=== PATIENT | male | born 1945 | race Caucasian/White ===

== ENCOUNTER 2017-01-07 00:53 | Emergency (ER) | payer MEDICARE ==
[~2017-01-07] VITALS: Ht 180.3 cm; Wt 97.5 kg
[~2017-01-07 00:53] MED LIST: ASPI325T PO; ATOR20TA15 PO; CARV3.12 PO; CYCL1TAB29 PO; GABA400C5 PO; ISOS30TA3 PO; MULTTAB67 PO; NEXI20CA PO; TAMS0.4C4 PO; TRAM50TA PO; VITA2000 PO; [UNRECOGNIZED DRUG - SUPPLY] SQ
[2017-01-07 00:55] VITALS: BP 182/78; PULSE 77; RESP 16; TEMP 98.5; O2SAT 97
[2017-01-07] MEDS ORDERED: ASPI81CH CHEW (01:54)
[2017-01-07] MEDS ORDERED: GABA600T PO (01:54)
[2017-01-07] MEDS ORDERED: PLAV75TA29 PO (02:09)
[2017-01-07] MEDS ORDERED: CEPH500C PO (02:10)
[2017-01-07] MEDS ORDERED: ROBA500T PO (02:10)
[2017-01-07] MEDS ORDERED: HYDR-3533 PO (02:10)
[2017-01-07] MEDS ORDERED: METHOCARBAMOL 500 MG TAB PO ONE (02:15)
[2017-01-07] MEDS ORDERED: CEPHALEXIN MONOHYDRATE 500 MG CAP PO ONE (02:15)
[2017-01-07] MEDS ORDERED: ACETAMINOPHEN/HYDROcodone 325 MG/5 MG TAB PO ONE (02:15)
--- NOTE | 2017-01-07 02:20 | PD ---
HPI Chief Complaint: Back/ Neck Pain or Injury Time Seen by Provider: 02:15 Travel History International Travel<30 days: No Contact w/Intl Traveler<30days: No Traveled to known affect area: No History of Present Illness HPI 71-year-old white male presents to emergency department with complaints of neck pain for the last several days. He states that he has gotten a new mattress and it is very firm. He states that he has had neck pain in the past and has taken a muscle relaxer. He denies any direct trauma. He does note that he is had some redness, burning and irritation on the tip of his penis. He states that he gets this periodically after being on a new experimental drug for his diabetes. It causes him to urinate frequently. He states that he feels that this is similar to a urinary tract infection. He states that she typically gets antibiotics. He does have an antifungal at home which she has been using. He denies any fever or chills. No nausea vomiting. He states that his sugars have been under control. He does have neuropathy in his feet. PFSH Past Medical History Hx Anticoagulant Therapy: Yes Arthritis: Yes (KNEE) Asthma: No Autoimmune Disease: No Blood Disorders: Yes Anxiety: No Depression: Yes Heart Rhythm Problems: No Cancer: Yes (SKIN) Cardiac Catheterization: Yes Cardiovascular Problems: Yes (9 stents, 5 vessel bypass) High Cholesterol: No Chemotherapy: No Chest Pain: Yes Congestive Heart Failure: No COPD: No Cerebrovascular Accident: No Coronary Artery Disease: Yes Diabetes: Yes Patient Takes Glucophage: No Diminished Hearing: No Endocrine: Yes Gastrointestinal Disorders: Yes (GERD) GERD: Yes Glaucoma: No Genitourinary: No Headaches: No Hepatitis: No Hiatal Hernia: Yes Hypertension: Yes Immune Disorder: No Implanted Vascular Access Dvce: Yes (insulin pump) Kidney Stones: No Musculoskeletal: No Neurologic: Yes (PERIPHERAL NEUROPATHY RLE) Psychiatric: No Reproductive: No Respiratory: Yes (sleep apnea) Migraines: No Myocardial Infarction: No Radiation Therapy: No Renal Failure: No Seizures: No Sickle Cell Disease: No Sleep Apnea: Yes (C-PAP) Thyroid Disease: No Ulcer: No Tetanus Vaccination: < 5 Years Influenza Vaccination: Yes PNEUMOCCOCAL Vaccine (Year): 1 Past Surgical History Abdominal Surgery: Yes (RIGHT INGUINAL HERNIA REPAIR) AICD: No Appendectomy: No Arteriovenous Shunt: No Body Medical Devices: cardiac stents, PINS LEFT HIP Cardiac Surgery: Yes (HEART CATH 7 STENTS; CABG) Cholecystectomy: No Coronary Artery Bypass Graft: Yes (X 5 VESSELS) Coronary Stent: Yes (9 STENTS) Ear Surgery: Yes (HUMBERTO. CATARACT EXTRACT.) Endocrine Surgery: No Eye Surgery: Yes (HUMBERTO. CATARACT) Genitourinary Surgery: No Gynecologic Surgery: No Insulin Pump: No Joint Replacement: No Neurologic Surgery: No Oral Surgery: No Pacemaker: No Thoracic Surgery: No Other Surgery: Yes (NASAL SURGERY) Family History Family Myocardial Infarction: Yes Social History Alcohol Use: No Tobacco Use: No Substance Use: No Allergies-Medications (Allergen,Severity, Reaction): Coded Allergies: Sulfamethoxazole (Verified Allergy, Severe, Rash, 01/07/17) Reported Meds & Prescriptions Reported Meds & Active Scripts Active Lortab (Hydrocodone-Acetaminophen) 5-325 Mg Tab 1 Tab PO Q6H PRN Robaxin (Methocarbamol) 500 Mg Tab 500 Mg PO QID Cephalexin 500 Mg Cap 500 Mg PO Q6H Reported Plavix (Clopidogrel Bisulfate) 75 Mg Tab 75 Mg PO DAILY Aspirin 81 Mg Chew 81 Mg CHEW DAILY Gabapentin 600 Mg Tab 600 Mg PO TID Multiple Vitamin 1 Tab 1 Tab PO DAILY Vitamin D3 (Cholecalciferol) 2,000 Unit Cap 1 Cap PO DAILY Nexium (Esomeprazole DR) 20 Mg Capdr 1 Cap PO DAILY [medtronic pump] SQ PUMPS HUMALOG Atorvastatin (Atorvastatin Calcium) 20 Mg Tab 1 Tab PO DAILY Tamsulosin (Tamsulosin HCl) 0.4 Mg Cap 1 Cap PO DAILY Isosorbide Mononitrate ER (Isosorbide Mononitrate) 30 Mg Shaye 1 Tab PO DAILY Carvedilol 3.125 Mg Tab 1 Tab PO DAILY Tramadol (Tramadol HCl) 50 Mg Tab 1 Tab PO BID-TID PRN Review of Systems Except as stated in HPI: all other systems reviewed are Neg Physical Exam Narrative GENERAL: Well-developed, well-nourished in no apparent distress. Nontoxic appearing. HEAD: Normocephalic, atraumatic. EYES: Pupils equal round and reactive. Extraocular motions intact. No scleral icterus. No injection or drainage. ENT: Nose clear. Throat without erythema, tonsillar hypertrophy or exudate. Uvula midline. Airway patent. NECK: Trachea midline. Patient has tenderness to the right and left mastoid insertion is down into the paracervical muscles and trapezius. There is mild-to -moderate spasm. Patient has significant decreased range of motion due to pain. No central bony tenderness or spasm. CARDIOVASCULAR: Regular rate and rhythm without murmurs, gallops, or rubs. RESPIRATORY: Clear to auscultation. Breath sounds equal bilaterally. No wheezes , rales, or rhonchi. GASTROINTESTINAL: Abdomen soft, non-tender, nondistended. No hepato-splenomegaly , or palpable masses. No guarding. EXTREMITIES: No clubbing, cyanosis, or edema. No joint tenderness. BACK: Nontender without deformity. No flank tenderness. NEUROLOGICAL: Awake, alert and oriented x 3 .Cranial nerves grossly intact. Motor and sensory grossly within normal limits. Normal speech. GENITOURINARY: Circumcised. Testes descended bilaterally without evidence of rotation. Patient has erythema and irritation to the tip of the glans on the volar surface.. No urethral discharge. Data Data Last Documented VS Vital Signs Date Time Temp Pulse Resp B/P Pulse Ox O2 Delivery O2 Flow Rate FiO2 01/07/17 00:55 98.5 77 16 182/78 97 Room Air Orders Cephalexin (Keflex) (01/07/17 02:15) Acetamin-Hydrocod 325-5 Mg ([place] 5-325 (01/07/17 02:15) Methocarbamol (Robaxin) (01/07/17 02:15) MDM Medical Decision Making Medical Screen Exam Complete: Yes Emergency Medical Condition: Yes Medical Record Reviewed: Yes Differential Diagnosis Differential diagnoses: Fracture, sprain, strain, spasm, UTI, urethritis, tinea Narrative Course Patient's given Lortab 5 a grams by mouth, Norflex 500 mg by mouth, as well as Keflex 500 mg by mouth. Patient's encouraged to continue to use his nystatin cream 4 times daily. This is neck spasm, neck pain, urethritis, tinea Diagnosis Primary Impression: neck spasm Additional Impressions: Neck pain urethritis tinea Patient Instructions: Narcotic given in the ED, General Instructions Additional Instructions: Rest. Ice for the next 3 days followed by heat . Robaxin, Lortab, Keflex. Continue local wound care with soap and water and apply her nystatin cream 4 times daily.. Follow-up with a primary care doctor in 3-5 days. Return to the ER for emergencies. Med/Other Pt SpecificInfo: Prescription(s) given, Wound Care Scripts Hydrocodone-Acetaminophen (Lortab)5-325 Mg Tab1 Tab PO Q6H PRN (PAIN) #20 TAB Prov:Dann Gan MD 01/07/17 Methocarbamol (Robaxin)500 Mg [id number] Mg PO QID #40 TAB Prov:Dann Gan MD 01/07/17 Cephalexin 500 Mg [id number] Mg PO Q6H #40 CAP Prov:Dann Gan MD 01/07/17 Disposition: 01 DISCHARGE HOME Condition: Stable Varun Mae Jan 07, 2017 02:20
== END 2017-01-07 02:30 | disposition home or self-care (01) ==
LOC: NEPD 00:53
DX: M62.838 Other muscle spasm (principal); N34.2 Other urethritis; B35.9 Dermatophytosis, unspecified; E11.40 Type 2 diabetes mellitus with diabetic neuropathy, unspecified; I10 Essential (primary) hypertension; K21.9 Gastro-esophageal reflux disease without esophagitis; I25.10 Atherosclerotic heart disease of native coronary artery without angina pectoris; M13.869 Other specified arthritis, unspecified knee; F32.9 Major depressive disorder, single episode, unspecified
CPT/HCPCS: 99284

== ENCOUNTER 2018-05-08 00:24 | Inpatient (IN) ==
[2018-05-08] MEDS ORDERED: Vancomycin Inj 1,000 MG in Sodium Chlor 0.9% Inj 250 ML IV.SIG ONE (00:42)
[2018-05-08] MEDS ORDERED: Midazolam Inj 5 MG/ML 1 ML Vial ONE (00:42)
[2018-05-08] MEDS ORDERED: Piperacil/Tazo 4.5 GM Premix 4.5 GM/100 ML BAG IV.SIG ONE (00:42)
[2018-05-08] MEDS ORDERED: Propofol 1000 mg/100 ml Inj 1,000 MG/100 ML BOTTLE ONE (00:54)
[2018-05-08] MEDS ORDERED: Lidocaine 2% 100 MG/5 ML Syringe IV.PUSH ONE ×2 (01:04→19:19)
[2018-05-08] MEDS ORDERED: Succinylcholine Inj 200 MG/10 ML Vial IV.PUSH ONE (01:04)
[2018-05-08] MEDS ORDERED: Amiodarone Inj 150 MG in Dextrose 5% in Water Inj 97 ML IV.SIG ONE ×2 (01:04)
[2018-05-08] MEDS ORDERED: Etomidate Inj 20 MG/10 ML Ampul IV.PUSH ONE (01:04)
[2018-05-08 01:24] LABS: Baso # (Auto) 0.1 th/mm3 (0.0-0.2); Baso % (Auto) 0.9 % (0.0-2.0); Eos # (Auto) 0.1 th/mm3 (0.0-0.4); Eos % (Auto) 1.1 % (0.0-4.0); Hematocrit 41.9 % (39.0-51.0); Lymph # (Auto) 2.4 th/mm3 (1.0-4.8); Mean Corpuscular HGB Conc 33.5 % (32.0-36.0); Mean Corpuscular Hemoglobin 31.7 pg (27.0-34.0); Mean Corpuscular Volume 94.4 fL (80.0-100.0); Mean Platelet Volume 9.4 fL (7.0-11.0); Mono # (Auto) 0.4 th/mm3 (0.0-0.9); Mono % (Auto) 4.8 % (0.0-8.0); Neut # (Auto) 5.2 th/mm3 (1.8-7.7); Neut % (Auto) 64.2 % (16.0-70.0); Platelet Count 202 th/mm3 (150-450); Red Blood Count 4.43 mil/mm3 (4.50-5.90); Red Cell Distribution Width 14.6 % (11.6-17.2); White Blood Count 8.1 th/mm3 (4.0-11.0)
--- NOTE | 2018-05-08 01:33 | XR ---
EXAM DATE: 05/08/2018 1:16 AM EST AGE/SEX: 72 years / Male INDICATIONS: E-T tube, right subclavian central line, and orogastric tube placements. CLINICAL DATA: This is the patient's initial encounter. Patient reports that signs and symptoms have been present for 1 day and indicates a pain score of Nonresponsive. MEDICAL/SURGICAL HISTORY: Non-responsive. CABG. COMPARISON: POI, XR RIBS W/ PA CHEST, RIGHT, 04/25/2018. . FINDINGS: A single AP view of the chest demonstrates interval intubation. The tip of the endotracheal tube is 2 cm proximal to the teresa. Right subclavian central line with the tip within the right atrium withou t pneumothorax. Orogastric tube tip courses off the inferior margin of the film. Patchy parenchymal c onsolidations involving both lungs but most pronounced within the right upper lobe. No effusions. Hea rt is normal in size. Median sternotomy wires. CONCLUSION: Lines and tubes as detailed above. Bibasilar parenchymal consolidations. Electronically signed by: Darrel Garcia MD 05/08/2018 1:32 AM EST
--- NOTE | 2018-05-08 01:39 | ED ---
HPI General Chief Complaint: Arrhythmia / Palpitations Stated Complaint: Medical Time Seen by Provider: 05/08/18 00:36 Source: EMS Mode of arrival: EMS Limitations: altered mental status History of Present Illness HPI narrative: 72-year-old male was brought to the emergency room by EMS emergently for altered mental status/unresponsiveness and wide-complex tachycardia on the monitor. They identified the rhythm as V. tach. Patient had pulse. They administered 150 mg of amiodarone on route. Patient arrived with a GCS of 8 and involuntary movements. As per the paramedics the called 911. The had informed them that he is a diabetic on an insulin pump and was recently diagnosed with UTI. He is on antibiotic. He had got up to go to the bathroom and she heard noises that made her believe that he had fallen. She found him unresponsive prior to calling them. His blood sugar was approximately 450 by EMS. Patient arrived with a pulse of 145, wide-complex tachycardia. Blood pressure was relatively stable. He was in no condition to give any meaningful history. He was getting oxygen via nonrebreather. Related Data Allergies Allergy/AdvReac Type Severity Reaction Status Date / Time sulfamethoxazole Allergy Severe Rash Verified 07/06/17 09:08 Review of Systems ROS Unobtainable ROS Unobtainable: unobtainable due to mental status ROS: all other systems reviewed are negative [facility] Medical History Medical History Medical history unknown (Acute) Surgical history unknown (Acute) Social History Social History Substance History: No History of Abuse Second Hand Smoke Exposure: No Smoking Status: Never smoker How Often Do You Have a Drink Containing Alcohol: Never Hx Recent Travel: No Recent Travel in [facility] within the Last 8 Weeks: No Recent Out of Country Travel within the Last 8 Weeks: No Immunization History Tetanus Immunization: >5 Years Exam Narrative Exam Narrative: GENERAL: Unresponsive, shaking movements, in extremis SKIN: Focused skin assessment warm/dry. Mottled and cyanotic HEAD: Atraumatic. Normocephalic. Bilateral knee abrasions with no active bleeding EYES: Pupils equal and round. No scleral icterus. No injection or drainage. ENT: No nasal bleeding or discharge. Mucous membranes pink and moist. NECK: Trachea midline. No JVD. CARDIOVASCULAR: Regular rate and rhythm. Tachycardia. No murmur appreciated. RESPIRATORY: Tachypnic, air hunger. GASTROINTESTINAL: Abdomen soft, non-tender, nondistended. Hepatic and splenic margins not palpable. MUSCULOSKELETAL: No obvious deformities. No clubbing. No cyanosis. No edema. NEUROLOGICAL: GCS of 8 PSYCHIATRIC: Unable to determine Procedures Cardoveresion 3: Time out performed cardioversion: Yes Consent: Emergent Description: Patient was intubated and sedated Joules: 200 (1.) Outcome: No Change Complications: none Central Line Placement Right SC: Time Out Performed: Yes Patient Placed on Monitor/Pulse Ox: Yes MD Prep: mask, gown and gloves Central Line Prep: Chlorhexidine scrub Local anesthesia used: lidocaine 1% Amount of anesthesia used (mL): 5 Ultrasound Used for Placement: No Central Line Lumen Inserted: triple Post Procedure: good blood return, all ports aspirated, flushed, capped and sterile dressing applied Post Procedure X-Ray: tip of catheter in good position Patient Tolerated Procedure: well Complications: none Intubation Time Out Performed: Yes Sedative: etomidate Mg Given: 20 Paralytic: succinylcholine Mg Given: 100 Laryngoscope: Yessica (4) ET Tube Size: 7.5 ET Tube Uncuffed: No Tube Secured Depth (cm): 24 Tube Secured Location: lips Tube Placement Confirmation: visualized tube passing through cords and equal breath sounds bilaterally Patient Tolerated Procedure: well Intubation Complications: none Course Initial Documented Vital Signs Temperature 104.3 F H 05/08/18 00:31 Pulse Rate 150 H 05/08/18 00:31 Respiratory Rate 25 H 05/08/18 00:31 Blood Pressure 126/72 18 00:31 Pulse Oximetry 91 L 05/08/18 00:31 Last Documented Vital Signs Temperature 100.7 F H 05/11/18 20:00 Pulse Rate 80 05/11/18 21:00 Respiratory Rate 16 05/11/18 21:00 Blood Pressure 116/58 L 05/11/18 21:00 Pulse Oximetry 92 L 05/11/18 21:00 Critical Care Time Critical Care Time: Yes Total Critical Care Time: 75 Attestation: Aggregate critical care time was 75 minutes. Time to perform other separately billable procedures was not included in the critical care time. My time did not include minutes spent treating any other patients simultaneously or on activities that did not directly contribute to the patient's treatment. The services I provided to this patient were to treat and/or prevent clinically significant deterioration that could result in: Recalcitrant V. tach, respiratory failure, V. tach management I provided critical care services requiring my management, as noted below: Chart data review, documentation time, medication orders and management, vital sign assessments/reviewing monitor data, ordering and reviewing lab tests, ordering and interpreting/reviewing x-rays and diagnostic studies, care of the patient and discussion of the patient with the admitting physicians. Medical Decision Making MDM Narrative Medical decision making narrative: 1:38 AM after patient was emergently intubated soon after the arrival based on the rhythm on the monitor V. tach was identified. He was given 150 mg of amiodarone a second bolus followed by a drip. He was also given IV calcium 2 g, IV magnesium 2 g, IV lidocaine bolus, IV bicarb 2 A. Subsequently he was also try to be synchronized cardioversion with increments of energy starting at 150 J followed by 200 J and then [address] Blackwood was emergently contacted on the phone. He approved of all the treatments given so far and recommended lidocaine drip in addition. OG and Beauchamp was put in. At this point rectal temperature was found out to be 104.5. Cold IV saline was ordered and IV acetaminophen. Bait Man Dr. Lott was contacted who came down and saw the patient and spoke with the family as well. Antibiotic as per sepsis protocol was ordered. Chest x-ray confirmed the ET tube, central line and OG tube position. At this point patient had converted to a narrower complex tachycardia. Patient has been admitted to the mopper. Family is by the bedside. Medical Screen Exam Complete: Yes Emergency Medical Condition: Yes Lab Data Result diagrams: 05/11/18 05:55 05/11/18 05:55 Lab Results 05/08/18 05/08/18 05/08/18 Range/Units 00:43 01:00 01:00 WBC 8.1 (4.0-11.0) th/mm3 RBC 4.43 L (4.50-5.90) mil/mm3 Hgb 14.0 (13.0-17.0) gm/dL Hct 41.9 (39.0-51.0) % MCV 94.4 (80.0-100.0) fL MCH 31.7 (27.0-34.0) pg MCHC 33.5 (32.0-36.0) % RDW 14.6 (11.6-17.2) % Plt Count 202 (150-450) th/mm3 MPV 9.4 (7.0-11.0) fL Prelim Diff (Auto) Neut % (Auto) 64.2 (16.0-70.0) % Lymph % (Auto) 29.0 (9.0-44.0) % [place] % (Auto) 4.8 (0.0-8.0) % Eos % (Auto) 1.1 (0.0-4.0) % Baso % (Auto) 0.9 (0.0-2.0) % Neut # (Auto) 5.2 (1.8-7.7) th/mm3 Lymph # (Auto) 2.4 (1.0-4.8) th/mm3 [place] # (Auto) 0.4 (0.0-0.9) th/mm3 Eos # (Auto) 0.1 (0.0-0.4) th/mm3 Baso # (Auto) 0.1 (0.0-0.2) th/mm3 WBC Differential . Diff Scan Differential Comment Auto diff final Platelet Estimate (Normal) Platelet Morphology (Normal) PT (9.8-11.6) sec INR Ratio Puncture Site Patient Temperature O2 Saturation (90-100) % ABG pH (7.380-7.420) ABG pCO2 (38-42) mmHg ABG pO2 (61-120) mmHg ABG HCO3 (22-26) mmol/L ABG O2 Content (12.0-20.0) Vol % ABG Base Excess (-2-2) mmol/L ABG Methemoglobin (0-2) % Raul Test Hemoglobin (12.0-16.0) G/DL Carboxyhemoglobin (0-4) % O2 Delivery Device Vent Setting Inspired O2 % Critical Value Sodium 143 (136-145) meq/L Potassium 3.8 (3.5-5.1) meq/L Chloride 105 (98-107) meq/L Carbon Dioxide 23.8 (21.0-32.0) meq/L Anion Gap 14 (5-15) meq/L BUN 12 (7-18) mg/dL Creatinine 1.56 H (0.60-1.30) mg/dL Estimated GFR 44 L (>89) mL/min POC Glucose 416 H (68-110) mg/dl Random Glucose 401 H (74-106) mg/dL Lactic Acid (0.4-2.0) mmol/L Calcium 9.9 (8.5-10.1) mg/dL Prot Corrected Calcium (8.5-10.1) mg/dL Phosphorus (2.5-4.9) mg/dL Magnesium 2.7 H (1.5-2.5) mg/dL Total Bilirubin 0.5 (0.2-1.0) mg/dL AST 26 (15-37) U/L ALT 28 (12-78) U/L Alkaline Phosphatase 116 (45-117) U/L Troponin I 1.51 H* (0.02-0.05) ng/mL Total Protein 5.5 L (6.4-8.2) g/dL Albumin 2.5 L (3.4-5.0) g/dL TSH (0.358-3.740) uIU/mL Urine Color (Yellw/Straw) Urine Clarity (Clear) Urine pH (5.0-8.5) Ur Specific [place] (1.002-1.035) Urine Protein (Neg-Trace) mg/dL Urine Glucose (UA) (Negative) mg/dL Urine Ketones (Negative) mg/dL Urine Occult Blood (Negative) Urine Nitrate (Negative) Urine Bilirubin (Negative) Urine Urobilinogen (Less than 2) mg/dL Ur Leukocyte Esterase (Negative) Urine RBC (0-3) /hpf Urine WBC (0-5) /hpf Ur Squamous Epith Cells (0-5) /hpf Urine Bacteria (None) /hpf Urine Mucus (Occasional) /lpf Micro UA Comment Ur Microscopic Review Urine Culture Comments Nasal Screen MRSA (PCR) (Negative) Urine Opiates Screen (Neg) Ur Barbiturates Screen (Neg) Ur Amphetamines Screen (Neg) U Benzodiazepines Scrn (Neg) Urine Cocaine Screen (Neg) U Cannabinoids Screen (Neg) Serum Alcohol Less than 3 (0-5) mg/dL Hepatitis A IgM Ab (Nonreactive) Hep Bs Antigen (Nonreactive) Hep B Core IgM Ab (Nonreactive) Hep C IgG Ab (Nonreactive) 05/08/18 05/08/18 05/08/18 Range/Units 01:00 01:00 01:30 WBC (4.0-11.0) th/mm3 RBC (4.50-5.90) mil/mm3 Hgb (13.0-17.0) gm/dL Hct (39.0-51.0) % MCV (80.0-100.0) fL MCH (27.0-34.0) pg MCHC (32.0-36.0) % RDW (11.6-17.2) % Plt Count (150-450) th/mm3 MPV (7.0-11.0) fL Prelim Diff (Auto) Neut % (Auto) (16.0-70.0) % Lymph % (Auto) (9.0-44.0) % [place] % (Auto) (0.0-8.0) % Eos % (Auto) (0.0-4.0) % Baso % (Auto) (0.0-2.0) % Neut # (Auto) (1.8-7.7) th/mm3 Lymph # (Auto) (1.0-4.8) th/mm3 [place] # (Auto) (0.0-0.9) th/mm3 Eos # (Auto) (0.0-0.4) th/mm3 Baso # (Auto) (0.0-0.2) th/mm3 WBC Differential Diff Scan Differential Comment Platelet Estimate (Normal) Platelet Morphology (Normal) PT 10.7 (9.8-11.6) sec INR 1.1 Ratio Puncture Site Right radial Patient Temperature 98.6 O2 Saturation 97 (90-100) % ABG pH 7.35 L (7.380-7.420) ABG pCO2 42 (38-42) mmHg ABG pO2 146 H (61-120) mmHg ABG HCO3 23 (22-26) mmol/L ABG O2 Content 19.7 (12.0-20.0) Vol % ABG Base Excess -2.0 (-2-2) mmol/L ABG Methemoglobin 0.9 (0-2) % Raul Test Present Hemoglobin 14.3 (12.0-16.0) G/DL Carboxyhemoglobin 0.7 (0-4) % O2 Delivery Device Ventilator Vent Setting Inspired O2 100 % Critical Value No Sodium (136-145) meq/L Potassium (3.5-5.1) meq/L Chloride (98-107) meq/L Carbon Dioxide (21.0-32.0) meq/L Anion Gap (5-15) meq/L BUN (7-18) mg/dL Creatinine (0.60-1.30) mg/dL Estimated GFR (>89) mL/min POC Glucose (68-110) mg/dl Random Glucose (74-106) mg/dL Lactic Acid (0.4-2.0) mmol/L Calcium (8.5-10.1) mg/dL Prot Corrected Calcium (8.5-10.1) mg/dL Phosphorus (2.5-4.9) mg/dL Magnesium (1.5-2.5) mg/dL Total Bilirubin (0.2-1.0) mg/dL AST (15-37) U/L ALT (12-78) U/L Alkaline Phosphatase (45-117) U/L Troponin I (0.02-0.05) ng/mL Total Protein (6.4-8.2) g/dL Albumin (3.4-5.0) g/dL TSH 5.370 H (0.358-3.740) uIU/mL Urine Color (Yellw/Straw) Urine Clarity (Clear) Urine pH (5.0-8.5) Ur Specific [place] (1.002-1.035) Urine Protein (Neg-Trace) mg/dL Urine Glucose (UA) (Negative) mg/dL Urine Ketones (Negative) mg/dL Urine Occult Blood (Negative) Urine Nitrate (Negative) Urine Bilirubin (Negative) Urine Urobilinogen (Less than 2) mg/dL Ur Leukocyte Esterase (Negative) Urine RBC (0-3) /hpf Urine WBC (0-5) /hpf Ur Squamous Epith Cells (0-5) /hpf Urine Bacteria (None) /hpf Urine Mucus (Occasional) /lpf Micro UA Comment Ur Microscopic Review Urine Culture Comments Nasal Screen MRSA (PCR) (Negative) Urine Opiates Screen (Neg) Ur Barbiturates Screen (Neg) Ur Amphetamines Screen (Neg) U Benzodiazepines Scrn (Neg) Urine Cocaine Screen (Neg) U Cannabinoids Screen (Neg) Serum Alcohol (0-5) mg/dL Hepatitis A IgM Ab (Nonreactive) Hep Bs Antigen (Nonreactive) Hep B Core IgM Ab (Nonreactive) Hep C IgG Ab (Nonreactive) 05/08/18 05/08/18 05/08/18 Range/Units 03:30 03:40 05:00 WBC (4.0-11.0) th/mm3 RBC (4.50-5.90) mil/mm3 Hgb (13.0-17.0) gm/dL Hct (39.0-51.0) % MCV (80.0-100.0) fL MCH (27.0-34.0) pg MCHC (32.0-36.0) % RDW (11.6-17.2) % Plt Count (150-450) th/mm3 MPV (7.0-11.0) fL Prelim Diff (Auto) Neut % (Auto) (16.0-70.0) % Lymph % (Auto) (9.0-44.0) % [place] % (Auto) (0.0-8.0) % Eos % (Auto) (0.0-4.0) % Baso % (Auto) (0.0-2.0) % Neut # (Auto) (1.8-7.7) th/mm3 Lymph # (Auto) (1.0-4.8) th/mm3 [place] # (Auto) (0.0-0.9) th/mm3 Eos # (Auto) (0.0-0.4) th/mm3 Baso # (Auto) (0.0-0.2) th/mm3 WBC Differential Diff Scan Differential Comment Platelet Estimate (Normal) Platelet Morphology (Normal) PT (9.8-11.6) sec INR Ratio Puncture Site Patient Temperature O2 Saturation (90-100) % ABG pH (7.380-7.420) ABG pCO2 (38-42) mmHg ABG pO2 (61-120) mmHg ABG HCO3 (22-26) mmol/L ABG O2 Content (12.0-20.0) Vol % ABG Base Excess (-2-2) mmol/L ABG Methemoglobin (0-2) % Raul Test Hemoglobin (12.0-16.0) G/DL Carboxyhemoglobin (0-4) % O2 Delivery Device Vent Setting Inspired O2 % Critical Value Sodium (136-145) meq/L Potassium (3.5-5.1) meq/L Chloride (98-107) meq/L Carbon Dioxide (21.0-32.0) meq/L Anion Gap (5-15) meq/L BUN (7-18) mg/dL Creatinine (0.60-1.30) mg/dL Estimated GFR (>89) mL/min POC Glucose (68-110) mg/dl Random Glucose (74-106) mg/dL Lactic Acid 4.0 H (0.4-2.0) mmol/L Calcium (8.5-10.1) mg/dL Prot Corrected Calcium (8.5-10.1) mg/dL Phosphorus (2.5-4.9) mg/dL Magnesium (1.5-2.5) mg/dL Total Bilirubin (0.2-1.0) mg/dL AST (15-37) U/L ALT (12-78) U/L Alkaline Phosphatase (45-117) U/L Troponin I (0.02-0.05) ng/mL Total Protein (6.4-8.2) g/dL Albumin (3.4-5.0) g/dL TSH (0.358-3.740) uIU/mL Urine Color (Yellw/Straw) Urine Clarity (Clear) Urine pH (5.0-8.5) Ur Specific [place] (1.002-1.035) Urine Protein (Neg-Trace) mg/dL Urine Glucose (UA) (Negative) mg/dL Urine Ketones (Negative) mg/dL Urine Occult Blood (Negative) Urine Nitrate (Negative) Urine Bilirubin (Negative) Urine Urobilinogen (Less than 2) mg/dL Ur Leukocyte Esterase (Negative) Urine RBC (0-3) /hpf Urine WBC (0-5) /hpf Ur Squamous Epith Cells (0-5) /hpf Urine Bacteria (None) /hpf Urine Mucus (Occasional) /lpf Micro UA Comment Ur Microscopic Review Urine Culture Comments Nasal Screen MRSA (PCR) Not detected (Negative) Urine Opiates Screen Neg (Neg) Ur Barbiturates Screen Neg (Neg) Ur Amphetamines Screen Neg (Neg) U Benzodiazepines Scrn Pos H (Neg) Urine Cocaine Screen Neg (Neg) U Cannabinoids Screen Neg (Neg) Serum Alcohol (0-5) mg/dL Hepatitis A IgM Ab (Nonreactive) Hep Bs Antigen (Nonreactive) Hep B Core IgM Ab (Nonreactive) Hep C IgG Ab (Nonreactive) 05/08/18 05/08/18 05/08/18 Range/Units 05:00 06:21 10:00 WBC (4.0-11.0) th/mm3 RBC (4.50-5.90) mil/mm3 Hgb (13.0-17.0) gm/dL Hct (39.0-51.0) % MCV (80.0-100.0) fL MCH (27.0-34.0) pg MCHC (32.0-36.0) % RDW (11.6-17.2) % Plt Count (150-450) th/mm3 MPV (7.0-11.0) fL Prelim Diff (Auto) Neut % (Auto) (16.0-70.0) % Lymph % (Auto) (9.0-44.0) % [place] % (Auto) (0.0-8.0) % Eos % (Auto) (0.0-4.0) % Baso % (Auto) (0.0-2.0) % Neut # (Auto) (1.8-7.7) th/mm3 Lymph # (Auto) (1.0-4.8) th/mm3 [place] # (Auto) (0.0-0.9) th/mm3 Eos # (Auto) (0.0-0.4) th/mm3 Baso # (Auto) (0.0-0.2) th/mm3 WBC Differential Diff Scan Differential Comment Platelet Estimate (Normal) Platelet Morphology (Normal) PT (9.8-11.6) sec INR Ratio Puncture Site Patient Temperature O2 Saturation (90-100) % ABG pH (7.380-7.420) ABG pCO2 (38-42) mmHg ABG pO2 (61-120) mmHg ABG HCO3 (22-26) mmol/L ABG O2 Content (12.0-20.0) Vol % ABG Base Excess (-2-2) mmol/L ABG Methemoglobin (0-2) % Raul Test Hemoglobin (12.0-16.0) G/DL Carboxyhemoglobin (0-4) % O2 Delivery Device Vent Setting Inspired O2 % Critical Value Sodium 141 (136-145) meq/L Potassium 4.6 D (3.5-5.1) meq/L Chloride 107 (98-107) meq/L Carbon Dioxide 25.0 (21.0-32.0) meq/L Anion Gap 9 (5-15) meq/L BUN 15 (7-18) mg/dL Creatinine 1.80 H (0.60-1.30) mg/dL Estimated GFR 37 L (>89) mL/min POC Glucose 219 H (68-110) mg/dl Random Glucose 285 H D (74-106) mg/dL Lactic Acid (0.4-2.0) mmol/L Calcium 8.8 D (8.5-10.1) mg/dL Prot Corrected Calcium (8.5-10.1) mg/dL Phosphorus (2.5-4.9) mg/dL Magnesium (1.5-2.5) mg/dL Total Bilirubin 2.6 H (0.2-1.0) mg/dL AST 399 H (15-37) U/L ALT 187 H (12-78) U/L Alkaline Phosphatase 132 H (45-117) U/L Troponin I Greater than 40.00 H* (0.02-0.05) ng/mL Total Protein 5.4 L (6.4-8.2) g/dL Albumin 2.6 L (3.4-5.0) g/dL TSH (0.358-3.740) uIU/mL Urine Color [place] (Yellw/Straw) Urine Clarity Hazy H (Clear) Urine pH 5.0 (5.0-8.5) Ur Specific [place] 1.039 H (1.002-1.035) Urine Protein 100 H (Neg-Trace) mg/dL Urine Glucose (UA) 50 (Negative) mg/dL Urine Ketones Negative (Negative) mg/dL Urine Occult Blood Large H (Negative) Urine Nitrate Negative (Negative) Urine Bilirubin Negative (Negative) Urine Urobilinogen 2.0 H (Less than 2) mg/dL Ur Leukocyte Esterase Negative (Negative) Urine RBC (0-3) /hpf Urine WBC 5 (0-5) /hpf Ur Squamous Epith Cells <1 (0-5) /hpf Urine Bacteria Few H (None) /hpf Urine Mucus Few H (Occasional) /lpf Micro UA Comment Cath-culture ind Ur Microscopic Review Not Reportable Urine Culture Comments Cath-cult indicated Nasal Screen MRSA (PCR) (Negative) Urine Opiates Screen (Neg) Ur Barbiturates Screen (Neg) Ur Amphetamines Screen (Neg) U Benzodiazepines Scrn (Neg) Urine Cocaine Screen (Neg) U Cannabinoids Screen (Neg) Serum Alcohol (0-5) mg/dL Hepatitis A IgM Ab (Nonreactive) Hep Bs Antigen (Nonreactive) Hep B Core IgM Ab (Nonreactive) Hep C IgG Ab (Nonreactive) 05/08/18 05/08/18 05/08/18 Range/Units 14:14 17:57 21:30 WBC (4.0-11.0) th/mm3 RBC (4.50-5.90) mil/mm3 Hgb (13.0-17.0) gm/dL Hct (39.0-51.0) % MCV (80.0-100.0) fL MCH (27.0-34.0) pg MCHC (32.0-36.0) % RDW (11.6-17.2) % Plt Count (150-450) th/mm3 MPV (7.0-11.0) fL Prelim Diff (Auto) Neut % (Auto) (16.0-70.0) % Lymph % (Auto) (9.0-44.0) % [place] % (Auto) (0.0-8.0) % Eos % (Auto) (0.0-4.0) % Baso % (Auto) (0.0-2.0) % Neut # (Auto) (1.8-7.7) th/mm3 Lymph # (Auto) (1.0-4.8) th/mm3 [place] # (Auto) (0.0-0.9) th/mm3 Eos # (Auto) (0.0-0.4) th/mm3 Baso # (Auto) (0.0-0.2) th/mm3 WBC Differential Diff Scan Differential Comment Platelet Estimate (Normal) Platelet Morphology (Normal) PT (9.8-11.6) sec INR Ratio Puncture Site Patient Temperature O2 Saturation (90-100) % ABG pH (7.380-7.420) ABG pCO2 (38-42) mmHg ABG pO2 (61-120) mmHg ABG HCO3 (22-26) mmol/L ABG O2 Content (12.0-20.0) Vol % ABG Base Excess (-2-2) mmol/L ABG Methemoglobin (0-2) % Raul Test Hemoglobin (12.0-16.0) G/DL Carboxyhemoglobin (0-4) % O2 Delivery Device Vent Setting Inspired O2 % Critical Value Sodium (136-145) meq/L Potassium (3.5-5.1) meq/L Chloride (98-107) meq/L Carbon Dioxide (21.0-32.0) meq/L Anion Gap (5-15) meq/L BUN (7-18) mg/dL Creatinine (0.60-1.30) mg/dL Estimated GFR (>89) mL/min POC Glucose 303 H (68-110) mg/dl Random Glucose (74-106) mg/dL Lactic Acid 2.2 H (0.4-2.0) mmol/L Calcium (8.5-10.1) mg/dL Prot Corrected Calcium (8.5-10.1) mg/dL Phosphorus (2.5-4.9) mg/dL Magnesium (1.5-2.5) mg/dL Total Bilirubin (0.2-1.0) mg/dL AST (15-37) U/L ALT (12-78) U/L Alkaline Phosphatase (45-117) U/L Troponin I Greater than 40.00 H* (0.02-0.05) ng/mL Total Protein (6.4-8.2) g/dL Albumin (3.4-5.0) g/dL TSH (0.358-3.740) uIU/mL Urine Color (Yellw/Straw) Urine Clarity (Clear) Urine pH (5.0-8.5) Ur Specific [place] (1.002-1.035) Urine Protein (Neg-Trace) mg/dL Urine Glucose (UA) (Negative) mg/dL Urine Ketones (Negative) mg/dL Urine Occult Blood (Negative) Urine Nitrate (Negative) Urine Bilirubin (Negative) Urine Urobilinogen (Less than 2) mg/dL Ur Leukocyte Esterase (Negative) Urine RBC (0-3) /hpf Urine WBC (0-5) /hpf Ur Squamous Epith Cells (0-5) /hpf Urine Bacteria (None) /hpf Urine Mucus (Occasional) /lpf Micro UA Comment Ur Microscopic Review Urine Culture Comments Nasal Screen MRSA (PCR) (Negative) Urine Opiates Screen (Neg) Ur Barbiturates Screen (Neg) Ur Amphetamines Screen (Neg) U Benzodiazepines Scrn (Neg) Urine Cocaine Screen (Neg) U Cannabinoids Screen (Neg) Serum Alcohol (0-5) mg/dL Hepatitis A IgM Ab (Nonreactive) Hep Bs Antigen (Nonreactive) Hep B Core IgM Ab (Nonreactive) Hep C IgG Ab (Nonreactive) 05/08/18 05/09/18 05/09/18 Range/Units 23:44 02:20 02:20 WBC (4.0-11.0) th/mm3 RBC (4.50-5.90) mil/mm3 Hgb (13.0-17.0) gm/dL Hct (39.0-51.0) % MCV (80.0-100.0) fL MCH (27.0-34.0) pg MCHC (32.0-36.0) % RDW (11.6-17.2) % Plt Count (150-450) th/mm3 MPV (7.0-11.0) fL Prelim Diff (Auto) Neut % (Auto) (16.0-70.0) % Lymph % (Auto) (9.0-44.0) % [place] % (Auto) (0.0-8.0) % Eos % (Auto) (0.0-4.0) % Baso % (Auto) (0.0-2.0) % Neut # (Auto) (1.8-7.7) th/mm3 Lymph # (Auto) (1.0-4.8) th/mm3 [place] # (Auto) (0.0-0.9) th/mm3 Eos # (Auto) (0.0-0.4) th/mm3 Baso # (Auto) (0.0-0.2) th/mm3 WBC Differential Diff Scan Differential Comment Platelet Estimate (Normal) Platelet Morphology (Normal) PT (9.8-11.6) sec INR Ratio Puncture Site Patient Temperature O2 Saturation (90-100) % ABG pH (7.380-7.420) ABG pCO2 (38-42) mmHg ABG pO2 (61-120) mmHg ABG HCO3 (22-26) mmol/L ABG O2 Content (12.0-20.0) Vol % ABG Base Excess (-2-2) mmol/L ABG Methemoglobin (0-2) % Raul Test Hemoglobin (12.0-16.0) G/DL Carboxyhemoglobin (0-4) % O2 Delivery Device Vent Setting Inspired O2 % Critical Value Sodium 140 (136-145) meq/L Potassium 4.4 (3.5-5.1) meq/L Chloride 108 H (98-107) meq/L Carbon Dioxide 22.8 (21.0-32.0) meq/L Anion Gap 9 (5-15) meq/L BUN 17 (7-18) mg/dL Creatinine 1.67 H (0.60-1.30) mg/dL Estimated GFR 40 L (>89) mL/min POC Glucose 267 H (68-110) mg/dl Random Glucose 296 H (74-106) mg/dL Lactic Acid 2.0 (0.4-2.0) mmol/L Calcium 8.1 L (8.5-10.1) mg/dL Prot Corrected Calcium (8.5-10.1) mg/dL Phosphorus 2.8 (2.5-4.9) mg/dL Magnesium 2.2 (1.5-2.5) mg/dL Total Bilirubin 1.5 H (0.2-1.0) mg/dL AST 1287 H (15-37) U/L ALT 1015 H (12-78) U/L Alkaline Phosphatase 127 H (45-117) U/L Troponin I Greater than 40.00 H* (0.02-0.05) ng/mL Total Protein 5.3 L (6.4-8.2) g/dL Albumin 2.2 L (3.4-5.0) g/dL TSH (0.358-3.740) uIU/mL Urine Color (Yellw/Straw) Urine Clarity (Clear) Urine pH (5.0-8.5) Ur Specific [place] (1.002-1.035) Urine Protein (Neg-Trace) mg/dL Urine Glucose (UA) (Negative) mg/dL Urine Ketones (Negative) mg/dL Urine Occult Blood (Negative) Urine Nitrate (Negative) Urine Bilirubin (Negative) Urine Urobilinogen (Less than 2) mg/dL Ur Leukocyte Esterase (Negative) Urine RBC (0-3) /hpf Urine WBC (0-5) /hpf Ur Squamous Epith Cells (0-5) /hpf Urine Bacteria (None) /hpf Urine Mucus (Occasional) /lpf Micro UA Comment Ur Microscopic Review Urine Culture Comments Nasal Screen MRSA (PCR) (Negative) Urine Opiates Screen (Neg) Ur Barbiturates Screen (Neg) Ur Amphetamines Screen (Neg) U Benzodiazepines Scrn (Neg) Urine Cocaine Screen (Neg) U Cannabinoids Screen (Neg) Serum Alcohol (0-5) mg/dL Hepatitis A IgM Ab (Nonreactive) Hep Bs Antigen (Nonreactive) Hep B Core IgM Ab (Nonreactive) Hep C IgG Ab (Nonreactive) 05/09/18 05/09/18 05/09/18 Range/Units 02:20 05:39 12:58 WBC 10.0 (4.0-11.0) th/mm3 RBC 4.25 L (4.50-5.90) mil/mm3 Hgb 13.6 (13.0-17.0) gm/dL Hct 39.6 (39.0-51.0) % MCV 93.3 (80.0-100.0) fL MCH 32.0 (27.0-34.0) pg MCHC 34.3 (32.0-36.0) % RDW 15.2 (11.6-17.2) % Plt Count 133 L D (150-450) th/mm3 MPV 9.5 (7.0-11.0) fL Prelim Diff (Auto) Neut % (Auto) 81.3 H (16.0-70.0) % Lymph % (Auto) 12.7 (9.0-44.0) % [place] % (Auto) 5.2 (0.0-8.0) % Eos % (Auto) 0.1 (0.0-4.0) % Baso % (Auto) 0.7 (0.0-2.0) % Neut # (Auto) 8.2 H (1.8-7.7) th/mm3 Lymph # (Auto) 1.3 (1.0-4.8) th/mm3 [place] # (Auto) 0.5 (0.0-0.9) th/mm3 Eos # (Auto) 0.0 (0.0-0.4) th/mm3 Baso # (Auto) 0.1 (0.0-0.2) th/mm3 WBC Differential . Diff Scan Differential Comment Auto diff final Platelet Estimate (Normal) Platelet Morphology (Normal) PT (9.8-11.6) sec INR Ratio Puncture Site Patient Temperature O2 Saturation (90-100) % ABG pH (7.380-7.420) ABG pCO2 (38-42) mmHg ABG pO2 (61-120) mmHg ABG HCO3 (22-26) mmol/L ABG O2 Content (12.0-20.0) Vol % ABG Base Excess (-2-2) mmol/L ABG Methemoglobin (0-2) % Raul Test Hemoglobin (12.0-16.0) G/DL Carboxyhemoglobin (0-4) % O2 Delivery Device Vent Setting Inspired O2 % Critical Value Sodium (136-145) meq/L Potassium (3.5-5.1) meq/L Chloride (98-107) meq/L Carbon Dioxide (21.0-32.0) meq/L Anion Gap (5-15) meq/L BUN (7-18) mg/dL Creatinine (0.60-1.30) mg/dL Estimated GFR (>89) mL/min POC Glucose 259 H (68-110) mg/dl Random Glucose (74-106) mg/dL Lactic Acid 1.8 (0.4-2.0) mmol/L Calcium (8.5-10.1) mg/dL Prot Corrected Calcium (8.5-10.1) mg/dL Phosphorus (2.5-4.9) mg/dL Magnesium (1.5-2.5) mg/dL Total Bilirubin (0.2-1.0) mg/dL AST (15-37) U/L ALT (12-78) U/L Alkaline Phosphatase (45-117) U/L Troponin I (0.02-0.05) ng/mL Total Protein (6.4-8.2) g/dL Albumin (3.4-5.0) g/dL TSH (0.358-3.740) uIU/mL Urine Color (Yellw/Straw) Urine Clarity (Clear) Urine pH (5.0-8.5) Ur Specific [place] (1.002-1.035) Urine Protein (Neg-Trace) mg/dL Urine Glucose (UA) (Negative) mg/dL Urine Ketones (Negative) mg/dL Urine Occult Blood (Negative) Urine Nitrate (Negative) Urine Bilirubin (Negative) Urine Urobilinogen (Less than 2) mg/dL Ur Leukocyte Esterase (Negative) Urine RBC (0-3) /hpf Urine WBC (0-5) /hpf Ur Squamous Epith Cells (0-5) /hpf Urine Bacteria (None) /hpf Urine Mucus (Occasional) /lpf Micro UA Comment Ur Microscopic Review Urine Culture Comments Nasal Screen MRSA (PCR) (Negative) Urine Opiates Screen (Neg) Ur Barbiturates Screen (Neg) Ur Amphetamines Screen (Neg) U Benzodiazepines Scrn (Neg) Urine Cocaine Screen (Neg) U Cannabinoids Screen (Neg) Serum Alcohol (0-5) mg/dL Hepatitis A IgM Ab (Nonreactive) Hep Bs Antigen (Nonreactive) Hep B Core IgM Ab (Nonreactive) Hep C IgG Ab (Nonreactive) 05/09/18 05/09/18 05/09/18 Range/Units 12:58 13:27 18:41 WBC (4.0-11.0) th/mm3 RBC (4.50-5.90) mil/mm3 Hgb (13.0-17.0) gm/dL Hct (39.0-51.0) % MCV (80.0-100.0) fL MCH (27.0-34.0) pg MCHC (32.0-36.0) % RDW (11.6-17.2) % Plt Count (150-450) th/mm3 MPV (7.0-11.0) fL Prelim Diff (Auto) Neut % (Auto) (16.0-70.0) % Lymph % (Auto) (9.0-44.0) % [place] % (Auto) (0.0-8.0) % Eos % (Auto) (0.0-4.0) % Baso % (Auto) (0.0-2.0) % Neut # (Auto) (1.8-7.7) th/mm3 Lymph # (Auto) (1.0-4.8) th/mm3 [place] # (Auto) (0.0-0.9) th/mm3 Eos # (Auto) (0.0-0.4) th/mm3 Baso # (Auto) (0.0-0.2) th/mm3 WBC Differential Diff Scan Differential Comment Platelet Estimate (Normal) Platelet Morphology (Normal) PT (9.8-11.6) sec INR Ratio Puncture Site Patient Temperature O2 Saturation (90-100) % ABG pH (7.380-7.420) ABG pCO2 (38-42) mmHg ABG pO2 (61-120) mmHg ABG HCO3 (22-26) mmol/L ABG O2 Content (12.0-20.0) Vol % ABG Base Excess (-2-2) mmol/L ABG Methemoglobin (0-2) % Raul Test Hemoglobin (12.0-16.0) G/DL Carboxyhemoglobin (0-4) % O2 Delivery Device Vent Setting Inspired O2 % Critical Value Sodium (136-145) meq/L Potassium (3.5-5.1) meq/L Chloride (98-107) meq/L Carbon Dioxide (21.0-32.0) meq/L Anion Gap (5-15) meq/L BUN (7-18) mg/dL Creatinine (0.60-1.30) mg/dL Estimated GFR (>89) mL/min POC Glucose 249 H 286 H (68-110) mg/dl Random Glucose (74-106) mg/dL Lactic Acid (0.4-2.0) mmol/L Calcium (8.5-10.1) mg/dL Prot Corrected Calcium (8.5-10.1) mg/dL Phosphorus (2.5-4.9) mg/dL Magnesium (1.5-2.5) mg/dL Total Bilirubin (0.2-1.0) mg/dL AST (15-37) U/L ALT (12-78) U/L Alkaline Phosphatase (45-117) U/L Troponin I (0.02-0.05) ng/mL Total Protein (6.4-8.2) g/dL Albumin (3.4-5.0) g/dL TSH (0.358-3.740) uIU/mL Urine Color (Yellw/Straw) Urine Clarity (Clear) Urine pH (5.0-8.5) Ur Specific [place] (1.002-1.035) Urine Protein (Neg-Trace) mg/dL Urine Glucose (UA) (Negative) mg/dL Urine Ketones (Negative) mg/dL Urine Occult Blood (Negative) Urine Nitrate (Negative) Urine Bilirubin (Negative) Urine Urobilinogen (Less than 2) mg/dL Ur Leukocyte Esterase (Negative) Urine RBC (0-3) /hpf Urine WBC (0-5) /hpf Ur Squamous Epith Cells (0-5) /hpf Urine Bacteria (None) /hpf Urine Mucus (Occasional) /lpf Micro UA Comment Ur Microscopic Review Urine Culture Comments Nasal Screen MRSA (PCR) (Negative) Urine Opiates Screen (Neg) Ur Barbiturates Screen (Neg) Ur Amphetamines Screen (Neg) U Benzodiazepines Scrn (Neg) Urine Cocaine Screen (Neg) U Cannabinoids Screen (Neg) Serum Alcohol (0-5) mg/dL Hepatitis A IgM Ab Nonreactive (Nonreactive) Hep Bs Antigen Nonreactive (Nonreactive) Hep B Core IgM Ab Nonreactive (Nonreactive) Hep C IgG Ab Nonreactive (Nonreactive) 05/10/18 05/10/18 05/10/18 Range/Units 00:03 04:00 04:00 WBC 7.5 (4.0-11.0) th/mm3 RBC 3.88 L (4.50-5.90) mil/mm3 Hgb 12.4 L (13.0-17.0) gm/dL Hct 35.8 L (39.0-51.0) % MCV 92.4 (80.0-100.0) fL MCH 32.1 (27.0-34.0) pg MCHC 34.7 (32.0-36.0) % RDW 14.7 (11.6-17.2) % Plt Count 101 L (150-450) th/mm3 MPV 9.7 (7.0-11.0) fL Prelim Diff (Auto) Neut % (Auto) 80.3 H (16.0-70.0) % Lymph % (Auto) 13.8 (9.0-44.0) % [place] % (Auto) 3.8 (0.0-8.0) % Eos % (Auto) 1.0 (0.0-4.0) % Baso % (Auto) 1.1 (0.0-2.0) % Neut # (Auto) 6.0 (1.8-7.7) th/mm3 Lymph # (Auto) 1.0 (1.0-4.8) th/mm3 [place] # (Auto) 0.3 (0.0-0.9) th/mm3 Eos # (Auto) 0.1 (0.0-0.4) th/mm3 Baso # (Auto) 0.1 (0.0-0.2) th/mm3 WBC Differential . Diff Scan Differential Comment Auto diff final Platelet Estimate (Normal) Platelet Morphology (Normal) PT (9.8-11.6) sec INR Ratio Puncture Site Patient Temperature O2 Saturation (90-100) % ABG pH (7.380-7.420) ABG pCO2 (38-42) mmHg ABG pO2 (61-120) mmHg ABG HCO3 (22-26) mmol/L ABG O2 Content (12.0-20.0) Vol % ABG Base Excess (-2-2) mmol/L ABG Methemoglobin (0-2) % Raul Test Hemoglobin (12.0-16.0) G/DL Carboxyhemoglobin (0-4) % O2 Delivery Device Vent Setting Inspired O2 % Critical Value Sodium 141 (136-145) meq/L Potassium 3.6 D (3.5-5.1) meq/L Chloride 107 (98-107) meq/L Carbon Dioxide 26.0 (21.0-32.0) meq/L Anion Gap 8 (5-15) meq/L BUN 20 H (7-18) mg/dL Creatinine 1.47 H (0.60-1.30) mg/dL Estimated GFR 47 L (>89) mL/min POC Glucose 284 H (68-110) mg/dl Random Glucose 276 H (74-106) mg/dL Lactic Acid (0.4-2.0) mmol/L Calcium 7.4 L* (8.5-10.1) mg/dL Prot Corrected Calcium 8.8 (8.5-10.1) mg/dL Phosphorus 1.6 L D (2.5-4.9) mg/dL Magnesium 1.9 (1.5-2.5) mg/dL Total Bilirubin 1.1 H (0.2-1.0) mg/dL AST 542 H (15-37) U/L ALT 888 H (12-78) U/L Alkaline Phosphatase 104 (45-117) U/L Troponin I (0.02-0.05) ng/mL Total Protein 4.6 L D (6.4-8.2) g/dL Albumin 2.0 L (3.4-5.0) g/dL TSH (0.358-3.740) uIU/mL Urine Color (Yellw/Straw) Urine Clarity (Clear) Urine pH (5.0-8.5) Ur Specific [place] (1.002-1.035) Urine Protein (Neg-Trace) mg/dL Urine Glucose (UA) (Negative) mg/dL Urine Ketones (Negative) mg/dL Urine Occult Blood (Negative) Urine Nitrate (Negative) Urine Bilirubin (Negative) Urine Urobilinogen (Less than 2) mg/dL Ur Leukocyte Esterase (Negative) Urine RBC (0-3) /hpf Urine WBC (0-5) /hpf Ur Squamous Epith Cells (0-5) /hpf Urine Bacteria (None) /hpf Urine Mucus (Occasional) /lpf Micro UA Comment Ur Microscopic Review Urine Culture Comments Nasal Screen MRSA (PCR) (Negative) Urine Opiates Screen (Neg) Ur Barbiturates Screen (Neg) Ur Amphetamines Screen (Neg) U Benzodiazepines Scrn (Neg) Urine Cocaine Screen (Neg) U Cannabinoids Screen (Neg) Serum Alcohol (0-5) mg/dL Hepatitis A IgM Ab (Nonreactive) Hep Bs Antigen (Nonreactive) Hep B Core IgM Ab (Nonreactive) Hep C IgG Ab (Nonreactive) 05/10/18 05/10/18 05/11/18 Range/Units 11:54 17:26 00:42 WBC (4.0-11.0) th/mm3 RBC (4.50-5.90) mil/mm3 Hgb (13.0-17.0) gm/dL Hct (39.0-51.0) % MCV (80.0-100.0) fL MCH (27.0-34.0) pg MCHC (32.0-36.0) % RDW (11.6-17.2) % Plt Count (150-450) th/mm3 MPV (7.0-11.0) fL Prelim Diff (Auto) Neut % (Auto) (16.0-70.0) % Lymph % (Auto) (9.0-44.0) % [place] % (Auto) (0.0-8.0) % Eos % (Auto) (0.0-4.0) % Baso % (Auto) (0.0-2.0) % Neut # (Auto) (1.8-7.7) th/mm3 Lymph # (Auto) (1.0-4.8) th/mm3 [place] # (Auto) (0.0-0.9) th/mm3 Eos # (Auto) (0.0-0.4) th/mm3 Baso # (Auto) (0.0-0.2) th/mm3 WBC Differential Diff Scan Differential Comment Platelet Estimate (Normal) Platelet Morphology (Normal) PT (9.8-11.6) sec INR Ratio Puncture Site Patient Temperature O2 Saturation (90-100) % ABG pH (7.380-7.420) ABG pCO2 (38-42) mmHg ABG pO2 (61-120) mmHg ABG HCO3 (22-26) mmol/L ABG O2 Content (12.0-20.0) Vol % ABG Base Excess (-2-2) mmol/L ABG Methemoglobin (0-2) % Raul Test Hemoglobin (12.0-16.0) G/DL Carboxyhemoglobin (0-4) % O2 Delivery Device Vent Setting Inspired O2 % Critical Value Sodium (136-145) meq/L Potassium (3.5-5.1) meq/L Chloride (98-107) meq/L Carbon Dioxide (21.0-32.0) meq/L Anion Gap (5-15) meq/L BUN (7-18) mg/dL Creatinine (0.60-1.30) mg/dL Estimated GFR (>89) mL/min POC Glucose 284 H 249 H 329 H (68-110) mg/dl Random Glucose (74-106) mg/dL Lactic Acid (0.4-2.0) mmol/L Calcium (8.5-10.1) mg/dL Prot Corrected Calcium (8.5-10.1) mg/dL Phosphorus (2.5-4.9) mg/dL Magnesium (1.5-2.5) mg/dL Total Bilirubin (0.2-1.0) mg/dL AST (15-37) U/L ALT (12-78) U/L Alkaline Phosphatase (45-117) U/L Troponin I (0.02-0.05) ng/mL Total Protein (6.4-8.2) g/dL Albumin (3.4-5.0) g/dL TSH (0.358-3.740) uIU/mL Urine Color (Yellw/Straw) Urine Clarity (Clear) Urine pH (5.0-8.5) Ur Specific [place] (1.002-1.035) Urine Protein (Neg-Trace) mg/dL Urine Glucose (UA) (Negative) mg/dL Urine Ketones (Negative) mg/dL Urine Occult Blood (Negative) Urine Nitrate (Negative) Urine Bilirubin (Negative) Urine Urobilinogen (Less than 2) mg/dL Ur Leukocyte Esterase (Negative) Urine RBC (0-3) /hpf Urine WBC (0-5) /hpf Ur Squamous Epith Cells (0-5) /hpf Urine Bacteria (None) /hpf Urine Mucus (Occasional) /lpf Micro UA Comment Ur Microscopic Review Urine Culture Comments Nasal Screen MRSA (PCR) (Negative) Urine Opiates Screen (Neg) Ur Barbiturates Screen (Neg) Ur Amphetamines Screen (Neg) U Benzodiazepines Scrn (Neg) Urine Cocaine Screen (Neg) U Cannabinoids Screen (Neg) Serum Alcohol (0-5) mg/dL Hepatitis A IgM Ab (Nonreactive) Hep Bs Antigen (Nonreactive) Hep B Core IgM Ab (Nonreactive) Hep C IgG Ab (Nonreactive) 05/11/18 05/11/18 05/11/18 Range/Units 05:55 05:55 11:07 WBC 7.4 (4.0-11.0) th/mm3 RBC 4.14 L (4.50-5.90) mil/mm3 Hgb 13.2 (13.0-17.0) gm/dL Hct 39.3 (39.0-51.0) % MCV 95.1 (80.0-100.0) fL MCH 32.0 (27.0-34.0) pg MCHC 33.7 (32.0-36.0) % RDW 15.0 (11.6-17.2) % Plt Count 88 L (150-450) th/mm3 MPV 9.9 (7.0-11.0) fL Prelim Diff (Auto) Slide review pending Neut % (Auto) 81.7 H (16.0-70.0) % Lymph % (Auto) 11.8 (9.0-44.0) % [place] % (Auto) 5.4 (0.0-8.0) % Eos % (Auto) 0.8 (0.0-4.0) % Baso % (Auto) 0.3 (0.0-2.0) % Neut # (Auto) 6.1 (1.8-7.7) th/mm3 Lymph # (Auto) 0.9 L (1.0-4.8) th/mm3 [place] # (Auto) 0.4 (0.0-0.9) th/mm3 Eos # (Auto) 0.1 (0.0-0.4) th/mm3 Baso # (Auto) 0.0 (0.0-0.2) th/mm3 WBC Differential . Diff Scan Auto diff confirmed Differential Comment . Platelet Estimate Low L (Normal) Platelet Morphology Normal (Normal) PT (9.8-11.6) sec INR Ratio Puncture Site Patient Temperature O2 Saturation (90-100) % ABG pH (7.380-7.420) ABG pCO2 (38-42) mmHg ABG pO2 (61-120) mmHg ABG HCO3 (22-26) mmol/L ABG O2 Content (12.0-20.0) Vol % ABG Base Excess (-2-2) mmol/L ABG Methemoglobin (0-2) % Raul Test Hemoglobin (12.0-16.0) G/DL Carboxyhemoglobin (0-4) % O2 Delivery Device Vent Setting Inspired O2 % Critical Value Sodium 142 (136-145) meq/L Potassium 3.9 (3.5-5.1) meq/L Chloride 105 (98-107) meq/L Carbon Dioxide 28.2 (21.0-32.0) meq/L Anion Gap 9 (5-15) meq/L BUN 23 H (7-18) mg/dL Creatinine 1.21 (0.60-1.30) mg/dL Estimated GFR 59 L (>89) mL/min POC Glucose 230 H (68-110) mg/dl Random Glucose 306 H (74-106) mg/dL Lactic Acid (0.4-2.0) mmol/L Calcium 7.9 L (8.5-10.1) mg/dL Prot Corrected Calcium (8.5-10.1) mg/dL Phosphorus 2.7 D (2.5-4.9) mg/dL Magnesium 1.9 (1.5-2.5) mg/dL Total Bilirubin 0.9 (0.2-1.0) mg/dL AST 344 H (15-37) U/L ALT 863 H (12-78) U/L Alkaline Phosphatase 116 (45-117) U/L Troponin I (0.02-0.05) ng/mL Total Protein 5.2 L D (6.4-8.2) g/dL Albumin 2.1 L (3.4-5.0) g/dL TSH (0.358-3.740) uIU/mL Urine Color (Yellw/Straw) Urine Clarity (Clear) Urine pH (5.0-8.5) Ur Specific [place] (1.002-1.035) Urine Protein (Neg-Trace) mg/dL Urine Glucose (UA) (Negative) mg/dL Urine Ketones (Negative) mg/dL Urine Occult Blood (Negative) Urine Nitrate (Negative) Urine Bilirubin (Negative) Urine Urobilinogen (Less than 2) mg/dL Ur Leukocyte Esterase (Negative) Urine RBC (0-3) /hpf Urine WBC (0-5) /hpf Ur Squamous Epith Cells (0-5) /hpf Urine Bacteria (None) /hpf Urine Mucus (Occasional) /lpf Micro UA Comment Ur Microscopic Review Urine Culture Comments Nasal Screen MRSA (PCR) (Negative) Urine Opiates Screen (Neg) Ur Barbiturates Screen (Neg) Ur Amphetamines Screen (Neg) U Benzodiazepines Scrn (Neg) Urine Cocaine Screen (Neg) U Cannabinoids Screen (Neg) Serum Alcohol (0-5) mg/dL Hepatitis A IgM Ab (Nonreactive) Hep Bs Antigen (Nonreactive) Hep B Core IgM Ab (Nonreactive) Hep C IgG Ab (Nonreactive) 05/11/18 Range/Units 17:25 WBC (4.0-11.0) th/mm3 RBC (4.50-5.90) mil/mm3 Hgb (13.0-17.0) gm/dL Hct (39.0-51.0) % MCV (80.0-100.0) fL MCH (27.0-34.0) pg MCHC (32.0-36.0) % RDW (11.6-17.2) % Plt Count (150-450) th/mm3 MPV (7.0-11.0) fL Prelim Diff (Auto) Neut % (Auto) (16.0-70.0) % Lymph % (Auto) (9.0-44.0) % [place] % (Auto) (0.0-8.0) % Eos % (Auto) (0.0-4.0) % Baso % (Auto) (0.0-2.0) % Neut # (Auto) (1.8-7.7) th/mm3 Lymph # (Auto) (1.0-4.8) th/mm3 [place] # (Auto) (0.0-0.9) th/mm3 Eos # (Auto) (0.0-0.4) th/mm3 Baso # (Auto) (0.0-0.2) th/mm3 WBC Differential Diff Scan Differential Comment Platelet Estimate (Normal) Platelet Morphology (Normal) PT (9.8-11.6) sec INR Ratio Puncture Site Patient Temperature O2 Saturation (90-100) % ABG pH (7.380-7.420) ABG pCO2 (38-42) mmHg ABG pO2 (61-120) mmHg ABG HCO3 (22-26) mmol/L ABG O2 Content (12.0-20.0) Vol % ABG Base Excess (-2-2) mmol/L ABG Methemoglobin (0-2) % Raul Test Hemoglobin (12.0-16.0) G/DL Carboxyhemoglobin (0-4) % O2 Delivery Device Vent Setting Inspired O2 % Critical Value Sodium (136-145) meq/L Potassium (3.5-5.1) meq/L Chloride (98-107) meq/L Carbon Dioxide (21.0-32.0) meq/L Anion Gap (5-15) meq/L BUN (7-18) mg/dL Creatinine (0.60-1.30) mg/dL Estimated GFR (>89) mL/min POC Glucose 317 H (68-110) mg/dl Random Glucose (74-106) mg/dL Lactic Acid (0.4-2.0) mmol/L Calcium (8.5-10.1) mg/dL Prot Corrected Calcium (8.5-10.1) mg/dL Phosphorus (2.5-4.9) mg/dL Magnesium (1.5-2.5) mg/dL Total Bilirubin (0.2-1.0) mg/dL AST (15-37) U/L ALT (12-78) U/L Alkaline Phosphatase (45-117) U/L Troponin I (0.02-0.05) ng/mL Total Protein (6.4-8.2) g/dL Albumin (3.4-5.0) g/dL TSH (0.358-3.740) uIU/mL Urine Color (Yellw/Straw) Urine Clarity (Clear) Urine pH (5.0-8.5) Ur Specific [place] (1.002-1.035) Urine Protein (Neg-Trace) mg/dL Urine Glucose (UA) (Negative) mg/dL Urine Ketones (Negative) mg/dL Urine Occult Blood (Negative) Urine Nitrate (Negative) Urine Bilirubin (Negative) Urine Urobilinogen (Less than 2) mg/dL Ur Leukocyte Esterase (Negative) Urine RBC (0-3) /hpf Urine WBC (0-5) /hpf Ur Squamous Epith Cells (0-5) /hpf Urine Bacteria (None) /hpf Urine Mucus (Occasional) /lpf Micro UA Comment Ur Microscopic Review Urine Culture Comments Nasal Screen MRSA (PCR) (Negative) Urine Opiates Screen (Neg) Ur Barbiturates Screen (Neg) Ur Amphetamines Screen (Neg) U Benzodiazepines Scrn (Neg) Urine Cocaine Screen (Neg) U Cannabinoids Screen (Neg) Serum Alcohol (0-5) mg/dL Hepatitis A IgM Ab (Nonreactive) Hep Bs Antigen (Nonreactive) Hep B Core IgM Ab (Nonreactive) Hep C IgG Ab (Nonreactive) Imaging Data Radiologist's impression: Abdomen/Pelvis CT 05/08/18 00:00 CONCLUSION: 1. Bibasilar pulmonary infiltrates with small pleural effusions. 2. Significant coronary artery atherosclerotic calcifications. 3. Cholelithiasis. No CT evidence to suggest acute cholecystitis. Chest X-Ray 05/08/18 00:00 CONCLUSION: Lines and tubes as detailed above. Bibasilar parenchymal consolidations. Head CT 05/08/18 01:22 CONCLUSION: 1. 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 This measures 18 mm in maximum thickness. 4 mm of [id number] midline shift. . Head CT 05/08/18 19:23 CONCLUSION: 1. 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 No new hemorrhage. . Abdomen Ultrasound 05/09/18 00:00 CONCLUSION: 1. Probable fatty infiltration of the liver. 2. Mobile gallstones within the gallbladder. No significant pericholecystic fluid identified. No significant gallbladder wall thickening. 3. Increased echogenicity of the renal cortex suggesting underlying medical renal disease. 4. 2.5 cm renal cyst on the left. 5. Trace amount of ascites adjacent to the liver. 6. Minimal right basilar effusion. Chest X-Ray 05/09/18 06:00 CONCLUSION: 1. New left lower lung zone atelectasis versus consolidation and small left pleural effusion. 2. Clearing of bilateral upper lung zone opacity. ECG Data Attestation: I personally reviewed and interpreted this ECG as follows: Prior ECG tracings: available for review Interpretation: Twelve-lead EKG was reviewed by me. Wide-complex tachycardia. Heart rate of 142 bpm Discharge Plan Discharge Disposition Patient Disposition: 30 Still Patient Physicians Team ED Provider: Gabriel Ruvalcaba Primary Care Provider: UNKNOWN, Attending Provider: Jose Lott Other Providers: Víctor Franklin ; Shawn Stevens ; Óscar Benavides Status ED Status: Left Department Discharge Information Discharge Date/Time: 05/08/18 03:48
[2018-05-08] MEDS ORDERED: fentaNYL Citrate Inj 100 MCG/2 ML Ampul IV.PUSH PRN (01:48)
[2018-05-08] MEDS ORDERED: Acetaminophen 325 MG Tablet PO PRN (01:48)
[2018-05-08 01:49] LABS: ABG PCO2 42 mmHg (38-42); ABG PO2 146 mmHg (61-120)
[2018-05-08 01:49] LABS: Alanine Aminotransferase 28 U/L (12-78); Albumin 2.5 g/dL (3.4-5.0); Alkaline Phosphatase 116 U/L (45-117); Anion Gap 14 meq/L (5-15); Aspartate Aminotransferase 26 U/L (15-37); Blood Urea Nitrogen 12 mg/dL (7-18); Calcium 9.9 mg/dL (8.5-10.1); Carbon Dioxide 23.8 meq/L (21.0-32.0); Chloride 105 meq/L (98-107); Glomerular Filtration Rate 44 mL/min (>89); Glucose,Random 401 mg/dL (74-106); Magnesium 2.7 mg/dL (1.5-2.5); Potassium 3.8 meq/L (3.5-5.1); Sodium 143 meq/L (136-145); Total Protein 5.5 g/dL (6.4-8.2)
[2018-05-08 01:52] LABS: Troponin I 1.51 ng/mL (0.02-0.05)
[2018-05-08] MEDS ORDERED: Heparin - SQ 10,000 UNITS/ML Vial SQ SCH (02:00)
[2018-05-08] MEDS ORDERED: Lidocaine/D5W 2000 mg/500 mL 2,000 MG/500 ML BAG IV.CONT SCH (02:00)
[2018-05-08] MEDS ORDERED: Dextrose 50% in Water 50 ML Vial IV.PUSH PRN (02:04)
--- NOTE | 2018-05-08 02:16 | P.HPCC ---
History of Present Illness Service: Critical care medicine Primary Care Physician: UNKNOWN Chief Complaint: Fall, altered mental status History of Present Illness: 72-year-old male with a medical history significant for coronary artery disease status post previous CABG with subsequent cardiac catheterization requiring RCA stenting in 2010 who reportedly has been confused for about 1 week with fluctuating mental status along with low back pain. Today while was sleeping she heard a thud and patient had dropped to his knees and fallen on the bed. He was also noted to be shaking vigorously at the time however was able to talk during what appeared to be Reiger's. EMS was called. Patient was hypoxic on arrival with sats in the 60s. He was also tachycardic with heart rate in the 140s-150s with right bundle branch block. Since he had wide complexes there was concern for V. tach however he never lost his pulse. On arrival in the ER who he was intubated and placed on mechanical ventilation. He was loaded with IV amiodarone and lidocaine subsequently after failed attempted defibrillation/cardioversion x2. Patient does have a medical history significant for coronary artery disease status post previous CABG followed by RCA stenting in 2010, diabetes mellitus for which he uses an insulin pump, hypertension. Inpatient Certification: I certify that the inpatient services were ordered in accordance with Medicare regulations governing the order. This includes certification that hospital inpatient services are reasonable and necessary and in the case of services not specified as inpatient-only under 42 CFR 419.22(n), that they are appropriately provided as inpatient services in accordance to with the 2-midnight benchmark under 43 CFR 412.3(e) Estimated Total Length of Stay (Days): 7 Plans for Post Hospital Care: Not yet determined Review of Systems unobtainable due to endotracheal tube PMFSH - History History Provided By: [employer] / EMT - Medical History Medical History: Medical History (Last Reviewed 05/08/18 @ 01:33 by Gabriel Ruvalcaba MD) Medical history unknown Surgical history unknown - Tobacco History Smoking Status: Unknown if ever smoked - Alcohol History How Often Do You Have a Drink Containing Alcohol: Unable to Obtain - Substance Use History Substance History: Unable to Obtain - Travel History Recent Travel in the [place] Within the Last 8 Weeks: No Recent Travel Out of the Country Within the Last 8 Weeks: No - Immunization History Tetanus Immunization: >5 Years Medications and Allergies Active Medications: Active Medications Acetaminophen (Tylenol) 650 mg PO Q6H PRN PRN Reason: PAIN 1-10 AND/OR FEVER >101F Albuterol (Duoneb Neb (Prn)) 1 ampul NEB Q4HR NEB PRN PRN Reason: SHORTNESS OF BREATH Chlorhexidine Gluconate (Chlorhexidine 2% Cloth) 3 pack TOPICAL DAILY@0400 RAÚL Stop: 05/13/18 03:59 Chlorhexidine Gluconate (Chlorhexidine 2% Cloth) 3 pack TOPICAL DAILY@0400 PRN PRN Reason: Extra cloth needed Stop: 05/13/18 03:59 Dextrose (D50w Vial) 50 ml IV.PUSH UNSCH PRN PRN Reason: PER HYPOGLYCEMIA PROTOCOL Famotidine (Pepcid Pf Inj) 20 mg IV.PUSH Q12HR RAÚL Fentanyl Citrate (Fentanyl Inj) 50 mcg IV.PUSH Q1H PRN PRN Reason: SEE LABEL COMMENTS Glucagon (Glucagon Inj) 1 mg OTHER PRN PRN PRN Reason: for Hypoglycemia Protocol Heparin Sodium (Porcine) (Heparin Inj) 5,000 units SQ Q8H RAÚL Amiodarone HCl 450 mg/ (Dextrose) 250 mls @ 33.33 mls/hr IV.CONT TITRATE PRN; Protocol PRN Reason: Per Protocol Last Admin: 05/08/18 01:26 Dose: 1 mg/min, 33.33 mls/hr Lidocaine HCl/Dextrose (Lidocaine/D5w 2000 Mg/500 Ml Premix Inj) 2,000 mg in 500 mls @ 15 mls/hr IV.CONT .Q24H RAÚL Last Admin: 05/08/18 01:22 Dose: 1 mg/min, 15 mls/hr Sodium Chloride (Ns Inj) 1,000 mls @ 100 mls/hr IV.CONT .Q10H RAÚL Piperacillin/Tazobactam/Dextrose (Zosyn 3.375 Gm Premix) 50 mls @ 100 mls/hr IV.SIG Q6H RAÚL Insulin Human Regular (Novolin R Correctional Sugar Inj) 0 units SQ Q6HR RAÚL; Protocol Sodium Chloride (Ns Flush) 2 ml IV.FLUSH PRN PRN PRN Reason: FLUSH AFTER USING IV ACCESS Allergies Allergy/AdvReac Type Severity Reaction Status Date / Time sulfamethoxazole Allergy Severe Rash Verified 07/06/17 09:08 Results - Labs CBC & Chem 7: 05/08/18 01:00 05/08/18 01:00 Labs: Short CBC 05/08/18 Range/Units 01:00 WBC 8.1 (4.0-11.0) th/mm3 Hgb 14.0 (13.0-17.0) gm/dL Hct 41.9 (39.0-51.0) % Plt Count 202 (150-450) th/mm3 BMP 05/08/18 01:00 Sodium 143 Potassium 3.8 Chloride 105 Carbon Dioxide 23.8 BUN 12 Creatinine 1.56 H Calcium 9.9 Cardiac Enzymes 05/08/18 Range/Units 01:00 Troponin I 1.51 H* (0.02-0.05) ng/mL Liver Function 05/08/18 Range/Units 01:00 Total Bilirubin 0.5 (0.2-1.0) mg/dL AST 26 (15-37) U/L ALT 28 (12-78) U/L Alkaline Phosphatase 116 (45-117) U/L Albumin 2.5 L (3.4-5.0) g/dL Laboratory Results - last 24 hr 05/08/18 05/08/18 05/08/18 00:43 01:00 01:00 WBC 8.1 RBC 4.43 L Hgb 14.0 Hct 41.9 MCV 94.4 MCH 31.7 MCHC 33.5 RDW 14.6 Plt Count 202 MPV 9.4 Neut % (Auto) 64.2 Lymph % (Auto) 29.0 [place] % (Auto) 4.8 Eos % (Auto) 1.1 Baso % (Auto) 0.9 Neut # (Auto) 5.2 Lymph # (Auto) 2.4 [place] # (Auto) 0.4 Eos # (Auto) 0.1 Baso # (Auto) 0.1 WBC Differential . Differential Comment Auto diff final Puncture Site Patient Temperature O2 Saturation ABG pH ABG pCO2 ABG pO2 ABG HCO3 ABG O2 Content ABG Base Excess ABG Methemoglobin Raul Test Hemoglobin Carboxyhemoglobin O2 Delivery Device Vent Setting Inspired O2 Critical Value Sodium 143 Potassium 3.8 Chloride 105 Carbon Dioxide 23.8 Anion Gap 14 BUN 12 Creatinine 1.56 H Estimated GFR 44 L POC Glucose 416 H Random Glucose 401 H Calcium 9.9 Magnesium 2.7 H Total Bilirubin 0.5 AST 26 ALT 28 Alkaline Phosphatase 116 Troponin I 1.51 H* Total Protein 5.5 L Albumin 2.5 L Serum Alcohol Less than 3 05/08/18 01:30 WBC RBC Hgb Hct MCV MCH MCHC RDW Plt Count MPV Neut % (Auto) Lymph % (Auto) [place] % (Auto) Eos % (Auto) Baso % (Auto) Neut # (Auto) Lymph # (Auto) [place] # (Auto) Eos # (Auto) Baso # (Auto) WBC Differential Differential Comment Puncture Site Right radial Patient Temperature 98.6 O2 Saturation 97 ABG pH 7.35 L ABG pCO2 42 ABG pO2 146 H ABG HCO3 23 ABG O2 Content 19.7 ABG Base Excess -2.0 ABG Methemoglobin 0.9 Raul Test Present Hemoglobin 14.3 Carboxyhemoglobin 0.7 O2 Delivery Device Ventilator Vent Setting Inspired O2 100 Critical Value No Sodium Potassium Chloride Carbon Dioxide Anion Gap BUN Creatinine Estimated GFR POC Glucose Random Glucose Calcium Magnesium Total Bilirubin AST ALT Alkaline Phosphatase Troponin I Total Protein Albumin Serum Alcohol - Imaging Impressions Chest X-Ray 05/08/18 00:00 CONCLUSION: Lines and tubes as detailed above. Bibasilar parenchymal consolidations. Exam Vital signs: Vital Signs 05/08/18 00:31 05/08/18 00:45 05/08/18 00:46 Temperature 104.3 F H Pulse Rate 150 H 106 H 150 H Respiratory Rate 25 H 16 Blood Pressure 126/72 156/82 H Pulse Oximetry 91 L 05/08/18 00:59 05/08/18 01:04 Temperature Pulse Rate 106 H 100 H Respiratory Rate 16 16 Blood Pressure 141/68 H 144/71 H Pulse Oximetry 94 L 94 L Intake & Output 05/07/18 05/07/18 05/08/18 06:59 18:59 06:59 Weight 83.915 kg Narrative: HEENT/ Neuro: Sedated, orally intubated, Pallor present, pupils 3 mm bilaterally reacting actively to light. No icterus, tongue/ mucosa moist Neck: No JVD Chest/Pulm: on mech vent, good air entry bilaterally, no wheezing or crackles CVS: S1-S2 regular, no murmur GI/abdomen: soft, nontender, bowel sounds sluggish Extremities: warm bilaterally, no edema Caprini VTE Risk Assessment Caprini VTE Risk Assessment: Moderate/High Risk (score >= 2) Caprini Risk Assessment Model: Point Value = 1 Point Value = 2 Point Value = 3 Point Value = 5 Age 41-60 Minor surgery BMI > 25 kg/m2 Swollen legs Varicose veins or History of unexplained or recurrent spontaneous Oral contraceptives or hormone replacement Sepsis (< 1 month) Serious lung disease, including pneumonia (< 1 month) Abnormal pulmonary function Acute myocardial infarction Congestive heart failure (< 1 month) History of inflammatory bowel disease Medical patient at bed rest Age 61-74 Arthroscopic surgery Major open surgery (> 45 min) Laparoscopic surgery (> 45 min) Malignancy Confined to bed (> 72 hours) Immobilizing plaster cast Central venous access Age >= 75 History of VTE Family history of VTE Factor V Leiden Prothrombin [id number] Lupus anticoagulant Anticardiolipin antibodies Elevated serum homocysteine Heparin-induced thrombocytopenia Other congenital or acquired thrombophilia Stroke (< 1 month) Elective arthroplasty Hip, pelvis, or leg fracture Acute spinal cord injury (< 1 month) Prophylaxis Regimen: Total Risk Factor Score Risk Level Prophylaxis Regimen 0-1 Low Early ambulation 2 Moderate Order ONE of the following: *Sequential Compression Device (SCD) *Heparin 5000 units SQ BID 3-4 Higher Order ONE of the following medications: *Heparin 5000 units SQ TID *Enoxaparin/Lovenox 40 mg SQ daily (WT < 150 kg, CrCl > 30 mL/min) *Enoxaparin/Lovenox 30 mg SQ daily (WT < 150 kg, CrCl > 10-29 mL/min) *Enoxaparin/Lovenox 30 mg SQ BID (WT < 150 kg, CrCl > 30 mL/min) AND/OR *Sequential Compression Device (SCD) 5 or more Highest Order ONE of the following medications: *Heparin 5000 units SQ TID (Preferred with Epidurals) *Enoxaparin/Lovenox 40 mg SQ daily (WT < 150 kg, CrCl > 30 mL/min) *Enoxaparin/Lovenox 30 mg SQ daily (WT < 150 kg, CrCl > 10-29 mL/min) *Enoxaparin/Lovenox 30 mg SQ BID (WT < 150 kg, CrCl > 30 mL/min) AND *Sequential Compression Device (SCD) Assessment and Plan - Assessment and Plan Plan: 72-year-old male with: Syncope Encephalopathy Wide-complex tachycardia with pulse: Suspect A flutter with aberrant conduction versus sinus tach with aberrant conduction Suspected sepsis low back pain CAD status post previous CABG Uncontrolled diabetes mellitus Hypertension Plan: Neuro: Follow neuro checks. Awaiting head CT without contrast. Daily sedation medication. Propofol for sedation while intubated. Cardiovascular: Wide-complex tachycardia with pulse on arrival. Unclear if this was slow V. tach versus a flutter/sinus tach with aberrant conduction. On amiodarone and lidocaine drips per discussion with cardiology by ER physician. Serial cardiac enzymes. If head CT negative for bleed, will initiate aspirin and Plavix. Pulmonary: Continue mechanical ventilation, vent bundle, bronchodilators as needed. GI/liver: N.p.o. for now Renal/: IV hydration, strict intake output, monitor and replete electrolytes, follow BUN/creatinine. ID: Follow-up cultures. Empiric antibiotic coverage with IV Zosyn. Will obtain CT abdomen pelvis for further evaluation of sepsis Heme: Follow CBC Endocrine: watch for hypoglycemia, SSI for glycemic control. Keep off insulin pump currently. Prophylaxis: Pepcid/SCDs. Subcu heparin if head CT negative for bleed. Discussed with patient's and son at bedside who provided history and explain current clinical status and plan of care and they voiced understanding and were agreeable. Condition critical Time spent on critical care excluding procedures 60 minutes
[2018-05-08] MEDS: Sod Chloride 0.9% Inj 1,000 ML IV.SIG SCH (02:37)
[2018-05-08 02:47] LABS: INR 1.1 Ratio; Prothrombin Time 10.7 sec (9.8-11.6)
--- NOTE | 2018-05-08 03:11 | CT ---
EXAM DATE: 05/08/2018 2:57 AM EST AGE/SEX: 72 years / Male INDICATIONS: Altered mental status; post episode of v-tach. CLINICAL DATA: This is the patient's initial encounter. Patient reports that signs and symptoms have been present for 1 day and indicates a pain score of Nonresponsive. MEDICAL/SURGICAL HISTORY: None. None. RADIATION DOSE: 37.81 CTDI (mGy) COMPARISON: No prior exams available for comparison. TECHNIQUE: CT of the head without contrast. Using automated exposure control and adjustment of the mA and/or kV according to patient size, radiation dose was kept as low as reasonably achievable to ob tain optimal diagnostic quality images. DICOM format image data is available electronically for revi ew and comparison. FINDINGS: Cerebrum: The ventricles are normal for age. No evidence of midline shift, mass lesion, hemorrhage or acute infarction. There is a predominately chronic cystic hygroma overlying the right cerebral hem isphere most pronounced near the vertex. It is predominantly CSF density. There are tiny foci of inte rmixed high signal abnormality suggesting acute hemorrhage into this. Maximum thickness is 18 mm. Thi s generates some mass effect with 4 mm of [id number]-[id number] midline shift.. Posterior Fossa: The cerebellum and brainstem are intact. The 4th ventricle is midline. The cerebe llopontine angle is unremarkable. Extracranial: The visualized portion of the orbits is intact. Skull: The calvaria is intact. No evidence of skull fracture. CONCLUSION: 1. 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 This measures 18 mm in maximum thick ness. 4 mm of [id number] midline shift. . Electronically signed by: Darrel Garcia MD 05/08/2018 3:10 AM EST
--- NOTE | 2018-05-08 03:22 | CT ---
EXAM DATE: 05/08/2018 3:09 AM EST AGE/SEX: 72 years / Male INDICATIONS: Sepsis. CLINICAL DATA: This is the patient's initial encounter. Patient reports that signs and symptoms have been present for 1 day and indicates a pain score of Nonresponsive. MEDICAL/SURGICAL HISTORY: None. None. RADIATION DOSE: 17.05 CTDI (mGy) COMPARISON: [facility] [place]EL[place] W [place]AST, 02/15/2015. . TECHNIQUE: Multiple contiguous axial images were obtained through the abdomen. Images were obtained using multiple row detector helical technique. Using automated exposure control and adjustment of the mA and/or kV according to patient size, radiation dose was kept as low as reasonably achievable to o btain optimal diagnostic quality images. DICOM format image data is available electronically for rev iew and comparison. FINDINGS: Lower Lungs: Bibasilar consolidation without air bronchogram formation. Small bilateral pleural effus ions. Significant coronary artery atherosclerotic calcifications.. Liver: The liver has a homogeneous density without space-occupying lesion. There is no dilation of th e biliary tree. A small layering calcified gallstone within an otherwise normal-appearing gallbladder . Spleen: Homogeneous density without enlargement. Pancreas: Unremarkable without mass or calcification. Kidneys: Normal in size and shape. No evidence of mass or hydronephrosis. Adrenal Glands: Unremarkable. Aorta: The aorta and proximal iliac vessels are grossly unremarkable without aneurysmal dilation. Bowel/Mesentery: Nasogastric tube with the tip in the body of the stomach. The bowel loops are gross ly unremarkable. The cecum and sigmoid colon have a normal configuration. Appendix is normal by CT cr iteria. Abdominal Wall: Intact. Retroperitoneum: No evidence of adenopathy in the retrocrural, para-aortic, or deep pelvic regions. Bladder: Contours are smooth. Reproductive Organs: No abnormal masses or calcifications seen. Inguinal: The inguinal region is unremarkable without evidence of adenopathy. Bony Structures: Median sternotomy wires. A degenerative lumbar spine. Left hip prosthesis.. CONCLUSION: 1. Bibasilar pulmonary infiltrates with small pleural effusions. 2. Significant coronary artery atherosclerotic calcifications. 3. Cholelithiasis. No CT evidence to suggest acute cholecystitis. Electronically signed by: Darrel Garcia MD 05/08/2018 3:21 AM EST
[2018-05-08] MEDS ORDERED: Chlorhexidine Gluconate 2% 1 Pack (2 Cloths) TOPICAL PRN (04:00)
[2018-05-08] MEDS: Chlorhexidine Gluconate 2% 1 Pack (2 Cloths) TOPICAL SCH (04:08)
[2018-05-08] MEDS: Sod Chloride 0.9% Inj 1,000 ML IV.CONT SCH ×3 (04:08→22:35)
--- NOTE | 2018-05-08 04:28 | P.PNADD ---
Addendum to Inpatient Note Reason for Addendum: Additional Documentation Additional information: Consulted neurosurgery for CT Head with right subdural hyfroma with 4mm midline shift and small area of hyperdensity in hygroma suspicious for hemorrhage. Will not order antiplatelet agents or heparin for DVT prophylaxis due to above findings. CT Abd/ pelvis findings noted. Updated regarding above imaging studies and she voiced understanding. Impressions Abdomen/Pelvis CT 05/08/18 00:00 CONCLUSION: 1. Bibasilar pulmonary infiltrates with small pleural effusions. 2. Significant coronary artery atherosclerotic calcifications. 3. Cholelithiasis. No CT evidence to suggest acute cholecystitis. Chest X-Ray 05/08/18 00:00 CONCLUSION: Lines and tubes as detailed above. Bibasilar parenchymal consolidations. Head CT 05/08/18 01:22 CONCLUSION: 1. 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 This measures 18 mm in maximum thickness. 4 mm of qbthc-[id number]-bugy midline shift. .
[2018-05-08] MEDS: Phenylephrine Inj 40 MG in Sodium Chlor 0.9% Inj 496 ML IV.CONT PRN ×3 (04:46→13:00)
[2018-05-08] MEDS: Insulin NovoLIN Regular Correctional Sugar Inj SQ SCH ×3 (06:29→18:41)
[2018-05-08] MEDS: Piperacil/Tazo 3.375 GM Premix 50 ML IV.SIG SCH ×3 (06:30→18:00)
[2018-05-08 07:57] LABS: Bacteria,Urine Few /hpf; Bilirubin,Urine Negative (Negative); Color,Urine Amber (Yellw/Straw); Glucose,Urine (UA) 50 mg/dL (Negative); Leukocyte Esterase,Urine Negative (Negative); Mucus,Urine Few /lpf (Occasional); Nitrite,Urine Negative (Negative); Specific Gravity,Urine 1.039 (1.002-1.035); Squamous Epithelial Cell,Urine <1 /hpf (0-5)
[2018-05-08 08:01] LABS: Clarity,Urine Hazy (Clear)
--- NOTE | 2018-05-08 09:18 | P.PNCA ---
Subjective Interval history: DOCUMENTED in ERRORsee consult note 72-year-old female patient of Dr. Franklin'chandu, currently intubated and sedated. History obtained from . She reports patient has a history of DM, CABG x5 , and approx 11 stents placed in the past, was on plavix prior to admission. has noticed over the past week patient has been more confused, she reports she has an insulin pump that he has managed on his own for years, and over the past couple of days he did not remember how to adjust his pump. reports on Wednesday he went out to dinner and patient appeared in his usual state of health. Wednesday was a little less active than normal, was having a lot of lower back pain and difficulty getting comfortable. reports she heard a lot of noise patient collapsed, she called 911. On arrival to the ER patient's heart rate was 140s-150s, right bundle branch block, ER documentation reports wide complex concerns for V. tach. He was loaded with IV amiodarone and lidocaine subsequently after failed attempted defibrillation/cardioversion x2. He was intubated and sedated. 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 This measures 18 mm in maximum thickness. 4 mm of jkqsq-gx-ptde midline shift. Medications and Allergies Active Medications: Active Medications Acetaminophen (Tylenol) 650 mg PO Q6H PRN PRN Reason: PAIN 1-10 AND/OR FEVER >101F Albuterol (Duoneb Neb (Prn)) 1 ampul NEB Q4HR NEB PRN PRN Reason: SHORTNESS OF BREATH Chlorhexidine Gluconate (Chlorhexidine 2% Cloth) 3 pack TOPICAL DAILY@0400 RAÚL Stop: 05/13/18 03:59 Last Admin: 05/08/18 04:08 Dose: 3 pack Chlorhexidine Gluconate (Chlorhexidine 2% Cloth) 3 pack TOPICAL DAILY@0400 PRN PRN Reason: Extra cloth needed Stop: 05/13/18 03:59 Dextrose (D50w Vial) 50 ml IV.PUSH UNSCH PRN PRN Reason: PER HYPOGLYCEMIA PROTOCOL Famotidine (Pepcid Pf Inj) 20 mg IV.PUSH Q12HR RAÚL Fentanyl Citrate (Fentanyl Inj) 50 mcg IV.PUSH Q1H PRN PRN Reason: SEE LABEL COMMENTS Glucagon (Glucagon Inj) 1 mg OTHER PRN PRN PRN Reason: for Hypoglycemia Protocol Amiodarone HCl 450 mg/ (Dextrose) 250 mls @ 33.33 mls/hr IV.CONT TITRATE PRN; Protocol PRN Reason: Per Protocol Last Admin: 05/08/18 01:26 Dose: 1 mg/min, 33.33 mls/hr Sodium Chloride (Ns Inj) 1,000 mls @ 100 mls/hr IV.CONT .Q10H RAÚL Last Admin: 05/08/18 04:08 Dose: 100 mls/hr Piperacillin/Tazobactam/Dextrose (Zosyn 3.375 Gm Premix) 50 mls @ 100 mls/hr IV.SIG Q6H RAÚL Last Admin: 05/08/18 06:30 Dose: 100 mls/hr Phenylephrine HCl 40 mg/ (Sodium Chloride) 500 mls @ 30 mls/hr IV.CONT TITRATE PRN; Protocol PRN Reason: See Protocol Last Titration: 05/08/18 06:42 Dose: 120 mcg/min, 90 mls/hr Insulin Human Regular (Novolin R Correctional Sugar Inj) 0 units SQ Q6HR RAÚL; Protocol Last Admin: 05/08/18 06:29 Dose: 3 units Sodium Chloride (Ns Flush) 2 ml IV.FLUSH PRN PRN PRN Reason: FLUSH AFTER USING IV ACCESS Terbutaline Sulfate (Brethine Inj) 1 mg SQ UNSCH PRN PRN Reason: For Extravasation Allergies Allergy/AdvReac Type Severity Reaction Status Date / Time sulfamethoxazole Allergy Severe Rash Verified 07/06/17 09:08 Physical Exam Vital signs: Vital Signs 05/08/18 00:31 05/08/18 00:45 05/08/18 00:46 Temperature 104.3 F H Pulse Rate 150 H 106 H 150 H Respiratory Rate 25 H 16 Blood Pressure 126/72 156/82 H Pulse Oximetry 91 L 05/08/18 00:59 05/08/18 01:04 05/08/18 02:18 Temperature Pulse Rate 106 H 100 H Respiratory Rate 16 16 30 H Blood Pressure 141/68 H 144/71 H Pulse Oximetry 94 L 94 L 95 05/08/18 02:36 05/08/18 03:30 05/08/18 03:46 Temperature Pulse Rate 95 H Respiratory Rate 16 16 16 Blood Pressure 126/67 Pulse Oximetry 96 98 05/08/18 04:00 05/08/18 04:30 05/08/18 05:00 Temperature 97.9 F Pulse Rate 80 69 Respiratory Rate 16 16 Blood Pressure 80/53 L 74/52 L Pulse Oximetry 99 99 99 05/08/18 06:00 05/08/18 08:00 Temperature Pulse Rate 70 Respiratory Rate 20 17 Blood Pressure 124/72 Pulse Oximetry 96 96 Intake & Output 05/07/18 05/08/18 05/08/18 18:59 06:59 18:59 Intake Total 2550 / 2550 Output Total 550 / 550 Balance 1999 Weight 99.5 kg Intake: IV 2550 / 2550 Ofirmev Inj 1,000 mg In 100 ml 100 / 100 @ 400 mls/hr IV.SIG ONCE ONE Rx #:[id number] Cordarone Inj 150 MG In D5W Inj 100 / 100 97 ML @ 600 mls/hr IV.SIG ONCE ONE Rx#:[id number] Zosyn 4.5 GM Premix 4.5 gm In 100 / 100 100 ml @ 200 mls/hr IV.SIG ONCE ONE Rx#:[id number] NS Inj 1,000 ML @ 2000 mls/hr 1999 IV.SIG Q30M RAÚL Rx#:[id number] Vancomycin Inj 1,000 MG In NS 250 / 250 Inj 250 ML @ 250 mls/hr IV.SIG ONCE ONE Rx#:[id number] Oral 0 / 0 Output: Urine Amount (Catheter) 550 / 550 Indwelling Urethral Catheter 550 / 550 Other: # Incontinent Bowel Movements 0 Weight On Admission 99.5 kg - Constitutional obese Comments: intubated, sedated - Routine HEENT Exam Head: Present: normocephalic, atraumatic - Routine Respiratory Exam Present: patient mechanically ventilated - Routine Cardiovascular Exam Present: RRR - Routine Abdominal Exam Present: distended - Routine Skin Exam Present: intact - Urinary Catheter Management Indwelling Urethral Catheter Cath placed during this visit: yes Reason for continuing: Terminally ill/Comfort care Insertion date: 05/08/18 Insertion time: 00:55 Results 05/09/18 02:20 05/09/18 02:20 Cardiac Enzymes 05/08/18 Range/Units 01:00 AST 26 (15-37) U/L Troponin I 1.51 H* (0.02-0.05) ng/mL Coagulation 05/08/18 Range/Units 01:00 PT 10.7 (9.8-11.6) sec CBC 05/08/18 Range/Units 01:00 WBC 8.1 (4.0-11.0) th/mm3 RBC 4.43 L (4.50-5.90) mil/mm3 Hgb 14.0 (13.0-17.0) gm/dL Hct 41.9 (39.0-51.0) % Plt Count 202 (150-450) th/mm3 Neut # (Auto) 5.2 (1.8-7.7) th/mm3 Lymph # (Auto) 2.4 (1.0-4.8) th/mm3 [place] # (Auto) 0.4 (0.0-0.9) th/mm3 Eos # (Auto) 0.1 (0.0-0.4) th/mm3 Baso # (Auto) 0.1 (0.0-0.2) th/mm3 Comprehensive Metabolic Panel 05/08/18 Range/Units 01:00 Sodium 143 (136-145) meq/L Potassium 3.8 (3.5-5.1) meq/L Chloride 105 (98-107) meq/L Carbon Dioxide 23.8 (21.0-32.0) meq/L BUN 12 (7-18) mg/dL Creatinine 1.56 H (0.60-1.30) mg/dL Calcium 9.9 (8.5-10.1) mg/dL AST 26 (15-37) U/L ALT 28 (12-78) U/L Alkaline Phosphatase 116 (45-117) U/L Total Protein 5.5 L (6.4-8.2) g/dL Albumin 2.5 L (3.4-5.0) g/dL Intake and Output 05/07/18 05/08/18 05/08/18 22:59 06:59 14:59 Intake Total 2550 / 2550 Output Total 550 / 550 Balance 1999 Intake: IV 2550 / 2550 Ofirmev Inj 1,000 mg In 100 ml 100 / 100 @ 400 mls/hr IV.SIG ONCE ONE Rx #:[id number] Cordarone Inj 150 MG In D5W Inj 100 / 100 97 ML @ 600 mls/hr IV.SIG ONCE ONE Rx#:[id number] Zosyn 4.5 GM Premix 4.5 gm In 100 / 100 100 ml @ 200 mls/hr IV.SIG ONCE ONE Rx#:[id number] NS Inj 1,000 ML @ 2000 mls/hr 2000 / 1999 IV.SIG Q30M RAÚL Rx#:[id number] Vancomycin Inj 1,000 MG In NS 250 / 250 Inj 250 ML @ 250 mls/hr IV.SIG ONCE ONE Rx#:[id number] Oral 0 / 0 Output: Urine Amount (Catheter) 550 / 550 Indwelling Urethral Catheter 550 / 550 Other: # Incontinent Bowel Movements 0 Weight 99.5 kg Weight On Admission 99.5 kg - Imaging and Cardiology Imaging: Impressions Abdomen/Pelvis CT 05/08/18 00:00 CONCLUSION: 1. Bibasilar pulmonary infiltrates with small pleural effusions. 2. Significant coronary artery atherosclerotic calcifications. 3. Cholelithiasis. No CT evidence to suggest acute cholecystitis. Chest X-Ray 05/08/18 00:00 CONCLUSION: Lines and tubes as detailed above. Bibasilar parenchymal consolidations. Head CT 05/08/18 01:22 CONCLUSION: 1. 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 This measures 18 mm in maximum thickness. 4 mm of pyuck-mu-nnkl midline shift. .
--- NOTE | 2018-05-08 09:53 | P.CONCA ---
History of Present Illness Service: Cardiology Requesting Physician: Jose Lott Reason for Consult: Tachyarrhythmia Primary Care Provider: UNKNOWN Chief Complaint: Fall, altered mental status History of Present Illness: 72-year-old female patient of Dr. Newman, currently intubated and sedated. History obtained from . She reports patient has a history of DM, CABG x5 , and approx 11 stents placed in the past, was on plavix prior to admission. has noticed over the past week patient has been more confused, she reports she has an insulin pump that he has managed on his own for years, and over the past couple of days he did not remember how to adjust his pump. reports on Wednesday he went out to dinner and patient appeared in his usual state of health. Wednesday was a little less active than normal, was having a lot of lower back pain and difficulty getting comfortable. reports she heard a lot of noise patient collapsed, she called 911. On arrival to the ER patient's heart rate was 140s-150s, right bundle branch block, ER documentation reports wide complex concerns for V. tach. He was loaded with IV amiodarone and lidocaine subsequently after failed attempted defibrillation/cardioversion x2. He was intubated and sedated. 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 This measures 18 mm in maximum thickness. 4 mm of [id number] midline shift. Fever was 104.3 upon arrival. Review of Systems unobtainable due to mental status, other Constitutional: Reports lack of energy Comments: lower back pain Neurologic: Reports confusion Comments: progressing confusion over the past couple of days PMFSH - History History Provided By: Family Member - Medical History Medical History: Medical History (Last Reviewed 05/09/18 @ 10:45 by JORGE Barrera) Cardiomyopathy Cataract Coronary artery disease Diabetes GERD (gastroesophageal reflux disease) Hiatal hernia Hypertension Medical history unknown Neuropathy Sleep apnea with use of continuous positive airway pressure (CPAP) Surgical history unknown - Surgical History Surgical History: Surgical History (Last Reviewed 05/10/18 @ 08:05 by Wayne Huber) History of cardiac cath History of hernia repair Hx of CABG Stented coronary artery - Family History Family History: Family History (Last Reviewed 05/09/18 @ 12:19 by JORGE Barrera) Father Family history of acute myocardial infarction Brother Family history of acute myocardial infarction Sister Family history of acute myocardial infarction Other Myocardial infarct - Tobacco History Second Hand Smoke Exposure: No Smoking Status: Never smoker - Alcohol History How Often Do You Have a Drink Containing Alcohol: Never - Substance Use History Substance History: No History of Abuse - Travel History Recent Travel in the [place] Within the Last 8 Weeks: No Recent Travel Out of the Country Within the Last 8 Weeks: No - Immunization History Tetanus Immunization: >5 Years Medications and Allergies Allergies Allergy/AdvReac Type Severity Reaction Status Date / Time sulfamethoxazole Allergy Severe Rash Verified 07/06/17 09:08 Active Medications: Active Medications Acetaminophen (Tylenol) 650 mg PO Q6H PRN PRN Reason: PAIN 1-10 AND/OR FEVER >101F Albuterol (Duoneb Neb (Prn)) 1 ampul NEB Q4HR NEB PRN PRN Reason: SHORTNESS OF BREATH Chlorhexidine Gluconate (Chlorhexidine 2% Cloth) 3 pack TOPICAL DAILY@0400 RAÚL Stop: 05/13/18 03:59 Last Admin: 05/08/18 04:08 Dose: 3 pack Chlorhexidine Gluconate (Chlorhexidine 2% Cloth) 3 pack TOPICAL DAILY@0400 PRN PRN Reason: Extra cloth needed Stop: 05/13/18 03:59 Dextrose (D50w Vial) 50 ml IV.PUSH UNSCH PRN PRN Reason: PER HYPOGLYCEMIA PROTOCOL Famotidine (Pepcid Pf Inj) 20 mg IV.PUSH Q12HR RAÚL Fentanyl Citrate (Fentanyl Inj) 50 mcg IV.PUSH Q1H PRN PRN Reason: SEE LABEL COMMENTS Glucagon (Glucagon Inj) 1 mg OTHER PRN PRN PRN Reason: for Hypoglycemia Protocol Amiodarone HCl 450 mg/ (Dextrose) 250 mls @ 33.33 mls/hr IV.CONT TITRATE PRN; Protocol PRN Reason: Per Protocol Last Admin: 05/08/18 01:26 Dose: 1 mg/min, 33.33 mls/hr Sodium Chloride (Ns Inj) 1,000 mls @ 100 mls/hr IV.CONT .Q10H RAÚL Last Admin: 05/08/18 04:08 Dose: 100 mls/hr Piperacillin/Tazobactam/Dextrose (Zosyn 3.375 Gm Premix) 50 mls @ 100 mls/hr IV.SIG Q6H RAÚL Last Admin: 05/08/18 06:30 Dose: 100 mls/hr Phenylephrine HCl 40 mg/ (Sodium Chloride) 500 mls @ 30 mls/hr IV.CONT TITRATE PRN; Protocol PRN Reason: See Protocol Last Titration: 05/08/18 06:42 Dose: 120 mcg/min, 90 mls/hr Insulin Human Regular (Novolin R Correctional Sugar Inj) 0 units SQ Q6HR [facility]; Protocol Last Admin: 05/08/18 06:29 Dose: 3 units Sodium Chloride (Ns Flush) 2 ml IV.FLUSH PRN PRN PRN Reason: FLUSH AFTER USING IV ACCESS Terbutaline Sulfate (Brethine Inj) 1 mg SQ UNSCH PRN PRN Reason: For Extravasation Exam Vital signs: Vital Signs 05/08/18 00:31 05/08/18 00:45 05/08/18 00:46 Temperature 104.3 F H Pulse Rate 150 H 106 H 150 H Respiratory Rate 25 H 16 Blood Pressure 126/72 156/82 H Pulse Oximetry 91 L 05/08/18 00:59 05/08/18 01:04 05/08/18 02:18 Temperature Pulse Rate 106 H 100 H Respiratory Rate 16 16 30 H Blood Pressure 141/68 H 144/71 H Pulse Oximetry 94 L 94 L 95 05/08/18 02:36 05/08/18 03:30 05/08/18 03:46 Temperature Pulse Rate 95 H Respiratory Rate 16 16 16 Blood Pressure 126/67 Pulse Oximetry 96 98 05/08/18 04:00 05/08/18 04:30 05/08/18 05:00 Temperature 97.9 F Pulse Rate 80 69 Respiratory Rate 16 16 Blood Pressure 80/53 L 74/52 L Pulse Oximetry 99 99 99 05/08/18 06:00 05/08/18 08:00 Temperature Pulse Rate 70 Respiratory Rate 20 17 Blood Pressure 124/72 Pulse Oximetry 96 96 Intake & Output 05/07/18 05/08/18 05/08/18 18:59 06:59 18:59 Intake Total 2550 / 2550 Output Total 550 / 550 Balance 1999 Weight 99.5 kg Intake: IV 2550 / 2550 Ofirmev Inj 1,000 mg In 100 ml 100 / 100 @ 400 mls/hr IV.SIG ONCE ONE Rx #:[id number] Cordarone Inj 150 MG In D5W Inj 100 / 100 97 ML @ 600 mls/hr IV.SIG ONCE ONE Rx#:[id number] Zosyn 4.5 GM Premix 4.5 gm In 100 / 100 100 ml @ 200 mls/hr IV.SIG ONCE ONE Rx#:[id number] NS Inj 1,000 ML @ 2000 mls/hr 1999 / 2000 IV.SIG Q30M RAÚL Rx#:[id number] Vancomycin Inj 1,000 MG In NS 250 / 250 Inj 250 ML @ 250 mls/hr IV.SIG ONCE ONE Rx#:[id number] Oral 0 / 0 Output: Urine Amount (Catheter) 550 / 550 Indwelling Urethral Catheter 550 / 550 Other: # Incontinent Bowel Movements 0 Weight On Admission 99.5 kg - Constitutional mild distress, moderate distress, obese, chronically ill appearing Comments: sedated and intubated - Routine HEENT Exam Head: Present: normocephalic, atraumatic - Routine Respiratory Exam Present: patient mechanically ventilated - Routine Cardiovascular Exam Present: RRR - Routine Skin Exam Present: intact - Routine Neurological Exam sedated Results 05/10/18 04:00 05/10/18 04:00 Cardiac Enzymes 05/08/18 Range/Units 01:00 AST 26 (15-37) U/L Troponin I 1.51 H* (0.02-0.05) ng/mL Coagulation 05/08/18 Range/Units 01:00 PT 10.7 (9.8-11.6) sec CBC 05/08/18 Range/Units 01:00 WBC 8.1 (4.0-11.0) th/mm3 RBC 4.43 L (4.50-5.90) mil/mm3 Hgb 14.0 (13.0-17.0) gm/dL Hct 41.9 (39.0-51.0) % Plt Count 202 (150-450) th/mm3 Neut # (Auto) 5.2 (1.8-7.7) th/mm3 Lymph # (Auto) 2.4 (1.0-4.8) th/mm3 Becker # (Auto) 0.4 (0.0-0.9) th/mm3 Eos # (Auto) 0.1 (0.0-0.4) th/mm3 Baso # (Auto) 0.1 (0.0-0.2) th/mm3 Comprehensive Metabolic Panel 05/08/18 Range/Units 01:00 Sodium 143 (136-145) meq/L Potassium 3.8 (3.5-5.1) meq/L Chloride 105 (98-107) meq/L Carbon Dioxide 23.8 (21.0-32.0) meq/L BUN 12 (7-18) mg/dL Creatinine 1.56 H (0.60-1.30) mg/dL Calcium 9.9 (8.5-10.1) mg/dL AST 26 (15-37) U/L ALT 28 (12-78) U/L Alkaline Phosphatase 116 (45-117) U/L Total Protein 5.5 L (6.4-8.2) g/dL Albumin 2.5 L (3.4-5.0) g/dL Intake and Output 05/07/18 05/08/18 05/08/18 22:59 06:59 14:59 Intake Total 2550 / 2550 Output Total 550 / 550 Balance 1999 Intake: IV 2550 / 2550 Ofirmev Inj 1,000 mg In 100 ml 100 / 100 @ 400 mls/hr IV.SIG ONCE ONE Rx #:[id number] Cordarone Inj 150 MG In D5W Inj 100 / 100 97 ML @ 600 mls/hr IV.SIG ONCE ONE Rx#:[id number] Zosyn 4.5 GM Premix 4.5 gm In 100 / 100 100 ml @ 200 mls/hr IV.SIG ONCE ONE Rx#:[id number] NS Inj 1,000 ML @ 2000 mls/hr 1999 IV.SIG Q30M [facility] Rx#:[id number] Vancomycin Inj 1,000 MG In NS 250 / 250 Inj 250 ML @ 250 mls/hr IV.SIG ONCE ONE Rx#:[id number] Oral 0 / 0 Output: Urine Amount (Catheter) 550 / 550 Indwelling Urethral Catheter 550 / 550 Other: # Incontinent Bowel Movements 0 Weight 99.5 kg Weight On Admission 99.5 kg - Imaging and Cardiology Imaging: Impressions Abdomen/Pelvis CT 05/08/18 00:00 CONCLUSION: 1. Bibasilar pulmonary infiltrates with small pleural effusions. 2. Significant coronary artery atherosclerotic calcifications. 3. Cholelithiasis. No CT evidence to suggest acute cholecystitis. Chest X-Ray 05/08/18 00:00 CONCLUSION: Lines and tubes as detailed above. Bibasilar parenchymal consolidations. Head CT 05/08/18 01:22 CONCLUSION: 1. 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 This measures 18 mm in maximum thickness. 4 mm of [id number] midline shift. . Assessment and Plan - Plan Assessment Hemorrhagic stroke Arrhythmia ASHD, status post CABG x 5 and multiple stents placed in the past. DM Sepsis? Plan Patient is critically ill, status post 4mm right to left midline shift. SQ heparin DC'd. Lidocaine discontinued. Continues on Amio and Phenylepenephrine. Troponin elevated. Repeat EKG ordered. Medical Leader following, neurosurgery has been consulted. On antibiotics. Patient is critically ill. Dr. Franklin or one of his partners will continue to follow patient. The patient was seen and evaluated by Dr. Wilson who participated in care management and decision making. The exam, history, and the medical decision-making described in the above note were completed with the assistance of the mid-level provider. I reviewed and agree with the findings presented. I attest that I had a [id number] encounter with the patient on the same day, and personally performed and documented my assessment and findings in the medical record. very ill pt poor prognosis Dr Franklin et al will see in am Code Status: Full Code Discussed Condition With: Dr. Wilson, RN,
--- NOTE | 2018-05-08 10:18 | ECG ---
Date Performed: 05/08/2018 Time Performed: 01:12:46 PTAGE: 72 years EKG: SINUS TACHYCARDIA WITH FIRST DEGREE AV BLOCK PATTERN CONSISTENT WITH PULMONARY DISEASE Po ssible acute OR-inferior Compared to prior electrocardiogram, rate has slowed, QRS has narrowed some and ST T-wave changes are less marked. PREVIOUS TRACING : 03/15/2014 07.02 DOCTOR: Dickson Izquierdo Interpretating Date/Time 05/08/2018 10:17:53
--- NOTE | 2018-05-08 10:20 | ECG ---
Date Performed: 05/08/2018 Time Performed: 00:30:45 PTAGE: 72 years EKG: Unclear wide complex tachycardia LEFT VENTRICULAR HYPERTROPHY AND ST-T CHANGE POSSIBLE AN TERIOR MYOCARDIAL INFARCTION INFERIOR MYOCARDIAL INFARCTION POSSIBLE ACUTE [place] Compared to prior electrocardiogram, unclear wide complex tachycardia and ST T wave changes are present. Clinical co rrelation suggested. DOCTOR: Dickson Izquierdo Interpretating Date/Time 05/08/2018 10:19:24
[2018-05-08] MEDS ORDERED: Norepinephrine Inj 16 MG in Sodium Chlor 0.9% Inj 234 ML IV.CONT PRN (10:32)
[2018-05-08 10:53] LABS: Alanine Aminotransferase 187 U/L (12-78); Albumin 2.6 g/dL (3.4-5.0); Alkaline Phosphatase 132 U/L (45-117); Anion Gap 9 meq/L (5-15); Aspartate Aminotransferase 399 U/L (15-37); Blood Urea Nitrogen 15 mg/dL (7-18); Calcium 8.8 mg/dL (8.5-10.1); Chloride 107 meq/L (98-107); Glomerular Filtration Rate 37 mL/min (>89); Glucose,Random 285 mg/dL (74-106); Potassium 4.6 meq/L (3.5-5.1); Sodium 141 meq/L (136-145); Total Protein 5.4 g/dL (6.4-8.2)
[2018-05-08] MEDS: Famotidine PF Inj 20 MG/2 ML Vial IV.PUSH SCH ×2 (11:15→21:17)
--- NOTE | 2018-05-08 12:16 | ECG ---
Date Performed: 05/08/2018 Time Performed: 09:41:46 PTAGE: 72 years EKG: Sinus rhythm . Left axis deviation Inferior infarct - age undetermined Possible septal infarct - age undetermined Abnormal ECG Compared to prior electrocardiogram, QRS has narrowed, voltage has decreased, possible s eptal PA is present and T-wave changes are more prominent. PREVIOUS TRACING : 05/08/2018 01.12 DOCTOR: Dickson Izquierdo Interpretating Date/Time 05/08/2018 12:16:04
[2018-05-08] MEDS: Artificial Tears Opth Drops 15 ML Bottle EACH EYE SCH ×2 (13:20→21:18)
[2018-05-08] MEDS: fentaNYL 10 mcg/mL Premix Drip 2,500 MCG/250 ML BAG IV.SIG PRN (13:21)
[2018-05-08] MEDS: Midazolam 50 MG/50 ML Inj 50 MG/50 ML BAG IV.CONT PRN (13:21)
--- NOTE | 2018-05-08 13:31 | P.CONNS ---
History of Present Illness Primary Care Provider: UNKNOWN Chief Complaint: Fall, altered mental status History of Present Illness: 72yoM presented with cardiac event this morning, confused x 2 weeks, found to have right subdural hygroma with 4mm shift and possible acute bleeding into the hygroma (small if present). and son do report history of head trauma x ~2 months ago when he fell outside. Intubated now on pressors, has moved all 4 extremities. [facility] - History History Provided By: Family Member - Medical History Medical History: Medical History (Last Reviewed 05/08/18 @ 01:33 by Gabriel Ruvalcaba MD) Medical history unknown Surgical history unknown - Tobacco History Second Hand Smoke Exposure: No Smoking Status: Never smoker - Alcohol History How Often Do You Have a Drink Containing Alcohol: Never - Substance Use History Substance History: No History of Abuse - Travel History Recent Travel in the [facility] Within the Last 8 Weeks: No Recent Travel Out of the Country Within the Last 8 Weeks: No - Immunization History Tetanus Immunization: >5 Years Medications and Allergies Active Medications: Active Medications Acetaminophen (Tylenol) 650 mg PO Q6H PRN PRN Reason: PAIN 1-10 AND/OR FEVER >101F Albuterol (Duoneb Neb (Prn)) 1 ampul NEB Q4HR NEB PRN PRN Reason: SHORTNESS OF BREATH Albuterol (Albuterol Neb (Prn)) 2.5 mg NEB Q2HR NEB PRN PRN Reason: DYSPNEA Artificial Tears (Tears Naturale Opth Drops) 1 drop EACH EYE Q8H [facility] Last Admin: 05/08/18 13:20 Dose: 1 drop Chlorhexidine Gluconate (Chlorhexidine 2% Cloth) 3 pack TOPICAL DAILY@0400 [facility] Stop: 05/13/18 03:59 Last Admin: 05/08/18 04:08 Dose: 3 pack Chlorhexidine Gluconate (Chlorhexidine 2% Cloth) 3 pack TOPICAL DAILY@0400 PRN PRN Reason: Extra cloth needed Stop: 05/13/18 03:59 Dextrose (D50w Vial) 50 ml IV.PUSH UNSCH PRN PRN Reason: PER HYPOGLYCEMIA PROTOCOL Famotidine (Pepcid Pf Inj) 20 mg IV.PUSH Q12HR [facility] Last Admin: 05/08/18 11:15 Dose: 20 mg Fentanyl Citrate (Fentanyl Inj) 50 mcg IV.PUSH Q1H PRN PRN Reason: SEE LABEL COMMENTS Glucagon (Glucagon Inj) 1 mg OTHER PRN PRN PRN Reason: for Hypoglycemia Protocol Amiodarone HCl 450 mg/ (Dextrose) 250 mls @ 33.33 mls/hr IV.CONT TITRATE PRN; Protocol PRN Reason: Per Protocol Last Admin: 05/08/18 09:00 Dose: 1 mg/min, 33.33 mls/hr Sodium Chloride (Ns Inj) 1,000 mls @ 100 mls/hr IV.CONT .Q10H [facility] Last Admin: 05/08/18 13:20 Dose: 100 mls/hr Piperacillin/Tazobactam/Dextrose (Zosyn 3.375 Gm Premix) 50 mls @ 100 mls/hr IV.SIG Q6H [facility] Last Admin: 05/08/18 06:30 Dose: 100 mls/hr Phenylephrine HCl 40 mg/ (Sodium Chloride) 500 mls @ 30 mls/hr IV.CONT TITRATE PRN; Protocol PRN Reason: See Protocol Last Admin: 05/08/18 09:41 Dose: 210 mcg/min, 157.5 mls/hr Norepinephrine Bitartrate 16 (mg/ Sodium Chloride) 250 mls @ 1.87 mls/hr IV.CONT TITRATE PRN; Protocol PRN Reason: See Protocol Last Admin: 05/08/18 11:14 Dose: 2 mcg/min, 1.87 mls/hr Fentanyl (Fentanyl 10 Mcg/Ml Premix Drip) 2,500 mcg in 250 mls @ 5 mls/hr IV.SIG TITRATE PRN; Protocol PRN Reason: Per Protocol Last Admin: 05/08/18 13:21 Dose: 50 mcg/hr, 5 mls/hr Midazolam HCl (Versed Inj) 50 mg in 50 mls @ 2 mls/hr IV.CONT TITRATE PRN; Protocol PRN Reason: Per Protocol Last Admin: 05/08/18 13:21 Dose: 2 mg/hr, 2 mls/hr Insulin Human Regular (Novolin R Correctional Sugar Inj) 0 units SQ Q6HR [facility]; Protocol Last Admin: 05/08/18 06:29 Dose: 3 units Sodium Chloride (Ns Flush) 2 ml IV.FLUSH PRN PRN PRN Reason: FLUSH AFTER USING IV ACCESS Terbutaline Sulfate (Brethine Inj) 1 mg SQ UNSCH PRN PRN Reason: For Extravasation Allergies Allergy/AdvReac Type Severity Reaction Status Date / Time sulfamethoxazole Allergy Severe Rash Verified 07/06/17 09:08 Exam Vital signs: Vital Signs 05/08/18 00:31 05/08/18 00:45 05/08/18 00:46 Temperature 104.3 F H Pulse Rate 150 H 106 H 150 H Respiratory Rate 25 H 16 Blood Pressure 126/72 156/82 H Pulse Oximetry 91 L 05/08/18 00:59 05/08/18 01:04 05/08/18 02:18 Temperature Pulse Rate 106 H 100 H Respiratory Rate 16 16 30 H Blood Pressure 141/68 H 144/71 H Pulse Oximetry 94 L 94 L 95 05/08/18 02:36 05/08/18 03:30 05/08/18 03:46 Temperature Pulse Rate 95 H Respiratory Rate 16 16 16 Blood Pressure 126/67 Pulse Oximetry 96 98 05/08/18 04:00 05/08/18 04:30 05/08/18 05:00 Temperature 97.9 F Pulse Rate 80 69 Respiratory Rate 16 16 Blood Pressure 80/53 L 74/52 L Pulse Oximetry 99 99 99 05/08/18 06:00 05/08/18 08:00 Temperature Pulse Rate 70 Respiratory Rate 20 17 Blood Pressure 124/72 Pulse Oximetry 96 96 Intake & Output 05/07/18 05/08/18 05/08/18 18:59 06:59 18:59 Intake Total 2550 / 2550 1750 / 1750 Output Total 550 / 550 Balance 1999 / 1999 1750 / 1750 Weight 99.5 kg Intake: IV 2550 / 2550 1750 / 1750 Cordarone Inj 450 MG In D5W Inj 250 / 250 241 ML @ 1 MG/MIN 33.33 mls/hr IV.CONT TITRATE PRN Rx#: [id number] Neosynephrine Inj 40 MG In NS 500 / 500 Inj 496 ML @ 40 MCG/MIN 30 mls/ hr IV.CONT TITRATE PRN Rx#: [id number] NS Inj 1,000 ML @ 100 mls/hr IV 1000 / 1000 .CONT .Q10H [facility] Rx#:[id number] Ofirmev Inj 1,000 mg In 100 ml 100 / 100 @ 400 mls/hr IV.SIG ONCE ONE Rx #:[id number] Cordarone Inj 150 MG In D5W Inj 100 / 100 97 ML @ 600 mls/hr IV.SIG ONCE ONE Rx#:[id number] Zosyn 4.5 GM Premix 4.5 gm In 100 / 100 100 ml @ 200 mls/hr IV.SIG ONCE ONE Rx#:[id number] NS Inj 1,000 ML @ 2000 mls/hr 1999 / 1999 IV.SIG Q30M [facility] Rx#:[id number] Vancomycin Inj 1,000 MG In NS 250 / 250 Inj 250 ML @ 250 mls/hr IV.SIG ONCE ONE Rx#:[id number] Oral 0 / 0 Output: Urine Amount (Catheter) 550 / 550 Indwelling Urethral Catheter 550 / 550 Other: # Incontinent Bowel Movements 0 Weight On Admission 99.5 kg Narrative: intubated, sedated perrl moves all extremities x 4 Results - Laboratory Findings CBC and BMP: 05/08/18 01:00 05/08/18 10:00 Abnormal lab findings: Abnormal Labs 05/08/18 05/08/18 05/08/18 00:43 01:00 01:00 RBC 4.43 L ABG pH ABG pO2 Creatinine 1.56 H Estimated GFR 44 L POC Glucose 416 H Random Glucose 401 H Lactic Acid Magnesium 2.7 H Total Bilirubin AST ALT Alkaline Phosphatase Troponin I 1.51 H* Total Protein 5.5 L Albumin 2.5 L TSH Urine Clarity Ur Specific [place] Urine Protein Urine Occult Blood Urine Urobilinogen Urine Bacteria Urine Mucus 05/08/18 05/08/18 05/08/18 01:00 01:30 03:40 RBC ABG pH 7.35 L ABG pO2 146 H Creatinine Estimated GFR POC Glucose Random Glucose Lactic Acid 4.0 H Magnesium Total Bilirubin AST ALT Alkaline Phosphatase Troponin I Total Protein Albumin TSH 5.370 H Urine Clarity Ur Specific [place] Urine Protein Urine Occult Blood Urine Urobilinogen Urine Bacteria Urine Mucus 05/08/18 05/08/18 05/08/18 05:00 06:21 10:00 RBC ABG pH ABG pO2 Creatinine 1.80 H Estimated GFR 37 L POC Glucose 219 H Random Glucose 285 H D Lactic Acid Magnesium Total Bilirubin 2.6 H AST 399 H ALT 187 H Alkaline Phosphatase 132 H Troponin I Greater than 40.00 H* Total Protein 5.4 L Albumin 2.6 L TSH Urine Clarity Hazy H Ur Specific [place] 1.039 H Urine Protein 100 H Urine Occult Blood Large H Urine Urobilinogen 2.0 H Urine Bacteria Few H Urine Mucus Few H Assessment and Plan - Plan head CT with right parietal subdural hygroma with 4mm shift 72yoM with recent cardiac event and extensive cardiac history admitted this morning with simultaneously discovered right parietal hygroma with 4mm of shift. plan: discussed with Dr. Lynn and . the subdural could be drained with burrholes, but would require off anticoagulation postop. low dose anticoagulation could be started (heparin, no bolus) and repeat CT scan obtained in AM. this will require coordination between services. would wait for his cardiac status to improve at this point and follow. Dr. Hernandez will take over this patient in the morning for the week.
[2018-05-08 14:16] LABS: Amphetamine Screen,Urine Neg (Neg); Barbiturate Screen,Urine Neg (Neg); Cannabinoid Screen,Urine Neg (Neg); Cocaine Screen,Urine Neg (Neg)
[2018-05-08 14:22] LABS: Opiate Screen,Urine Neg (Neg)
--- NOTE | 2018-05-08 14:56 | P.PN ---
Subjective Interval history: 72-year-old male with a medical history significant for coronary artery disease status post previous CABG with subsequent cardiac catheterization requiring RCA stenting in 2010 who reportedly has been confused for about 1 week with fluctuating mental status along with low back pain. Today while was sleeping she heard a thud and patient had dropped to his knees and fallen on the bed. He was also noted to be shaking vigorously at the time however was able to talk during what appeared to be Reiger's. EMS was called. Patient was hypoxic on arrival with sats in the 60s. He was also tachycardic with heart rate in the 140s-150s with right bundle branch block. Since he had wide complexes there was concern for V. tach however he never lost his pulse. On arrival in the ER who he was intubated and placed on mechanical ventilation. He was loaded with IV amiodarone and lidocaine subsequently after failed attempted defibrillation/cardioversion x2. Patient does have a medical history significant for coronary artery disease status post previous CABG followed by RCA stenting in 2010, diabetes mellitus for which he uses an insulin pump, hypertension. Subjective 05/08: Follow-up. Discussed with Rufina maria at [phone]. Discussion regarding my discussion with neurosurgery Dr. Stevens regarding brain hygroma/ hemorrhage. Options include a empirically starting the patient on heparin drip with frequent neuro checks. Repeat head CT and a.m. Patient has significant risk of bleeding with this however. Possibility of not starting anticoagulation with possibility of worsening cardiac outcome. At the present time, patient wishes to discuss with her regular parts back counter man Dr. Franklin need for anticoagulation at this time. She will discuss with him tomorrow. She is aware of risk of possible cardiac decline as a result of this but wishes to discuss with her regular parts back counter man tomorrow. Physical Exam Vital signs: Vital Signs 05/08/18 00:31 05/08/18 00:45 05/08/18 00:46 Temperature 104.3 F H Pulse Rate 150 H 106 H 150 H Respiratory Rate 25 H 16 Blood Pressure 126/72 156/82 H Pulse Oximetry 91 L 05/08/18 00:59 05/08/18 01:04 05/08/18 02:18 Temperature Pulse Rate 106 H 100 H Respiratory Rate 16 16 30 H Blood Pressure 141/68 H 144/71 H Pulse Oximetry 94 L 94 L 95 05/08/18 02:36 05/08/18 03:30 05/08/18 03:46 Temperature Pulse Rate 95 H Respiratory Rate 16 16 16 Blood Pressure 126/67 Pulse Oximetry 96 98 05/08/18 04:00 05/08/18 04:30 05/08/18 05:00 Temperature 97.9 F Pulse Rate 80 69 Respiratory Rate 16 16 Blood Pressure 80/53 L 74/52 L Pulse Oximetry 99 99 99 05/08/18 06:00 05/08/18 07:00 05/08/18 08:00 Temperature 98.8 F Pulse Rate 70 64 73 Respiratory Rate 20 12 12 Blood Pressure 124/72 81/53 L 97/62 L Pulse Oximetry 96 97 98 05/08/18 09:00 05/08/18 10:00 05/08/18 11:00 Temperature Pulse Rate 69 65 58 L Respiratory Rate 12 12 12 Blood Pressure 92/57 L 89/52 L 94/50 L Pulse Oximetry 96 96 99 05/08/18 12:00 05/08/18 13:00 05/08/18 14:39 Temperature Pulse Rate 59 L 62 Respiratory Rate 12 12 15 Blood Pressure 108/57 L 92/54 L Pulse Oximetry 96 94 L 94 L Intake & Output 05/07/18 05/08/18 05/08/18 18:59 06:59 18:59 Intake Total 2550 / 2550 1750 / 1750 Output Total 550 / 550 Balance 1999 / 1999 1750 / 1750 Weight 99.5 kg Intake: IV 2550 / 2550 1750 / 1750 Cordarone Inj 450 MG In D5W Inj 250 / 250 241 ML @ 1 MG/MIN 33.33 mls/hr IV.CONT TITRATE PRN Rx#: [id number] Neosynephrine Inj 40 MG In NS 500 / 500 Inj 496 ML @ 40 MCG/MIN 30 mls/ hr IV.CONT TITRATE PRN Rx#: [id number] NS Inj 1,000 ML @ 100 mls/hr IV 1000 / 1000 .CONT .Q10H RAÚL Rx#:[id number] Ofirmev Inj 1,000 mg In 100 ml 100 / 100 @ 400 mls/hr IV.SIG ONCE ONE Rx #:[id number] Cordarone Inj 150 MG In D5W Inj 100 / 100 97 ML @ 600 mls/hr IV.SIG ONCE ONE Rx#:[id number] Zosyn 4.5 GM Premix 4.5 gm In 100 / 100 100 ml @ 200 mls/hr IV.SIG ONCE ONE Rx#:[id number] NS Inj 1,000 ML @ 2000 mls/hr 1999 / 1999 IV.SIG Q30M [facility] Rx#:[id number] Vancomycin Inj 1,000 MG In NS 250 / 250 Inj 250 ML @ 250 mls/hr IV.SIG ONCE ONE Rx#:[id number] Oral 0 / 0 Output: Urine Amount (Catheter) 550 / 550 Indwelling Urethral Catheter 550 / 550 Other: # Incontinent Bowel Movements 0 Weight On Admission 99.5 kg - Constitutional no acute distress - Routine HEENT Exam Head: Present: normocephalic, atraumatic Eye: Present: EOMI, PERRL - Routine Neck Exam Present: supple - Routine Respiratory Exam Present: CTA bilaterally. Absent: accessory muscle use - Routine Cardiovascular Exam Present: RRR, S1, S2 - Routine Abdominal Exam Present: soft, normoactive bowel sounds - Routine Exam Patient deferred: penile exam, testicular exam, scrotal exam, groin exam, perineal exam - Routine Extremities Exam Absent: cyanosis, clubbing, edema - Routine Skin Exam Present: intact - Routine Neurological Exam Present: alert, CN II-XII intact - Detailed Neurological Exam: Coma Scale Eye Opening: Spontaneous Verbal Response: None Motor Response: Obey commands Oralia Coma Scale Total: 11 - Routine Psychiatric Exam Present: unable to assess - Urinary Catheter Management Indwelling Urethral Catheter Cath placed during this visit: yes Urethral indwelling: Yes Reason for continuing: Terminally ill/Comfort care Insertion date: 05/08/18 Insertion time: 00:55 Results - Labs CBC & Chem 7: 05/08/18 01:00 05/08/18 10:00 Laboratory Results - last 24 hr 05/08/18 05/08/18 05/08/18 00:43 01:00 01:00 WBC 8.1 RBC 4.43 L Hgb 14.0 Hct 41.9 MCV 94.4 MCH 31.7 MCHC 33.5 RDW 14.6 Plt Count 202 MPV 9.4 Neut % (Auto) 64.2 Lymph % (Auto) 29.0 [place] % (Auto) 4.8 Eos % (Auto) 1.1 Baso % (Auto) 0.9 Neut # (Auto) 5.2 Lymph # (Auto) 2.4 [place] # (Auto) 0.4 Eos # (Auto) 0.1 Baso # (Auto) 0.1 WBC Differential . Differential Comment Auto diff final PT INR Puncture Site Patient Temperature O2 Saturation ABG pH ABG pCO2 ABG pO2 ABG HCO3 ABG O2 Content ABG Base Excess ABG Methemoglobin Raul Test Hemoglobin Carboxyhemoglobin O2 Delivery Device Vent Setting Inspired O2 Critical Value Sodium 143 Potassium 3.8 Chloride 105 Carbon Dioxide 23.8 Anion Gap 14 BUN 12 Creatinine 1.56 H Estimated GFR 44 L POC Glucose 416 H Random Glucose 401 H Lactic Acid Calcium 9.9 Magnesium 2.7 H Total Bilirubin 0.5 AST 26 ALT 28 Alkaline Phosphatase 116 Troponin I 1.51 H* Total Protein 5.5 L Albumin 2.5 L TSH Urine Color Urine Clarity Urine pH Ur Specific [place] Urine Protein Urine Glucose (UA) Urine Ketones Urine Occult Blood Urine Nitrate Urine Bilirubin Urine Urobilinogen Ur Leukocyte Esterase Urine RBC Urine WBC Ur Squamous Epith Cells Urine Bacteria Urine Mucus Micro UA Comment Ur Microscopic Review Urine Culture Comments Nasal Screen MRSA (PCR) Urine Opiates Screen Ur Barbiturates Screen Ur Amphetamines Screen U Benzodiazepines Scrn Urine Cocaine Screen U Cannabinoids Screen Serum Alcohol Less than 3 05/08/18 05/08/18 05/08/18 01:00 01:00 01:30 WBC RBC Hgb Hct MCV MCH MCHC RDW Plt Count MPV Neut % (Auto) Lymph % (Auto) [place] % (Auto) Eos % (Auto) Baso % (Auto) Neut # (Auto) Lymph # (Auto) [place] # (Auto) Eos # (Auto) Baso # (Auto) WBC Differential Differential Comment PT 10.7 INR 1.1 Puncture Site Right radial Patient Temperature 98.6 O2 Saturation 97 ABG pH 7.35 L ABG pCO2 42 ABG pO2 146 H ABG HCO3 23 ABG O2 Content 19.7 ABG Base Excess -2.0 ABG Methemoglobin 0.9 Raul Test Present Hemoglobin 14.3 Carboxyhemoglobin 0.7 O2 Delivery Device Ventilator Vent Setting Inspired O2 100 Critical Value No Sodium Potassium Chloride Carbon Dioxide Anion Gap BUN Creatinine Estimated GFR POC Glucose Random Glucose Lactic Acid Calcium Magnesium Total Bilirubin AST ALT Alkaline Phosphatase Troponin I Total Protein Albumin TSH 5.370 H Urine Color Urine Clarity Urine pH Ur Specific [place] Urine Protein Urine Glucose (UA) Urine Ketones Urine Occult Blood Urine Nitrate Urine Bilirubin Urine Urobilinogen Ur Leukocyte Esterase Urine RBC Urine WBC Ur Squamous Epith Cells Urine Bacteria Urine Mucus Micro UA Comment Ur Microscopic Review Urine Culture Comments Nasal Screen MRSA (PCR) Urine Opiates Screen Ur Barbiturates Screen Ur Amphetamines Screen U Benzodiazepines Scrn Urine Cocaine Screen U Cannabinoids Screen Serum Alcohol 05/08/18 05/08/18 05/08/18 03:30 03:40 05:00 WBC RBC Hgb Hct MCV MCH MCHC RDW Plt Count MPV Neut % (Auto) Lymph % (Auto) [place] % (Auto) Eos % (Auto) Baso % (Auto) Neut # (Auto) Lymph # (Auto) [place] # (Auto) Eos # (Auto) Baso # (Auto) WBC Differential Differential Comment PT INR Puncture Site Patient Temperature O2 Saturation ABG pH ABG pCO2 ABG pO2 ABG HCO3 ABG O2 Content ABG Base Excess ABG Methemoglobin Raul Test Hemoglobin Carboxyhemoglobin O2 Delivery Device Vent Setting Inspired O2 Critical Value Sodium Potassium Chloride Carbon Dioxide Anion Gap BUN Creatinine Estimated GFR POC Glucose Random Glucose Lactic Acid 4.0 H Calcium Magnesium Total Bilirubin AST ALT Alkaline Phosphatase Troponin I Total Protein Albumin TSH Urine Color Urine Clarity Urine pH Ur Specific [place] Urine Protein Urine Glucose (UA) Urine Ketones Urine Occult Blood Urine Nitrate Urine Bilirubin Urine Urobilinogen Ur Leukocyte Esterase Urine RBC Urine WBC Ur Squamous Epith Cells Urine Bacteria Urine Mucus Micro UA Comment Ur Microscopic Review Urine Culture Comments Nasal Screen MRSA (PCR) Not detected Urine Opiates Screen Neg Ur Barbiturates Screen Neg Ur Amphetamines Screen Neg U Benzodiazepines Scrn Pos H Urine Cocaine Screen Neg U Cannabinoids Screen Neg Serum Alcohol 05/08/18 05/08/18 05/08/18 05:00 06:21 10:00 WBC RBC Hgb Hct MCV MCH MCHC RDW Plt Count MPV Neut % (Auto) Lymph % (Auto) [place] % (Auto) Eos % (Auto) Baso % (Auto) Neut # (Auto) Lymph # (Auto) [place] # (Auto) Eos # (Auto) Baso # (Auto) WBC Differential Differential Comment PT INR Puncture Site Patient Temperature O2 Saturation ABG pH ABG pCO2 ABG pO2 ABG HCO3 ABG O2 Content ABG Base Excess ABG Methemoglobin Raul Test Hemoglobin Carboxyhemoglobin O2 Delivery Device Vent Setting Inspired O2 Critical Value Sodium 141 Potassium 4.6 D Chloride 107 Carbon Dioxide 25.0 Anion Gap 9 BUN 15 Creatinine 1.80 H Estimated GFR 37 L POC Glucose 219 H Random Glucose 285 H D Lactic Acid Calcium 8.8 D Magnesium Total Bilirubin 2.6 H AST 399 H ALT 187 H Alkaline Phosphatase 132 H Troponin I Greater than 40.00 H* Total Protein 5.4 L Albumin 2.6 L TSH Urine Color Sonia Urine Clarity Hazy H Urine pH 5.0 Ur Specific [place] 1.039 H Urine Protein 100 H Urine Glucose (UA) 50 Urine Ketones Negative Urine Occult Blood Large H Urine Nitrate Negative Urine Bilirubin Negative Urine Urobilinogen 2.0 H Ur Leukocyte Esterase Negative Urine RBC Urine WBC 5 Ur Squamous Epith Cells <1 Urine Bacteria Few H Urine Mucus Few H Micro UA Comment Cath-culture ind Ur Microscopic Review Not Reportable Urine Culture Comments Cath-cult indicated Nasal Screen MRSA (PCR) Urine Opiates Screen Ur Barbiturates Screen Ur Amphetamines Screen U Benzodiazepines Scrn Urine Cocaine Screen U Cannabinoids Screen Serum Alcohol - Imaging Impressions Abdomen/Pelvis CT 05/08/18 00:00 CONCLUSION: 1. Bibasilar pulmonary infiltrates with small pleural effusions. 2. Significant coronary artery atherosclerotic calcifications. 3. Cholelithiasis. No CT evidence to suggest acute cholecystitis. Chest X-Ray 05/08/18 00:00 CONCLUSION: Lines and tubes as detailed above. Bibasilar parenchymal consolidations. Head CT 05/08/18 01:22 CONCLUSION: 1. 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 This measures 18 mm in maximum thickness. 4 mm of [id number] midline shift. . Assessment and Plan - Plan Please see active progress note.
--- NOTE | 2018-05-08 17:43 | ECHRPT ---
Indication: syncope CONCLUSIONS Normal left ventricular size. Mild concentric left ventricular hypertrophy. The left ventricular systolic function is severely reduced with an estimated ejection fraction in th e range of 20-25%. [id number] mitral valve regurgitation. Mild thickening of the aortic valve leaflets. The estimated pulmonary arterial pressure is 27 mmHg. Anterior, anterolateral, anteroseptal, apical, and inferoapical hypokinesis. BP: / HR: Rhythm: MEASUREMENTS (Male / Female) Normal Values Technical Quality: 2D ECHO LV Diastolic Diameter PLAX 4.6 cm 4.2 - 5.9 / 3.9 - 5.3 cm LV Systolic Diameter PLAX 4.2 cm IVS Diastolic Thickness 1.4 cm 0.6 - 1.0 / 0.6 - 0.9 cm LVPW Diastolic Thickness 1.2 cm 0.6 - 1.0 / 0.6 - 0.9 cm LV Relative Wall Thickness 0.6 RV Internal Dim ED PLAX 3.2 cm LVOT Diameter 2.1 cm Aortic Root Diameter 3.0 cm LA Systolic Diameter LX 3.6 cm 3.0 - 4.0 / 2.7 - 3.8 cm LV Ejection Fraction MOD BP 25.8 % >= 55 % LV Ejection Fraction MOD 4C 26.9 % LV Ejection Fraction 4C AL 24.5 % LV Ejection Fraction MOD 2C 18.5 % LV Ejection Fraction 2C AL 16.1 % M-MODE Aortic Root Diameter MM 4.0 cm LA Systolic Diameter MM 1.0 cm LA Ao Ratio MM 0.3 AV Cusp Separation MM 1.4 cm DOPPLER AV Peak Velocity 192.0 cm/s AV Peak Gradient 14.7 mmHg LVOT Peak Velocity 62.2 cm/s LVOT Peak Gradient 1.5 mmHg AV Area Cont Eq pk 1.1 cm Mitral E Point Velocity 79.5 cm/s Mitral A Point Velocity 60.7 cm/s Mitral E to A Ratio 1.3 LV E' Lateral Velocity 6.0 cm/s Mitral E to LV E' Lateral Ratio 13.2 LV E' Septal Velocity 4.3 cm/s Mitral E to LV E' Septal Ratio 18.5 TR Peak Velocity 206.0 cm/s TR Peak Gradient 17.0 mmHg Right Atrial Pressure 10.0 mmHg Pulmonary Artery Systolic Pressu 27.0 mmHg Right Ventricular Systolic Press 27.0 mmHg PV Peak Velocity 59.7 cm/s PV Peak Gradient 1.4 mmHg FINDINGS LEFT VENTRICLE Normal left ventricular size. Mild concentric left ventricular hypertrophy. The left ventricular systolic function is severely reduced with an estimated ejection fraction in th e range of 20-25%. RIGHT VENTRICLE Normal right ventricular size and systolic function. LEFT ATRIUM The left atrial size is normal. RIGHT ATRIUM The right atrial size is normal. ATRIAL SEPTUM Normal atrial septal thickness without atrial level shunting by limited color doppler interrogation. AORTA The aortic root and proximal ascending aorta are normal in size on limited imaging. MITRAL VALVE Litrh-di-upse mitral valve regurgitation. AORTIC VALVE Mild thickening of the aortic valve leaflets. TRICUSPID VALVE The estimated pulmonary arterial pressure is 27 mmHg. PULMONARY VALVE No pulmonary valve regurgitation or stenosis. VESSELS The inferior vena cava is normal in size. PERICARDIUM No pericardial effusion. Dann Peralta MD, FACC (Electronically Signed) Final Date:08 May 2018 17:41
[2018-05-08] MEDS: Oral Hygiene Kit OROPHARYNG SCH (18:43)
[2018-05-08] MEDS ORDERED: Calcium Chloride Inj 1 GM/10 ML Syringe IV.PUSH ONE (19:19)
[2018-05-08] MEDS ORDERED: Sodium Bicarbonate 8.4% Inj 50 MEQ/50 ML Syringe IV.PUSH ONE (19:19)
[2018-05-08] MEDS ORDERED: Magnesium Sulfate Inj 40 MEQ/10 ML Vial IV.SIG ONE (19:19)
[2018-05-08] MEDS ORDERED: Lidocaine/D5W 2000 mg/500 mL 2,000 MG/500 ML BAG IV.SIG ONE (19:19)
--- NOTE | 2018-05-08 20:45 | CT ---
EXAM DATE: 05/08/2018 8:27 PM EST AGE/SEX: 72 years / Male INDICATIONS: Trauma, head injury. CLINICAL DATA: This is the patient's initial encounter. Patient reports that signs and symptoms have been present for 1 day and indicates a pain score of Nonresponsive. MEDICAL/SURGICAL HISTORY: Non-responsive. Non-responsive. RADIATION DOSE: 56.35 CTDI (mGy) [place] [facility] [place]. . TECHNIQUE: CT of the head without contrast. Using automated exposure control and adjustment of the mA and/or kV according to patient size, radiation dose was kept as low as reasonably achievable to ob tain optimal diagnostic quality images. DICOM format image data is available electronically for revi ew and comparison. FINDINGS: There is a mixed acute and chronic right-sided subdural hematoma which is similar in appearance to ex am from earlier today. Approximately 4 mm of [id number] midline shift is able. No new hemorrhage. No hydrocephalus. No acute bony abnormality. CONCLUSION: 1. 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 No new hemorrhage. . Electronically signed by: Varun Doshi MD 05/08/2018 8:43 PM EST
[2018-05-08] MEDS: Chlorhexidine 0.12% Oral Kit 15 ML UDC OROPHARYNG SCH (21:17)
[2018-05-09] MEDS: Insulin NovoLIN Regular Correctional Sugar Inj SQ SCH ×4 (00:02→19:32)
[2018-05-09] MEDS: Piperacil/Tazo 3.375 GM Premix 50 ML IV.SIG SCH ×4 (00:03→18:28)
[2018-05-09] MEDS: Oral Hygiene Kit OROPHARYNG SCH ×3 (00:03→17:15)
[2018-05-09] MEDS: Midazolam 50 MG/50 ML Inj 50 MG/50 ML BAG IV.CONT PRN ×2 (02:38→19:49)
[2018-05-09 02:43] LABS: Baso # (Auto) 0.1 th/mm3 (0.0-0.2); Baso % (Auto) 0.7 % (0.0-2.0); Eos % (Auto) 0.1 % (0.0-4.0); Hematocrit 39.6 % (39.0-51.0); Hemoglobin 13.6 gm/dL (13.0-17.0); Lymph # (Auto) 1.3 th/mm3 (1.0-4.8); Lymph % (Auto) 12.7 % (9.0-44.0); Mean Corpuscular HGB Conc 34.3 % (32.0-36.0); Mean Corpuscular Volume 93.3 fL (80.0-100.0); Mean Platelet Volume 9.5 fL (7.0-11.0); Mono # (Auto) 0.5 th/mm3 (0.0-0.9); Mono % (Auto) 5.2 % (0.0-8.0); Neut # (Auto) 8.2 th/mm3 (1.8-7.7); Neut % (Auto) 81.3 % (16.0-70.0); Platelet Count 133 th/mm3 (150-450); Red Blood Count 4.25 mil/mm3 (4.50-5.90); Red Cell Distribution Width 15.2 % (11.6-17.2)
[2018-05-09 03:06] LABS: Albumin 2.2 g/dL (3.4-5.0); Anion Gap 9 meq/L (5-15); Blood Urea Nitrogen 17 mg/dL (7-18); Calcium 8.1 mg/dL (8.5-10.1); Carbon Dioxide 22.8 meq/L (21.0-32.0); Chloride 108 meq/L (98-107); Glomerular Filtration Rate 40 mL/min (>89); Glucose,Random 296 mg/dL (74-106); Magnesium 2.2 mg/dL (1.5-2.5); Phosphorus 2.8 mg/dL (2.5-4.9); Potassium 4.4 meq/L (3.5-5.1); Sodium 140 meq/L (136-145)
[2018-05-09 03:12] LABS: Alanine Aminotransferase 1015 U/L (12-78); Alkaline Phosphatase 127 U/L (45-117); Aspartate Aminotransferase 1287 U/L (15-37); Total Protein 5.3 g/dL (6.4-8.2)
[2018-05-09] MEDS: Artificial Tears Opth Drops 15 ML Bottle EACH EYE SCH ×3 (04:01→20:00)
[2018-05-09] MEDS: fentaNYL 10 mcg/mL Premix Drip 2,500 MCG/250 ML BAG IV.SIG PRN ×2 (04:01→19:50)
[2018-05-09] MEDS: Chlorhexidine Gluconate 2% 1 Pack (2 Cloths) TOPICAL SCH (04:01)
--- NOTE | 2018-05-09 05:48 | XR ---
EXAM DATE: 05/09/2018 5:23 AM EST AGE/SEX: 72 years / Male INDICATIONS: Shortness of breath, possible pulmonary disease. CLINICAL DATA: This is the patient's subsequent encounter. Patient reports that signs and symptoms h ave been present for 2 days and indicates a pain score of Nonresponsive. MEDICAL/SURGICAL HISTORY: Non-responsive. CABG. COMPARISON: [facility], CHEST 1V SINGLE AP, 05/08/2018. . FINDINGS: Single AP view of the chest. Endotracheal tube, nasogastric tube, right subclavian central venous cat heter remain in place. Mild patchy left lung base opacity. Interval clearing of upper lung zone opaci ty bilaterally. Cardiomediastinal silhouette unchanged. Small left pleural effusion. No evidence of p neumothorax. CONCLUSION: 1. New left lower lung zone atelectasis versus consolidation and small left pleural effusion. 2. Clearing of bilateral upper lung zone opacity. Electronically signed by: Justin Pappas MD 05/09/2018 5:46 AM EST
--- NOTE | 2018-05-09 08:14 | P.PNCC ---
Subjective Subjective Remarks/Hospital Course: 72-year-old male with a medical history significant for coronary artery disease status post previous CABG with subsequent cardiac catheterization requiring RCA stenting in 2010 who reportedly has been confused for about 1 week with fluctuating mental status along with low back pain. Today while was sleeping she heard a thud and patient had dropped to his knees and fallen on the bed. He was also noted to be shaking vigorously at the time however was able to talk during what appeared to be Reiger's. EMS was called. Patient was hypoxic on arrival with sats in the 60s. He was also tachycardic with heart rate in the 140s-150s with right bundle branch block. Since he had wide complexes there was concern for V. tach however he never lost his pulse. On arrival in the ER who he was intubated and placed on mechanical ventilation. He was loaded with IV amiodarone and lidocaine subsequently after failed attempted defibrillation/cardioversion x2. Patient does have a medical history significant for coronary artery disease status post previous CABG followed by RCA stenting in 2010, diabetes mellitus for which he uses an insulin pump, hypertension. Subjective 05/08: Follow-up. Discussed with Rufina maria at [id number]. Discussion regarding my discussion with neurosurgery Dr. Stevens regarding brain hygroma/ hemorrhage. Options include a empirically starting the patient on heparin drip with frequent neuro checks. Repeat head CT and a.m. Patient has significant risk of bleeding with this however. Possibility of not starting anticoagulation with possibility of worsening cardiac outcome. At the present time, patient wishes to discuss with her regular immigration inspector Dr. Franklin need for anticoagulation at this time. She will discuss with him tomorrow. She is aware of risk of possible cardiac decline as a result of this but wishes to discuss with her regular immigration inspector tomorrow. 05/09 Patient is intubated and sedated with Versed and Fentanyl infusion. On Levophed 2 mics. Afebrile. Objective Vital Signs / I&O: Vital Signs 05/08/18 09:00 05/08/18 10:00 05/08/18 11:00 Temperature Pulse Rate 69 65 58 L Respiratory Rate 12 12 12 Blood Pressure 92/57 L 89/52 L 94/50 L Pulse Oximetry 96 96 99 05/08/18 12:00 05/08/18 13:00 05/08/18 13:30 Temperature Pulse Rate 59 L 62 68 Respiratory Rate 12 12 5 L Blood Pressure 108/57 L 92/54 L 144/67 H Pulse Oximetry 96 94 L 97 05/08/18 13:45 05/08/18 14:00 05/08/18 14:15 Temperature Pulse Rate 78 79 78 Respiratory Rate 8 L 7 L 17 Blood Pressure 147/68 H 147/68 H 143/66 H Pulse Oximetry 96 96 94 L 05/08/18 14:30 05/08/18 14:39 05/08/18 14:45 Temperature Pulse Rate 76 74 Respiratory Rate 0 L 15 0 L Blood Pressure 133/63 126/58 L Pulse Oximetry 94 L 94 L 95 05/08/18 15:00 05/08/18 15:15 05/08/18 15:30 Temperature Pulse Rate 71 69 68 Respiratory Rate 8 L 7 L 6 L Blood Pressure 122/56 L 114/55 L 114/56 L Pulse Oximetry 95 95 95 05/08/18 15:45 05/08/18 16:00 05/08/18 16:15 Temperature Pulse Rate 67 66 66 Respiratory Rate 8 L 14 11 L Blood Pressure 103/54 L 100/54 L 114/64 Pulse Oximetry 96 96 96 05/08/18 16:30 05/08/18 16:45 05/08/18 17:00 Temperature Pulse Rate 66 66 66 Respiratory Rate 15 16 16 Blood Pressure 114/65 117/66 116/64 Pulse Oximetry 97 97 97 05/08/18 17:15 05/08/18 17:30 05/08/18 17:45 Temperature Pulse Rate 65 66 66 Respiratory Rate 16 16 16 Blood Pressure 116/65 113/63 108/60 Pulse Oximetry 97 98 98 05/08/18 18:00 05/08/18 18:15 05/08/18 18:30 Temperature Pulse Rate 67 67 66 Respiratory Rate 16 16 16 Blood Pressure 113/64 99/54 L 101/56 L Pulse Oximetry 98 98 99 05/08/18 18:45 05/08/18 19:00 05/08/18 19:15 Temperature Pulse Rate 65 65 64 Respiratory Rate 16 16 16 Blood Pressure 100/54 L 101/56 L 101/57 L Pulse Oximetry 99 99 97 05/08/18 19:30 05/08/18 19:45 05/08/18 20:00 Temperature 100.7 F H Pulse Rate 62 62 62 Respiratory Rate 16 16 22 Blood Pressure 102/52 L 103/57 L 108/58 L Pulse Oximetry 98 98 98 05/08/18 20:15 05/08/18 20:39 05/08/18 20:40 Temperature Pulse Rate 78 Respiratory Rate 14 17 Blood Pressure 125/64 Pulse Oximetry 100 94 L 95 05/08/18 20:45 05/08/18 21:00 05/08/18 21:15 Temperature Pulse Rate 71 69 66 Respiratory Rate 17 24 17 Blood Pressure 120/60 112/59 L 104/57 L Pulse Oximetry 94 L 95 95 05/08/18 21:30 05/08/18 21:45 05/08/18 22:00 Temperature Pulse Rate 64 78 80 Respiratory Rate 16 17 17 Blood Pressure 106/59 L 114/58 L 116/61 Pulse Oximetry 96 96 96 05/08/18 22:15 05/08/18 22:30 05/08/18 22:45 Temperature Pulse Rate 80 80 81 Respiratory Rate 16 16 16 Blood Pressure 117/61 115/57 L 111/55 L Pulse Oximetry 97 97 98 05/08/18 23:00 05/08/18 23:15 05/08/18 23:30 Temperature Pulse Rate 80 61 62 Respiratory Rate 16 17 19 Blood Pressure 111/55 L 96/54 L 97/52 L Pulse Oximetry 98 98 98 05/08/18 23:36 05/08/18 23:45 05/09/18 00:00 Temperature 97.6 F Pulse Rate 61 61 Respiratory Rate 16 16 16 Blood Pressure 102/56 L 106/59 L Pulse Oximetry 96 95 96 05/09/18 00:15 05/09/18 00:30 05/09/18 00:45 Temperature Pulse Rate 61 61 61 Respiratory Rate 16 16 16 Blood Pressure 110/58 L 110/57 L 104/54 L Pulse Oximetry 96 97 97 05/09/18 01:00 05/09/18 01:15 05/09/18 01:30 Temperature Pulse Rate 61 61 60 Respiratory Rate 16 17 16 Blood Pressure 105/53 L 106/53 L 111/56 L Pulse Oximetry 97 97 98 05/09/18 01:45 05/09/18 02:00 05/09/18 02:15 Temperature Pulse Rate 60 87 84 Respiratory Rate 17 18 17 Blood Pressure 112/56 L 116/65 120/65 Pulse Oximetry 98 97 97 05/09/18 02:30 05/09/18 02:45 05/09/18 03:00 Temperature Pulse Rate 60 60 60 Respiratory Rate 17 18 19 Blood Pressure 103/58 L 106/59 L 108/55 L Pulse Oximetry 97 97 97 05/09/18 03:15 05/09/18 03:30 05/09/18 03:45 Temperature Pulse Rate 60 60 60 Respiratory Rate 18 19 18 Blood Pressure 107/55 L 109/57 L 110/57 L Pulse Oximetry 97 97 98 05/09/18 04:00 05/09/18 04:15 05/09/18 04:28 Temperature 98.6 F Pulse Rate 61 59 L Respiratory Rate 16 16 16 Blood Pressure 99/54 L 99/54 L Pulse Oximetry 97 97 97 05/09/18 04:30 05/09/18 04:45 05/09/18 05:00 Temperature Pulse Rate 61 59 L 59 L Respiratory Rate 16 16 16 Blood Pressure 106/57 L 105/57 L 105/57 L Pulse Oximetry 99 97 97 05/09/18 05:15 05/09/18 05:30 05/09/18 05:45 Temperature Pulse Rate 59 L 59 L 59 L Respiratory Rate 16 16 16 Blood Pressure 93/55 L 96/54 L 97/54 L Pulse Oximetry 97 97 97 05/09/18 06:00 05/09/18 06:15 Temperature Pulse Rate 59 L 58 L Respiratory Rate 16 16 Blood Pressure 88/51 L 93/54 L Pulse Oximetry 97 97 Intake & Output 05/08/18 05/09/18 05/09/18 18:59 06:59 18:59 Intake Total 2850 / 2850 1850 / 1850 Output Total 175 / 175 400 / 400 Balance 2675 / 2675 1450 / 1450 Weight 108.5 kg Intake: IV 2850 / 2850 1850 / 1850 Cordarone Inj 450 MG In D5W Inj 500 / 500 250 / 250 241 ML @ 1 MG/MIN 33.33 mls/hr IV.CONT TITRATE PRN Rx#: [id number] Lidocaine/D5W 2000 mg/500 mL 100 / 100 Premix Inj 2,000 mg In 500 ml @ 1 MG/MIN 15 mls/hr IV.CONT . Q24H RAÚL Rx#:[id number] Versed Inj 50 mg In 50 ml @ 2 50 / 50 MG/HR 2 mls/hr IV.CONT TITRATE PRN Rx#:[id number] Neosynephrine Inj 40 MG In NS 1000 / 1000 200 / 200 Inj 496 ML @ 40 MCG/MIN 30 mls/ hr IV.CONT TITRATE PRN Rx#: [id number] NS Inj 1,000 ML @ 100 mls/hr IV 1000 / 1000 1000 / 1000 .CONT .Q10H RAÚL Rx#:[id number] Zosyn 3.375 GM Premix 50 ML @ 150 / 150 100 / 100 100 mls/hr IV.SIG Q6H RAÚL Rx#: [id number] fentaNYL 10 mcg/mL Premix Drip 250 / 250 2,500 mcg In 250 ml @ 50 MCG/HR 5 mls/hr IV.SIG TITRATE PRN Rx #:[id number] Output: Urine Amount (Catheter) 175 / 175 400 / 400 Indwelling Urethral Catheter 175 / 175 400 / 400 Result Diagrams: 05/09/18 02:20 05/09/18 02:20 Other Results: Laboratory Results - last 12 hr 05/08/18 05/08/18 05/09/18 21:30 23:44 02:20 WBC RBC Hgb Hct MCV MCH MCHC RDW Plt Count MPV Neut % (Auto) Lymph % (Auto) [place] % (Auto) Eos % (Auto) Baso % (Auto) Neut # (Auto) Lymph # (Auto) [place] # (Auto) Eos # (Auto) Baso # (Auto) WBC Differential Differential Comment Sodium 140 Potassium 4.4 Chloride 108 H Carbon Dioxide 22.8 Anion Gap 9 BUN 17 Creatinine 1.67 H Estimated GFR 40 L POC Glucose 267 H Random Glucose 296 H Lactic Acid 2.2 H Calcium 8.1 L Phosphorus 2.8 Magnesium 2.2 Total Bilirubin 1.5 H AST 1287 H ALT 1015 H Alkaline Phosphatase 127 H Troponin I Greater than 40.00 H* Total Protein 5.3 L Albumin 2.2 L 05/09/18 05/09/18 05/09/18 02:20 02:20 05:39 WBC 10.0 RBC 4.25 L Hgb 13.6 Hct 39.6 MCV 93.3 MCH 32.0 MCHC 34.3 RDW 15.2 Plt Count 133 L D MPV 9.5 Neut % (Auto) 81.3 H Lymph % (Auto) 12.7 [place] % (Auto) 5.2 Eos % (Auto) 0.1 Baso % (Auto) 0.7 Neut # (Auto) 8.2 H Lymph # (Auto) 1.3 [place] # (Auto) 0.5 Eos # (Auto) 0.0 Baso # (Auto) 0.1 WBC Differential . Differential Comment Auto diff final Sodium Potassium Chloride Carbon Dioxide Anion Gap BUN Creatinine Estimated GFR POC Glucose 259 H Random Glucose Lactic Acid 2.0 Calcium Phosphorus Magnesium Total Bilirubin AST ALT Alkaline Phosphatase Troponin I Total Protein Albumin Imaging: Abdomen/Pelvis CT 05/08/18 00:00 CONCLUSION: 1. Bibasilar pulmonary infiltrates with small pleural effusions. 2. Significant coronary artery atherosclerotic calcifications. 3. Cholelithiasis. No CT evidence to suggest acute cholecystitis. Head CT 05/08/18 19:23 CONCLUSION: 1. 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 No new hemorrhage. . Chest X-Ray 05/09/18 06:00 CONCLUSION: 1. New left lower lung zone atelectasis versus consolidation and small left pleural effusion. 2. Clearing of bilateral upper lung zone opacity. Objective Remarks: GENERAL: Patient is 72 yo intubated and sedated SKIN: Warm and dry. HEAD: Normocephalic. EYES: No scleral icterus. No injection or drainage. NECK: Supple, trachea midline. No JVD or lymphadenopathy. CARDIOVASCULAR: Regular rate and rhythm without murmurs, gallops, or rubs. RESPIRATORY: Breath sounds equal bilaterally. No accessory muscle use. GASTROINTESTINAL: Abdomen soft, non-tender, nondistended. MUSCULOSKELETAL: No cyanosis, or edema. Neuro: Sedated Assessment and Plan - Assessment and Plan Plan: 72-year-old male with: Syncope Encephalopathy Wide-complex tachycardia with pulse: Suspect A flutter with aberrant conduction versus sinus tach with aberrant conduction Elevated trop/NSTEMI Suspected sepsis low back pain CAD status post previous CABG Uncontrolled diabetes mellitus Hypertension Plan: Neuro: On Fentanyl and versed infusion for sedation. Daily sedation vacation. 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 No new hemorrhage. BSG is following- Dr. Stevens CV: Wide-complex tachycardia with pulse on arrival. on Levophed Monitor HR and BP keep MAP>65mmHg Echo showed EF 20-25%, Anterior, anterolateral, anteroseptal, apical, and inferoapical hypokinesis. Cards is following. Will defer anticoagulation to Cards/NSG Trop persistently > 40. Anticoagulation likely contraindicated in setting of right subdural hematoma on CT brain. D/C Amio drip given elevated LFT's/ischemic hepatitis. Pulm: Continue vent support keep sats >92% Bronchodilators, ICU vent bundle. CXR today New left lower lung zone atelectasis versus consolidation and small left pleural effusion. Clearing of bilateral upper lung zone opacity GI/liver: Monitor LFT's( Elevated LFT;s likely [address]nd ischemic hepatitis. CT hailey/pelvis: There is no dilation of the biliary tree. A small layering calcified gallstone within an otherwise normal-appearing gallbladder Check US abdomen, Hepatits profile. On Pepcid 20mg IV Q12 for GI prophylaxis Start tube feeds- Glucerna 1.5 with goal rate 50ml/hr Renal/: Monitor renal function, I/O's, electrolytes replacement per protocol. Diurese with Lasix 40mg x1, decrease IVF NS@50ml/hr ID: Continue IV Zosyn. Monitor for signs of infections ( fever, WBC) Pancultured ( Blood, sputum, urine) Heme: Follow CBC Endocrine: Increase SSI medium scale for glycemic control Prophylaxis: Pepcid/SCDs. Palliative care eval to asses with goals of care Prognosis guarded given multiorgan injury ( Resp failure, LALITO, ischemic hepatitis, Acute TN and brain bleed) Condition critical CCT 35 mins
[2018-05-09] MEDS: Senna/Docusate Sodium 8.6/50 MG Tablet PO SCH ×2 (08:33→20:00)
[2018-05-09] MEDS: Famotidine PF Inj 20 MG/2 ML Vial IV.PUSH SCH ×2 (08:33→20:01)
[2018-05-09] MEDS: Chlorhexidine 0.12% Oral Kit 15 ML UDC OROPHARYNG SCH ×2 (08:34→19:48)
[2018-05-09] MEDS ORDERED: Dextrose 50% in Water 50 ML Vial IV.PUSH PRN (08:35)
[2018-05-09] MEDS: Sod Chloride 0.9% Inj 1,000 ML IV.CONT SCH ×2 (08:43→19:33)
--- NOTE | 2018-05-09 10:29 | US ---
EXAM DATE: 05/09/2018 10:22 AM EST AGE/SEX: 72 years / Male INDICATIONS: Elevated LFT and LALITO. CLINICAL DATA: This is the patient's initial encounter. Patient reports that signs and symptoms have been present for 2 days and indicates a pain score of Nonresponsive. MEDICAL/SURGICAL HISTORY: Diabetes. Cardiovascular disease. Hypertension. Right subdural hem atoma. CABG. Coronary artery stent. COMPARISON: [facility] – [place] ABDOMEN & PELVIS W/O CONTRAST, 05/08/2018. . MEASUREMENTS: Liver:__ 13.9 cm. Common Bile Duct:___ 7mm. Right Kidney:___10.2 x 5.0 x 5.5 cm. Left Kidney:___10.2 x 6.1 x 6.2 cm. Spleen:___13.0 cm. FINDINGS: Liver: There is heterogeneous echotexture of the liver. The echotexture appears mildly increased sug gesting fatty infiltration. No mass is seen. Portal Vein: Hepatopedal flow seen in portal vein. Common Duct: No intraluminal mass or stone visualized. Gallbladder: There are mobile gallstones within the gallbladder. In addition, there is a small chol esterol polyp which is adherent to the gallbladder wall. No significant gallbladder wall thickening o r pericholecystic fluid is identified. Pancreas: Not well visualized. Right Kidney: Increased echotexture. No mass or hydronephrosis. Left Kidney: There is no hydronephrosis. The echogenicity of the renal cortex appears increased sugg esting underlying medical renal disease. Note is made of a 2.3 x 2.5 cm simple cyst. Ascites: There is a trace amount of ascites adjacent to the liver. Pleural Effusion: Right Spleen: No focal lesion. Aorta: Non aneurysmal. IVC: Within normal limits Other: None. CONCLUSION: 1. Probable fatty infiltration of the liver. 2. Mobile gallstones within the gallbladder. No significant pericholecystic fluid identified. No sig nificant gallbladder wall thickening. 3. Increased echogenicity of the renal cortex suggesting underlying medical renal disease. 4. 2.5 cm renal cyst on the left. 5. Trace amount of ascites adjacent to the liver. 6. Minimal right basilar effusion. Electronically signed by: Andrea Bolden MD 05/09/2018 10:28 AM EST
--- NOTE | 2018-05-09 10:34 | P.CONPAL ---
Consult Service: Palliative Care Requesting Physician: Marco Nieves Reason for Consult: a. To assist with evaluation and management of symptoms including: Pain, dyspnea b. To assist medical decision maker(s) with: better understanding of current medical conditions; weighing benefits/burdens of medical treatment options; making medical treatment decisions. Primary Care Provider: Dr. Shannon History of Present Illness History of Present Illness: This is a 72-year-old male who was brought to [place] emergency department via [facility] after the patient fell at home, he was found by his on his knees over the bed. He was also noted to be shaking vigorously but was able to talk. Upon arrival of [facility], he was found hypoxic with oxygen saturations in the 60s. He was tachycardic with heart rate in the 140s-150s with a right bundle branch block noted and wide complexes. indicated he had had about a week long period of confusion and fluctuating mental status along with low back pain. Upon arrival to the ED was intubated placed on mechanical ventilation, was started on IV amiodarone, with a loading dose, and lidocaine. Apparently there was a failed attempt at defibrillation/cardioversion x2. Per acute care physician, Dr. Jacome's note, discussion took place between neurosurgeon and , given patient's high risk for brain bleed, anticoagulation is contraindicated, however given his cardiac status, he is at risk for worsening cardiac outcome. Patient's deferred further intervention pending discussion with patient's stemming machine operator Dr. Franklin. Brain CT:. 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 This measures 18 mm in maximum thickness. 4 mm of [id number] midline shift. 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 Echocardiogram: Estimated ejection fraction 20-25%, trace to mild mitral valve regurg, mild thickening of the aortic valve leaflet Recent Labs: Labs: WBC 10, hemoglobin 13.6, hematocrit 39.6, platelets 133, PT/INR 10.7/1.1, sodium 140, potassium 4.4, chloride 108, carbon dioxide 22.8, BUN 17, creatinine 1.67, GFR 40, glucose 259, lactic acid 2, total bilirubin 1.1, AST/ ALT 1287/1015, protein 5.3, albumin 2.2, alkaline phosphatase 127. CXR: New left lower lung zone atelectasis versus consolidation and small left pleural effusion Palliative care was consulted for goals of medical treatment and support. patient Seen and examined in his room, he is orally intubated and sedated. He remains on sedation and pressor support. Discussed with BS RN, family spoke Dr. Franklin who confirmed he did not feel anticoagulation was appropriate at this time. Spoke with Dr. Nieves. Function/Cognitive Trajectory: Prior to this hospitalization, patient lived at home with his . He was independent but had been becoming increasingly fatigued over the past few months. He was requiring breaks to recover. He had some worsening confusion over approximately two week time. . Review of Systems Constitutional: Reports lack of energy Eyes: Denies change in vision Ears, Nose, Mouth, and Throat: Denies abnormal hearing, Denies change in voice, Denies sore throat Cardiovascular: Reports rapid, pounding, or irregular heartbeat, Reports shortness of breath with activity Respiratory: Denies cough, Denies wheezing Gastrointestinal: Denies abdominal pain, Denies constipation, Denies nausea, Denies vomiting Genitourinary: Denies difficulty urinating, Denies urinary frequency, Denies urinary hesitancy Musculoskeletal: Reports back pain Skin/Breast: Denies change in skin color Neurologic: Reports confusion (worsening over a two week period), Reports dizziness, Reports other (hx of peripheral neuropathy) Psychiatric: Reports confusion Endocrine: Denies cold intolerance, Denies heat intolerance Hematologic/Lymphatic: Reports easy bleeding, Reports easy bruising PMFSH - History History Provided By: Family Member ( and daughter), Medical Record - Medical History Medical History: Medical History (Last Reviewed 05/09/18 @ 10:45 by JORGE Barrera) Cardiomyopathy Cataract Coronary artery disease Diabetes GERD (gastroesophageal reflux disease) Hiatal hernia Hypertension Medical history unknown Neuropathy Sleep apnea with use of continuous positive airway pressure (CPAP) Surgical history unknown - Surgical History Surgical History: Surgical History (Last Reviewed 05/09/18 @ 10:45 by JORGE Barrera) History of cardiac cath History of hernia repair Hx of CABG Stented coronary artery - Family History Family History: Family History (Last Reviewed 05/09/18 @ 12:19 by JORGE Barrera) Father Family history of acute myocardial infarction Brother Family history of acute myocardial infarction Sister Family history of acute myocardial infarction Other Myocardial infarct - Social History I have reviewed the patient's Social History: Yes - Tobacco History Second Hand Smoke Exposure: No Smoking Status: Never smoker - Alcohol History How Often Do You Have a Drink Containing Alcohol: Never - Substance Use History Substance History: No History of Abuse - Travel History History of Recent Travel: No Recent Travel in the [place] Within the Last 8 Weeks: No Recent Travel Out of the Country Within the Last 8 Weeks: No - Immunization History Tetanus Immunization: >5 Years Medications and Allergies Active Medications: Active Medications Acetaminophen (Tylenol) 650 mg PO Q6H PRN PRN Reason: PAIN 1-10 AND/OR FEVER >101F Last Admin: 05/08/18 21:19 Dose: 650 mg Albuterol (Duoneb Neb (Prn)) 1 ampul NEB Q4HR NEB PRN PRN Reason: SHORTNESS OF BREATH Albuterol (Albuterol Neb (Prn)) 2.5 mg NEB Q2HR NEB PRN PRN Reason: DYSPNEA Artificial Tears (Tears Naturale Opth Drops) 1 drop EACH EYE Q8H [facility] Last Admin: 05/09/18 04:01 Dose: 1 drop Chlorhexidine Gluconate (Chlorhexidine 2% Cloth) 3 pack TOPICAL DAILY@0400 RAÚL Stop: 05/13/18 03:59 Last Admin: 05/09/18 04:01 Dose: 3 pack Chlorhexidine Gluconate (Chlorhexidine 2% Cloth) 3 pack TOPICAL DAILY@0400 PRN PRN Reason: Extra cloth needed Stop: 05/13/18 03:59 Chlorhexidine Gluconate (Peridex 0.12% Oral Kit) 15 ml OROPHARYNG BID@0800, 2000 [facility] Last Admin: 05/09/18 08:34 Dose: 15 ml Dextrose (D50w Vial) 50 ml IV.PUSH UNSCH PRN PRN Reason: PER HYPOGLYCEMIA PROTOCOL Famotidine (Pepcid Pf Inj) 20 mg IV.PUSH Q12HR [facility] Last Admin: 05/09/18 08:33 Dose: 20 mg Fentanyl Citrate (Fentanyl Inj) 50 mcg IV.PUSH Q1H PRN PRN Reason: SEE LABEL COMMENTS Glucagon (Glucagon Inj) 1 mg OTHER PRN PRN PRN Reason: for Hypoglycemia Protocol Sodium Chloride (Ns Inj) 1,000 mls @ 50 mls/hr IV.CONT .Q20H [facility] Last Admin: 05/09/18 08:43 Dose: 100 mls/hr Piperacillin/Tazobactam/Dextrose (Zosyn 3.375 Gm Premix) 50 mls @ 100 mls/hr IV.SIG Q6H [facility] Last Infusion: 05/09/18 06:42 Dose: Infused Phenylephrine HCl 40 mg/ (Sodium Chloride) 500 mls @ 30 mls/hr IV.CONT TITRATE PRN; Protocol PRN Reason: See Protocol Last Titration: 05/09/18 06:13 Dose: Infused Norepinephrine Bitartrate 16 (mg/ Sodium Chloride) 250 mls @ 1.87 mls/hr IV.CONT TITRATE PRN; Protocol PRN Reason: See Protocol Last Titration: 05/09/18 05:30 Dose: 2 mcg/min, 1.87 mls/hr Fentanyl (Fentanyl 10 Mcg/Ml Premix Drip) 2,500 mcg in 250 mls @ 5 mls/hr IV.SIG TITRATE PRN; Protocol PRN Reason: Per Protocol Last Titration: 05/09/18 06:16 Dose: 100 mcg/hr, 10 mls/hr Midazolam HCl (Versed Inj) 50 mg in 50 mls @ 2 mls/hr IV.CONT TITRATE PRN; Protocol PRN Reason: Per Protocol Last Admin: 05/09/18 02:38 Dose: 2 mg/hr, 2 mls/hr Insulin Human Regular (Novolin R Correctional Sugar Inj) 0 units SQ Q6HR [facility]; Protocol Miscellaneous Medication () 1 each OROPHARYNG 0000,0400,1200,1600 [facility] Last Admin: 05/09/18 04:01 Dose: 1 each Senna/Docusate Sodium (Palak-Colace) 2 tab PO BID [facility] Last Admin: 05/09/18 08:33 Dose: 2 tab Sodium Chloride (Ns Flush) 2 ml IV.FLUSH PRN PRN PRN Reason: FLUSH AFTER USING IV ACCESS Terbutaline Sulfate (Brethine Inj) 1 mg SQ UNSCH PRN PRN Reason: For Extravasation Allergies Allergy/AdvReac Type Severity Reaction Status Date / Time sulfamethoxazole Allergy Severe Rash Verified 07/06/17 09:08 Physical Exam Vital Signs: Vital Signs - 24 hr 05/08/18 11:00 05/08/18 12:00 05/08/18 13:00 Temperature Pulse Rate 58 L 59 L 62 Respiratory Rate 12 12 12 Blood Pressure 94/50 L 108/57 L 92/54 L Pulse Oximetry 99 96 94 L 05/08/18 13:30 05/08/18 13:45 05/08/18 14:00 Temperature Pulse Rate 68 78 79 Respiratory Rate 5 L 8 L 7 L Blood Pressure 144/67 H 147/68 H 147/68 H Pulse Oximetry 97 96 96 05/08/18 14:15 05/08/18 14:30 05/08/18 14:39 Temperature Pulse Rate 78 76 Respiratory Rate 17 0 L 15 Blood Pressure 143/66 H 133/63 Pulse Oximetry 94 L 94 L 94 L 05/08/18 14:45 05/08/18 15:00 05/08/18 15:15 Temperature Pulse Rate 74 71 69 Respiratory Rate 0 L 8 L 7 L Blood Pressure 126/58 L 122/56 L 114/55 L Pulse Oximetry 95 95 95 05/08/18 15:30 05/08/18 15:45 05/08/18 16:00 Temperature Pulse Rate 68 67 66 Respiratory Rate 6 L 8 L 14 Blood Pressure 114/56 L 103/54 L 100/54 L Pulse Oximetry 95 96 96 05/08/18 16:15 05/08/18 16:30 05/08/18 16:45 Temperature Pulse Rate 66 66 66 Respiratory Rate 11 L 15 16 Blood Pressure 114/64 114/65 117/66 Pulse Oximetry 96 97 97 05/08/18 17:00 05/08/18 17:15 05/08/18 17:30 Temperature Pulse Rate 66 65 66 Respiratory Rate 16 16 16 Blood Pressure 116/64 116/65 113/63 Pulse Oximetry 97 97 98 05/08/18 17:45 05/08/18 18:00 05/08/18 18:15 Temperature Pulse Rate 66 67 67 Respiratory Rate 16 16 16 Blood Pressure 108/60 113/64 99/54 L Pulse Oximetry 98 98 98 05/08/18 18:30 05/08/18 18:45 05/08/18 19:00 Temperature Pulse Rate 66 65 65 Respiratory Rate 16 16 16 Blood Pressure 101/56 L 100/54 L 101/56 L Pulse Oximetry 99 99 99 05/08/18 19:15 05/08/18 19:30 05/08/18 19:45 Temperature Pulse Rate 64 62 62 Respiratory Rate 16 16 16 Blood Pressure 101/57 L 102/52 L 103/57 L Pulse Oximetry 97 98 98 05/08/18 20:00 05/08/18 20:15 05/08/18 20:39 Temperature 100.7 F H Pulse Rate 62 78 Respiratory Rate 22 14 Blood Pressure 108/58 L 125/64 Pulse Oximetry 98 100 94 L 05/08/18 20:40 05/08/18 20:45 05/08/18 21:00 Temperature Pulse Rate 71 69 Respiratory Rate 17 17 24 Blood Pressure 120/60 112/59 L Pulse Oximetry 95 94 L 95 05/08/18 21:15 05/08/18 21:30 05/08/18 21:45 Temperature Pulse Rate 66 64 78 Respiratory Rate 17 16 17 Blood Pressure 104/57 L 106/59 L 114/58 L Pulse Oximetry 95 96 96 05/08/18 22:00 05/08/18 22:15 05/08/18 22:30 Temperature Pulse Rate 80 80 80 Respiratory Rate 17 16 16 Blood Pressure 116/61 117/61 115/57 L Pulse Oximetry 96 97 97 05/08/18 22:45 05/08/18 23:00 05/08/18 23:15 Temperature Pulse Rate 81 80 61 Respiratory Rate 16 16 17 Blood Pressure 111/55 L 111/55 L 96/54 L Pulse Oximetry 98 98 98 05/08/18 23:30 05/08/18 23:36 05/08/18 23:45 Temperature Pulse Rate 62 61 Respiratory Rate 19 16 16 Blood Pressure 97/52 L 102/56 L Pulse Oximetry 98 96 95 05/09/18 00:00 05/09/18 00:15 05/09/18 00:30 Temperature 97.6 F Pulse Rate 61 61 61 Respiratory Rate 16 16 16 Blood Pressure 106/59 L 110/58 L 110/57 L Pulse Oximetry 96 96 97 05/09/18 00:45 05/09/18 01:00 05/09/18 01:15 Temperature Pulse Rate 61 61 61 Respiratory Rate 16 16 17 Blood Pressure 104/54 L 105/53 L 106/53 L Pulse Oximetry 97 97 97 05/09/18 01:30 05/09/18 01:45 05/09/18 02:00 Temperature Pulse Rate 60 60 87 Respiratory Rate 16 17 18 Blood Pressure 111/56 L 112/56 L 116/65 Pulse Oximetry 98 98 97 05/09/18 02:15 05/09/18 02:30 05/09/18 02:45 Temperature Pulse Rate 84 60 60 Respiratory Rate 17 17 18 Blood Pressure 120/65 103/58 L 106/59 L Pulse Oximetry 97 97 97 05/09/18 03:00 05/09/18 03:15 05/09/18 03:30 Temperature Pulse Rate 60 60 60 Respiratory Rate 19 18 19 Blood Pressure 108/55 L 107/55 L 109/57 L Pulse Oximetry 97 97 97 05/09/18 03:45 05/09/18 04:00 05/09/18 04:15 Temperature 98.6 F Pulse Rate 60 61 59 L Respiratory Rate 18 16 16 Blood Pressure 110/57 L 99/54 L 99/54 L Pulse Oximetry 98 97 97 05/09/18 04:28 05/09/18 04:30 05/09/18 04:45 Temperature Pulse Rate 61 59 L Respiratory Rate 16 16 16 Blood Pressure 106/57 L 105/57 L Pulse Oximetry 97 99 97 05/09/18 05:00 05/09/18 05:15 05/09/18 05:30 Temperature Pulse Rate 59 L 59 L 59 L Respiratory Rate 16 16 16 Blood Pressure 105/57 L 93/55 L 96/54 L Pulse Oximetry 97 97 97 05/09/18 05:45 05/09/18 06:00 05/09/18 06:15 Temperature Pulse Rate 59 L 59 L 58 L Respiratory Rate 16 16 16 Blood Pressure 97/54 L 88/51 L 93/54 L Pulse Oximetry 97 97 97 05/09/18 08:54 Temperature Pulse Rate Respiratory Rate 17 Blood Pressure Pulse Oximetry 98 I&O: Intake & Output 05/07/18 05/08/18 05/09/18 05/10/18 06:59 06:59 06:59 06:59 Intake Total 2550 / 2550 4700 / 4700 1000 / 1000 Output Total 550 / 550 575 / 575 Balance 1999 4125 / 4125 1000 / 1000 Weight 99.5 kg 108.5 kg Physical Exam: CONSTITUTIONAL/GENERAL: This is an adequately nourished patient, sedated and mechancally ventilated. TUBES/LINES/DRAINS:ETT, OGT, giang, right SC TLC, PIV SKIN: No jaundice, rashes, or lesions. Ecchymoses/hematoma on upper extremities bilaterally. Skin temperature appropriate. Not diaphoretic. HEAD: Atraumatic. Normocephalic. EYES: Pupils unequal, right 3mm, left pinpoint. sluggish reaction with sedation in place. ENT: Orally intubated, exam limited secondary to tubes NECK: Trachea midline. Supple, nontender. No palpable thyroid enlargement or nodularity. CARDIOVASCULAR: Regular rate and rhythm, bradycardic, peripheral pulses palpable. RESPIRATORY/CHEST: Symmetric, unlabored respirations. Clear to auscultation. Breath sounds equal bilaterally. No wheezes, rales, or rhonchi. GASTROINTESTINAL: Abdomen obese, soft, non-tender, nondistended. No hepato- splenomegaly, or palpable masses. No guarding. Bowel sounds present. GENITOURINARY: Without palpable bladder distension. Giang catheter in place draining small amount of yellow urine. MUSCULOSKELETAL: Extremities without clubbing, cyanosis, or edema. No joint tenderness or effusion noted. No calf tenderness. No mottling or clubbing. LYMPHATICS: No palpable cervical or supraclavicular adenopathy. NEUROLOGICAL: Sedated and mechanically ventilated. Does not rouse, follow, or withdrawl. BS nurse reports follows commands when off sedation. Pupils unequal, 3 3mm, left pinpoint. PSYCHIATRIC: No obvious anxiety/depression. no apparent hallucinations or other psychotic thought process. Diagnostic Tests Laboratory: Laboratory Results - last 72 hr 05/08/18 05/08/18 05/08/18 00:43 01:00 01:00 WBC 8.1 RBC 4.43 L Hgb 14.0 Hct 41.9 MCV 94.4 MCH 31.7 MCHC 33.5 RDW 14.6 Plt Count 202 MPV 9.4 Neut % (Auto) 64.2 Lymph % (Auto) 29.0 Cecil % (Auto) 4.8 Eos % (Auto) 1.1 Baso % (Auto) 0.9 Neut # (Auto) 5.2 Lymph # (Auto) 2.4 Cecil # (Auto) 0.4 Eos # (Auto) 0.1 Baso # (Auto) 0.1 WBC Differential . Differential Comment Auto diff final PT INR Puncture Site Patient Temperature O2 Saturation ABG pH ABG pCO2 ABG pO2 ABG HCO3 ABG O2 Content ABG Base Excess ABG Methemoglobin Raul Test Hemoglobin Carboxyhemoglobin O2 Delivery Device Vent Setting Inspired O2 Critical Value Sodium 143 Potassium 3.8 Chloride 105 Carbon Dioxide 23.8 Anion Gap 14 BUN 12 Creatinine 1.56 H Estimated GFR 44 L POC Glucose 416 H Random Glucose 401 H Lactic Acid Calcium 9.9 Phosphorus Magnesium 2.7 H Total Bilirubin 0.5 AST 26 ALT 28 Alkaline Phosphatase 116 Troponin I 1.51 H* Total Protein 5.5 L Albumin 2.5 L TSH Urine Color Urine Clarity Urine pH Ur Specific [place] Urine Protein Urine Glucose (UA) Urine Ketones Urine Occult Blood Urine Nitrate Urine Bilirubin Urine Urobilinogen Ur Leukocyte Esterase Urine RBC Urine WBC Ur Squamous Epith Cells Urine Bacteria Urine Mucus Micro UA Comment Ur Microscopic Review Urine Culture Comments Nasal Screen MRSA (PCR) Urine Opiates Screen Ur Barbiturates Screen Ur Amphetamines Screen U Benzodiazepines Scrn Urine Cocaine Screen U Cannabinoids Screen Serum Alcohol Less than 3 05/08/18 05/08/18 05/08/18 01:00 01:00 01:30 WBC RBC Hgb Hct MCV MCH MCHC RDW Plt Count MPV Neut % (Auto) Lymph % (Auto) Cecil % (Auto) Eos % (Auto) Baso % (Auto) Neut # (Auto) Lymph # (Auto) Cecil # (Auto) Eos # (Auto) Baso # (Auto) WBC Differential Differential Comment PT 10.7 INR 1.1 Puncture Site Right radial Patient Temperature 98.6 O2 Saturation 97 ABG pH 7.35 L ABG pCO2 42 ABG pO2 146 H ABG HCO3 23 ABG O2 Content 19.7 ABG Base Excess -2.0 ABG Methemoglobin 0.9 Raul Test Present Hemoglobin 14.3 Carboxyhemoglobin 0.7 O2 Delivery Device Ventilator Vent Setting Inspired O2 100 Critical Value No Sodium Potassium Chloride Carbon Dioxide Anion Gap BUN Creatinine Estimated GFR POC Glucose Random Glucose Lactic Acid Calcium Phosphorus Magnesium Total Bilirubin AST ALT Alkaline Phosphatase Troponin I Total Protein Albumin TSH 5.370 H Urine Color Urine Clarity Urine pH Ur Specific [place] Urine Protein Urine Glucose (UA) Urine Ketones Urine Occult Blood Urine Nitrate Urine Bilirubin Urine Urobilinogen Ur Leukocyte Esterase Urine RBC Urine WBC Ur Squamous Epith Cells Urine Bacteria Urine Mucus Micro UA Comment Ur Microscopic Review Urine Culture Comments Nasal Screen MRSA (PCR) Urine Opiates Screen Ur Barbiturates Screen Ur Amphetamines Screen U Benzodiazepines Scrn Urine Cocaine Screen U Cannabinoids Screen Serum Alcohol 05/08/18 05/08/18 05/08/18 03:30 03:40 05:00 WBC RBC Hgb Hct MCV MCH MCHC RDW Plt Count MPV Neut % (Auto) Lymph % (Auto) Cecil % (Auto) Eos % (Auto) Baso % (Auto) Neut # (Auto) Lymph # (Auto) Cecil # (Auto) Eos # (Auto) Baso # (Auto) WBC Differential Differential Comment PT INR Puncture Site Patient Temperature O2 Saturation ABG pH ABG pCO2 ABG pO2 ABG HCO3 ABG O2 Content ABG Base Excess ABG Methemoglobin Raul Test Hemoglobin Carboxyhemoglobin O2 Delivery Device Vent Setting Inspired O2 Critical Value Sodium Potassium Chloride Carbon Dioxide Anion Gap BUN Creatinine Estimated GFR POC Glucose Random Glucose Lactic Acid 4.0 H Calcium Phosphorus Magnesium Total Bilirubin AST ALT Alkaline Phosphatase Troponin I Total Protein Albumin TSH Urine Color Urine Clarity Urine pH Ur Specific [place] Urine Protein Urine Glucose (UA) Urine Ketones Urine Occult Blood Urine Nitrate Urine Bilirubin Urine Urobilinogen Ur Leukocyte Esterase Urine RBC Urine WBC Ur Squamous Epith Cells Urine Bacteria Urine Mucus Micro UA Comment Ur Microscopic Review Urine Culture Comments Nasal Screen MRSA (PCR) Not detected Urine Opiates Screen Neg Ur Barbiturates Screen Neg Ur Amphetamines Screen Neg U Benzodiazepines Scrn Pos H Urine Cocaine Screen Neg U Cannabinoids Screen Neg Serum Alcohol 05/08/18 05/08/18 05/08/18 05:00 06:21 10:00 WBC RBC Hgb Hct MCV MCH MCHC RDW Plt Count MPV Neut % (Auto) Lymph % (Auto) Cecil % (Auto) Eos % (Auto) Baso % (Auto) Neut # (Auto) Lymph # (Auto) Cecil # (Auto) Eos # (Auto) Baso # (Auto) WBC Differential Differential Comment PT INR Puncture Site Patient Temperature O2 Saturation ABG pH ABG pCO2 ABG pO2 ABG HCO3 ABG O2 Content ABG Base Excess ABG Methemoglobin Raul Test Hemoglobin Carboxyhemoglobin O2 Delivery Device Vent Setting Inspired O2 Critical Value Sodium 141 Potassium 4.6 D Chloride 107 Carbon Dioxide 25.0 Anion Gap 9 BUN 15 Creatinine 1.80 H Estimated GFR 37 L POC Glucose 219 H Random Glucose 285 H D Lactic Acid Calcium 8.8 D Phosphorus Magnesium Total Bilirubin 2.6 H AST 399 H ALT 187 H Alkaline Phosphatase 132 H Troponin I Greater than 40.00 H* Total Protein 5.4 L Albumin 2.6 L TSH Urine Color Sonia Urine Clarity Hazy H Urine pH 5.0 Ur Specific [place] 1.039 H Urine Protein 100 H Urine Glucose (UA) 50 Urine Ketones Negative Urine Occult Blood Large H Urine Nitrate Negative Urine Bilirubin Negative Urine Urobilinogen 2.0 H Ur Leukocyte Esterase Negative Urine RBC Urine WBC 5 Ur Squamous Epith Cells <1 Urine Bacteria Few H Urine Mucus Few H Micro UA Comment Cath-culture ind Ur Microscopic Review Not Reportable Urine Culture Comments Cath-cult indicated Nasal Screen MRSA (PCR) Urine Opiates Screen Ur Barbiturates Screen Ur Amphetamines Screen U Benzodiazepines Scrn Urine Cocaine Screen U Cannabinoids Screen Serum Alcohol 05/08/18 05/08/18 05/08/18 14:14 17:57 21:30 WBC RBC Hgb Hct MCV MCH MCHC RDW Plt Count MPV Neut % (Auto) Lymph % (Auto) Cecil % (Auto) Eos % (Auto) Baso % (Auto) Neut # (Auto) Lymph # (Auto) Cecil # (Auto) Eos # (Auto) Baso # (Auto) WBC Differential Differential Comment PT INR Puncture Site Patient Temperature O2 Saturation ABG pH ABG pCO2 ABG pO2 ABG HCO3 ABG O2 Content ABG Base Excess ABG Methemoglobin Raul Test Hemoglobin Carboxyhemoglobin O2 Delivery Device Vent Setting Inspired O2 Critical Value Sodium Potassium Chloride Carbon Dioxide Anion Gap BUN Creatinine Estimated GFR POC Glucose 303 H Random Glucose Lactic Acid 2.2 H Calcium Phosphorus Magnesium Total Bilirubin AST ALT Alkaline Phosphatase Troponin I Greater than 40.00 H* Total Protein Albumin TSH Urine Color Urine Clarity Urine pH Ur Specific [place] Urine Protein Urine Glucose (UA) Urine Ketones Urine Occult Blood Urine Nitrate Urine Bilirubin Urine Urobilinogen Ur Leukocyte Esterase Urine RBC Urine WBC Ur Squamous Epith Cells Urine Bacteria Urine Mucus Micro UA Comment Ur Microscopic Review Urine Culture Comments Nasal Screen MRSA (PCR) Urine Opiates Screen Ur Barbiturates Screen Ur Amphetamines Screen U Benzodiazepines Scrn Urine Cocaine Screen U Cannabinoids Screen Serum Alcohol 05/08/18 05/09/18 05/09/18 23:44 02:20 02:20 WBC RBC Hgb Hct MCV MCH MCHC RDW Plt Count MPV Neut % (Auto) Lymph % (Auto) Cecil % (Auto) Eos % (Auto) Baso % (Auto) Neut # (Auto) Lymph # (Auto) Cecil # (Auto) Eos # (Auto) Baso # (Auto) WBC Differential Differential Comment PT INR Puncture Site Patient Temperature O2 Saturation ABG pH ABG pCO2 ABG pO2 ABG HCO3 ABG O2 Content ABG Base Excess ABG Methemoglobin Raul Test Hemoglobin Carboxyhemoglobin O2 Delivery Device Vent Setting Inspired O2 Critical Value Sodium 140 Potassium 4.4 Chloride 108 H Carbon Dioxide 22.8 Anion Gap 9 BUN 17 Creatinine 1.67 H Estimated GFR 40 L POC Glucose 267 H Random Glucose 296 H Lactic Acid 2.0 Calcium 8.1 L Phosphorus 2.8 Magnesium 2.2 Total Bilirubin 1.5 H AST 1287 H ALT 1015 H Alkaline Phosphatase 127 H Troponin I Greater than 40.00 H* Total Protein 5.3 L Albumin 2.2 L TSH Urine Color Urine Clarity Urine pH Ur Specific [place] Urine Protein Urine Glucose (UA) Urine Ketones Urine Occult Blood Urine Nitrate Urine Bilirubin Urine Urobilinogen Ur Leukocyte Esterase Urine RBC Urine WBC Ur Squamous Epith Cells Urine Bacteria Urine Mucus Micro UA Comment Ur Microscopic Review Urine Culture Comments Nasal Screen MRSA (PCR) Urine Opiates Screen Ur Barbiturates Screen Ur Amphetamines Screen U Benzodiazepines Scrn Urine Cocaine Screen U Cannabinoids Screen Serum Alcohol 05/09/18 05/09/18 02:20 05:39 WBC 10.0 RBC 4.25 L Hgb 13.6 Hct 39.6 MCV 93.3 MCH 32.0 MCHC 34.3 RDW 15.2 Plt Count 133 L D MPV 9.5 Neut % (Auto) 81.3 H Lymph % (Auto) 12.7 Cecil % (Auto) 5.2 Eos % (Auto) 0.1 Baso % (Auto) 0.7 Neut # (Auto) 8.2 H Lymph # (Auto) 1.3 Cecil # (Auto) 0.5 Eos # (Auto) 0.0 Baso # (Auto) 0.1 WBC Differential . Differential Comment Auto diff final PT INR Puncture Site Patient Temperature O2 Saturation ABG pH ABG pCO2 ABG pO2 ABG HCO3 ABG O2 Content ABG Base Excess ABG Methemoglobin Raul Test Hemoglobin Carboxyhemoglobin O2 Delivery Device Vent Setting Inspired O2 Critical Value Sodium Potassium Chloride Carbon Dioxide Anion Gap BUN Creatinine Estimated GFR POC Glucose 259 H Random Glucose Lactic Acid Calcium Phosphorus Magnesium Total Bilirubin AST ALT Alkaline Phosphatase Troponin I Total Protein Albumin TSH Urine Color Urine Clarity Urine pH Ur Specific [place] Urine Protein Urine Glucose (UA) Urine Ketones Urine Occult Blood Urine Nitrate Urine Bilirubin Urine Urobilinogen Ur Leukocyte Esterase Urine RBC Urine WBC Ur Squamous Epith Cells Urine Bacteria Urine Mucus Micro UA Comment Ur Microscopic Review Urine Culture Comments Nasal Screen MRSA (PCR) Urine Opiates Screen Ur Barbiturates Screen Ur Amphetamines Screen U Benzodiazepines Scrn Urine Cocaine Screen U Cannabinoids Screen Serum Alcohol Result Diagrams: 05/09/18 02:20 05/09/18 02:20 Imaging: Impressions Head CT 05/08/18 19:23 CONCLUSION: 1. 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 No new hemorrhage. . Abdomen Ultrasound 05/09/18 00:00 CONCLUSION: 1. Probable fatty infiltration of the liver. 2. Mobile gallstones within the gallbladder. No significant pericholecystic fluid identified. No significant gallbladder wall thickening. 3. Increased echogenicity of the renal cortex suggesting underlying medical renal disease. 4. 2.5 cm renal cyst on the left. 5. Trace amount of ascites adjacent to the liver. 6. Minimal right basilar effusion. Chest X-Ray 05/09/18 06:00 CONCLUSION: 1. New left lower lung zone atelectasis versus consolidation and small left pleural effusion. 2. Clearing of bilateral upper lung zone opacity. Procedures: 05/08/18: Intubation, cardioversion Patient/Family Conference Present at Family Conference: Rufina and daughter who just arrived from out of town. Family Conference Location: Bedside, Consult Room Issues Discussed: * Palliative care role, purpose, approach * Additional medical, psychosocial, and spiritual history * Patients general health, functional status, and cognitive changes in the months leading up to the current hospitalization * Patient/family understanding of the current medical problems * Patient/family understanding of prognosis * Patients goals of care as best understood from advance directives and/or conversations and/or values * Current medical treatment options and benefits/burdens of those options * DNR discussed, patient had DNR prior to coming to the hospital, they request alternative code, intubation only. * Questions answered to the best of my ability * Palliative care contact information provided Patient's family report patient had elected DNR prior to coming to the hospital and he would not want compressions or shock. . Assessment and Plan - Disease Oriented Problem List (1) ICH (intracerebral hemorrhage) (2) Cardiomyopathy (3) Hygroma, cystic (4) Cataracts, bilateral (5) CAD (coronary artery disease) (6) Hypertension (7) Neuropathy (8) Sleep apnea with use of continuous positive airway pressure (CPAP) (9) GERD (gastroesophageal reflux disease) (10) Hiatal hernia - Symptom Scale (1) Pain 0-10 Scale: Unable to quantify (2) Dyspnea 0-10 Scale: Unable to quantify Pertinent Non-Medical Issues: Psychosocial: Has been to his Rufina for 54 years. They have 3 children, only 2 are living. Patient was living independently with his at home prior to this hospitalization Spiritual: Vidhi plays an important role in the patient and his 's life, they have with her local lecturer of portuguese and deacons I have been visiting here in the hospital. Declined hospital chief operator reformer at this time, will let us know if they need them in the future Legal: Currently patient is incapacitated and unable to make his own decisions, it is unclear if he will ever regain capacity. Per [place] statutes Rufina would be the appropriate legal proxy. Ethical issues impacting care: none Important Contacts: Rufina Means: [phone] (home) [phone] (CELL) Prognosis: Per conversation with and daughter, patient has had some gradual decline functionally over the past few months. and daughter report patient had been pretty active prior to hospitalization though he had been requiring more frequent periods of rest. Given patient's recent decline and poor health status , he will likely be at risk for future setbacks. Patient has a long history of cardiac issues, recent echo reveals ejection fraction 20-25%, in addition to an acute on chronic intracranial hemorrhage. Given the inability to treat cardiac issues with anticoagulation, further increases risks. If anticoagulation is restarted in the near future, patient is high risk for worsening and/or new intracranial hemorrhages. Code Status: Alternative Code (Intubation only) Plan: Legal decision maker: At this time patient's would be the appropriate decision maker given patient is currently incapacitated secondary to being sedated and mechanically ventilated. Goals: Remain aggressive at this time, however family have stated they will likely transition to comfort measures if there is no hope for meaningful recovery. They appear to have a good understanding of his overall decline in health status. CODE STATUS: Discussed CODE STATUS with and daughter, at this time patient is intubated and mechanically ventilated but they would like to transition him to alternative code: DNR with intubation only SYMPTOMS: --Dyspnea: Patient remains mechanically ventilated sedated. Will need to evaluate over the next few days for the possibility of extubation. Appears comfortable on the vent. --Pain: Patient had a history of back pain prior to hospitalization, given bedbound status now in ICU with worsening edema, will likely continue to have worsening pain/weakness. Currently on a fentanyl drip and appears comfortable, will continue to monitor Palliative care will continue to follow during hospital course as condition evolves, to assist patient/decision-maker with understanding of medical conditions, weighing benefits/burdens of treatment options, for clarification of goals of treatment. Additionally will assist with any symptoms of palliative concern Appreciation Thank you for the opportunity to participate in the care of Harmeet Hoang.
--- NOTE | 2018-05-09 10:44 | P.PNNS ---
Subjective Interval history: Pt sedated on Versed and Fentanyl drips. When decreased by RN he states he moves all 4 extremities although left side less than right. Pt had pupil changes last night and his follow up CT head for today was moved to last night. <Robbie Hernandez - Last Filed: 05/09/18 10:31> Physical Exam Vital signs: Vital Signs 05/08/18 11:00 05/08/18 12:00 05/08/18 13:00 Temperature Pulse Rate 58 L 59 L 62 Respiratory Rate 12 12 12 Blood Pressure 94/50 L 108/57 L 92/54 L Pulse Oximetry 99 96 94 L 05/08/18 13:30 05/08/18 13:45 05/08/18 14:00 Temperature Pulse Rate 68 78 79 Respiratory Rate 5 L 8 L 7 L Blood Pressure 144/67 H 147/68 H 147/68 H Pulse Oximetry 97 96 96 05/08/18 14:15 05/08/18 14:30 05/08/18 14:39 Temperature Pulse Rate 78 76 Respiratory Rate 17 0 L 15 Blood Pressure 143/66 H 133/63 Pulse Oximetry 94 L 94 L 94 L 05/08/18 14:45 05/08/18 15:00 05/08/18 15:15 Temperature Pulse Rate 74 71 69 Respiratory Rate 0 L 8 L 7 L Blood Pressure 126/58 L 122/56 L 114/55 L Pulse Oximetry 95 95 95 05/08/18 15:30 05/08/18 15:45 05/08/18 16:00 Temperature Pulse Rate 68 67 66 Respiratory Rate 6 L 8 L 14 Blood Pressure 114/56 L 103/54 L 100/54 L Pulse Oximetry 95 96 96 05/08/18 16:15 05/08/18 16:30 05/08/18 16:45 Temperature Pulse Rate 66 66 66 Respiratory Rate 11 L 15 16 Blood Pressure 114/64 114/65 117/66 Pulse Oximetry 96 97 97 05/08/18 17:00 05/08/18 17:15 05/08/18 17:30 Temperature Pulse Rate 66 65 66 Respiratory Rate 16 16 16 Blood Pressure 116/64 116/65 113/63 Pulse Oximetry 97 97 98 05/08/18 17:45 05/08/18 18:00 05/08/18 18:15 Temperature Pulse Rate 66 67 67 Respiratory Rate 16 16 16 Blood Pressure 108/60 113/64 99/54 L Pulse Oximetry 98 98 98 05/08/18 18:30 05/08/18 18:45 05/08/18 19:00 Temperature Pulse Rate 66 65 65 Respiratory Rate 16 16 16 Blood Pressure 101/56 L 100/54 L 101/56 L Pulse Oximetry 99 99 99 05/08/18 19:15 05/08/18 19:30 05/08/18 19:45 Temperature Pulse Rate 64 62 62 Respiratory Rate 16 16 16 Blood Pressure 101/57 L 102/52 L 103/57 L Pulse Oximetry 97 98 98 05/08/18 20:00 05/08/18 20:15 05/08/18 20:39 Temperature 100.7 F H Pulse Rate 62 78 Respiratory Rate 22 14 Blood Pressure 108/58 L 125/64 Pulse Oximetry 98 100 94 L 05/08/18 20:40 05/08/18 20:45 05/08/18 21:00 Temperature Pulse Rate 71 69 Respiratory Rate 17 17 24 Blood Pressure 120/60 112/59 L Pulse Oximetry 95 94 L 95 05/08/18 21:15 05/08/18 21:30 05/08/18 21:45 Temperature Pulse Rate 66 64 78 Respiratory Rate 17 16 17 Blood Pressure 104/57 L 106/59 L 114/58 L Pulse Oximetry 95 96 96 05/08/18 22:00 05/08/18 22:15 05/08/18 22:30 Temperature Pulse Rate 80 80 80 Respiratory Rate 17 16 16 Blood Pressure 116/61 117/61 115/57 L Pulse Oximetry 96 97 97 05/08/18 22:45 05/08/18 23:00 05/08/18 23:15 Temperature Pulse Rate 81 80 61 Respiratory Rate 16 16 17 Blood Pressure 111/55 L 111/55 L 96/54 L Pulse Oximetry 98 98 98 05/08/18 23:30 05/08/18 23:36 05/08/18 23:45 Temperature Pulse Rate 62 61 Respiratory Rate 19 16 16 Blood Pressure 97/52 L 102/56 L Pulse Oximetry 98 96 95 05/09/18 00:00 05/09/18 00:15 05/09/18 00:30 Temperature 97.6 F Pulse Rate 61 61 61 Respiratory Rate 16 16 16 Blood Pressure 106/59 L 110/58 L 110/57 L Pulse Oximetry 96 96 97 05/09/18 00:45 05/09/18 01:00 05/09/18 01:15 Temperature Pulse Rate 61 61 61 Respiratory Rate 16 16 17 Blood Pressure 104/54 L 105/53 L 106/53 L Pulse Oximetry 97 97 97 05/09/18 01:30 05/09/18 01:45 05/09/18 02:00 Temperature Pulse Rate 60 60 87 Respiratory Rate 16 17 18 Blood Pressure 111/56 L 112/56 L 116/65 Pulse Oximetry 98 98 97 05/09/18 02:15 05/09/18 02:30 05/09/18 02:45 Temperature Pulse Rate 84 60 60 Respiratory Rate 17 17 18 Blood Pressure 120/65 103/58 L 106/59 L Pulse Oximetry 97 97 97 05/09/18 03:00 05/09/18 03:15 05/09/18 03:30 Temperature Pulse Rate 60 60 60 Respiratory Rate 19 18 19 Blood Pressure 108/55 L 107/55 L 109/57 L Pulse Oximetry 97 97 97 05/09/18 03:45 05/09/18 04:00 05/09/18 04:15 Temperature 98.6 F Pulse Rate 60 61 59 L Respiratory Rate 18 16 16 Blood Pressure 110/57 L 99/54 L 99/54 L Pulse Oximetry 98 97 97 05/09/18 04:28 05/09/18 04:30 05/09/18 04:45 Temperature Pulse Rate 61 59 L Respiratory Rate 16 16 16 Blood Pressure 106/57 L 105/57 L Pulse Oximetry 97 99 97 05/09/18 05:00 05/09/18 05:15 05/09/18 05:30 Temperature Pulse Rate 59 L 59 L 59 L Respiratory Rate 16 16 16 Blood Pressure 105/57 L 93/55 L 96/54 L Pulse Oximetry 97 97 97 05/09/18 05:45 05/09/18 06:00 05/09/18 06:15 Temperature Pulse Rate 59 L 59 L 58 L Respiratory Rate 16 16 16 Blood Pressure 97/54 L 88/51 L 93/54 L Pulse Oximetry 97 97 97 05/09/18 08:54 Temperature Pulse Rate Respiratory Rate 17 Blood Pressure Pulse Oximetry 98 Intake & Output 05/08/18 05/09/18 05/09/18 18:59 06:59 18:59 Intake Total 2850 / 2850 1850 / 1850 1000 / 1000 Output Total 175 / 175 400 / 400 Balance 2675 / 2675 1450 / 1450 1000 / 1000 Weight 108.5 kg Intake: IV 2850 / 2850 1850 / 1850 1000 / 1000 Cordarone Inj 450 MG In D5W Inj 500 / 500 250 / 250 241 ML @ 1 MG/MIN 33.33 mls/hr IV.CONT TITRATE PRN Rx#: [id number] Lidocaine/D5W 2000 mg/500 mL 100 / 100 Premix Inj 2,000 mg In 500 ml @ 1 MG/MIN 15 mls/hr IV.CONT . Q24H RAÚL Rx#:[id number] Versed Inj 50 mg In 50 ml @ 2 50 / 50 MG/HR 2 mls/hr IV.CONT TITRATE PRN Rx#:[id number] Neosynephrine Inj 40 MG In NS 1000 / 1000 200 / 200 Inj 496 ML @ 40 MCG/MIN 30 mls/ hr IV.CONT TITRATE PRN Rx#: [id number] NS Inj 1,000 ML @ 50 mls/hr IV. 1000 / 1000 1000 / 1000 1000 / 1000 CONT .Q20H RAÚL Rx#:[id number] Zosyn 3.375 GM Premix 50 ML @ 150 / 150 100 / 100 100 mls/hr IV.SIG Q6H [facility] Rx#: [id number] fentaNYL 10 mcg/mL Premix Drip 250 / 250 2,500 mcg In 250 ml @ 50 MCG/HR 5 mls/hr IV.SIG TITRATE PRN Rx #:[id number] Output: Urine Amount (Catheter) 175 / 175 400 / 400 Indwelling Urethral Catheter 175 / 175 400 / 400 - Constitutional obese Comments: Sedated on Fentanyl and Versed drips and intubated. - Routine HEENT Exam Head: Present: normocephalic Eye: Absent: PERRL (Left pupil pinpoint right pupil 3mm NR.), conjunctival icterus ENT: Absent: oropharynx clear (Intubated.) - Routine Respiratory Exam Present: patient mechanically ventilated (PRVC A/C rate 16. Peep 8. FiO2 35%) , CTA bilaterally. Absent: respiratory distress, rhonchi, wheezes - Routine Cardiovascular Exam Present: RRR, S1, S2. Absent: murmur - Routine Abdominal Exam Present: soft, normoactive bowel sounds. Absent: distended, firm - Routine Skin Exam Absent: cyanosis, erythema - Routine Neurological Exam Present: moving all extremities (Left sided weakness when sedation decreased by RN.). Absent: alert, normal speech (Intubated and sedated.) - Routine Psychiatric Exam Present: unable to assess (Pt sedated.) - Urinary Catheter Management Indwelling Urethral Catheter Cath placed during this visit: yes Urethral indwelling: Yes Reason for continuing: Terminally ill/Comfort care Insertion date: 05/08/18 Insertion time: 00:55 <Robbie Hernandez - Last Filed: 05/09/18 10:31> Vital signs: Vital Signs 05/08/18 13:00 05/08/18 13:30 05/08/18 13:45 Temperature Pulse Rate 62 68 78 Respiratory Rate 12 5 L 8 L Blood Pressure 92/54 L 144/67 H 147/68 H Pulse Oximetry 94 L 97 96 05/08/18 14:00 05/08/18 14:15 05/08/18 14:30 Temperature Pulse Rate 79 78 76 Respiratory Rate 7 L 17 0 L Blood Pressure 147/68 H 143/66 H 133/63 Pulse Oximetry 96 94 L 94 L 05/08/18 14:39 05/08/18 14:45 05/08/18 15:00 Temperature Pulse Rate 74 71 Respiratory Rate 15 0 L 8 L Blood Pressure 126/58 L 122/56 L Pulse Oximetry 94 L 95 95 05/08/18 15:15 05/08/18 15:30 05/08/18 15:45 Temperature Pulse Rate 69 68 67 Respiratory Rate 7 L 6 L 8 L Blood Pressure 114/55 L 114/56 L 103/54 L Pulse Oximetry 95 95 96 05/08/18 16:00 05/08/18 16:15 05/08/18 16:30 Temperature Pulse Rate 66 66 66 Respiratory Rate 14 11 L 15 Blood Pressure 100/54 L 114/64 114/65 Pulse Oximetry 96 96 97 05/08/18 16:45 05/08/18 17:00 05/08/18 17:15 Temperature Pulse Rate 66 66 65 Respiratory Rate 16 16 16 Blood Pressure 117/66 116/64 116/65 Pulse Oximetry 97 97 97 05/08/18 17:30 05/08/18 17:45 05/08/18 18:00 Temperature Pulse Rate 66 66 67 Respiratory Rate 16 16 16 Blood Pressure 113/63 108/60 113/64 Pulse Oximetry 98 98 98 05/08/18 18:15 05/08/18 18:30 05/08/18 18:45 Temperature Pulse Rate 67 66 65 Respiratory Rate 16 16 16 Blood Pressure 99/54 L 101/56 L 100/54 L Pulse Oximetry 98 99 99 05/08/18 19:00 05/08/18 19:15 05/08/18 19:30 Temperature Pulse Rate 65 64 62 Respiratory Rate 16 16 16 Blood Pressure 101/56 L 101/57 L 102/52 L Pulse Oximetry 99 97 98 05/08/18 19:45 05/08/18 20:00 05/08/18 20:15 Temperature 100.7 F H Pulse Rate 62 62 Respiratory Rate 16 22 Blood Pressure 103/57 L 108/58 L Pulse Oximetry 98 98 100 05/08/18 20:39 05/08/18 20:40 05/08/18 20:45 Temperature Pulse Rate 78 71 Respiratory Rate 14 17 17 Blood Pressure 125/64 120/60 Pulse Oximetry 94 L 95 94 L 05/08/18 21:00 05/08/18 21:15 05/08/18 21:30 Temperature Pulse Rate 69 66 64 Respiratory Rate 24 17 16 Blood Pressure 112/59 L 104/57 L 106/59 L Pulse Oximetry 95 95 96 05/08/18 21:45 05/08/18 22:00 05/08/18 22:15 Temperature Pulse Rate 78 80 80 Respiratory Rate 17 17 16 Blood Pressure 114/58 L 116/61 117/61 Pulse Oximetry 96 96 97 05/08/18 22:30 05/08/18 22:45 05/08/18 23:00 Temperature Pulse Rate 80 81 80 Respiratory Rate 16 16 16 Blood Pressure 115/57 L 111/55 L 111/55 L Pulse Oximetry 97 98 98 05/08/18 23:15 05/08/18 23:30 05/08/18 23:36 Temperature Pulse Rate 61 62 Respiratory Rate 17 19 16 Blood Pressure 96/54 L 97/52 L Pulse Oximetry 98 98 96 05/08/18 23:45 05/09/18 00:00 05/09/18 00:15 Temperature 97.6 F Pulse Rate 61 61 61 Respiratory Rate 16 16 16 Blood Pressure 102/56 L 106/59 L 110/58 L Pulse Oximetry 95 96 96 05/09/18 00:30 05/09/18 00:45 05/09/18 01:00 Temperature Pulse Rate 61 61 61 Respiratory Rate 16 16 16 Blood Pressure 110/57 L 104/54 L 105/53 L Pulse Oximetry 97 97 97 05/09/18 01:15 05/09/18 01:30 05/09/18 01:45 Temperature Pulse Rate 61 60 60 Respiratory Rate 17 16 17 Blood Pressure 106/53 L 111/56 L 112/56 L Pulse Oximetry 97 98 98 05/09/18 02:00 05/09/18 02:15 05/09/18 02:30 Temperature Pulse Rate 87 84 60 Respiratory Rate 18 17 17 Blood Pressure 116/65 120/65 103/58 L Pulse Oximetry 97 97 97 05/09/18 02:45 05/09/18 03:00 05/09/18 03:15 Temperature Pulse Rate 60 60 60 Respiratory Rate 18 19 18 Blood Pressure 106/59 L 108/55 L 107/55 L Pulse Oximetry 97 97 97 05/09/18 03:30 05/09/18 03:45 05/09/18 04:00 Temperature 98.6 F Pulse Rate 60 60 61 Respiratory Rate 19 18 16 Blood Pressure 109/57 L 110/57 L 99/54 L Pulse Oximetry 97 98 97 05/09/18 04:15 05/09/18 04:28 05/09/18 04:30 Temperature Pulse Rate 59 L 61 Respiratory Rate 16 16 16 Blood Pressure 99/54 L 106/57 L Pulse Oximetry 97 97 99 05/09/18 04:45 05/09/18 05:00 05/09/18 05:15 Temperature Pulse Rate 59 L 59 L 59 L Respiratory Rate 16 16 16 Blood Pressure 105/57 L 105/57 L 93/55 L Pulse Oximetry 97 97 97 05/09/18 05:30 05/09/18 05:45 05/09/18 06:00 Temperature Pulse Rate 59 L 59 L 59 L Respiratory Rate 16 16 16 Blood Pressure 96/54 L 97/54 L 88/51 L Pulse Oximetry 97 97 97 05/09/18 06:15 05/09/18 06:30 05/09/18 06:45 Temperature Pulse Rate 58 L 58 L 59 L Respiratory Rate 16 16 16 Blood Pressure 93/54 L 92/53 L 88/50 L Pulse Oximetry 97 97 96 05/09/18 07:00 05/09/18 07:15 05/09/18 07:30 Temperature Pulse Rate 58 L 57 L 58 L Respiratory Rate 16 16 16 Blood Pressure 98/55 L 96/52 L 86/51 L Pulse Oximetry 97 97 96 05/09/18 07:45 05/09/18 08:00 05/09/18 08:15 Temperature Pulse Rate 57 L 58 L 56 L Respiratory Rate 16 16 16 Blood Pressure 96/53 L 101/57 L 98/55 L Pulse Oximetry 97 97 97 05/09/18 08:30 05/09/18 08:45 05/09/18 08:54 Temperature Pulse Rate 59 L 58 L Respiratory Rate 17 17 17 Blood Pressure 92/53 L 98/56 L Pulse Oximetry 98 98 98 05/09/18 09:00 05/09/18 09:15 05/09/18 09:30 Temperature Pulse Rate 63 60 59 L Respiratory Rate 16 16 21 Blood Pressure 116/56 L 100/55 L 105/55 L Pulse Oximetry 96 95 96 05/09/18 09:45 05/09/18 10:00 05/09/18 10:15 Temperature Pulse Rate 60 59 L 59 L Respiratory Rate 16 16 16 Blood Pressure 104/59 L 98/57 L 107/59 L Pulse Oximetry 97 96 96 05/09/18 10:30 05/09/18 10:46 05/09/18 11:00 Temperature Pulse Rate 58 L 60 57 L Respiratory Rate 16 38 H 14 Blood Pressure 92/54 L 108/53 L 107/53 L Pulse Oximetry 96 93 L 95 05/09/18 11:15 Temperature Pulse Rate 57 L Respiratory Rate 17 Blood Pressure 107/54 L Pulse Oximetry 96 Intake & Output 05/08/18 05/09/18 05/09/18 18:59 06:59 18:59 Intake Total 2850 / 2850 1850 / 1850 1000 / 1000 Output Total 175 / 175 400 / 400 Balance 2675 / 2675 1450 / 1450 1000 / 1000 Weight 108.5 kg Intake: IV 2850 / 2850 1850 / 1850 1000 / 1000 Cordarone Inj 450 MG In D5W Inj 500 / 500 250 / 250 241 ML @ 1 MG/MIN 33.33 mls/hr IV.CONT TITRATE PRN Rx#: [id number] Lidocaine/D5W 2000 mg/500 mL 100 / 100 Premix Inj 2,000 mg In 500 ml @ 1 MG/MIN 15 mls/hr IV.CONT . Q24H [facility] Rx#:[id number] Versed Inj 50 mg In 50 ml @ 2 50 / 50 MG/HR 2 mls/hr IV.CONT TITRATE PRN Rx#:[id number] Neosynephrine Inj 40 MG In NS 1000 / 1000 200 / 200 Inj 496 ML @ 40 MCG/MIN 30 mls/ hr IV.CONT TITRATE PRN Rx#: [id number] NS Inj 1,000 ML @ 50 mls/hr IV. 1000 / 1000 1000 / 1000 1000 / 1000 CONT .Q20H [facility] Rx#:[id number] Zosyn 3.375 GM Premix 50 ML @ 150 / 150 100 / 100 100 mls/hr IV.SIG Q6H [facility] Rx#: [id number] fentaNYL 10 mcg/mL Premix Drip 250 / 250 2,500 mcg In 250 ml @ 50 MCG/HR 5 mls/hr IV.SIG TITRATE PRN Rx #:[id number] Output: Urine Amount (Catheter) 175 / 175 400 / 400 Indwelling Urethral Catheter 175 / 175 400 / 400 - Urinary Catheter Management Indwelling Urethral Catheter Cath placed during this visit: no <Adam Hernandez - Last Filed: 05/09/18 12:10> Assessment and Plan - Plan 72yoM with recent cardiac event and extensive cardiac history admitted this morning with simultaneously discovered right parietal hygroma with 4mm of shift. plan: Continue to monitor Neuro exam Continue with critical care Discussed situation with pts at bedside Dr. Stevens has evaluated pt initially and would wait for his cardiac status to improve at this point and follow. <Robbie Hernandez - Last Filed: 05/09/18 10:31> - Attending Attestation The exam, history, and the medical decision-making described in the above note were completed with the assistance of the mid-level provider. I reviewed and agree with the findings presented. I attest that I had a [id number] encounter with the patient on the same day, and personally performed and documented my assessment and findings in the medical record. He has a large right subdural hemorrhage although not worse on follow-up CT scan imaging. He will benefit from bur hole drainage of the subdural hemorrhage if cleared by cardiology at some point in the future. <Adam Hernandez - Last Filed: 05/09/18 12:10>
--- NOTE | 2018-05-09 12:35 | P.DIET ---
Nutritional Evaluation Type of nutrition evaluation: initial Nutrition consult regarding: Tube Feeding Screening comments: TF review Objective - Diagnosis sepsis v.tach, respiratory failure - Objective Body Mass Index: 32.4 % IBW: 134 (IBW = 178lb) Body Weight Used for Calculations: IBW Energy Needs - Lower Range (kCal/kg): 22 Energy Needs - Upper Range (kCal/kg): 25 Lower Limit kCal/kg (kCals): 1,780 Upper Limit kCal/kg (kCals): 2,023 Lower Limit Protein Factor (Grams per Kg): 1.2 Upper Limit Protein Factor (Grams per Kg): 1.5 Lower Protein Needs (Protein): 97 Upper Protein Needs (Protein): 121 Dietitian Reviewed in Medical Record: Current diet, Curent medications, Intake & Output, Labs, Medical history Diet Order: NPO, TF Objective Comments: PMH: cardiomyopathy, CAD, DM, GERD, hiatal hernia, HTN, neuropathy, hx of CABG Labs: Cr 1.67, GFR 40, POC glucose 259 Assessment Assessment: Pt is intubated and sedated w/ fentanyl, versed. Pt receiving Glucerna 1.5 @ 55mL/hr. RD agree w/ TF Glucerna 1.5 @55mL/hr to provide 1980 kcal, 109g of protein, and 1002 mL of free water to meet pts assessed nutritional needs. Monitor TF tolerance, glucose labs. Labs reviewed, dietitian following. Recommendations: 1. RD agree w/ TF Glucerna 1.5 @55mL/hr to meet pts assessed nutritional needs 2. Monitor TF tolerance, glucose labs 3. Dietitian following Dietitian to Monitor: Lab values, Glucose level, Intake & Output, Tube feeding tolerance, Medical course
[2018-05-09 14:28] LABS: Hepatitits B Surface Antigen Nonreactive (Nonreactive)
[2018-05-09 14:52] LABS: Hepatitis A IgM Antibody Nonreactive (Nonreactive)
[2018-05-09] MEDS ORDERED: Sodium Chloride 0.9% 2 ML Flush PRN IV.FLUSH (14:58)
--- NOTE | 2018-05-09 17:33 | P.PNCA ---
Subjective Interval history: Patient is currently intubated and sedated and does not appear to be in any distress. Medications and Allergies Allergies Allergy/AdvReac Type Severity Reaction Status Date / Time sulfamethoxazole Allergy Severe Rash Verified 07/06/17 09:08 Active Medications: Active Medications Acetaminophen (Tylenol) 650 mg PO Q6H PRN PRN Reason: PAIN 1-10 AND/OR FEVER >101F Last Admin: 05/08/18 21:19 Dose: 650 mg Albuterol (Duoneb Neb (Prn)) 1 ampul NEB Q4HR NEB PRN PRN Reason: SHORTNESS OF BREATH Albuterol (Albuterol Neb (Prn)) 2.5 mg NEB Q2HR NEB PRN PRN Reason: DYSPNEA Artificial Tears (Tears Naturale Opth Drops) 1 drop EACH EYE Q8H [facility] Last Admin: 05/09/18 17:16 Dose: 1 drop Chlorhexidine Gluconate (Chlorhexidine 2% Cloth) 3 pack TOPICAL DAILY@0400 [facility]ÚL Stop: 05/13/18 03:59 Last Admin: 05/09/18 04:01 Dose: 3 pack Chlorhexidine Gluconate (Chlorhexidine 2% Cloth) 3 pack TOPICAL DAILY@0400 PRN PRN Reason: Extra cloth needed Stop: 05/13/18 03:59 Chlorhexidine Gluconate (Peridex 0.12% Oral Kit) 15 ml OROPHARYNG BID@0800, 2000 [facility] Last Admin: 05/09/18 08:34 Dose: 15 ml Dextrose (D50w Vial) 50 ml IV.PUSH UNSCH PRN PRN Reason: PER HYPOGLYCEMIA PROTOCOL Famotidine (Pepcid Pf Inj) 20 mg IV.PUSH Q12HR [facility] Last Admin: 05/09/18 08:33 Dose: 20 mg Fentanyl Citrate (Fentanyl Inj) 50 mcg IV.PUSH Q1H PRN PRN Reason: SEE LABEL COMMENTS Glucagon (Glucagon Inj) 1 mg OTHER PRN PRN PRN Reason: for Hypoglycemia Protocol Sodium Chloride (Ns Inj) 1,000 mls @ 50 mls/hr IV.CONT .Q20H [facility] Last Admin: 05/09/18 08:43 Dose: 100 mls/hr Piperacillin/Tazobactam/Dextrose (Zosyn 3.375 Gm Premix) 50 mls @ 100 mls/hr IV.SIG Q6H [facility] Last Admin: 05/09/18 13:00 Dose: 100 mls/hr Phenylephrine HCl 40 mg/ (Sodium Chloride) 500 mls @ 30 mls/hr IV.CONT TITRATE PRN; Protocol PRN Reason: See Protocol Last Titration: 05/09/18 06:13 Dose: Infused Norepinephrine Bitartrate 16 (mg/ Sodium Chloride) 250 mls @ 1.87 mls/hr IV.CONT TITRATE PRN; Protocol PRN Reason: See Protocol Last Titration: 05/09/18 05:30 Dose: 2 mcg/min, 1.87 mls/hr Fentanyl (Fentanyl 10 Mcg/Ml Premix Drip) 2,500 mcg in 250 mls @ 5 mls/hr IV.SIG TITRATE PRN; Protocol PRN Reason: Per Protocol Last Titration: 05/09/18 06:16 Dose: 100 mcg/hr, 10 mls/hr Midazolam HCl (Versed Inj) 50 mg in 50 mls @ 2 mls/hr IV.CONT TITRATE PRN; Protocol PRN Reason: Per Protocol Last Admin: 05/09/18 02:38 Dose: 2 mg/hr, 2 mls/hr Insulin Human Regular (Novolin R Correctional Sugar Inj) 0 units SQ Q6HR [facility]; Protocol Last Admin: 05/09/18 17:15 Dose: 4 units Miscellaneous Medication () 1 each OROPHARYNG 0000,0400,1200,1600 [facility] Last Admin: 05/09/18 17:15 Dose: 1 each Senna/Docusate Sodium (Palak-Colace) 2 tab PO BID [facility] Last Admin: 05/09/18 08:33 Dose: 2 tab Sodium Chloride (Ns Flush) 2 ml IV.FLUSH BID [facility] Sodium Chloride (Ns Flush) 2 ml IV.FLUSH PRN PRN PRN Reason: FLUSH AFTER USING IV ACCESS Terbutaline Sulfate (Brethine Inj) 1 mg SQ UNSCH PRN PRN Reason: For Extravasation Physical Exam Vital signs: Vital Signs 05/08/18 17:30 05/08/18 17:45 05/08/18 18:00 Temperature Pulse Rate 66 66 67 Respiratory Rate 16 16 16 Blood Pressure 113/63 108/60 113/64 Pulse Oximetry 98 98 98 05/08/18 18:15 05/08/18 18:30 05/08/18 18:45 Temperature Pulse Rate 67 66 65 Respiratory Rate 16 16 16 Blood Pressure 99/54 L 101/56 L 100/54 L Pulse Oximetry 98 99 99 05/08/18 19:00 05/08/18 19:15 05/08/18 19:30 Temperature Pulse Rate 65 64 62 Respiratory Rate 16 16 16 Blood Pressure 101/56 L 101/57 L 102/52 L Pulse Oximetry 99 97 98 05/08/18 19:45 05/08/18 20:00 05/08/18 20:15 Temperature 100.7 F H Pulse Rate 62 62 Respiratory Rate 16 22 Blood Pressure 103/57 L 108/58 L Pulse Oximetry 98 98 100 05/08/18 20:39 05/08/18 20:40 05/08/18 20:45 Temperature Pulse Rate 78 71 Respiratory Rate 14 17 17 Blood Pressure 125/64 120/60 Pulse Oximetry 94 L 95 94 L 05/08/18 21:00 05/08/18 21:15 05/08/18 21:30 Temperature Pulse Rate 69 66 64 Respiratory Rate 24 17 16 Blood Pressure 112/59 L 104/57 L 106/59 L Pulse Oximetry 95 95 96 05/08/18 21:45 05/08/18 22:00 05/08/18 22:15 Temperature Pulse Rate 78 80 80 Respiratory Rate 17 17 16 Blood Pressure 114/58 L 116/61 117/61 Pulse Oximetry 96 96 97 05/08/18 22:30 05/08/18 22:45 05/08/18 23:00 Temperature Pulse Rate 80 81 80 Respiratory Rate 16 16 16 Blood Pressure 115/57 L 111/55 L 111/55 L Pulse Oximetry 97 98 98 05/08/18 23:15 05/08/18 23:30 05/08/18 23:36 Temperature Pulse Rate 61 62 Respiratory Rate 17 19 16 Blood Pressure 96/54 L 97/52 L Pulse Oximetry 98 98 96 05/08/18 23:45 05/09/18 00:00 05/09/18 00:15 Temperature 97.6 F Pulse Rate 61 61 61 Respiratory Rate 16 16 16 Blood Pressure 102/56 L 106/59 L 110/58 L Pulse Oximetry 95 96 96 05/09/18 00:30 05/09/18 00:45 05/09/18 01:00 Temperature Pulse Rate 61 61 61 Respiratory Rate 16 16 16 Blood Pressure 110/57 L 104/54 L 105/53 L Pulse Oximetry 97 97 97 05/09/18 01:15 05/09/18 01:30 05/09/18 01:45 Temperature Pulse Rate 61 60 60 Respiratory Rate 17 16 17 Blood Pressure 106/53 L 111/56 L 112/56 L Pulse Oximetry 97 98 98 05/09/18 02:00 05/09/18 02:15 05/09/18 02:30 Temperature Pulse Rate 87 84 60 Respiratory Rate 18 17 17 Blood Pressure 116/65 120/65 103/58 L Pulse Oximetry 97 97 97 05/09/18 02:45 05/09/18 03:00 05/09/18 03:15 Temperature Pulse Rate 60 60 60 Respiratory Rate 18 19 18 Blood Pressure 106/59 L 108/55 L 107/55 L Pulse Oximetry 97 97 97 05/09/18 03:30 05/09/18 03:45 05/09/18 04:00 Temperature 98.6 F Pulse Rate 60 60 61 Respiratory Rate 19 18 16 Blood Pressure 109/57 L 110/57 L 99/54 L Pulse Oximetry 97 98 97 05/09/18 04:15 05/09/18 04:28 05/09/18 04:30 Temperature Pulse Rate 59 L 61 Respiratory Rate 16 16 16 Blood Pressure 99/54 L 106/57 L Pulse Oximetry 97 97 99 05/09/18 04:45 05/09/18 05:00 05/09/18 05:15 Temperature Pulse Rate 59 L 59 L 59 L Respiratory Rate 16 16 16 Blood Pressure 105/57 L 105/57 L 93/55 L Pulse Oximetry 97 97 97 05/09/18 05:30 05/09/18 05:45 05/09/18 06:00 Temperature Pulse Rate 59 L 59 L 59 L Respiratory Rate 16 16 16 Blood Pressure 96/54 L 97/54 L 88/51 L Pulse Oximetry 97 97 97 05/09/18 06:15 05/09/18 06:30 05/09/18 06:45 Temperature Pulse Rate 58 L 58 L 59 L Respiratory Rate 16 16 16 Blood Pressure 93/54 L 92/53 L 88/50 L Pulse Oximetry 97 97 96 05/09/18 07:00 05/09/18 07:15 05/09/18 07:30 Temperature Pulse Rate 58 L 57 L 58 L Respiratory Rate 16 16 16 Blood Pressure 98/55 L 96/52 L 86/51 L Pulse Oximetry 97 97 96 05/09/18 07:45 05/09/18 08:00 05/09/18 08:15 Temperature Pulse Rate 57 L 58 L 56 L Respiratory Rate 16 16 16 Blood Pressure 96/53 L 101/57 L 98/55 L Pulse Oximetry 97 97 97 05/09/18 08:30 05/09/18 08:45 05/09/18 08:54 Temperature Pulse Rate 59 L 58 L Respiratory Rate 17 17 17 Blood Pressure 92/53 L 98/56 L Pulse Oximetry 98 98 98 05/09/18 09:00 05/09/18 09:15 05/09/18 09:30 Temperature Pulse Rate 63 60 59 L Respiratory Rate 16 16 21 Blood Pressure 116/56 L 100/55 L 105/55 L Pulse Oximetry 96 95 96 05/09/18 09:45 05/09/18 10:00 05/09/18 10:15 Temperature Pulse Rate 60 59 L 59 L Respiratory Rate 16 16 16 Blood Pressure 104/59 L 98/57 L 107/59 L Pulse Oximetry 97 96 96 05/09/18 10:30 05/09/18 10:46 05/09/18 11:00 Temperature Pulse Rate 58 L 60 57 L Respiratory Rate 16 38 H 14 Blood Pressure 92/54 L 108/53 L 107/53 L Pulse Oximetry 96 93 L 95 05/09/18 11:15 05/09/18 11:30 05/09/18 11:45 Temperature Pulse Rate 57 L 57 L 57 L Respiratory Rate 17 16 16 Blood Pressure 107/54 L 108/55 L 112/55 L Pulse Oximetry 96 96 96 05/09/18 12:00 05/09/18 12:15 05/09/18 12:30 Temperature Pulse Rate 56 L 56 L 56 L Respiratory Rate 16 16 16 Blood Pressure 108/56 L 110/56 L 110/56 L Pulse Oximetry 96 96 97 05/09/18 12:45 05/09/18 13:00 05/09/18 13:15 Temperature Pulse Rate 56 L 55 L 57 L Respiratory Rate 17 17 16 Blood Pressure 111/56 L 116/58 L 115/57 L Pulse Oximetry 97 97 97 05/09/18 13:23 05/09/18 13:30 05/09/18 13:45 Temperature Pulse Rate 56 L 56 L Respiratory Rate 16 16 16 Blood Pressure 113/56 L 114/59 L Pulse Oximetry 98 97 98 05/09/18 14:00 05/09/18 14:15 05/09/18 14:30 Temperature Pulse Rate 56 L 57 L 56 L Respiratory Rate 16 16 16 Blood Pressure 113/56 L 114/57 L 115/58 L Pulse Oximetry 97 97 98 05/09/18 14:45 05/09/18 15:00 05/09/18 15:15 Temperature Pulse Rate 56 L 56 L 56 L Respiratory Rate 16 16 16 Blood Pressure 113/56 L 116/58 L 115/57 L Pulse Oximetry 98 97 97 05/09/18 15:30 05/09/18 15:45 05/09/18 16:00 Temperature Pulse Rate 58 L 56 L 58 L Respiratory Rate 19 16 24 Blood Pressure 125/56 L 119/59 L 107/56 L Pulse Oximetry 98 98 96 Intake & Output 05/08/18 05/09/18 05/09/18 18:59 06:59 18:59 Intake Total 2850 / 2850 1850 / 1850 1000 / 1000 Output Total 175 / 175 400 / 400 Balance 2675 / 2675 1450 / 1450 1000 / 1000 Weight 108.5 kg Intake: IV 2850 / 2850 1850 / 1850 1000 / 1000 Cordarone Inj 450 MG In D5W Inj 500 / 500 250 / 250 241 ML @ 1 MG/MIN 33.33 mls/hr IV.CONT TITRATE PRN Rx#: [id number] Lidocaine/D5W 2000 mg/500 mL 100 / 100 Premix Inj 2,000 mg In 500 ml @ 1 MG/MIN 15 mls/hr IV.CONT . Q24H [facility] Rx#:[id number] Versed Inj 50 mg In 50 ml @ 2 50 / 50 MG/HR 2 mls/hr IV.CONT TITRATE PRN Rx#:[id number] Neosynephrine Inj 40 MG In NS 1000 / 1000 200 / 200 Inj 496 ML @ 40 MCG/MIN 30 mls/ hr IV.CONT TITRATE PRN Rx#: [id number] NS Inj 1,000 ML @ 50 mls/hr IV. 1000 / 1000 1000 / 1000 1000 / 1000 CONT .Q20H [facility] Rx#:[id number] Zosyn 3.375 GM Premix 50 ML @ 150 / 150 100 / 100 100 mls/hr IV.SIG Q6H [facility] Rx#: [id number] fentaNYL 10 mcg/mL Premix Drip 250 / 250 2,500 mcg In 250 ml @ 50 MCG/HR 5 mls/hr IV.SIG TITRATE PRN Rx #:[id number] Output: Urine Amount (Catheter) 175 / 175 400 / 400 Indwelling Urethral Catheter 175 / 175 400 / 400 - Constitutional no acute distress - Routine HEENT Exam Head: Present: normocephalic Eye: Present: PERRL ENT: Present: mucous membranes moist - Routine Respiratory Exam Present: patient mechanically ventilated - Routine Cardiovascular Exam Present: S1, S2, bradycardia. Absent: murmur, gallop, rubs - Routine Abdominal Exam Present: normoactive bowel sounds - Routine Extremities Exam Present: pulses intact, normal capillary refill. Absent: cyanosis, clubbing, edema - Routine Skin Exam Present: erythema, wounds, ecchymosis Comments: Multiple skin tears to both arms. Dressings are in place. - Routine Neurological Exam Patient is sedated. - Detailed Neurological Exam: Coma Scale Eye Opening: None Verbal Response: None Motor Response: None [place] Coma Scale Total: 3 - Routine Psychiatric Exam Present: unable to assess - Urinary Catheter Management Indwelling Urethral Catheter Cath placed during this visit: yes, but has since been removed by the nurse Urethral indwelling: Yes Reason for continuing: Terminally ill/Comfort care Insertion date: 05/08/18 Insertion time: 00:55 Removal date: 05/09/18 Removal time: 11:23 Results 05/09/18 02:20 05/09/18 02:20 Cardiac Enzymes 05/08/18 05/08/18 05/08/18 Range/Units 01:00 10:00 14:14 AST 26 399 H (15-37) U/L Troponin I 1.51 H* Greater than 40.00 H* Greater than 40.00 H* (0.02-0.05) ng/mL 05/09/18 Range/Units 02:20 AST 1287 H (15-37) U/L Troponin I Greater than 40.00 H* (0.02-0.05) ng/mL Coagulation 05/08/18 Range/Units 01:00 PT 10.7 (9.8-11.6) sec CBC 05/08/18 05/09/18 Range/Units 01:00 02:20 WBC 8.1 10.0 (4.0-11.0) th/mm3 RBC 4.43 L 4.25 L (4.50-5.90) mil/mm3 Hgb 14.0 13.6 (13.0-17.0) gm/dL Hct 41.9 39.6 (39.0-51.0) % Plt Count 202 133 L D (150-450) th/mm3 Neut # (Auto) 5.2 8.2 H (1.8-7.7) th/mm3 Lymph # (Auto) 2.4 1.3 (1.0-4.8) th/mm3 [place] # (Auto) 0.4 0.5 (0.0-0.9) th/mm3 Eos # (Auto) 0.1 0.0 (0.0-0.4) th/mm3 Baso # (Auto) 0.1 0.1 (0.0-0.2) th/mm3 Comprehensive Metabolic Panel 05/08/18 05/08/18 05/09/18 Range/Units 01:00 10:00 02:20 Sodium 143 141 140 (136-145) meq/L Potassium 3.8 4.6 D 4.4 (3.5-5.1) meq/L Chloride 105 107 108 H (98-107) meq/L Carbon Dioxide 23.8 25.0 22.8 (21.0-32.0) meq/L BUN 12 15 17 (7-18) mg/dL Creatinine 1.56 H 1.80 H 1.67 H (0.60-1.30) mg/dL Calcium 9.9 8.8 D 8.1 L (8.5-10.1) mg/dL AST 26 399 H 1287 H (15-37) U/L ALT 28 187 H 1015 H (12-78) U/L Alkaline Phosphatase 116 132 H 127 H (45-117) U/L Total Protein 5.5 L 5.4 L 5.3 L (6.4-8.2) g/dL Albumin 2.5 L 2.6 L 2.2 L (3.4-5.0) g/dL Intake and Output 05/09/18 05/09/18 05/09/18 06:59 14:59 22:59 Intake Total 850 / 850 1000 / 1000 Output Total 400 / 400 Balance 450 / 450 1000 / 1000 Intake: IV 850 / 850 1000 / 1000 Cordarone Inj 450 MG In D5W Inj 250 / 250 241 ML @ 1 MG/MIN 33.33 mls/hr IV.CONT TITRATE PRN Rx#: [id number] Versed Inj 50 mg In 50 ml @ 2 50 / 50 MG/HR 2 mls/hr IV.CONT TITRATE PRN Rx#:[id number] Neosynephrine Inj 40 MG In NS 200 / 200 Inj 496 ML @ 40 MCG/MIN 30 mls/ hr IV.CONT TITRATE PRN Rx#: [id number] NS Inj 1,000 ML @ 50 mls/hr IV. 1000 / 1000 CONT .Q20H [facility] Rx#:[id number] Zosyn 3.375 GM Premix 50 ML @ 100 / 100 100 mls/hr IV.SIG Q6H [facility] Rx#: [id number] fentaNYL 10 mcg/mL Premix Drip 250 / 250 2,500 mcg In 250 ml @ 50 MCG/HR 5 mls/hr IV.SIG TITRATE PRN Rx #:[id number] Output: Urine Amount (Catheter) 400 / 400 Indwelling Urethral Catheter 400 / 400 Other: Weight 108.5 kg - Imaging and Cardiology Imaging: Impressions Abdomen/Pelvis CT 05/08/18 00:00 CONCLUSION: 1. Bibasilar pulmonary infiltrates with small pleural effusions. 2. Significant coronary artery atherosclerotic calcifications. 3. Cholelithiasis. No CT evidence to suggest acute cholecystitis. Chest X-Ray 05/08/18 00:00 CONCLUSION: Lines and tubes as detailed above. Bibasilar parenchymal consolidations. Head CT 05/08/18 01:22 CONCLUSION: 1. 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 This measures 18 mm in maximum thickness. 4 mm of [id number] midline shift. . Head CT 05/08/18 19:23 CONCLUSION: 1. 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 No new hemorrhage. . Abdomen Ultrasound 05/09/18 00:00 CONCLUSION: 1. Probable fatty infiltration of the liver. 2. Mobile gallstones within the gallbladder. No significant pericholecystic fluid identified. No significant gallbladder wall thickening. 3. Increased echogenicity of the renal cortex suggesting underlying medical renal disease. 4. 2.5 cm renal cyst on the left. 5. Trace amount of ascites adjacent to the liver. 6. Minimal right basilar effusion. Chest X-Ray 05/09/18 06:00 CONCLUSION: 1. New left lower lung zone atelectasis versus consolidation and small left pleural effusion. 2. Clearing of bilateral upper lung zone opacity. Assessment and Plan - Assessment (1) ICH (intracerebral hemorrhage) Code(s): I61.9 - Nontraumatic intracerebral hemorrhage, unspecified Status: Acute (2) CAD (coronary artery disease) Code(s): I25.10 - Atherosclerotic heart disease of [place] coronary artery without angina pectoris Status: Acute (3) Cardiomyopathy Code(s): I42.9 - Cardiomyopathy, unspecified Status: Acute (4) Dyspnea Code(s): R06.00 - Dyspnea, unspecified Status: Acute (5) Hypertension Code(s): I10 - Essential (primary) hypertension Status: Acute - Plan Patient has an intracranial bleed with a 4mm right to left midline shift. All anticoagulants have been DC'd. We will continue ICU care. Rhythm now stable. We will continue Amiodarone and Levophed at this time. Patient is critically ill; his prognosis remains guarded. We will continue to monitor the patient during his hospitalization. The patient was seen and evaluated by Dr. Frye who participated in care, management and decision making. - Attending Attestation Patient seen and examined. I reviewed and agree with the evaluation and plan as presented. Continue ICU care. Prognosis remains guarded. Neurology and neurosurgery evaluation in progress. D/w pt's daughter.
[2018-05-09] MEDS: Sodium Chloride 0.9% 2 ML Flush BID IV.FLUSH SCH (20:01)
[2018-05-10] MEDS: Insulin NovoLIN Regular Correctional Sugar Inj SQ SCH ×3 (00:06→12:09)
[2018-05-10] MEDS: Oral Hygiene Kit OROPHARYNG SCH ×3 (00:07→11:48)
[2018-05-10] MEDS: Piperacil/Tazo 3.375 GM Premix 50 ML IV.SIG SCH ×3 (00:07→12:10)
[2018-05-10] MEDS: Chlorhexidine Gluconate 2% 1 Pack (2 Cloths) TOPICAL SCH (04:21)
[2018-05-10 04:36] LABS: Baso # (Auto) 0.1 th/mm3 (0.0-0.2); Baso % (Auto) 1.1 % (0.0-2.0); Eos # (Auto) 0.1 th/mm3 (0.0-0.4); Hematocrit 35.8 % (39.0-51.0); Hemoglobin 12.4 gm/dL (13.0-17.0); Lymph % (Auto) 13.8 % (9.0-44.0); Mean Corpuscular HGB Conc 34.7 % (32.0-36.0); Mean Corpuscular Hemoglobin 32.1 pg (27.0-34.0); Mean Corpuscular Volume 92.4 fL (80.0-100.0); Mean Platelet Volume 9.7 fL (7.0-11.0); Mono # (Auto) 0.3 th/mm3 (0.0-0.9); Mono % (Auto) 3.8 % (0.0-8.0); Neut % (Auto) 80.3 % (16.0-70.0); Platelet Count 101 th/mm3 (150-450); Red Blood Count 3.88 mil/mm3 (4.50-5.90); Red Cell Distribution Width 14.7 % (11.6-17.2); White Blood Count 7.5 th/mm3 (4.0-11.0)
[2018-05-10 05:18] LABS: Calcium 7.4 mg/dL (8.5-10.1); Magnesium 1.9 mg/dL (1.5-2.5); Phosphorus 1.6 mg/dL (2.5-4.9); Potassium 3.6 meq/L (3.5-5.1); Total Protein 4.6 g/dL (6.4-8.2)
[2018-05-10] MEDS: Artificial Tears Opth Drops 15 ML Bottle EACH EYE SCH ×3 (05:58→21:55)
[2018-05-10] MEDS ORDERED: Potassium Phosphate 500 MG Soluble Tablet PO PRN ×2 (07:16)
[2018-05-10] MEDS ORDERED: Potassium Chloride 25 MEQ Effervescent Tablet PO PRN (07:16)
[2018-05-10] MEDS ORDERED: Magnesium Oxide 400 MG Tablet PO PRN (07:16)
[2018-05-10] MEDS ORDERED: Potassium Chlor 20 mEq Premix 20 MEQ/100 ML PIGGYBACK IV.SIG PRN ×2 (07:16)
[2018-05-10] MEDS ORDERED: Potassium Phosphate Inj 30 MMOL in Sodium Chlor 0.9% Inj 250 ML IV.SIG PRN (07:16)
[2018-05-10] MEDS ORDERED: Magnesium Sulfate Inj 2 GM in Sodium Chlor 0.9% Inj 96 ML IV.SIG PRN (07:16)
[2018-05-10] MEDS ORDERED: Magnesium Sulfate Inj 4 GM in Sodium Chlor 0.9% Inj 92 ML IV.SIG PRN (07:16)
[2018-05-10] MEDS ORDERED: Sodium Phosphate Inj 30 MMOL in Sodium Chlor 0.9% Inj 250 ML IV.SIG PRN (07:16)
[2018-05-10] MEDS ORDERED: Potassium Chlor 40 mEq Premix 40 MEQ/100 ML PIGGYBACK IV.SIG PRN ×2 (07:16)
[2018-05-10] MEDS: Famotidine PF Inj 20 MG/2 ML Vial IV.PUSH SCH ×2 (08:29→21:53)
[2018-05-10] MEDS: Chlorhexidine 0.12% Oral Kit 15 ML UDC OROPHARYNG SCH ×2 (08:31→21:51)
[2018-05-10] MEDS: Sodium Chloride 0.9% 2 ML Flush BID IV.FLUSH SCH ×2 (08:31→21:52)
[2018-05-10] MEDS: Senna/Docusate Sodium 8.6/50 MG Tablet PO SCH ×2 (08:32→21:54)
--- NOTE | 2018-05-10 10:15 | P.PNCC ---
Subjective Subjective Remarks/Hospital Course: 72-year-old male with a medical history significant for coronary artery disease status post previous CABG with subsequent cardiac catheterization requiring RCA stenting in 2010 who reportedly has been confused for about 1 week with fluctuating mental status along with low back pain. Today while was sleeping she heard a thud and patient had dropped to his knees and fallen on the bed. He was also noted to be shaking vigorously at the time however was able to talk during what appeared to be Reiger's. EMS was called. Patient was hypoxic on arrival with sats in the 60s. He was also tachycardic with heart rate in the 140s-150s with right bundle branch block. Since he had wide complexes there was concern for V. tach however he never lost his pulse. On arrival in the ER who he was intubated and placed on mechanical ventilation. He was loaded with IV amiodarone and lidocaine subsequently after failed attempted defibrillation/cardioversion x2. Patient does have a medical history significant for coronary artery disease status post previous CABG followed by RCA stenting in 2010, diabetes mellitus for which he uses an insulin pump, hypertension. Subjective 05/08: Follow-up. Discussed with Rufina maria at [id number]. Discussion regarding my discussion with neurosurgery Dr. Stevens regarding brain hygroma/ hemorrhage. Options include a empirically starting the patient on heparin drip with frequent neuro checks. Repeat head CT and a.m. Patient has significant risk of bleeding with this however. Possibility of not starting anticoagulation with possibility of worsening cardiac outcome. At the present time, patient wishes to discuss with her regular rivet tester Dr. Franklin need for anticoagulation at this time. She will discuss with him tomorrow. She is aware of risk of possible cardiac decline as a result of this but wishes to discuss with her regular rivet tester tomorrow. 05/09 Patient is intubated and sedated with Versed and Fentanyl infusion. On Levophed 2 mics. Afebrile. 05/10 Patient remains intubated and sedated. Off Levophed. Afebrile. Objective Vital Signs / I&O: Vital Signs 05/09/18 10:15 05/09/18 10:30 05/09/18 10:46 Temperature Pulse Rate 59 L 58 L 60 Respiratory Rate 16 16 38 H Blood Pressure 107/59 L 92/54 L 108/53 L Pulse Oximetry 96 96 93 L 05/09/18 11:00 05/09/18 11:15 05/09/18 11:30 Temperature Pulse Rate 57 L 57 L 57 L Respiratory Rate 14 17 16 Blood Pressure 107/53 L 107/54 L 108/55 L Pulse Oximetry 95 96 96 05/09/18 11:45 05/09/18 12:00 05/09/18 12:15 Temperature Pulse Rate 57 L 56 L 56 L Respiratory Rate 16 16 16 Blood Pressure 112/55 L 108/56 L 110/56 L Pulse Oximetry 96 96 96 05/09/18 12:30 05/09/18 12:45 05/09/18 13:00 Temperature Pulse Rate 56 L 56 L 55 L Respiratory Rate 16 17 17 Blood Pressure 110/56 L 111/56 L 116/58 L Pulse Oximetry 97 97 97 05/09/18 13:15 05/09/18 13:23 05/09/18 13:30 Temperature Pulse Rate 57 L 56 L Respiratory Rate 16 16 16 Blood Pressure 115/57 L 113/56 L Pulse Oximetry 97 98 97 05/09/18 13:45 05/09/18 14:00 05/09/18 14:15 Temperature Pulse Rate 56 L 56 L 57 L Respiratory Rate 16 16 16 Blood Pressure 114/59 L 113/56 L 114/57 L Pulse Oximetry 98 97 97 05/09/18 14:30 05/09/18 14:45 05/09/18 15:00 Temperature Pulse Rate 56 L 56 L 56 L Respiratory Rate 16 16 16 Blood Pressure 115/58 L 113/56 L 116/58 L Pulse Oximetry 98 98 97 05/09/18 15:15 05/09/18 15:30 05/09/18 15:45 Temperature Pulse Rate 56 L 58 L 56 L Respiratory Rate 16 19 16 Blood Pressure 115/57 L 125/56 L 119/59 L Pulse Oximetry 97 98 98 05/09/18 16:00 05/09/18 16:15 05/09/18 16:30 Temperature Pulse Rate 58 L 57 L 57 L Respiratory Rate 24 16 16 Blood Pressure 107/56 L 111/56 L 112/57 L Pulse Oximetry 96 97 97 05/09/18 16:45 05/09/18 17:00 05/09/18 17:15 Temperature Pulse Rate 56 L 56 L 56 L Respiratory Rate 16 16 16 Blood Pressure 111/59 L 117/58 L 116/57 L Pulse Oximetry 98 98 98 05/09/18 17:30 05/09/18 17:45 05/09/18 18:00 Temperature Pulse Rate 56 L 56 L 56 L Respiratory Rate 16 16 16 Blood Pressure 115/56 L 121/60 119/58 L Pulse Oximetry 98 98 98 05/09/18 18:15 05/09/18 18:30 05/09/18 18:45 Temperature Pulse Rate 56 L 57 L 56 L Respiratory Rate 16 16 16 Blood Pressure 118/56 L 121/59 L 117/55 L Pulse Oximetry 98 98 98 05/09/18 19:00 05/09/18 19:16 05/09/18 19:30 Temperature Pulse Rate 57 L 62 57 L Respiratory Rate 16 21 16 Blood Pressure 115/56 L 137/62 119/59 L Pulse Oximetry 98 100 98 05/09/18 19:45 05/09/18 20:00 05/09/18 20:11 Temperature 99.0 F Pulse Rate 57 L 56 L Respiratory Rate 16 16 16 Blood Pressure 121/58 L 122/58 L Pulse Oximetry 98 98 98 05/09/18 20:15 05/09/18 20:30 05/09/18 20:45 Temperature Pulse Rate 58 L 56 L 56 L Respiratory Rate 16 16 16 Blood Pressure 122/60 119/56 L 123/58 L Pulse Oximetry 98 98 98 05/09/18 21:00 05/09/18 21:15 05/09/18 21:30 Temperature Pulse Rate 55 L 56 L 59 L Respiratory Rate 16 16 18 Blood Pressure 121/55 L 121/58 L 108/56 L Pulse Oximetry 98 98 98 05/09/18 21:45 05/09/18 22:00 05/09/18 22:15 Temperature Pulse Rate 57 L 57 L 58 L Respiratory Rate 16 16 16 Blood Pressure 135/63 114/55 L 112/58 L Pulse Oximetry 97 97 97 05/09/18 22:30 05/09/18 22:45 05/09/18 23:00 Temperature Pulse Rate 57 L 58 L 57 L Respiratory Rate 16 16 16 Blood Pressure 109/55 L 115/56 L 115/59 L Pulse Oximetry 97 97 97 05/09/18 23:15 05/09/18 23:30 05/09/18 23:45 Temperature Pulse Rate 58 L 60 57 L Respiratory Rate 16 17 16 Blood Pressure 122/59 L 111/55 L 114/58 L Pulse Oximetry 97 97 97 05/10/18 00:00 05/10/18 00:06 05/10/18 00:15 Temperature 98.3 F Pulse Rate 56 L 56 L Respiratory Rate 16 16 16 Blood Pressure 114/58 L 116/56 L Pulse Oximetry 98 98 98 05/10/18 00:30 05/10/18 00:45 05/10/18 01:00 Temperature Pulse Rate 57 L 57 L 55 L Respiratory Rate 16 16 16 Blood Pressure 97/52 L 98/51 L 95/50 L Pulse Oximetry 95 96 95 05/10/18 01:15 05/10/18 01:30 05/10/18 01:45 Temperature Pulse Rate 56 L 55 L 54 L Respiratory Rate 16 16 16 Blood Pressure 94/50 L 95/51 L 97/54 L Pulse Oximetry 96 96 97 05/10/18 02:00 05/10/18 02:15 05/10/18 02:30 Temperature Pulse Rate 54 L 54 L 57 L Respiratory Rate 16 16 17 Blood Pressure 97/51 L 97/52 L 101/52 L Pulse Oximetry 97 97 100 05/10/18 02:45 05/10/18 03:00 05/10/18 03:15 Temperature Pulse Rate 55 L 54 L 54 L Respiratory Rate 16 16 16 Blood Pressure 94/54 L 98/51 L 99/53 L Pulse Oximetry 97 97 98 05/10/18 03:30 05/10/18 03:45 05/10/18 03:56 Temperature Pulse Rate 54 L 54 L Respiratory Rate 16 16 16 Blood Pressure 99/54 L 99/51 L Pulse Oximetry 98 98 98 05/10/18 04:00 05/10/18 04:15 05/10/18 04:30 Temperature 99 F Pulse Rate 57 L 56 L 55 L Respiratory Rate 16 16 16 Blood Pressure 110/58 L 104/53 L 104/54 L Pulse Oximetry 100 99 99 05/10/18 04:45 05/10/18 05:00 05/10/18 05:15 Temperature Pulse Rate 54 L 54 L 54 L Respiratory Rate 16 16 16 Blood Pressure 105/54 L 105/55 L 104/53 L Pulse Oximetry 99 99 99 05/10/18 05:30 05/10/18 05:45 05/10/18 06:00 Temperature Pulse Rate 56 L 55 L 58 L Respiratory Rate 17 16 27 H Blood Pressure 109/59 L 114/55 L Pulse Oximetry 99 100 98 05/10/18 06:01 05/10/18 06:15 05/10/18 06:30 Temperature Pulse Rate 64 59 L 57 L Respiratory Rate 20 16 16 Blood Pressure 124/58 L 108/53 L 106/53 L Pulse Oximetry 87 L 97 98 05/10/18 06:45 05/10/18 07:00 05/10/18 08:00 Temperature 98.5 F Pulse Rate 56 L 55 L 54 L Respiratory Rate 16 16 18 Blood Pressure 104/52 L 105/54 L 107/57 L Pulse Oximetry 98 98 98 05/10/18 08:11 05/10/18 09:00 Temperature Pulse Rate 54 L Respiratory Rate 17 16 Blood Pressure 108/58 L Pulse Oximetry 98 99 Intake & Output 05/09/18 05/10/18 05/10/18 18:59 06:59 18:59 Intake Total 2049 1078 / 1078 50 / 50 Output Total 1650 / 1650 400 / 400 Balance 400 / 400 678 / 678 50 / 50 Weight 107 kg Intake: IV 2049 740 / 740 50 / 50 Cordarone Inj 450 MG In D5W Inj 250 / 250 241 ML @ 1 MG/MIN 33.33 mls/hr IV.CONT TITRATE PRN Rx#: [id number] Versed Inj 50 mg In 50 ml @ 2 50 / 50 MG/HR 2 mls/hr IV.CONT TITRATE PRN Rx#:[id number] Levophed Inj 16 MG In NS Inj 90 / 90 234 ML @ 2 MCG/MIN 1.87 mls/hr IV.CONT TITRATE PRN Rx#: [id number] NS Inj 1,000 ML @ 50 mls/hr IV. 1999 CONT .Q20H [facility] Rx#:[id number] Zosyn 3.375 GM Premix 50 ML @ 50 / 50 100 / 100 50 / 50 100 mls/hr IV.SIG Q6H [facility] Rx#: [id number] fentaNYL 10 mcg/mL Premix Drip 250 / 250 2,500 mcg In 250 ml @ 50 MCG/HR 5 mls/hr IV.SIG TITRATE PRN Rx #:[id number] Tube Feeding 278 / 278 Water Bolus Amount 60 / 60 Output: Urine 550 / 550 400 / 400 Urine Amount (Catheter) 1100 / 1100 Indwelling Urethral Catheter 400 / 400 Straight 700 / 700 Other: # Bowel Movements 0 Result Diagrams: 05/10/18 04:00 05/10/18 04:00 Other Results: Laboratory Results - last 12 hr 05/10/18 05/10/18 05/10/18 00:03 04:00 04:00 WBC 7.5 RBC 3.88 L Hgb 12.4 L Hct 35.8 L MCV 92.4 MCH 32.1 MCHC 34.7 RDW 14.7 Plt Count 101 L MPV 9.7 Neut % (Auto) 80.3 H Lymph % (Auto) 13.8 [place] % (Auto) 3.8 Eos % (Auto) 1.0 Baso % (Auto) 1.1 Neut # (Auto) 6.0 Lymph # (Auto) 1.0 [place] # (Auto) 0.3 Eos # (Auto) 0.1 Baso # (Auto) 0.1 WBC Differential . Differential Comment Auto diff final Sodium 141 Potassium 3.6 D Chloride 107 Carbon Dioxide 26.0 Anion Gap 8 BUN 20 H Creatinine 1.47 H Estimated GFR 47 L POC Glucose 284 H Random Glucose 276 H Calcium 7.4 L* Prot Corrected Calcium 8.8 Phosphorus 1.6 L D Magnesium 1.9 Total Bilirubin 1.1 H AST 542 H ALT 888 H Alkaline Phosphatase 104 Total Protein 4.6 L D Albumin 2.0 L Imaging: Abdomen/Pelvis CT 05/08/18 00:00 CONCLUSION: 1. Bibasilar pulmonary infiltrates with small pleural effusions. 2. Significant coronary artery atherosclerotic calcifications. 3. Cholelithiasis. No CT evidence to suggest acute cholecystitis. Head CT 05/08/18 19:23 CONCLUSION: 1. 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 No new hemorrhage. . Abdomen Ultrasound 05/09/18 00:00 CONCLUSION: 1. Probable fatty infiltration of the liver. 2. Mobile gallstones within the gallbladder. No significant pericholecystic fluid identified. No significant gallbladder wall thickening. 3. Increased echogenicity of the renal cortex suggesting underlying medical renal disease. 4. 2.5 cm renal cyst on the left. 5. Trace amount of ascites adjacent to the liver. 6. Minimal right basilar effusion. Chest X-Ray 05/09/18 06:00 CONCLUSION: 1. New left lower lung zone atelectasis versus consolidation and small left pleural effusion. 2. Clearing of bilateral upper lung zone opacity. Objective Remarks: GENERAL: Patient is 72 yo intubated and sedated SKIN: Warm and dry. HEAD: Normocephalic. EYES: No scleral icterus. No injection or drainage. NECK: Supple, trachea midline. No JVD or lymphadenopathy. CARDIOVASCULAR: Regular rate and rhythm without murmurs, gallops, or rubs. RESPIRATORY: Breath sounds equal bilaterally. No accessory muscle use. GASTROINTESTINAL: Abdomen soft, non-tender, nondistended. MUSCULOSKELETAL: No cyanosis, or edema. Neuro: Sedated Assessment and Plan - Assessment and Plan Plan: 72-year-old male with: Syncope Encephalopathy Wide-complex tachycardia with pulse: Suspect A flutter with aberrant conduction versus sinus tach with aberrant conduction Elevated trop/NSTEMI Suspected sepsis low back pain CAD status post previous CABG Uncontrolled diabetes mellitus Hypertension Plan: Neuro: On Fentanyl and versed infusion for sedation. Daily sedation vacation. 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 No new hemorrhage. NSG is following- Dr. Stevens CV: Wide-complex tachycardia with pulse on arrival. Off Levophed Monitor HR and BP keep MAP>65mmHg Echo showed EF 20-25%, Anterior, anterolateral, anteroseptal, apical, and inferoapical hypokinesis. Cards is following. Trop persistently > 40. Anticoagulation contraindicated in setting of right subdural hematoma on CT brain. D/C Amio drip given elevated LFT's/ischemic hepatitis. Pulm: Continue vent support keep sats >92% Bronchodilators, ICU vent bundle. CXR 05/09: left lower lung zone atelectasis versus consolidation and small left pleural effusion. Clearing of bilateral upper lung zone opacity SBT daily as evelin GI/liver: Monitor LFT's( Elevated LFT;s likely 2nd ischemic hepatitis. CT hailey/pelvis: There is no dilation of the biliary tree. A small layering calcified gallstone within an otherwise normal-appearing gallbladder US abdomen: Probable fatty infiltration of the liver. Mobile gallstones within the gallbladder. No significant pericholecystic fluid identified. No significant gallbladder wall thickening. Increased echogenicity of the renal cortex suggesting underlying medical renal disease. 2.5 cm renal cyst on the left. Trace amount of ascites adjacent to the liver. On Pepcid 20mg IV Q12 for GI prophylaxis tube feeds- Glucerna 1.5 with goal rate 50ml/hr Renal/: Monitor renal function, I/O's, electrolytes replacement per protocol. Diurese with Lasix 40mg x1, ID: Continue IV Zosyn. Monitor for signs of infections (fever, WBC) Follow up on cultures( blood, sputum ,UA) NGTD Heme: Follow CBC Endocrine: SSI medium scale for glycemic control Prophylaxis: Pepcid/SCDs. Palliative care is following Code status: Alternative code Prognosis guarded given multiorgan injury ( Resp failure, LALITO, ischemic hepatitis, Acute AK and brain bleed) Condition critical CCT 35 mins
--- NOTE | 2018-05-10 11:40 | P.PNPAL ---
Reason for Visit Reason for visit: a. To assist with evaluation and management of symptoms including: Pain, dyspnea b. To assist medical decision maker(s) with: better understanding of current medical conditions; weighing benefits/burdens of medical treatment options; making medical treatment decisions. Subjective Subjective/Interval History: This is a 72-year-old male who was brought to [facility] emergency department via [facility] after the patient fell at home, he was found by his on his knees over the bed. He was also noted to be shaking vigorously but was able to talk. Upon arrival of [facility], he was found hypoxic with oxygen saturations in the 60s. He was tachycardic with heart rate in the 140s-150s with a right bundle branch block noted and wide complexes. indicated he had had about a week long period of confusion and fluctuating mental status along with low back pain. Upon arrival to the ED was intubated placed on mechanical ventilation, was started on IV amiodarone, with a loading dose, and lidocaine. Apparently there was a failed attempt at defibrillation/cardioversion x2. Patient has remained somewhat stable overnight, no longer requiring Levophed for pressure support. Neuro status is essentially unchanged. Pupils are unequal left pinpoint right 3 mm with sluggish to questionable reaction. Does not rouse for exam, is on low-dose Versed and fentanyl for sedation. and daughter have remained at bedside. Family/Friend Interactions: Spoke with and daughter at bedside. Discussed patient status, no longer requiring pressor support, no changes in neuro status. Goals remain semi- aggressive at this time. Objective Vital Signs: Vital Signs 05/09/18 11:30 05/09/18 11:45 05/09/18 12:00 Temperature Pulse Rate 57 L 57 L 56 L Respiratory Rate 16 16 16 Blood Pressure 108/55 L 112/55 L 108/56 L Pulse Oximetry 96 96 96 05/09/18 12:15 05/09/18 12:30 05/09/18 12:45 Temperature Pulse Rate 56 L 56 L 56 L Respiratory Rate 16 16 17 Blood Pressure 110/56 L 110/56 L 111/56 L Pulse Oximetry 96 97 97 05/09/18 13:00 05/09/18 13:15 05/09/18 13:23 Temperature Pulse Rate 55 L 57 L Respiratory Rate 17 16 16 Blood Pressure 116/58 L 115/57 L Pulse Oximetry 97 97 98 11/12/18 13:30 05/09/18 13:45 05/09/18 14:00 Temperature Pulse Rate 56 L 56 L 56 L Respiratory Rate 16 16 16 Blood Pressure 113/56 L 114/59 L 113/56 L Pulse Oximetry 97 98 97 05/09/18 14:15 05/09/18 14:30 05/09/18 14:45 Temperature Pulse Rate 57 L 56 L 56 L Respiratory Rate 16 16 16 Blood Pressure 114/57 L 115/58 L 113/56 L Pulse Oximetry 97 98 98 05/09/18 15:00 05/09/18 15:15 05/09/18 15:30 Temperature Pulse Rate 56 L 56 L 58 L Respiratory Rate 16 16 19 Blood Pressure 116/58 L 115/57 L 125/56 L Pulse Oximetry 97 97 98 05/09/18 15:45 05/09/18 16:00 05/09/18 16:15 Temperature Pulse Rate 56 L 58 L 57 L Respiratory Rate 16 24 16 Blood Pressure 119/59 L 107/56 L 111/56 L Pulse Oximetry 98 96 97 05/09/18 16:30 05/09/18 16:45 05/09/18 17:00 Temperature Pulse Rate 57 L 56 L 56 L Respiratory Rate 16 16 16 Blood Pressure 112/57 L 111/59 L 117/58 L Pulse Oximetry 97 98 98 05/09/18 17:15 05/09/18 17:30 05/09/18 17:45 Temperature Pulse Rate 56 L 56 L 56 L Respiratory Rate 16 16 16 Blood Pressure 116/57 L 115/56 L 121/60 Pulse Oximetry 98 98 98 05/09/18 18:00 05/09/18 18:15 05/09/18 18:30 Temperature Pulse Rate 56 L 56 L 57 L Respiratory Rate 16 16 16 Blood Pressure 119/58 L 118/56 L 121/59 L Pulse Oximetry 98 98 98 05/09/18 18:45 05/09/18 19:00 05/09/18 19:16 Temperature Pulse Rate 56 L 57 L 62 Respiratory Rate 16 16 21 Blood Pressure 117/55 L 115/56 L 137/62 Pulse Oximetry 98 98 100 05/09/18 19:30 05/09/18 19:45 05/09/18 20:00 Temperature 99.0 F Pulse Rate 57 L 57 L 56 L Respiratory Rate 16 16 16 Blood Pressure 119/59 L 121/58 L 122/58 L Pulse Oximetry 98 98 98 05/09/18 20:11 05/09/18 20:15 05/09/18 20:30 Temperature Pulse Rate 58 L 56 L Respiratory Rate 16 16 16 Blood Pressure 122/60 119/56 L Pulse Oximetry 98 98 98 05/09/18 20:45 05/09/18 21:00 05/09/18 21:15 Temperature Pulse Rate 56 L 55 L 56 L Respiratory Rate 16 16 16 Blood Pressure 123/58 L 121/55 L 121/58 L Pulse Oximetry 98 98 98 05/09/18 21:30 05/09/18 21:45 05/09/18 22:00 Temperature Pulse Rate 59 L 57 L 57 L Respiratory Rate 18 16 16 Blood Pressure 108/56 L 135/63 114/55 L Pulse Oximetry 98 97 97 05/09/18 22:15 05/09/18 22:30 05/09/18 22:45 Temperature Pulse Rate 58 L 57 L 58 L Respiratory Rate 16 16 16 Blood Pressure 112/58 L 109/55 L 115/56 L Pulse Oximetry 97 97 97 05/09/18 23:00 05/09/18 23:15 05/09/18 23:30 Temperature Pulse Rate 57 L 58 L 60 Respiratory Rate 16 16 17 Blood Pressure 115/59 L 122/59 L 111/55 L Pulse Oximetry 97 97 97 05/09/18 23:45 05/10/18 00:00 05/10/18 00:06 Temperature 98.3 F Pulse Rate 57 L 56 L Respiratory Rate 16 16 16 Blood Pressure 114/58 L 114/58 L Pulse Oximetry 97 98 98 05/10/18 00:15 05/10/18 00:30 05/10/18 00:45 Temperature Pulse Rate 56 L 57 L 57 L Respiratory Rate 16 16 16 Blood Pressure 116/56 L 97/52 L 98/51 L Pulse Oximetry 98 95 96 05/10/18 01:00 05/10/18 01:15 05/10/18 01:30 Temperature Pulse Rate 55 L 56 L 55 L Respiratory Rate 16 16 16 Blood Pressure 95/50 L 94/50 L 95/51 L Pulse Oximetry 95 96 96 05/10/18 01:45 05/10/18 02:00 05/10/18 02:15 Temperature Pulse Rate 54 L 54 L 54 L Respiratory Rate 16 16 16 Blood Pressure 97/54 L 97/51 L 97/52 L Pulse Oximetry 97 97 97 05/10/18 02:30 05/10/18 02:45 05/10/18 03:00 Temperature Pulse Rate 57 L 55 L 54 L Respiratory Rate 17 16 16 Blood Pressure 101/52 L 94/54 L 98/51 L Pulse Oximetry 100 97 97 05/10/18 03:15 05/10/18 03:30 05/10/18 03:45 Temperature Pulse Rate 54 L 54 L 54 L Respiratory Rate 16 16 16 Blood Pressure 99/53 L 99/54 L 99/51 L Pulse Oximetry 98 98 98 05/10/18 03:56 05/10/18 04:00 05/10/18 04:15 Temperature 99 F Pulse Rate 57 L 56 L Respiratory Rate 16 16 16 Blood Pressure 110/58 L 104/53 L Pulse Oximetry 98 100 99 05/10/18 04:30 05/10/18 04:45 05/10/18 05:00 Temperature Pulse Rate 55 L 54 L 54 L Respiratory Rate 16 16 16 Blood Pressure 104/54 L 105/54 L 105/55 L Pulse Oximetry 99 99 99 05/10/18 05:15 05/10/18 05:30 05/10/18 05:45 Temperature Pulse Rate 54 L 56 L 55 L Respiratory Rate 16 17 16 Blood Pressure 104/53 L 109/59 L 114/55 L Pulse Oximetry 99 99 100 05/10/18 06:00 05/10/18 06:01 05/10/18 06:15 Temperature Pulse Rate 58 L 64 59 L Respiratory Rate 27 H 20 16 Blood Pressure 124/58 L 108/53 L Pulse Oximetry 98 87 L 97 05/10/18 06:30 05/10/18 06:45 05/10/18 07:00 Temperature Pulse Rate 57 L 56 L 55 L Respiratory Rate 16 16 16 Blood Pressure 106/53 L 104/52 L 105/54 L Pulse Oximetry 98 98 98 05/10/18 08:00 05/10/18 08:11 05/10/18 09:00 Temperature 98.5 F Pulse Rate 54 L 54 L Respiratory Rate 18 17 16 Blood Pressure 107/57 L 108/58 L Pulse Oximetry 98 98 99 Intake & Output 05/09/18 05/10/18 05/10/18 18:59 06:59 18:59 Intake Total 2049 1078 / 1078 50 / 50 Output Total 165 / 1650 400 / 400 Balance 400 / 400 678 / 678 50 / 50 Weight 107 kg Intake: IV 2049 740 / 740 50 / 50 Cordarone Inj 450 MG In D5W Inj 250 / 250 241 ML @ 1 MG/MIN 33.33 mls/hr IV.CONT TITRATE PRN Rx#: [id number] Versed Inj 50 mg In 50 ml @ 2 50 / 50 MG/HR 2 mls/hr IV.CONT TITRATE PRN Rx#:[id number] Levophed Inj 16 MG In NS Inj 90 / 90 234 ML @ 2 MCG/MIN 1.87 mls/hr IV.CONT TITRATE PRN Rx#: [id number] NS Inj 1,000 ML @ 50 mls/hr IV. 1999 CONT .Q20H RAÚL Rx#:[id number] Zosyn 3.375 GM Premix 50 ML @ 50 / 50 100 / 100 50 / 50 100 mls/hr IV.SIG Q6H [facility] Rx#: [id number] fentaNYL 10 mcg/mL Premix Drip 250 / 250 2,500 mcg In 250 ml @ 50 MCG/HR 5 mls/hr IV.SIG TITRATE PRN Rx #:[id number] Tube Feeding 278 / 278 Water Bolus Amount 60 / 60 Output: Urine 550 / 550 400 / 400 Urine Amount (Catheter) 1100 / 1100 Indwelling Urethral Catheter 400 / 400 Straight 700 / 700 Other: # Bowel Movements 0 Physical Exam: CONSTITUTIONAL/GENERAL: This is an adequately nourished patient, sedated and mechancally ventilated. TUBES/LINES/DRAINS:ETT, OGT, giang, right SC TLC, PIV SKIN: No jaundice, rashes, or lesions. Ecchymoses/hematoma on upper extremities bilaterally. Skin temperature appropriate. Not diaphoretic. HEAD: Atraumatic. Normocephalic. EYES: Pupils unequal, right 3mm, left pinpoint. sluggish reaction with sedation in place. ENT: Orally intubated, exam limited secondary to tubes NECK: Trachea midline. Supple, nontender. No palpable thyroid enlargement or nodularity. CARDIOVASCULAR: Regular rate and rhythm, bradycardic, peripheral pulses palpable. RESPIRATORY/CHEST: Symmetric, unlabored respirations. Clear to auscultation. Breath sounds equal bilaterally. No wheezes, rales, or rhonchi. GASTROINTESTINAL: Abdomen obese, soft, non-tender, nondistended. No hepato- splenomegaly, or palpable masses. No guarding. Bowel sounds present. Now has TF infusing. GENITOURINARY: Without palpable bladder distension. Giang catheter in place draining small amount of yellow urine. MUSCULOSKELETAL: Extremities without clubbing, cyanosis, or edema. No joint tenderness or effusion noted. No calf tenderness. No mottling or clubbing. NEUROLOGICAL: Sedated and mechanically ventilated. Does not rouse, follow, or withdrawl. BS nurse reports follows commands when off sedation. Pupils unequal, 3 3mm, left pinpoint. PSYCHIATRIC: No obvious anxiety/depression. no apparent hallucinations or other psychotic thought process. Diagnostic Tests Laboratory: Laboratory Results - last 72 hr 05/08/18 05/08/18 05/08/18 00:43 01:00 01:00 WBC 8.1 RBC 4.43 L Hgb 14.0 Hct 41.9 MCV 94.4 MCH 31.7 MCHC 33.5 RDW 14.6 Plt Count 202 MPV 9.4 Neut % (Auto) 64.2 Lymph % (Auto) 29.0 [place] % (Auto) 4.8 Eos % (Auto) 1.1 Baso % (Auto) 0.9 Neut # (Auto) 5.2 Lymph # (Auto) 2.4 [place] # (Auto) 0.4 Eos # (Auto) 0.1 Baso # (Auto) 0.1 WBC Differential . Differential Comment Auto diff final PT INR Puncture Site Patient Temperature O2 Saturation ABG pH ABG pCO2 ABG pO2 ABG HCO3 ABG O2 Content ABG Base Excess ABG Methemoglobin Raul Test Hemoglobin Carboxyhemoglobin O2 Delivery Device Vent Setting Inspired O2 Critical Value Sodium 143 Potassium 3.8 Chloride 105 Carbon Dioxide 23.8 Anion Gap 14 BUN 12 Creatinine 1.56 H Estimated GFR 44 L POC Glucose 416 H Random Glucose 401 H Lactic Acid Calcium 9.9 Prot Corrected Calcium Phosphorus Magnesium 2.7 H Total Bilirubin 0.5 AST 26 ALT 28 Alkaline Phosphatase 116 Troponin I 1.51 H* Total Protein 5.5 L Albumin 2.5 L TSH Urine Color Urine Clarity Urine pH Ur Specific [place] Urine Protein Urine Glucose (UA) Urine Ketones Urine Occult Blood Urine Nitrate Urine Bilirubin Urine Urobilinogen Ur Leukocyte Esterase Urine RBC Urine WBC Ur Squamous Epith Cells Urine Bacteria Urine Mucus Micro UA Comment Ur Microscopic Review Urine Culture Comments Nasal Screen MRSA (PCR) Urine Opiates Screen Ur Barbiturates Screen Ur Amphetamines Screen U Benzodiazepines Scrn Urine Cocaine Screen U Cannabinoids Screen Serum Alcohol Less than 3 Hepatitis A IgM Ab Hep Bs Antigen Hep B Core IgM Ab Hep C IgG Ab 05/08/18 05/08/18 05/08/18 01:00 01:00 01:30 WBC RBC Hgb Hct MCV MCH MCHC RDW Plt Count MPV Neut % (Auto) Lymph % (Auto) [place] % (Auto) Eos % (Auto) Baso % (Auto) Neut # (Auto) Lymph # (Auto) [place] # (Auto) Eos # (Auto) Baso # (Auto) WBC Differential Differential Comment PT 10.7 INR 1.1 Puncture Site Right radial Patient Temperature 98.6 O2 Saturation 97 ABG pH 7.35 L ABG pCO2 42 ABG pO2 146 H ABG HCO3 23 ABG O2 Content 19.7 ABG Base Excess -2.0 ABG Methemoglobin 0.9 Raul Test Present Hemoglobin 14.3 Carboxyhemoglobin 0.7 O2 Delivery Device Ventilator Vent Setting Inspired O2 100 Critical Value No Sodium Potassium Chloride Carbon Dioxide Anion Gap BUN Creatinine Estimated GFR POC Glucose Random Glucose Lactic Acid Calcium Prot Corrected Calcium Phosphorus Magnesium Total Bilirubin AST ALT Alkaline Phosphatase Troponin I Total Protein Albumin TSH 5.370 H Urine Color Urine Clarity Urine pH Ur Specific [place] Urine Protein Urine Glucose (UA) Urine Ketones Urine Occult Blood Urine Nitrate Urine Bilirubin Urine Urobilinogen Ur Leukocyte Esterase Urine RBC Urine WBC Ur Squamous Epith Cells Urine Bacteria Urine Mucus Micro UA Comment Ur Microscopic Review Urine Culture Comments Nasal Screen MRSA (PCR) Urine Opiates Screen Ur Barbiturates Screen Ur Amphetamines Screen U Benzodiazepines Scrn Urine Cocaine Screen U Cannabinoids Screen Serum Alcohol Hepatitis A IgM Ab Hep Bs Antigen Hep B Core IgM Ab Hep C IgG Ab 05/08/18 05/08/18 05/08/18 03:30 03:40 05:00 WBC RBC Hgb Hct MCV MCH MCHC RDW Plt Count MPV Neut % (Auto) Lymph % (Auto) [place] % (Auto) Eos % (Auto) Baso % (Auto) Neut # (Auto) Lymph # (Auto) [place] # (Auto) Eos # (Auto) Baso # (Auto) WBC Differential Differential Comment PT INR Puncture Site Patient Temperature O2 Saturation ABG pH ABG pCO2 ABG pO2 ABG HCO3 ABG O2 Content ABG Base Excess ABG Methemoglobin Raul Test Hemoglobin Carboxyhemoglobin O2 Delivery Device Vent Setting Inspired O2 Critical Value Sodium Potassium Chloride Carbon Dioxide Anion Gap BUN Creatinine Estimated GFR POC Glucose Random Glucose Lactic Acid 4.0 H Calcium Prot Corrected Calcium Phosphorus Magnesium Total Bilirubin AST ALT Alkaline Phosphatase Troponin I Total Protein Albumin TSH Urine Color Urine Clarity Urine pH Ur Specific [place] Urine Protein Urine Glucose (UA) Urine Ketones Urine Occult Blood Urine Nitrate Urine Bilirubin Urine Urobilinogen Ur Leukocyte Esterase Urine RBC Urine WBC Ur Squamous Epith Cells Urine Bacteria Urine Mucus Micro UA Comment Ur Microscopic Review Urine Culture Comments Nasal Screen MRSA (PCR) Not detected Urine Opiates Screen Neg Ur Barbiturates Screen Neg Ur Amphetamines Screen Neg U Benzodiazepines Scrn Pos H Urine Cocaine Screen Neg U Cannabinoids Screen Neg Serum Alcohol Hepatitis A IgM Ab Hep Bs Antigen Hep B Core IgM Ab Hep C IgG Ab 05/08/18 05/08/18 05/08/18 05:00 06:21 10:00 WBC RBC Hgb Hct MCV MCH MCHC RDW Plt Count MPV Neut % (Auto) Lymph % (Auto) [place] % (Auto) Eos % (Auto) Baso % (Auto) Neut # (Auto) Lymph # (Auto) [place] # (Auto) Eos # (Auto) Baso # (Auto) WBC Differential Differential Comment PT INR Puncture Site Patient Temperature O2 Saturation ABG pH ABG pCO2 ABG pO2 ABG HCO3 ABG O2 Content ABG Base Excess ABG Methemoglobin Raul Test Hemoglobin Carboxyhemoglobin O2 Delivery Device Vent Setting Inspired O2 Critical Value Sodium 141 Potassium 4.6 D Chloride 107 Carbon Dioxide 25.0 Anion Gap 9 BUN 15 Creatinine 1.80 H Estimated GFR 37 L POC Glucose 219 H Random Glucose 285 H D Lactic Acid Calcium 8.8 D Prot Corrected Calcium Phosphorus Magnesium Total Bilirubin 2.6 H AST 399 H ALT 187 H Alkaline Phosphatase 132 H Troponin I Greater than 40.00 H* Total Protein 5.4 L Albumin 2.6 L TSH Urine Color [place] Urine Clarity Hazy H Urine pH 5.0 Ur Specific [place] 1.039 H Urine Protein 100 H Urine Glucose (UA) 50 Urine Ketones Negative Urine Occult Blood Large H Urine Nitrate Negative Urine Bilirubin Negative Urine Urobilinogen 2.0 H Ur Leukocyte Esterase Negative Urine RBC Urine WBC 5 Ur Squamous Epith Cells <1 Urine Bacteria Few H Urine Mucus Few H Micro UA Comment Cath-culture ind Ur Microscopic Review Not Reportable Urine Culture Comments Cath-cult indicated Nasal Screen MRSA (PCR) Urine Opiates Screen Ur Barbiturates Screen Ur Amphetamines Screen U Benzodiazepines Scrn Urine Cocaine Screen U Cannabinoids Screen Serum Alcohol Hepatitis A IgM Ab Hep Bs Antigen Hep B Core IgM Ab Hep C IgG Ab 05/08/18 05/08/18 05/08/18 14:14 17:57 21:30 WBC RBC Hgb Hct MCV MCH MCHC RDW Plt Count MPV Neut % (Auto) Lymph % (Auto) [place] % (Auto) Eos % (Auto) Baso % (Auto) Neut # (Auto) Lymph # (Auto) [place] # (Auto) Eos # (Auto) Baso # (Auto) WBC Differential Differential Comment PT INR Puncture Site Patient Temperature O2 Saturation ABG pH ABG pCO2 ABG pO2 ABG HCO3 ABG O2 Content ABG Base Excess ABG Methemoglobin Raul Test Hemoglobin Carboxyhemoglobin O2 Delivery Device Vent Setting Inspired O2 Critical Value Sodium Potassium Chloride Carbon Dioxide Anion Gap BUN Creatinine Estimated GFR POC Glucose 303 H Random Glucose Lactic Acid 2.2 H Calcium Prot Corrected Calcium Phosphorus Magnesium Total Bilirubin AST ALT Alkaline Phosphatase Troponin I Greater than 40.00 H* Total Protein Albumin TSH Urine Color Urine Clarity Urine pH Ur Specific [place] Urine Protein Urine Glucose (UA) Urine Ketones Urine Occult Blood Urine Nitrate Urine Bilirubin Urine Urobilinogen Ur Leukocyte Esterase Urine RBC Urine WBC Ur Squamous Epith Cells Urine Bacteria Urine Mucus Micro UA Comment Ur Microscopic Review Urine Culture Comments Nasal Screen MRSA (PCR) Urine Opiates Screen Ur Barbiturates Screen Ur Amphetamines Screen U Benzodiazepines Scrn Urine Cocaine Screen U Cannabinoids Screen Serum Alcohol Hepatitis A IgM Ab Hep Bs Antigen Hep B Core IgM Ab Hep C IgG Ab 05/08/18 05/09/18 05/09/18 23:44 02:20 02:20 WBC RBC Hgb Hct MCV MCH MCHC RDW Plt Count MPV Neut % (Auto) Lymph % (Auto) [place] % (Auto) Eos % (Auto) Baso % (Auto) Neut # (Auto) Lymph # (Auto) [place] # (Auto) Eos # (Auto) Baso # (Auto) WBC Differential Differential Comment PT INR Puncture Site Patient Temperature O2 Saturation ABG pH ABG pCO2 ABG pO2 ABG HCO3 ABG O2 Content ABG Base Excess ABG Methemoglobin Raul Test Hemoglobin Carboxyhemoglobin O2 Delivery Device Vent Setting Inspired O2 Critical Value Sodium 140 Potassium 4.4 Chloride 108 H Carbon Dioxide 22.8 Anion Gap 9 BUN 17 Creatinine 1.67 H Estimated GFR 40 L POC Glucose 267 H Random Glucose 296 H Lactic Acid 2.0 Calcium 8.1 L Prot Corrected Calcium Phosphorus 2.8 Magnesium 2.2 Total Bilirubin 1.5 H AST 1287 H ALT 1015 H Alkaline Phosphatase 127 H Troponin I Greater than 40.00 H* Total Protein 5.3 L Albumin 2.2 L TSH Urine Color Urine Clarity Urine pH Ur Specific [place] Urine Protein Urine Glucose (UA) Urine Ketones Urine Occult Blood Urine Nitrate Urine Bilirubin Urine Urobilinogen Ur Leukocyte Esterase Urine RBC Urine WBC Ur Squamous Epith Cells Urine Bacteria Urine Mucus Micro UA Comment Ur Microscopic Review Urine Culture Comments Nasal Screen MRSA (PCR) Urine Opiates Screen Ur Barbiturates Screen Ur Amphetamines Screen U Benzodiazepines Scrn Urine Cocaine Screen U Cannabinoids Screen Serum Alcohol Hepatitis A IgM Ab Hep Bs Antigen Hep B Core IgM Ab Hep C IgG Ab 05/09/18 05/09/18 05/09/18 02:20 05:39 12:58 WBC 10.0 RBC 4.25 L Hgb 13.6 Hct 39.6 MCV 93.3 MCH 32.0 MCHC 34.3 RDW 15.2 Plt Count 133 L D MPV 9.5 Neut % (Auto) 81.3 H Lymph % (Auto) 12.7 [place] % (Auto) 5.2 Eos % (Auto) 0.1 Baso % (Auto) 0.7 Neut # (Auto) 8.2 H Lymph # (Auto) 1.3 [place] # (Auto) 0.5 Eos # (Auto) 0.0 Baso # (Auto) 0.1 WBC Differential . Differential Comment Auto diff final PT INR Puncture Site Patient Temperature O2 Saturation ABG pH ABG pCO2 ABG pO2 ABG HCO3 ABG O2 Content ABG Base Excess ABG Methemoglobin Raul Test Hemoglobin Carboxyhemoglobin O2 Delivery Device Vent Setting Inspired O2 Critical Value Sodium Potassium Chloride Carbon Dioxide Anion Gap BUN Creatinine Estimated GFR POC Glucose 259 H Random Glucose Lactic Acid 1.8 Calcium Prot Corrected Calcium Phosphorus Magnesium Total Bilirubin AST ALT Alkaline Phosphatase Troponin I Total Protein Albumin TSH Urine Color Urine Clarity Urine pH Ur Specific [place] Urine Protein Urine Glucose (UA) Urine Ketones Urine Occult Blood Urine Nitrate Urine Bilirubin Urine Urobilinogen Ur Leukocyte Esterase Urine RBC Urine WBC Ur Squamous Epith Cells Urine Bacteria Urine Mucus Micro UA Comment Ur Microscopic Review Urine Culture Comments Nasal Screen MRSA (PCR) Urine Opiates Screen Ur Barbiturates Screen Ur Amphetamines Screen U Benzodiazepines Scrn Urine Cocaine Screen U Cannabinoids Screen Serum Alcohol Hepatitis A IgM Ab Hep Bs Antigen Hep B Core IgM Ab Hep C IgG Ab 05/09/18 05/09/18 05/09/18 12:58 13:27 18:41 WBC RBC Hgb Hct MCV MCH MCHC RDW Plt Count MPV Neut % (Auto) Lymph % (Auto) [place] % (Auto) Eos % (Auto) Baso % (Auto) Neut # (Auto) Lymph # (Auto) [place] # (Auto) Eos # (Auto) Baso # (Auto) WBC Differential Differential Comment PT INR Puncture Site Patient Temperature O2 Saturation ABG pH ABG pCO2 ABG pO2 ABG HCO3 ABG O2 Content ABG Base Excess ABG Methemoglobin Raul Test Hemoglobin Carboxyhemoglobin O2 Delivery Device Vent Setting Inspired O2 Critical Value Sodium Potassium Chloride Carbon Dioxide Anion Gap BUN Creatinine Estimated GFR POC Glucose 249 H 286 H Random Glucose Lactic Acid Calcium Prot Corrected Calcium Phosphorus Magnesium Total Bilirubin AST ALT Alkaline Phosphatase Troponin I Total Protein Albumin TSH Urine Color Urine Clarity Urine pH Ur Specific [place] Urine Protein Urine Glucose (UA) Urine Ketones Urine Occult Blood Urine Nitrate Urine Bilirubin Urine Urobilinogen Ur Leukocyte Esterase Urine RBC Urine WBC Ur Squamous Epith Cells Urine Bacteria Urine Mucus Micro UA Comment Ur Microscopic Review Urine Culture Comments Nasal Screen MRSA (PCR) Urine Opiates Screen Ur Barbiturates Screen Ur Amphetamines Screen U Benzodiazepines Scrn Urine Cocaine Screen U Cannabinoids Screen Serum Alcohol Hepatitis A IgM Ab Nonreactive Hep Bs Antigen Nonreactive Hep B Core IgM Ab Nonreactive Hep C IgG Ab Nonreactive 05/10/18 05/10/18 05/10/18 00:03 04:00 04:00 WBC 7.5 RBC 3.88 L Hgb 12.4 L Hct 35.8 L MCV 92.4 MCH 32.1 MCHC 34.7 RDW 14.7 Plt Count 101 L MPV 9.7 Neut % (Auto) 80.3 H Lymph % (Auto) 13.8 [place] % (Auto) 3.8 Eos % (Auto) 1.0 Baso % (Auto) 1.1 Neut # (Auto) 6.0 Lymph # (Auto) 1.0 [place] # (Auto) 0.3 Eos # (Auto) 0.1 Baso # (Auto) 0.1 WBC Differential . Differential Comment Auto diff final PT INR Puncture Site Patient Temperature O2 Saturation ABG pH ABG pCO2 ABG pO2 ABG HCO3 ABG O2 Content ABG Base Excess ABG Methemoglobin Raul Test Hemoglobin Carboxyhemoglobin O2 Delivery Device Vent Setting Inspired O2 Critical Value Sodium 141 Potassium 3.6 D Chloride 107 Carbon Dioxide 26.0 Anion Gap 8 BUN 20 H Creatinine 1.47 H Estimated GFR 47 L POC Glucose 284 H Random Glucose 276 H Lactic Acid Calcium 7.4 L* Prot Corrected Calcium 8.8 Phosphorus 1.6 L D Magnesium 1.9 Total Bilirubin 1.1 H AST 542 H ALT 888 H Alkaline Phosphatase 104 Troponin I Total Protein 4.6 L D Albumin 2.0 L TSH Urine Color Urine Clarity Urine pH Ur Specific [place] Urine Protein Urine Glucose (UA) Urine Ketones Urine Occult Blood Urine Nitrate Urine Bilirubin Urine Urobilinogen Ur Leukocyte Esterase Urine RBC Urine WBC Ur Squamous Epith Cells Urine Bacteria Urine Mucus Micro UA Comment Ur Microscopic Review Urine Culture Comments Nasal Screen MRSA (PCR) Urine Opiates Screen Ur Barbiturates Screen Ur Amphetamines Screen U Benzodiazepines Scrn Urine Cocaine Screen U Cannabinoids Screen Serum Alcohol Hepatitis A IgM Ab Hep Bs Antigen Hep B Core IgM Ab Hep C IgG Ab Result Diagrams: 05/10/18 04:00 05/10/18 04:00 Microbiology: Microbiology 05/08/18 09:55 Aerobic Blood Culture - Preliminary Blood - Peripheral No growth in 2 days Anaerobic Blood Culture - Preliminary No growth in 2 days 05/08/18 09:45 Aerobic Blood Culture - Preliminary Blood - Peripheral No growth in 2 days Anaerobic Blood Culture - Preliminary No growth in 2 days 05/08/18 05:00 Urine Culture - Final Clean Catch Urine No growth in 48 hours 05/08/18 05:40 Gram Stain - Final Sputum - Endotracheal Sputum Culture - Final No growth in 48 hours Procedures: 05/08/18: Intubation, cardioversion Assessment and Plan - Disease Oriented Problem List (1) ICH (intracerebral hemorrhage) (2) Cardiomyopathy (3) Hygroma, cystic (4) Cataracts, bilateral (5) CAD (coronary artery disease) (6) Hypertension (7) Neuropathy (8) Sleep apnea with use of continuous positive airway pressure (CPAP) (9) GERD (gastroesophageal reflux disease) (10) Hiatal hernia - Symptom Scale (1) Pain 0-10 Scale: Unable to quantify (2) Dyspnea 0-10 Scale: Unable to quantify Pertinent Non-Medical Issues: Psychosocial: Has been to his Rufina for 54 years. They have 3 children, only 2 are living. Patient was living independently with his at home prior to this hospitalization Spiritual: Vidhi plays an important role in the patient and his 's life, they have with her local landscape laborer and deacons I have been visiting here in the hospital. [facility] runner man at this time, will let us know if they need them in the future Legal: Currently patient is incapacitated and unable to make his own decisions, it is unclear if he will ever regain capacity. Per [place] statutes Rufina would be the appropriate legal proxy. Ethical issues impacting care: none Important Contacts: Rufina Means: [phone] (home) [phone] (CELL) Prognosis: Per conversation with and daughter, patient has had some gradual decline functionally over the past few months. and daughter report patient had been pretty active prior to hospitalization though he had been requiring more frequent periods of rest. Given patient's recent decline and poor health status , he will likely be at risk for future setbacks. Patient has a long history of cardiac issues, recent echo reveals ejection fraction 20-25%, in addition to an acute on chronic intracranial hemorrhage. Given the inability to treat cardiac issues with anticoagulation, further increases risks. If anticoagulation is restarted in the near future, patient is high risk for worsening and/or new intracranial hemorrhages. Code Status: Alternative Code (Intubation only) Plan: Legal decision maker: At this time patient's would be the appropriate decision maker given patient is currently incapacitated secondary to being sedated and mechanically ventilated. Goals: Remain aggressive at this time, however family have stated they will likely transition to comfort measures if there is no hope for meaningful recovery. They appear to have a good understanding of his overall decline in health status. CODE STATUS: Discussed CODE STATUS with and daughter, at this time patient is intubated and mechanically ventilated but they would like to transition him to alternative code: DNR with intubation only SYMPTOMS: --Dyspnea: Patient remains mechanically ventilated sedated. Will need to evaluate over the next few days for the possibility of extubation. Appears comfortable on the vent. --Pain: Patient had a history of back pain prior to hospitalization, given bedbound status now in ICU with worsening edema, will likely continue to have worsening pain/weakness. Currently on a fentanyl drip and appears comfortable, will continue to monitor Palliative care will continue to follow during hospital course as condition evolves, to assist patient/decision-maker with understanding of medical conditions, weighing benefits/burdens of treatment options, for clarification of goals of treatment. Additionally will assist with any symptoms of palliative concern Attestation Attestation: To help prompt me to consider important information that might be impacting today's encounter and assessment, information from prior notes written by myself or my colleagues may have been "brought forward" into today's note. My signature on this note, however, is an attestation that I personally performed the exam, history, and/or decision-making noted today, and, unless otherwise indicated, the interactions with patient, family, and staff as well as the review of records all occurred today. I also attest that the listed assessment and stated plan reflect my best clinical judgment today based on the combination of historical information, prior notes, and today's exam/ interactions. When time spent is documented, it refers only to time spent today by the signer, or if indicated, combined time spent today by collaborating physician/nurse practitioner.
--- NOTE | 2018-05-10 14:27 | P.PNCA ---
Subjective Interval history: Patient is intubated and sedated at this time. Medications and Allergies Allergies Allergy/AdvReac Type Severity Reaction Status Date / Time sulfamethoxazole Allergy Severe Rash Verified 07/06/17 09:08 Active Medications: Active Medications Acetaminophen (Tylenol) 650 mg PO Q6H PRN PRN Reason: PAIN 1-10 AND/OR FEVER >101F Last Admin: 05/08/18 21:19 Dose: 650 mg Albuterol (Duoneb Neb (Prn)) 1 ampul NEB Q4HR NEB PRN PRN Reason: SHORTNESS OF BREATH Albuterol (Albuterol Neb (Prn)) 2.5 mg NEB Q2HR NEB PRN PRN Reason: DYSPNEA Artificial Tears (Tears Naturale Opth Drops) 1 drop EACH EYE Q8H [facility] Last Admin: 05/10/18 12:10 Dose: 1 drop Chlorhexidine Gluconate (Chlorhexidine 2% Cloth) 3 pack TOPICAL DAILY@0400 [facility] Stop: 05/13/18 03:59 Last Admin: 05/10/18 04:21 Dose: 3 pack Chlorhexidine Gluconate (Chlorhexidine 2% Cloth) 3 pack TOPICAL DAILY@0400 PRN PRN Reason: Extra cloth needed Stop: 05/13/18 03:59 Chlorhexidine Gluconate (Peridex 0.12% Oral Kit) 15 ml OROPHARYNG BID@0800, 2000 [facility] Last Admin: 05/10/18 08:31 Dose: 15 ml Dextrose (D50w Vial) 50 ml IV.PUSH UNSCH PRN PRN Reason: PER HYPOGLYCEMIA PROTOCOL Famotidine (Pepcid Pf Inj) 20 mg IV.PUSH Q12HR [facility] Last Admin: 05/10/18 08:29 Dose: 20 mg Fentanyl Citrate (Fentanyl Inj) 50 mcg IV.PUSH Q1H PRN PRN Reason: SEE LABEL COMMENTS Glucagon (Glucagon Inj) 1 mg OTHER PRN PRN PRN Reason: for Hypoglycemia Protocol Piperacillin/Tazobactam/Dextrose (Zosyn 3.375 Gm Premix) 50 mls @ 100 mls/hr IV.SIG Q6H [facility] Last Admin: 05/10/18 12:10 Dose: 100 mls/hr Phenylephrine HCl 40 mg/ (Sodium Chloride) 500 mls @ 30 mls/hr IV.CONT TITRATE PRN; Protocol PRN Reason: See Protocol Last Titration: 05/09/18 06:13 Dose: Infused Norepinephrine Bitartrate 16 (mg/ Sodium Chloride) 250 mls @ 1.87 mls/hr IV.CONT TITRATE PRN; Protocol PRN Reason: See Protocol Last Titration: 05/10/18 06:00 Dose: Infused Fentanyl (Fentanyl 10 Mcg/Ml Premix Drip) 2,500 mcg in 250 mls @ 5 mls/hr IV.SIG TITRATE PRN; Protocol PRN Reason: Per Protocol Last Titration: 05/09/18 20:10 Dose: 100 mcg/hr, 10 mls/hr Midazolam HCl (Versed Inj) 50 mg in 50 mls @ 2 mls/hr IV.CONT TITRATE PRN; Protocol PRN Reason: Per Protocol Last Titration: 05/09/18 20:39 Dose: 2 mg/hr, 2 mls/hr Magnesium Sulfate 2 gm/ Sodium (Chloride) 100 mls @ 50 mls/hr IV.SIG UNSCH PRN PRN Reason: For Magnesium 1.2 - 1.6 mg/dL Potassium Chloride (Kcl 40 Meq Premix Inj) 40 meq in 100 mls @ 50 mls/hr IV.SIG Q2H PRN PRN Reason: For Potassium 2.8 - 3.2 mEq/L Potassium Chloride (Kcl 20 Meq Premix Inj) 20 meq in 100 mls @ 50 mls/hr IV.SIG Q2H PRN PRN Reason: For Potassium 3.3 - 3.5 mEq/L Potassium Chloride (Kcl 40 Meq Premix Inj) 40 meq in 100 mls @ 25 mls/hr IV.SIG UNSCH PRN PRN Reason: For Potassium 3.3 - 3.5 mEq/L Potassium Chloride (Kcl 20 Meq Premix Inj) 20 meq in 100 mls @ 50 mls/hr IV.SIG Q2H PRN PRN Reason: For Potassium 2.8 - 3.2 mEq/L Potassium Phosphate 30 mmol/ (Sodium Chloride) 260 mls @ 42 mls/hr IV.SIG UNSCH PRN PRN Reason: SEE LABEL COMMENTS Last Admin: 05/10/18 08:47 Dose: 42 mls/hr Sodium Phosphate 30 mmol/ (Sodium Chloride) 260 mls @ 42 mls/hr IV.SIG UNSCH PRN PRN Reason: For Phosphorus < 2.5 mg/dL Magnesium Sulfate 4 gm/ Sodium (Chloride) 100 mls @ 50 mls/hr IV.SIG UNSCH PRN PRN Reason: For Magnesium 0.9 - 1.1 mg/dL Insulin Human Regular (Novolin R Correctional Sugar Inj) 0 units SQ Q6HR [facility]; Protocol Last Admin: 05/10/18 12:09 Dose: 7 units Magnesium Oxide (Mag-Ox) 800 mg PO UNSCH PRN PRN Reason: For Magnesium 1.2 - 1.6 mg/dL Miscellaneous Medication () 1 each OROPHARYNG 0000,0400,1200,1600 [facility] Last Admin: 05/10/18 11:48 Dose: 1 each Potassium Bicarb/Potassium Chloride (K-Lyte Cl Eff) 50 meq PO UNSCH PRN PRN Reason: For Potassium 3.3 - 3.5 mEq/L Potassium Phosphate (K-Phos Original) 2,000 mg PO UNSCH PRN PRN Reason: SEE LABEL COMMENTS Potassium Phosphate (K-Phos Original) 2,000 mg PO Q4H PRN PRN Reason: Phosphorus Less Than 2.5 mg/dL Senna/Docusate Sodium (Palak-Colace) 2 tab PO BID [facility] Last Admin: 05/10/18 08:32 Dose: 2 tab Sodium Chloride (Ns Flush) 2 ml IV.FLUSH BID [facility] Last Admin: 05/10/18 08:31 Dose: 2 ml Sodium Chloride (Ns Flush) 2 ml IV.FLUSH PRN PRN PRN Reason: FLUSH AFTER USING IV ACCESS Terbutaline Sulfate (Brethine Inj) 1 mg SQ UNSCH PRN PRN Reason: For Extravasation Physical Exam Vital signs: Vital Signs 05/09/18 14:30 05/09/18 14:45 05/09/18 15:00 Temperature Pulse Rate 56 L 56 L 56 L Respiratory Rate 16 16 16 Blood Pressure 115/58 L 113/56 L 116/58 L Pulse Oximetry 98 98 97 05/09/18 15:15 05/09/18 15:30 05/09/18 15:45 Temperature Pulse Rate 56 L 58 L 56 L Respiratory Rate 16 19 16 Blood Pressure 115/57 L 125/56 L 119/59 L Pulse Oximetry 97 98 98 05/09/18 16:00 05/09/18 16:15 05/09/18 16:30 Temperature Pulse Rate 58 L 57 L 57 L Respiratory Rate 24 16 16 Blood Pressure 107/56 L 111/56 L 112/57 L Pulse Oximetry 96 97 97 05/09/18 16:45 05/09/18 17:00 05/09/18 17:15 Temperature Pulse Rate 56 L 56 L 56 L Respiratory Rate 16 16 16 Blood Pressure 111/59 L 117/58 L 116/57 L Pulse Oximetry 98 98 98 05/09/18 17:30 05/09/18 17:45 05/09/18 18:00 Temperature Pulse Rate 56 L 56 L 56 L Respiratory Rate 16 16 16 Blood Pressure 115/56 L 121/60 119/58 L Pulse Oximetry 98 98 98 05/09/18 18:15 05/09/18 18:30 05/09/18 18:45 Temperature Pulse Rate 56 L 57 L 56 L Respiratory Rate 16 16 16 Blood Pressure 118/56 L 121/59 L 117/55 L Pulse Oximetry 98 98 98 05/09/18 19:00 05/09/18 19:16 05/09/18 19:30 Temperature Pulse Rate 57 L 62 57 L Respiratory Rate 16 21 16 Blood Pressure 115/56 L 137/62 119/59 L Pulse Oximetry 98 100 98 05/09/18 19:45 05/09/18 20:00 05/09/18 20:11 Temperature 99.0 F Pulse Rate 57 L 56 L Respiratory Rate 16 16 16 Blood Pressure 121/58 L 122/58 L Pulse Oximetry 98 98 98 05/09/18 20:15 05/09/18 20:30 05/09/18 20:45 Temperature Pulse Rate 58 L 56 L 56 L Respiratory Rate 16 16 16 Blood Pressure 122/60 119/56 L 123/58 L Pulse Oximetry 98 98 98 05/09/18 21:00 05/09/18 21:15 05/09/18 21:30 Temperature Pulse Rate 55 L 56 L 59 L Respiratory Rate 16 16 18 Blood Pressure 121/55 L 121/58 L 108/56 L Pulse Oximetry 98 98 98 05/09/18 21:45 05/09/18 22:00 05/09/18 22:15 Temperature Pulse Rate 57 L 57 L 58 L Respiratory Rate 16 16 16 Blood Pressure 135/63 114/55 L 112/58 L Pulse Oximetry 97 97 97 05/09/18 22:30 05/09/18 22:45 11/12/18 23:00 Temperature Pulse Rate 57 L 58 L 57 L Respiratory Rate 16 16 16 Blood Pressure 109/55 L 115/56 L 115/59 L Pulse Oximetry 97 97 97 05/09/18 23:15 05/09/18 23:30 05/09/18 23:45 Temperature Pulse Rate 58 L 60 57 L Respiratory Rate 16 17 16 Blood Pressure 122/59 L 111/55 L 114/58 L Pulse Oximetry 97 97 97 05/10/18 00:00 05/10/18 00:06 05/10/18 00:15 Temperature 98.3 F Pulse Rate 56 L 56 L Respiratory Rate 16 16 16 Blood Pressure 114/58 L 116/56 L Pulse Oximetry 98 98 98 05/10/18 00:30 05/10/18 00:45 05/10/18 01:00 Temperature Pulse Rate 57 L 57 L 55 L Respiratory Rate 16 16 16 Blood Pressure 97/52 L 98/51 L 95/50 L Pulse Oximetry 95 96 95 05/10/18 01:15 05/10/18 01:30 05/10/18 01:45 Temperature Pulse Rate 56 L 55 L 54 L Respiratory Rate 16 16 16 Blood Pressure 94/50 L 95/51 L 97/54 L Pulse Oximetry 96 96 97 05/10/18 02:00 05/10/18 02:15 05/10/18 02:30 Temperature Pulse Rate 54 L 54 L 57 L Respiratory Rate 16 16 17 Blood Pressure 97/51 L 97/52 L 101/52 L Pulse Oximetry 97 97 100 05/10/18 02:45 05/10/18 03:00 05/10/18 03:15 Temperature Pulse Rate 55 L 54 L 54 L Respiratory Rate 16 16 16 Blood Pressure 94/54 L 98/51 L 99/53 L Pulse Oximetry 97 97 98 05/10/18 03:30 05/10/18 03:45 05/10/18 03:56 Temperature Pulse Rate 54 L 54 L Respiratory Rate 16 16 16 Blood Pressure 99/54 L 99/51 L Pulse Oximetry 98 98 98 05/10/18 04:00 05/10/18 04:15 05/10/18 04:30 Temperature 99 F Pulse Rate 57 L 56 L 55 L Respiratory Rate 16 16 16 Blood Pressure 110/58 L 104/53 L 104/54 L Pulse Oximetry 100 99 99 05/10/18 04:45 05/10/18 05:00 05/10/18 05:15 Temperature Pulse Rate 54 L 54 L 54 L Respiratory Rate 16 16 16 Blood Pressure 105/54 L 105/55 L 104/53 L Pulse Oximetry 99 99 99 05/10/18 05:30 05/10/18 05:45 05/10/18 06:00 Temperature Pulse Rate 56 L 55 L 58 L Respiratory Rate 17 16 27 H Blood Pressure 109/59 L 114/55 L Pulse Oximetry 99 100 98 05/10/18 06:01 05/10/18 06:15 05/10/18 06:30 Temperature Pulse Rate 64 59 L 57 L Respiratory Rate 20 16 16 Blood Pressure 124/58 L 108/53 L 106/53 L Pulse Oximetry 87 L 97 98 05/10/18 06:45 05/10/18 07:00 05/10/18 08:00 Temperature 98.5 F Pulse Rate 56 L 55 L 54 L Respiratory Rate 16 16 18 Blood Pressure 104/52 L 105/54 L 107/57 L Pulse Oximetry 98 98 98 05/10/18 08:11 05/10/18 09:00 05/10/18 12:00 Temperature Pulse Rate 54 L Respiratory Rate 17 16 16 Blood Pressure 108/58 L Pulse Oximetry 98 99 99 05/10/18 13:30 Temperature Pulse Rate Respiratory Rate 19 Blood Pressure Pulse Oximetry 100 Intake & Output 05/09/18 05/10/18 05/10/18 18:59 06:59 18:59 Intake Total 2049 1078 / 1078 50 / 50 Output Total 1650 / 1650 400 / 400 Balance 400 / 400 678 / 678 50 / 50 Weight 107 kg Intake: IV 2049 740 / 740 50 / 50 Cordarone Inj 450 MG In D5W Inj 250 / 250 241 ML @ 1 MG/MIN 33.33 mls/hr IV.CONT TITRATE PRN Rx#: [id number] Versed Inj 50 mg In 50 ml @ 2 50 / 50 MG/HR 2 mls/hr IV.CONT TITRATE PRN Rx#:[id number] Levophed Inj 16 MG In NS Inj 90 / 90 234 ML @ 2 MCG/MIN 1.87 mls/hr IV.CONT TITRATE PRN Rx#: [id number] NS Inj 1,000 ML @ 50 mls/hr IV. 1999 CONT .Q20H [facility] Rx#:[id number] Zosyn 3.375 GM Premix 50 ML @ 50 / 50 100 / 100 50 / 50 100 mls/hr IV.SIG Q6H [facility] Rx#: [id number] fentaNYL 10 mcg/mL Premix Drip 250 / 250 2,500 mcg In 250 ml @ 50 MCG/HR 5 mls/hr IV.SIG TITRATE PRN Rx #:[id number] Tube Feeding 278 / 278 Water Bolus Amount 60 / 60 Output: Urine 550 / 550 400 / 400 Urine Amount (Catheter) 1100 / 1100 Indwelling Urethral Catheter 400 / 400 Straight 700 / 700 Other: # Bowel Movements 0 - Constitutional no acute distress - Routine HEENT Exam Head: Present: normocephalic ENT: Present: mucous membranes moist Comments: pupils are not equal, left pinpoint and right 3 sluggish. - Routine Respiratory Exam Present: patient mechanically ventilated, crackles Comments: Fine crackles bilateral lower lobes otherwise clear. - Routine Cardiovascular Exam Present: S1, S2, bradycardia. Absent: murmur, gallop, rubs - Routine Abdominal Exam Present: normoactive bowel sounds - Routine Extremities Exam Present: edema, pulses intact, normal capillary refill - Routine Skin Exam Present: erythema, wounds, ecchymosis Comments: multiple skin tears to upper extremities. - Routine Neurological Exam sedated - Detailed Neurological Exam: Coma Scale Eye Opening: None Verbal Response: None Motor Response: None [place]ia Coma Scale Total: 3 - Routine Psychiatric Exam Present: unable to assess - Urinary Catheter Management Indwelling Urethral Catheter Cath placed during this visit: yes, but has since been removed by the nurse Urethral indwelling: Yes Reason for continuing: Terminally ill/Comfort care Insertion date: 05/08/18 Insertion time: 00:55 Removal date: 05/09/18 Removal time: 11:23 Straight Cath placed during this visit: no Results 05/10/18 04:00 05/10/18 04:00 Cardiac Enzymes 05/08/18 05/09/18 05/10/18 Range/Units 14:14 02:20 04:00 AST 1287 H 542 H (15-37) U/L Troponin I Greater than 40.00 H* Greater than 40.00 H* (0.02-0.05) ng/mL CBC 05/09/18 05/10/18 Range/Units 02:20 04:00 WBC 10.0 7.5 (4.0-11.0) th/mm3 RBC 4.25 L 3.88 L (4.50-5.90) mil/mm3 Hgb 13.6 12.4 L (13.0-17.0) gm/dL Hct 39.6 35.8 L (39.0-51.0) % Plt Count 133 L D 101 L (150-450) th/mm3 Neut # (Auto) 8.2 H 6.0 (1.8-7.7) th/mm3 Lymph # (Auto) 1.3 1.0 (1.0-4.8) th/mm3 [place] # (Auto) 0.5 0.3 (0.0-0.9) th/mm3 Eos # (Auto) 0.0 0.1 (0.0-0.4) th/mm3 Baso # (Auto) 0.1 0.1 (0.0-0.2) th/mm3 Comprehensive Metabolic Panel 05/09/18 05/10/18 Range/Units 02:20 04:00 Sodium 140 141 (136-145) meq/L Potassium 4.4 3.6 D (3.5-5.1) meq/L Chloride 108 H 107 (98-107) meq/L Carbon Dioxide 22.8 26.0 (21.0-32.0) meq/L BUN 17 20 H (7-18) mg/dL Creatinine 1.67 H 1.47 H (0.60-1.30) mg/dL Calcium 8.1 L 7.4 L* (8.5-10.1) mg/dL AST 1287 H 542 H (15-37) U/L ALT 1015 H 888 H (12-78) U/L Alkaline Phosphatase 127 H 104 (45-117) U/L Total Protein 5.3 L 4.6 L D (6.4-8.2) g/dL Albumin 2.2 L 2.0 L (3.4-5.0) g/dL Intake and Output 05/09/18 05/10/18 05/10/18 22:59 06:59 14:59 Intake Total 1600 / 1600 478 / 478 50 / 50 Output Total 1650 / 1650 400 / 400 Balance -50 / -50 78 / 78 50 / 50 Intake: IV 1600 / 1600 140 / 140 50 / 50 Cordarone Inj 450 MG In D5W Inj 250 / 250 241 ML @ 1 MG/MIN 33.33 mls/hr IV.CONT TITRATE PRN Rx#: [id number] Versed Inj 50 mg In 50 ml @ 2 50 / 50 MG/HR 2 mls/hr IV.CONT TITRATE PRN Rx#:[id number] Levophed Inj 16 MG In NS Inj 90 / 90 234 ML @ 2 MCG/MIN 1.87 mls/hr IV.CONT TITRATE PRN Rx#: [id number] NS Inj 1,000 ML @ 50 mls/hr IV. 1000 / 1000 CONT .Q20H [facility] Rx#:[id number] Zosyn 3.375 GM Premix 50 ML @ 50 / 50 50 / 50 50 / 50 100 mls/hr IV.SIG Q6H [facility] Rx#: [id number] fentaNYL 10 mcg/mL Premix Drip 250 / 250 2,500 mcg In 250 ml @ 50 MCG/HR 5 mls/hr IV.SIG TITRATE PRN Rx #:[id number] Tube Feeding 278 / 278 Water Bolus Amount 60 / 60 Output: Urine 550 / 550 400 / 400 Urine Amount (Catheter) 1100 / 1100 Indwelling Urethral Catheter 400 / 400 Straight 700 / 700 Other: # Bowel Movements 0 Weight 107 kg - Imaging and Cardiology Imaging: Impressions Head CT 05/08/18 19:23 CONCLUSION: 1. 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 No new hemorrhage. . Abdomen Ultrasound 05/09/18 00:00 CONCLUSION: 1. Probable fatty infiltration of the liver. 2. Mobile gallstones within the gallbladder. No significant pericholecystic fluid identified. No significant gallbladder wall thickening. 3. Increased echogenicity of the renal cortex suggesting underlying medical renal disease. 4. 2.5 cm renal cyst on the left. 5. Trace amount of ascites adjacent to the liver. 6. Minimal right basilar effusion. Chest X-Ray 05/09/18 06:00 CONCLUSION: 1. New left lower lung zone atelectasis versus consolidation and small left pleural effusion. 2. Clearing of bilateral upper lung zone opacity. Assessment and Plan - Assessment (1) ICH (intracerebral hemorrhage) Code(s): I61.9 - Nontraumatic intracerebral hemorrhage, unspecified Status: Acute (2) CAD (coronary artery disease) Code(s): I25.10 - Atherosclerotic heart disease of [place] coronary artery without angina pectoris Status: Acute (3) Cardiomyopathy Code(s): I42.9 - Cardiomyopathy, unspecified Status: Acute (4) Dyspnea Code(s): R06.00 - Dyspnea, unspecified Status: Acute (5) Hypertension Code(s): I10 - Essential (primary) hypertension Status: Acute - Plan Patient's rhythm remains stable, continue Amiodarone. Patient is currently off pressors, continue to monitor. Patient has an intracranial bleed with a 4mm right to left midline shift, now off all anticoagulants. Continue ICU care. Patient remains critically ill; his prognosis remains guarded. 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 The patient was seen and evaluated by Dr. Frye who participated in care, management and decision making. - Attending Attestation Patient seen and examined. I reviewed and agree with the evaluation and plan as presented. Continue ICU care. D/w patient's family.
[2018-05-11] MEDS: Piperacil/Tazo 3.375 GM Premix 50 ML IV.SIG SCH ×5 (00:46→18:59)
[2018-05-11] MEDS: Oral Hygiene Kit OROPHARYNG SCH ×6 (00:47→23:52)
[2018-05-11] MEDS: Midazolam 50 MG/50 ML Inj 50 MG/50 ML BAG IV.CONT PRN ×2 (00:51→21:23)
[2018-05-11] MEDS: Insulin NovoLIN Regular Correctional Sugar Inj SQ SCH ×6 (01:11→23:52)
[2018-05-11] MEDS: Chlorhexidine Gluconate 2% 1 Pack (2 Cloths) TOPICAL SCH (05:42)
[2018-05-11] MEDS: Artificial Tears Opth Drops 15 ML Bottle EACH EYE SCH ×3 (05:43→20:50)
[2018-05-11 07:08] LABS: Baso % (Auto) 0.3 % (0.0-2.0); Eos # (Auto) 0.1 th/mm3 (0.0-0.4); Eos % (Auto) 0.8 % (0.0-4.0); Hematocrit 39.3 % (39.0-51.0); Hemoglobin 13.2 gm/dL (13.0-17.0); Lymph # (Auto) 0.9 th/mm3 (1.0-4.8); Lymph % (Auto) 11.8 % (9.0-44.0); Mean Corpuscular HGB Conc 33.7 % (32.0-36.0); Mean Corpuscular Volume 95.1 fL (80.0-100.0); Mean Platelet Volume 9.9 fL (7.0-11.0); Mono # (Auto) 0.4 th/mm3 (0.0-0.9); Mono % (Auto) 5.4 % (0.0-8.0); Neut # (Auto) 6.1 th/mm3 (1.8-7.7); Neut % (Auto) 81.7 % (16.0-70.0); Platelet Count 88 th/mm3 (150-450); Red Blood Count 4.14 mil/mm3 (4.50-5.90); White Blood Count 7.4 th/mm3 (4.0-11.0)
[2018-05-11 07:35] LABS: Albumin 2.1 g/dL (3.4-5.0); Anion Gap 9 meq/L (5-15); Aspartate Aminotransferase 344 U/L (15-37); Blood Urea Nitrogen 23 mg/dL (7-18); Calcium 7.9 mg/dL (8.5-10.1); Carbon Dioxide 28.2 meq/L (21.0-32.0); Chloride 105 meq/L (98-107); Glomerular Filtration Rate 59 mL/min (>89); Glucose,Random 306 mg/dL (74-106); Magnesium 1.9 mg/dL (1.5-2.5); Potassium 3.9 meq/L (3.5-5.1); Sodium 142 meq/L (136-145)
[2018-05-11 08:01] LABS: Alanine Aminotransferase 863 U/L (12-78); Alkaline Phosphatase 116 U/L (45-117); Phosphorus 2.7 mg/dL (2.5-4.9); Total Protein 5.2 g/dL (6.4-8.2)
[2018-05-11 08:11] LABS: Platelet Morphology Normal (Normal)
[2018-05-11] MEDS: fentaNYL 10 mcg/mL Premix Drip 2,500 MCG/250 ML BAG IV.SIG PRN (08:23)
[2018-05-11] MEDS: Famotidine PF Inj 20 MG/2 ML Vial IV.PUSH SCH ×2 (09:08→20:50)
[2018-05-11] MEDS: Senna/Docusate Sodium 8.6/50 MG Tablet PO SCH ×2 (09:08→20:50)
[2018-05-11] MEDS: Chlorhexidine 0.12% Oral Kit 15 ML UDC OROPHARYNG SCH ×2 (09:09→20:50)
[2018-05-11] MEDS: Sodium Chloride 0.9% 2 ML Flush BID IV.FLUSH SCH ×2 (09:09→20:50)
--- NOTE | 2018-05-11 10:08 | P.PNCA ---
Subjective Interval history: Patient remains intubated and sedated. Appears to be in no acute distress at this time. Medications and Allergies Allergies Allergy/AdvReac Type Severity Reaction Status Date / Time sulfamethoxazole Allergy Severe Rash Verified 07/06/17 09:08 Active Medications: Active Medications Acetaminophen (Tylenol) 650 mg PO Q6H PRN PRN Reason: PAIN 1-10 AND/OR FEVER >101F Last Admin: 05/08/18 21:19 Dose: 650 mg Albuterol (Duoneb Neb (Prn)) 1 ampul NEB Q4HR NEB PRN PRN Reason: SHORTNESS OF BREATH Albuterol (Albuterol Neb (Prn)) 2.5 mg NEB Q2HR NEB PRN PRN Reason: DYSPNEA Artificial Tears (Tears Naturale Opth Drops) 1 drop EACH EYE Q8H [facility] Last Admin: 05/11/18 05:43 Dose: 1 drop Chlorhexidine Gluconate (Chlorhexidine 2% Cloth) 3 pack TOPICAL DAILY@0400 RAÚL Stop: 05/13/18 03:59 Last Admin: 05/11/18 05:42 Dose: 3 pack Chlorhexidine Gluconate (Chlorhexidine 2% Cloth) 3 pack TOPICAL DAILY@0400 PRN PRN Reason: Extra cloth needed Stop: 05/13/18 03:59 Chlorhexidine Gluconate (Peridex 0.12% Oral Kit) 15 ml OROPHARYNG BID@0800, 2000 [facility] Last Admin: 05/11/18 09:09 Dose: 15 ml Dextrose (D50w Vial) 50 ml IV.PUSH UNSCH PRN PRN Reason: PER HYPOGLYCEMIA PROTOCOL Famotidine (Pepcid Pf Inj) 20 mg IV.PUSH Q12HR [facility] Last Admin: 05/11/18 09:08 Dose: 20 mg Fentanyl Citrate (Fentanyl Inj) 50 mcg IV.PUSH Q1H PRN PRN Reason: SEE LABEL COMMENTS Glucagon (Glucagon Inj) 1 mg OTHER PRN PRN PRN Reason: for Hypoglycemia Protocol Piperacillin/Tazobactam/Dextrose (Zosyn 3.375 Gm Premix) 50 mls @ 100 mls/hr IV.SIG Q6H [facility] Last Admin: 05/11/18 07:17 Dose: 100 mls/hr Phenylephrine HCl 40 mg/ (Sodium Chloride) 500 mls @ 30 mls/hr IV.CONT TITRATE PRN; Protocol PRN Reason: See Protocol Last Titration: 05/09/18 06:13 Dose: Infused Norepinephrine Bitartrate 16 (mg/ Sodium Chloride) 250 mls @ 1.87 mls/hr IV.CONT TITRATE PRN; Protocol PRN Reason: See Protocol Last Titration: 05/10/18 06:00 Dose: Infused Fentanyl (Fentanyl 10 Mcg/Ml Premix Drip) 2,500 mcg in 250 mls @ 5 mls/hr IV.SIG TITRATE PRN; Protocol PRN Reason: Per Protocol Last Admin: 05/11/18 08:23 Dose: 100 mcg/hr, 10 mls/hr Midazolam HCl (Versed Inj) 50 mg in 50 mls @ 2 mls/hr IV.CONT TITRATE PRN; Protocol PRN Reason: Per Protocol Last Admin: 05/11/18 00:51 Dose: 2 mg/hr, 2 mls/hr Magnesium Sulfate 2 gm/ Sodium (Chloride) 100 mls @ 50 mls/hr IV.SIG UNSCH PRN PRN Reason: For Magnesium 1.2 - 1.6 mg/dL Potassium Chloride (Kcl 40 Meq Premix Inj) 40 meq in 100 mls @ 50 mls/hr IV.SIG Q2H PRN PRN Reason: For Potassium 2.8 - 3.2 mEq/L Potassium Chloride (Kcl 20 Meq Premix Inj) 20 meq in 100 mls @ 50 mls/hr IV.SIG Q2H PRN PRN Reason: For Potassium 3.3 - 3.5 mEq/L Potassium Chloride (Kcl 40 Meq Premix Inj) 40 meq in 100 mls @ 25 mls/hr IV.SIG UNSCH PRN PRN Reason: For Potassium 3.3 - 3.5 mEq/L Potassium Chloride (Kcl 20 Meq Premix Inj) 20 meq in 100 mls @ 50 mls/hr IV.SIG Q2H PRN PRN Reason: For Potassium 2.8 - 3.2 mEq/L Potassium Phosphate 30 mmol/ (Sodium Chloride) 260 mls @ 42 mls/hr IV.SIG UNSCH PRN PRN Reason: SEE LABEL COMMENTS Last Admin: 05/10/18 08:47 Dose: 42 mls/hr Sodium Phosphate 30 mmol/ (Sodium Chloride) 260 mls @ 42 mls/hr IV.SIG UNSCH PRN PRN Reason: For Phosphorus < 2.5 mg/dL Magnesium Sulfate 4 gm/ Sodium (Chloride) 100 mls @ 50 mls/hr IV.SIG UNSCH PRN PRN Reason: For Magnesium 0.9 - 1.1 mg/dL Insulin Human Regular (Novolin R Correctional Sugar Inj) 0 units SQ Q6HR [facility]; Protocol Last Admin: 05/11/18 08:57 Dose: Not Given Magnesium Oxide (Mag-Ox) 800 mg PO UNSCH PRN PRN Reason: For Magnesium 1.2 - 1.6 mg/dL Miscellaneous Medication () 1 each OROPHARYNG 0000,0400,1200,1600 [facility] Last Admin: 05/11/18 05:43 Dose: 1 each Potassium Bicarb/Potassium Chloride (K-Lyte Cl Eff) 50 meq PO UNSCH PRN PRN Reason: For Potassium 3.3 - 3.5 mEq/L Potassium Phosphate (K-Phos Original) 2,000 mg PO UNSCH PRN PRN Reason: SEE LABEL COMMENTS Potassium Phosphate (K-Phos Original) 2,000 mg PO Q4H PRN PRN Reason: Phosphorus Less Than 2.5 mg/dL Senna/Docusate Sodium (Palak-Colace) 2 tab PO BID [facility] Last Admin: 05/11/18 09:08 Dose: 2 tab Sodium Chloride (Ns Flush) 2 ml IV.FLUSH BID [facility] Last Admin: 05/11/18 09:09 Dose: 2 ml Sodium Chloride (Ns Flush) 2 ml IV.FLUSH PRN PRN PRN Reason: FLUSH AFTER USING IV ACCESS Terbutaline Sulfate (Brethine Inj) 1 mg SQ UNSCH PRN PRN Reason: For Extravasation Physical Exam Vital signs: Vital Signs 05/10/18 11:00 05/10/18 12:00 05/10/18 13:00 Temperature 98.3 F Pulse Rate 53 L 52 L 56 L Respiratory Rate 16 16 16 Blood Pressure 104/51 L 110/55 L 121/56 L Pulse Oximetry 99 99 99 05/10/18 13:30 05/10/18 14:00 05/10/18 15:00 Temperature Pulse Rate 72 77 Respiratory Rate 19 18 16 Blood Pressure 151/65 H 121/55 L Pulse Oximetry 100 99 98 05/10/18 16:00 05/10/18 16:19 05/10/18 17:00 Temperature 99.2 F Pulse Rate 74 74 Respiratory Rate 16 20 16 Blood Pressure 134/63 109/57 L Pulse Oximetry 96 96 96 05/10/18 17:30 05/10/18 17:45 05/10/18 18:00 Temperature Pulse Rate 67 63 61 Respiratory Rate 16 16 16 Blood Pressure 122/60 108/55 L 107/57 L Pulse Oximetry 96 94 L 95 05/10/18 18:15 05/10/18 18:30 05/10/18 18:45 Temperature Pulse Rate 60 60 67 Respiratory Rate 16 16 16 Blood Pressure 106/56 L 106/57 L 117/57 L Pulse Oximetry 96 96 98 05/10/18 19:00 05/10/18 19:15 05/10/18 19:30 Temperature Pulse Rate 65 62 62 Respiratory Rate 16 16 16 Blood Pressure 108/57 L 106/58 L 109/59 L Pulse Oximetry 94 L 97 98 05/10/18 19:45 05/10/18 20:00 05/10/18 20:15 Temperature 98.8 F Pulse Rate 60 61 60 Respiratory Rate 16 16 16 Blood Pressure 107/57 L 107/59 L 105/56 L Pulse Oximetry 97 97 97 05/10/18 20:30 05/10/18 20:45 05/10/18 21:00 Temperature Pulse Rate 60 60 62 Respiratory Rate 16 16 16 Blood Pressure 106/57 L 105/54 L 110/56 L Pulse Oximetry 97 97 98 05/10/18 21:15 05/10/18 21:27 05/10/18 21:31 Temperature Pulse Rate 61 75 Respiratory Rate 16 17 20 Blood Pressure 108/56 L 133/63 Pulse Oximetry 97 96 97 05/10/18 21:45 05/10/18 22:00 05/10/18 22:15 Temperature Pulse Rate 80 75 69 Respiratory Rate 18 16 16 Blood Pressure 145/68 H 142/65 H 129/60 Pulse Oximetry 94 L 94 L 95 05/10/18 22:30 05/10/18 22:45 05/10/18 23:00 Temperature Pulse Rate 65 68 64 Respiratory Rate 16 16 16 Blood Pressure 125/58 L 126/60 121/58 L Pulse Oximetry 95 96 95 05/10/18 23:15 05/10/18 23:30 05/10/18 23:45 Temperature Pulse Rate 64 63 64 Respiratory Rate 16 16 16 Blood Pressure 119/55 L 116/56 L 114/57 L Pulse Oximetry 95 95 96 05/11/18 00:00 05/11/18 00:15 05/11/18 00:30 Temperature 99.3 F Pulse Rate 65 66 64 Respiratory Rate 16 16 16 Blood Pressure 114/58 L 123/58 L 123/57 L Pulse Oximetry 96 97 97 05/11/18 00:39 05/11/18 00:45 05/11/18 01:00 Temperature Pulse Rate 64 62 Respiratory Rate 16 16 16 Blood Pressure 127/61 125/58 L Pulse Oximetry 97 97 97 05/11/18 01:15 05/11/18 01:30 05/11/18 01:45 Temperature Pulse Rate 66 65 65 Respiratory Rate 17 16 16 Blood Pressure 123/63 118/63 117/63 Pulse Oximetry 96 98 98 05/11/18 02:00 05/11/18 02:15 05/11/18 02:30 Temperature Pulse Rate 66 61 65 Respiratory Rate 16 16 16 Blood Pressure 121/60 114/55 L 116/60 Pulse Oximetry 98 97 97 05/11/18 02:45 05/11/18 03:00 05/11/18 03:15 Temperature Pulse Rate 61 62 63 Respiratory Rate 16 16 17 Blood Pressure 112/59 L 114/55 L 114/58 L Pulse Oximetry 96 97 97 05/11/18 03:30 05/11/18 03:45 05/11/18 04:00 Temperature 99.0 F Pulse Rate 59 L 61 61 Respiratory Rate 16 16 16 Blood Pressure 113/58 L 112/58 L 114/58 L Pulse Oximetry 97 97 98 05/11/18 04:02 05/11/18 04:15 05/11/18 04:30 Temperature Pulse Rate 59 L 59 L Respiratory Rate 16 16 16 Blood Pressure 113/56 L 114/57 L Pulse Oximetry 98 98 98 05/11/18 04:45 05/11/18 05:00 05/11/18 05:15 Temperature Pulse Rate 59 L 58 L 71 Respiratory Rate 16 16 16 Blood Pressure 113/55 L 114/57 L 133/64 Pulse Oximetry 98 98 98 05/11/18 05:30 05/11/18 07:00 05/11/18 07:30 Temperature Pulse Rate 72 61 61 Respiratory Rate 20 16 16 Blood Pressure 140/65 117/57 L 114/56 L Pulse Oximetry 96 93 L 94 L 05/11/18 07:36 05/11/18 08:00 05/11/18 08:01 Temperature 99.1 F Pulse Rate 68 67 Respiratory Rate 16 16 16 Blood Pressure 114/56 L 139/63 Pulse Oximetry 100 95 95 05/11/18 08:30 05/11/18 09:00 Temperature Pulse Rate 63 60 Respiratory Rate 16 16 Blood Pressure 122/60 116/56 L Pulse Oximetry 95 93 L Intake & Output 05/10/18 05/11/18 05/11/18 18:59 06:59 18:59 Intake Total 795 / 795 400 / 400 Output Total 1000 / 1000 Balance -205 / -205 400 / 400 Weight 104.5 kg Intake: IV 100 / 100 400 / 400 Versed Inj 50 mg In 50 ml @ 2 50 / 50 MG/HR 2 mls/hr IV.CONT TITRATE PRN Rx#:[id number] Zosyn 3.375 GM Premix 50 ML @ 100 / 100 100 / 100 100 mls/hr IV.SIG Q6H RAÚL Rx#: [id number] fentaNYL 10 mcg/mL Premix Drip 250 / 250 2,500 mcg In 250 ml @ 50 MCG/HR 5 mls/hr IV.SIG TITRATE PRN Rx #:[id number] Tube Feeding 695 / 695 Output: Urine 1000 / 1000 - Constitutional no acute distress - Routine HEENT Exam Head: Present: normocephalic ENT: Present: mucous membranes moist Comments: left pupil is pinpoint and right pupil is a 3. - Routine Respiratory Exam Present: patient mechanically ventilated, rales Comments: rales bilat. lower lobes. - Routine Cardiovascular Exam Present: S1, S2. Absent: murmur, gallop, rubs - Routine Abdominal Exam Present: normoactive bowel sounds - Routine Extremities Exam Present: pulses intact, normal capillary refill. Absent: cyanosis, clubbing, edema - Routine Skin Exam Present: wounds, ecchymosis Comments: multiple skin tears to upper extremities. - Routine Neurological Exam sedated. - Detailed Neurological Exam: Coma Scale Eye Opening: None Verbal Response: None Motor Response: None [place] Coma Scale Total: 3 - Routine Psychiatric Exam Present: unable to assess - Urinary Catheter Management Indwelling Urethral Catheter Cath placed during this visit: yes, but has since been removed by the nurse Urethral indwelling: Yes Reason for continuing: Terminally ill/Comfort care Insertion date: 05/08/18 Insertion time: 00:55 Removal date: 05/09/18 Removal time: 11:23 Straight Cath placed during this visit: no Results 05/11/18 05:55 05/11/18 05:55 Cardiac Enzymes 05/10/18 05/11/18 Range/Units 04:00 05:55 AST 542 H 344 H (15-37) U/L CBC 05/10/18 05/11/18 Range/Units 04:00 05:55 WBC 7.5 7.4 (4.0-11.0) th/mm3 RBC 3.88 L 4.14 L (4.50-5.90) mil/mm3 Hgb 12.4 L 13.2 (13.0-17.0) gm/dL Hct 35.8 L 39.3 (39.0-51.0) % Plt Count 101 L 88 L (150-450) th/mm3 Neut # (Auto) 6.0 6.1 (1.8-7.7) th/mm3 Lymph # (Auto) 1.0 0.9 L (1.0-4.8) th/mm3 Lamb # (Auto) 0.3 0.4 (0.0-0.9) th/mm3 Eos # (Auto) 0.1 0.1 (0.0-0.4) th/mm3 Baso # (Auto) 0.1 0.0 (0.0-0.2) th/mm3 Comprehensive Metabolic Panel 05/10/18 05/11/18 Range/Units 04:00 05:55 Sodium 141 142 (136-145) meq/L Potassium 3.6 D 3.9 (3.5-5.1) meq/L Chloride 107 105 (98-107) meq/L Carbon Dioxide 26.0 28.2 (21.0-32.0) meq/L BUN 20 H 23 H (7-18) mg/dL Creatinine 1.47 H 1.21 (0.60-1.30) mg/dL Calcium 7.4 L* 7.9 L (8.5-10.1) mg/dL AST 542 H 344 H (15-37) U/L ALT 888 H 863 H (12-78) U/L Alkaline Phosphatase 104 116 (45-117) U/L Total Protein 4.6 L D 5.2 L D (6.4-8.2) g/dL Albumin 2.0 L 2.1 L (3.4-5.0) g/dL Intake and Output 05/10/18 05/11/18 05/11/18 22:59 06:59 14:59 Intake Total 945 / 945 150 / 150 Output Total 1000 / 1000 Balance -55 / -55 150 / 150 Intake: IV 250 / 250 150 / 150 Versed Inj 50 mg In 50 ml @ 2 50 / 50 MG/HR 2 mls/hr IV.CONT TITRATE PRN Rx#:[id number] Zosyn 3.375 GM Premix 50 ML @ 100 / 100 100 mls/hr IV.SIG Q6H RAÚL Rx#: [id number] fentaNYL 10 mcg/mL Premix Drip 250 / 250 2,500 mcg In 250 ml @ 50 MCG/HR 5 mls/hr IV.SIG TITRATE PRN Rx #:[id number] Tube Feeding 695 / 695 Output: Urine 1000 / 1000 Other: Weight 104.5 kg - Imaging and Cardiology Imaging: Impressions Abdomen Ultrasound 05/09/18 00:00 CONCLUSION: 1. Probable fatty infiltration of the liver. 2. Mobile gallstones within the gallbladder. No significant pericholecystic fluid identified. No significant gallbladder wall thickening. 3. Increased echogenicity of the renal cortex suggesting underlying medical renal disease. 4. 2.5 cm renal cyst on the left. 5. Trace amount of ascites adjacent to the liver. 6. Minimal right basilar effusion. Assessment and Plan - Assessment (1) ICH (intracerebral hemorrhage) Code(s): I61.9 - Nontraumatic intracerebral hemorrhage, unspecified Status: Acute (2) CAD (coronary artery disease) Code(s): I25.10 - Atherosclerotic heart disease of [place] coronary artery without angina pectoris Status: Acute (3) Cardiomyopathy Code(s): I42.9 - Cardiomyopathy, unspecified Status: Acute (4) Dyspnea Code(s): R06.00 - Dyspnea, unspecified Status: Acute (5) Hypertension Code(s): I10 - Essential (primary) hypertension Status: Acute - Plan Patient remains in SR without signs of arrhythmias. We will continue current cardiac treatment plan. Patient has an intracranial bleed with a 4mm right to left midline shift, now off all anticoagulants. We will continue to hold anticoagulants until patient is cleared by neurology. Continue ICU care, wean vent as tolerate. Patient remains critically ill; his prognosis remains guarded. Discussed treatment plan with at bedside. We will continue to monitor the patient during his hospitalization for Dr. Franklin, his primary stone rubber. The patient was seen and evaluated by Dr. Frye who participated in care, management and decision making. - Attending Attestation Patient seen and examined. I reviewed and agree with the evaluation and plan as presented. Continue ICU care. Tele with no arrhythmias. Wean vent as tolerated. D/w patient's .
--- NOTE | 2018-05-11 14:33 | P.PNCC ---
Subjective Subjective Remarks/Hospital Course: 72-year-old male with a medical history significant for coronary artery disease status post previous CABG with subsequent cardiac catheterization requiring RCA stenting in 2010 who reportedly has been confused for about 1 week with fluctuating mental status along with low back pain. Today while was sleeping she heard a thud and patient had dropped to his knees and fallen on the bed. He was also noted to be shaking vigorously at the time however was able to talk during what appeared to be Reiger's. EMS was called. Patient was hypoxic on arrival with sats in the 60s. He was also tachycardic with heart rate in the 140s-150s with right bundle branch block. Since he had wide complexes there was concern for V. tach however he never lost his pulse. On arrival in the ER who he was intubated and placed on mechanical ventilation. He was loaded with IV amiodarone and lidocaine subsequently after failed attempted defibrillation/cardioversion x2. Patient does have a medical history significant for coronary artery disease status post previous CABG followed by RCA stenting in 2010, diabetes mellitus for which he uses an insulin pump, hypertension. Subjective 05/08: Follow-up. Discussed with Rufina maria at [id number]. Discussion regarding my discussion with neurosurgery Dr. Stevens regarding brain hygroma/ hemorrhage. Options include a empirically starting the patient on heparin drip with frequent neuro checks. Repeat head CT and a.m. Patient has significant risk of bleeding with this however. Possibility of not starting anticoagulation with possibility of worsening cardiac outcome. At the present time, patient wishes to discuss with her regular application integration architect Dr. Franklin need for anticoagulation at this time. She will discuss with him tomorrow. She is aware of risk of possible cardiac decline as a result of this but wishes to discuss with her regular application integration architect tomorrow. 05/09 Patient is intubated and sedated with Versed and Fentanyl infusion. On Levophed 2 mics. Afebrile. 05/10 Patient remains intubated and sedated. Off Levophed. Afebrile. 05/11: Patient remains intubated on light sedation with low-dose Versed and fentanyl. Reviewed CT scan personally. Approximately 1.7 cm right-sided Subdural hygroma with acute blood. Discussed with neurosurgery AZIZA Hernandez. Agrees need for homer hole drainage once cleared by cardiology. I discussed with Dr. frye who agrees to clear the patient for neurosurgery. He agrees that patient is high risk for any surgical procedure however risk is not prohibitory Objective Vital Signs / I&O: Vital Signs 05/10/18 15:00 05/10/18 16:00 05/10/18 16:19 Temperature 99.2 F Pulse Rate 77 74 Respiratory Rate 16 16 20 Blood Pressure 121/55 L 134/63 Pulse Oximetry 98 96 96 05/10/18 17:00 05/10/18 17:30 05/10/18 17:45 Temperature Pulse Rate 74 67 63 Respiratory Rate 16 16 16 Blood Pressure 109/57 L 122/60 108/55 L Pulse Oximetry 96 96 94 L 05/10/18 18:00 05/10/18 18:15 05/10/18 18:30 Temperature Pulse Rate 61 60 60 Respiratory Rate 16 16 16 Blood Pressure 107/57 L 106/56 L 106/57 L Pulse Oximetry 95 96 96 05/10/18 18:45 05/10/18 19:00 05/10/18 19:15 Temperature Pulse Rate 67 65 62 Respiratory Rate 16 16 16 Blood Pressure 117/57 L 108/57 L 106/58 L Pulse Oximetry 98 94 L 97 05/10/18 19:30 05/10/18 19:45 05/10/18 20:00 Temperature 98.8 F Pulse Rate 62 60 61 Respiratory Rate 16 16 16 Blood Pressure 109/59 L 107/57 L 107/59 L Pulse Oximetry 98 97 97 05/10/18 20:15 05/10/18 20:30 05/10/18 20:45 Temperature Pulse Rate 60 60 60 Respiratory Rate 16 16 16 Blood Pressure 105/56 L 106/57 L 105/54 L Pulse Oximetry 97 97 97 05/10/18 21:00 05/10/18 21:15 05/10/18 21:27 Temperature Pulse Rate 62 61 Respiratory Rate 16 16 17 Blood Pressure 110/56 L 108/56 L Pulse Oximetry 98 97 96 05/10/18 21:31 05/10/18 21:45 05/10/18 22:00 Temperature Pulse Rate 75 80 75 Respiratory Rate 20 18 16 Blood Pressure 133/63 145/68 H 142/65 H Pulse Oximetry 97 94 L 94 L 05/10/18 22:15 05/10/18 22:30 05/10/18 22:45 Temperature Pulse Rate 69 65 68 Respiratory Rate 16 16 16 Blood Pressure 129/60 125/58 L 126/60 Pulse Oximetry 95 95 96 05/10/18 23:00 05/10/18 23:15 05/10/18 23:30 Temperature Pulse Rate 64 64 63 Respiratory Rate 16 16 16 Blood Pressure 121/58 L 119/55 L 116/56 L Pulse Oximetry 95 95 95 05/10/18 23:45 05/11/18 00:00 05/11/18 00:15 Temperature 99.3 F Pulse Rate 64 65 66 Respiratory Rate 16 16 16 Blood Pressure 114/57 L 114/58 L 123/58 L Pulse Oximetry 96 96 97 05/11/18 00:30 05/11/18 00:39 05/11/18 00:45 Temperature Pulse Rate 64 64 Respiratory Rate 16 16 16 Blood Pressure 123/57 L 127/61 Pulse Oximetry 97 97 97 05/11/18 01:00 05/11/18 01:15 05/11/18 01:30 Temperature Pulse Rate 62 66 65 Respiratory Rate 16 17 16 Blood Pressure 125/58 L 123/63 118/63 Pulse Oximetry 97 96 98 05/11/18 01:45 05/11/18 02:00 05/11/18 02:15 Temperature Pulse Rate 65 66 61 Respiratory Rate 16 16 16 Blood Pressure 117/63 121/60 114/55 L Pulse Oximetry 98 98 97 05/11/18 02:30 05/11/18 02:45 05/11/18 03:00 Temperature Pulse Rate 65 61 62 Respiratory Rate 16 16 16 Blood Pressure 116/60 112/59 L 114/55 L Pulse Oximetry 97 96 97 05/11/18 03:15 05/11/18 03:30 05/11/18 03:45 Temperature Pulse Rate 63 59 L 61 Respiratory Rate 17 16 16 Blood Pressure 114/58 L 113/58 L 112/58 L Pulse Oximetry 97 97 97 05/11/18 04:00 05/11/18 04:02 05/11/18 04:15 Temperature 99.0 F Pulse Rate 61 59 L Respiratory Rate 16 16 16 Blood Pressure 114/58 L 113/56 L Pulse Oximetry 98 98 98 05/11/18 04:30 05/11/18 04:45 05/11/18 05:00 Temperature Pulse Rate 59 L 59 L 58 L Respiratory Rate 16 16 16 Blood Pressure 114/57 L 113/55 L 114/57 L Pulse Oximetry 98 98 98 05/11/18 05:15 05/11/18 05:30 05/11/18 07:00 Temperature Pulse Rate 71 72 61 Respiratory Rate 16 20 16 Blood Pressure 133/64 140/65 117/57 L Pulse Oximetry 98 96 93 L 05/11/18 07:30 05/11/18 07:36 05/11/18 08:00 Temperature 99.1 F Pulse Rate 61 68 Respiratory Rate 16 16 16 Blood Pressure 114/56 L 114/56 L Pulse Oximetry 94 L 100 95 05/11/18 08:01 05/11/18 08:30 05/11/18 09:00 Temperature Pulse Rate 67 63 60 Respiratory Rate 16 16 16 Blood Pressure 139/63 122/60 116/56 L Pulse Oximetry 95 95 93 L 05/11/18 10:00 05/11/18 11:00 05/11/18 12:00 Temperature 99.0 F Pulse Rate 60 57 L 60 Respiratory Rate 16 16 20 Blood Pressure 117/57 L 116/56 L 126/58 L Pulse Oximetry 95 94 L 94 L 05/11/18 13:00 05/11/18 14:00 Temperature Pulse Rate 70 78 Respiratory Rate 19 18 Blood Pressure 135/64 140/63 Pulse Oximetry 94 L 95 Intake & Output 05/10/18 05/11/18 05/11/18 18:59 06:59 18:59 Intake Total 795 / 795 400 / 400 100 / 100 Output Total 1000 / 1000 Balance -205 / -205 400 / 400 100 / 100 Weight 104.5 kg Intake: IV 100 / 100 400 / 400 100 / 100 Versed Inj 50 mg In 50 ml @ 2 50 / 50 MG/HR 2 mls/hr IV.CONT TITRATE PRN Rx#:[id number] Zosyn 3.375 GM Premix 50 ML @ 100 / 100 100 / 100 100 / 100 100 mls/hr IV.SIG Q6H RAÚL Rx#: [id number] fentaNYL 10 mcg/mL Premix Drip 250 / 250 2,500 mcg In 250 ml @ 50 MCG/HR 5 mls/hr IV.SIG TITRATE PRN Rx #:[id number] Tube Feeding 695 / 695 Output: Urine 1000 / 1000 Result Diagrams: 05/11/18 05:55 05/11/18 05:55 Objective Remarks: GENERAL: Patient is 72 yo intubated and sedated SKIN: Warm and dry. HEAD: Normocephalic. EYES: No scleral icterus. No injection or drainage. Unequal pupils, right 4mm nonreactive, left pin point NECK: Supple, trachea midline. No JVD or lymphadenopathy. CARDIOVASCULAR: Regular rate and rhythm without murmurs, gallops, or rubs. RESPIRATORY: Breath sounds equal bilaterally. No accessory muscle use. GASTROINTESTINAL: Abdomen soft, non-tender, nondistended. MUSCULOSKELETAL: No cyanosis, or edema. Neuro: Sedated. Unequal pupils, right 4mm nonreactive, left pin point. Spontaneously moves all 4 extremities do not follow commands. Appears to have left hemiparesis Assessment and Plan - Assessment and Plan Plan: 72-year-old male with: Acute and chronic right-sided subdural hematoma 17 mm in thickness 4 mm of right to left midline shift NSTEMI Syncope Encephalopathy Wide-complex tachycardia with pulse: Suspect A flutter with aberrant conduction versus sinus tach with aberrant conduction Suspected sepsis CAD status post previous CABG Uncontrolled diabetes mellitus Hypertension Low back pain Plan: Neuro: On Fentanyl and versed infusion for sedation. Daily sedation vacation. 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 No new hemorrhage. NSG is following- Dr. Mary Frye agrees to clear for [place] evacuation of subdural hemorrhage, high risk but not prohibitive per him D/W Robbie Hernandez who will discuss with Dr. Hernandez. In case of neurosurgery, requested cardiac anesthesiologist per previous discussion with Dr. Franklin cardiology I explained her I am not sure about the availability of cardiac anesthesiologist at this institute, but explained to her that our anesthesiologist handle a large number of of open heart surgeries and valve replacement CV: Wide-complex tachycardia with pulse on arrival. Off Levophed Monitor HR and BP keep MAP>65mmHg Echo showed EF 20-25%, Anterior, anterolateral, anteroseptal, apical, and inferoapical hypokinesis. Cardiology Dr. frye is following, see above Trop persistently > 40. Anticoagulation contraindicated in setting of right subdural hematoma on CT brain. D/Cd Amio drip given elevated LFT's/ischemic hepatitis. Pulm: Continue vent support keep sats >92%. Bronchodilators, ICU vent bundle. CXR 05/09: left lower lung zone atelectasis versus consolidation and small left pleural effusion. Clearing of bilateral upper lung zone opacity No ventilator weaning until surgical plans for drainage and material lysing, mental status will not permit extubation GI/liver: Monitor LFT's( Elevated LFT;s likely 2nd ischemic hepatitis. CT hailey/pelvis: There is no dilation of the biliary tree. A small layering calcified gallstone within an otherwise normal-appearing gallbladder US abdomen: Probable fatty infiltration of the liver. Mobile gallstones within the gallbladder. No significant pericholecystic fluid identified. No significant gallbladder wall thickening. Increased echogenicity of the renal cortex suggesting underlying medical renal disease. 2.5 cm renal cyst on the left. Trace amount of ascites adjacent to the liver. On Pepcid 20mg IV Q12 for GI prophylaxis tube feeds- Glucerna 1.5 with goal rate 50ml/hr-NPO after midnight for possible surgery Renal/: Monitor renal function, I/O's, electrolytes replacement per protocol. s/p Diurese with Lasix 40mg x1, ID: Continue IV Zosyn. Monitor for signs of infections (fever, WBC) Follow up on cultures( blood, sputum ,UA) NGTD Heme: Follow CBC Endocrine: SSI medium scale for glycemic control Prophylaxis: Pepcid/SCDs. Palliative care is following Code status: Alternative code Prognosis guarded given multiorgan injury ( Resp failure, LALITO, ischemic hepatitis, Acute OR and brain bleed) Condition critical CCT 35 mins Discussed with neurosurgery cardiology and bedside RN. Updated patient's . Plan as above
--- NOTE | 2018-05-11 18:18 | P.PNNS ---
Subjective Interval history: Pt not following commands. Squints his eyes when trying to visualize pupils. He spontaneously moves all 4 extremities. He is intubated. He is sedated on Fentanyl and Versed drips. Physical Exam Vital signs: Vital Signs 05/10/18 18:15 05/10/18 18:30 05/10/18 18:45 Temperature Pulse Rate 60 60 67 Respiratory Rate 16 16 16 Blood Pressure 106/56 L 106/57 L 117/57 L Pulse Oximetry 96 96 98 05/10/18 19:00 05/10/18 19:15 05/10/18 19:30 Temperature Pulse Rate 65 62 62 Respiratory Rate 16 16 16 Blood Pressure 108/57 L 106/58 L 109/59 L Pulse Oximetry 94 L 97 98 05/10/18 19:45 05/10/18 20:00 05/10/18 20:15 Temperature 98.8 F Pulse Rate 60 61 60 Respiratory Rate 16 16 16 Blood Pressure 107/57 L 107/59 L 105/56 L Pulse Oximetry 97 97 97 05/10/18 20:30 05/10/18 20:45 05/10/18 21:00 Temperature Pulse Rate 60 60 62 Respiratory Rate 16 16 16 Blood Pressure 106/57 L 105/54 L 110/56 L Pulse Oximetry 97 97 98 05/10/18 21:15 05/10/18 21:27 05/10/18 21:31 Temperature Pulse Rate 61 75 Respiratory Rate 16 17 20 Blood Pressure 108/56 L 133/63 Pulse Oximetry 97 96 97 05/10/18 21:45 05/10/18 22:00 05/10/18 22:15 Temperature Pulse Rate 80 75 69 Respiratory Rate 18 16 16 Blood Pressure 145/68 H 142/65 H 129/60 Pulse Oximetry 94 L 94 L 95 05/10/18 22:30 05/10/18 22:45 05/10/18 23:00 Temperature Pulse Rate 65 68 64 Respiratory Rate 16 16 16 Blood Pressure 125/58 L 126/60 121/58 L Pulse Oximetry 95 96 95 05/10/18 23:15 05/10/18 23:30 05/10/18 23:45 Temperature Pulse Rate 64 63 64 Respiratory Rate 16 16 16 Blood Pressure 119/55 L 116/56 L 114/57 L Pulse Oximetry 95 95 96 05/11/18 00:00 05/11/18 00:15 05/11/18 00:30 Temperature 99.3 F Pulse Rate 65 66 64 Respiratory Rate 16 16 16 Blood Pressure 114/58 L 123/58 L 123/57 L Pulse Oximetry 96 97 97 05/11/18 00:39 05/11/18 00:45 05/11/18 01:00 Temperature Pulse Rate 64 62 Respiratory Rate 16 16 16 Blood Pressure 127/61 125/58 L Pulse Oximetry 97 97 97 05/11/18 01:15 05/11/18 01:30 05/11/18 01:45 Temperature Pulse Rate 66 65 65 Respiratory Rate 17 16 16 Blood Pressure 123/63 118/63 117/63 Pulse Oximetry 96 98 98 05/11/18 02:00 05/11/18 02:15 05/11/18 02:30 Temperature Pulse Rate 66 61 65 Respiratory Rate 16 16 16 Blood Pressure 121/60 114/55 L 116/60 Pulse Oximetry 98 97 97 05/11/18 02:45 05/11/18 03:00 05/11/18 03:15 Temperature Pulse Rate 61 62 63 Respiratory Rate 16 16 17 Blood Pressure 112/59 L 114/55 L 114/58 L Pulse Oximetry 96 97 97 05/11/18 03:30 05/11/18 03:45 05/11/18 04:00 Temperature 99.0 F Pulse Rate 59 L 61 61 Respiratory Rate 16 16 16 Blood Pressure 113/58 L 112/58 L 114/58 L Pulse Oximetry 97 97 98 05/11/18 04:02 05/11/18 04:15 05/11/18 04:30 Temperature Pulse Rate 59 L 59 L Respiratory Rate 16 16 16 Blood Pressure 113/56 L 114/57 L Pulse Oximetry 98 98 98 05/11/18 04:45 05/11/18 05:00 05/11/18 05:15 Temperature Pulse Rate 59 L 58 L 71 Respiratory Rate 16 16 16 Blood Pressure 113/55 L 114/57 L 133/64 Pulse Oximetry 98 98 98 05/11/18 05:30 05/11/18 07:00 05/11/18 07:30 Temperature Pulse Rate 72 61 61 Respiratory Rate 20 16 16 Blood Pressure 140/65 117/57 L 114/56 L Pulse Oximetry 96 93 L 94 L 05/11/18 07:36 05/11/18 08:00 05/11/18 08:01 Temperature 99.1 F Pulse Rate 68 67 Respiratory Rate 16 16 16 Blood Pressure 114/56 L 139/63 Pulse Oximetry 100 95 95 05/11/18 08:30 05/11/18 09:00 05/11/18 10:00 Temperature Pulse Rate 63 60 60 Respiratory Rate 16 16 16 Blood Pressure 122/60 116/56 L 117/57 L Pulse Oximetry 95 93 L 95 05/11/18 11:00 05/11/18 12:00 05/11/18 13:00 Temperature 99.0 F Pulse Rate 57 L 60 70 Respiratory Rate 16 20 19 Blood Pressure 116/56 L 126/58 L 135/64 Pulse Oximetry 94 L 94 L 94 L 05/11/18 14:00 05/11/18 15:00 05/11/18 16:00 Temperature 99.4 F Pulse Rate 78 75 83 Respiratory Rate 18 17 27 H Blood Pressure 140/63 143/65 H 161/72 H Pulse Oximetry 95 95 96 Intake & Output 05/10/18 05/11/18 05/11/18 18:59 06:59 18:59 Intake Total 795 / 795 400 / 400 100 / 100 Output Total 1000 / 1000 Balance -205 / -205 400 / 400 100 / 100 Weight 104.5 kg Intake: IV 100 / 100 400 / 400 100 / 100 Versed Inj 50 mg In 50 ml @ 2 50 / 50 MG/HR 2 mls/hr IV.CONT TITRATE PRN Rx#:[id number] Zosyn 3.375 GM Premix 50 ML @ 100 / 100 100 / 100 100 / 100 100 mls/hr IV.SIG Q6H RAÚL Rx#: [id number] fentaNYL 10 mcg/mL Premix Drip 250 / 250 2,500 mcg In 250 ml @ 50 MCG/HR 5 mls/hr IV.SIG TITRATE PRN Rx #:[id number] Tube Feeding 695 / 695 Output: Urine 1000 / 1000 - Constitutional no acute distress (Pt sedated on Fentanyl and Versed drips. He gets a little agitated when stimulated.) - Routine HEENT Exam Head: Present: normocephalic Eye: Absent: PERRL (Right pupil 3mm NR left 1mm NR.) ENT: Absent: oropharynx clear (ET intubated.) - Routine Neck Exam Present: trachea midline - Routine Respiratory Exam Present: patient mechanically ventilated, CTA bilaterally. Absent: respiratory distress, rhonchi, wheezes - Routine Cardiovascular Exam Present: RRR, S1, S2. Absent: murmur - Routine Abdominal Exam Present: soft, normoactive bowel sounds. Absent: distended - Routine Skin Exam Absent: cyanosis, erythema - Routine Neurological Exam Present: altered mental status, moving all extremities. Absent: alert (Pt sedated on Fentanyl and Versed drips.) Not following commands. Left pupil 1mm right 3mm NR bilaterally. - Routine Psychiatric Exam Present: unable to assess - Urinary Catheter Management Indwelling Urethral Catheter Cath placed during this visit: yes, but has since been removed by the nurse Urethral indwelling: Yes Reason for continuing: Terminally ill/Comfort care Insertion date: 05/08/18 Insertion time: 00:55 Removal date: 05/09/18 Removal time: 11:23 Straight Cath placed during this visit: no Assessment and Plan - Assessment (1) Pain Code(s): R52 - Pain, unspecified Status: Acute (2) Dyspnea Code(s): R06.00 - Dyspnea, unspecified Status: Acute (3) Hypertension Code(s): I10 - Essential (primary) hypertension Status: Acute (4) Hiatal hernia Code(s): K44.9 - Diaphragmatic hernia without obstruction or gangrene Status: Acute (5) Cardiomyopathy Code(s): I42.9 - Cardiomyopathy, unspecified Status: Acute (6) Sleep apnea with use of continuous positive airway pressure (CPAP) Code(s): G47.30 - Sleep apnea, unspecified Status: Acute (7) Neuropathy Code(s): G62.9 - Polyneuropathy, unspecified Status: Acute (8) GERD (gastroesophageal reflux disease) Code(s): K21.9 - Gastro-esophageal reflux disease without esophagitis Status: Acute - Plan 72yoM with recent cardiac event and extensive cardiac history admitted this morning with simultaneously discovered right parietal hygroma with 4mm of shift. plan: Continue to monitor Neuro exam Continue with critical care Discussed situation with pts at bedside Discussed with palliative care. Discussed with pts . Cardiology states surgery is high risk but not prohibitive. I had a lengthy discussion with pts at bedside with palliative care regarding the risk. I have also discussed with Dr. Hernandez today. Surgery would entail a homer hole for drainage of his hygroma but there are risk which are high as stated by Cardiology. The goal of surgery would be to drain his hygroma collection to allow the brain to expand back to fill that fluid space but this in some cases the takes time and it is possible to reaccumulate or in some cases he could develop a bleed requiring a larger craniotomy procedure. There are also high cardiopulmonary risk which could result in . Although his hygroma collection is large it is not getting bigger on his follow up CT. The patients currently wants to continue with observation although is thinking about what everyone has discussed with her and will inform us if she wants to proceed. She was very appreciative of the care as well as the discussion.
--- NOTE | 2018-05-11 19:19 | P.PNPAL ---
Reason for Visit Reason for visit: a. To assist with evaluation and management of symptoms including: Pain, dyspnea b. To assist medical decision maker(s) with: better understanding of current medical conditions; weighing benefits/burdens of medical treatment options; making medical treatment decisions. Subjective Subjective/Interval History: This is a 72-year-old male who was brought to [place] emergency department via [facility] after the patient fell at home, he was found by his on his knees over the bed. He was also noted to be shaking vigorously but was able to talk. Upon arrival of [facility], he was found hypoxic with oxygen saturations in the 60s. He was tachycardic with heart rate in the 140s-150s with a right bundle branch block noted and wide complexes. indicated he had had about a week long period of confusion and fluctuating mental status along with low back pain. Upon arrival to the ED was intubated placed on mechanical ventilation, was started on IV amiodarone, with a loading dose, and lidocaine. Apparently there was a failed attempt at defibrillation/cardioversion x2. Patient has now been seen by neurosurgery who is recommending a homer hole. Arrived to patient's room, he remains mechanically ventilated, on low-dose sedation with fentanyl 50 mcg. He is somewhat restless on the ventilator. He is not following any commands, spontaneous movements only. He does not eye open his eyes or track. He does not seem to have any purposeful movement. Pupils remain unequal. He is somewhat hypertensive secondary to restlessness. Family/Friend Interactions: Had lengthy discussion with and daughter who are at bedside. is appropriately tearful when discussing risks versus benefits of undergoing general anesthesia. She informs me she was advised by Dr. Franklin that if patient were to undergo general anesthesia, he would likely not survive the surgery. AZIZA Dempsey for Dr. Hernandez arrived during visit, discussed recommendations for bur hole. Advised family they have some time to make this decision as surgery is not emergent. Briefly explored possibility of withdrawal of life support, and conservative measures regarding neurosurgery vs aggressive treatment. is now contemplating holding off on surgery at this time, assess for neuro changes and/or decline. She understands patient will not be able to be anticoagulated, and given his severe cardiac dysfunction, this will likely cause further complications. expresses patient would not want to be resuscitated if there are complications in the OR. Advised that patient would be full CODE STATUS while undergoing surgery, She is unsure whether or not she would want to risk this. Briefly explored transitioning to comfort and possibility of withdrawal from ventilator. She and her daughter will discuss over the coming days and make a decision. They both report patient would not want to remain on a ventilator, they voiced concerns of him being in a vegetative state. Objective Vital Signs: Vital Signs 05/10/18 18:45 05/10/18 19:00 05/10/18 19:15 Temperature Pulse Rate 67 65 62 Respiratory Rate 16 16 16 Blood Pressure 117/57 L 108/57 L 106/58 L Pulse Oximetry 98 94 L 97 05/10/18 19:30 05/10/18 19:45 05/10/18 20:00 Temperature 98.8 F Pulse Rate 62 60 61 Respiratory Rate 16 16 16 Blood Pressure 109/59 L 107/57 L 107/59 L Pulse Oximetry 98 97 97 05/10/18 20:15 05/10/18 20:30 05/10/18 20:45 Temperature Pulse Rate 60 60 60 Respiratory Rate 16 16 16 Blood Pressure 105/56 L 106/57 L 105/54 L Pulse Oximetry 97 97 97 05/10/18 21:00 05/10/18 21:15 05/10/18 21:27 Temperature Pulse Rate 62 61 Respiratory Rate 16 16 17 Blood Pressure 110/56 L 108/56 L Pulse Oximetry 98 97 96 05/10/18 21:31 05/10/18 21:45 05/10/18 22:00 Temperature Pulse Rate 75 80 75 Respiratory Rate 20 18 16 Blood Pressure 133/63 145/68 H 142/65 H Pulse Oximetry 97 94 L 94 L 05/10/18 22:15 05/10/18 22:30 05/10/18 22:45 Temperature Pulse Rate 69 65 68 Respiratory Rate 16 16 16 Blood Pressure 129/60 125/58 L 126/60 Pulse Oximetry 95 95 96 05/10/18 23:00 05/10/18 23:15 05/10/18 23:30 Temperature Pulse Rate 64 64 63 Respiratory Rate 16 16 16 Blood Pressure 121/58 L 119/55 L 116/56 L Pulse Oximetry 95 95 95 05/10/18 23:45 05/11/18 00:00 05/11/18 00:15 Temperature 99.3 F Pulse Rate 64 65 66 Respiratory Rate 16 16 16 Blood Pressure 114/57 L 114/58 L 123/58 L Pulse Oximetry 96 96 97 05/11/18 00:30 05/11/18 00:39 05/11/18 00:45 Temperature Pulse Rate 64 64 Respiratory Rate 16 16 16 Blood Pressure 123/57 L 127/61 Pulse Oximetry 97 97 97 05/11/18 01:00 05/11/18 01:15 05/11/18 01:30 Temperature Pulse Rate 62 66 65 Respiratory Rate 16 17 16 Blood Pressure 125/58 L 123/63 118/63 Pulse Oximetry 97 96 98 05/11/18 01:45 05/11/18 02:00 05/11/18 02:15 Temperature Pulse Rate 65 66 61 Respiratory Rate 16 16 16 Blood Pressure 117/63 121/60 114/55 L Pulse Oximetry 98 98 97 05/11/18 02:30 05/11/18 02:45 05/11/18 03:00 Temperature Pulse Rate 65 61 62 Respiratory Rate 16 16 16 Blood Pressure 116/60 112/59 L 114/55 L Pulse Oximetry 97 96 97 05/11/18 03:15 05/11/18 03:30 05/11/18 03:45 Temperature Pulse Rate 63 59 L 61 Respiratory Rate 17 16 16 Blood Pressure 114/58 L 113/58 L 112/58 L Pulse Oximetry 97 97 97 05/11/18 04:00 05/11/18 04:02 05/11/18 04:15 Temperature 99.0 F Pulse Rate 61 59 L Respiratory Rate 16 16 16 Blood Pressure 114/58 L 113/56 L Pulse Oximetry 98 98 98 05/11/18 04:30 05/11/18 04:45 05/11/18 05:00 Temperature Pulse Rate 59 L 59 L 58 L Respiratory Rate 16 16 16 Blood Pressure 114/57 L 113/55 L 114/57 L Pulse Oximetry 98 98 98 05/11/18 05:15 05/11/18 05:30 05/11/18 07:00 Temperature Pulse Rate 71 72 61 Respiratory Rate 16 20 16 Blood Pressure 133/64 140/65 117/57 L Pulse Oximetry 98 96 93 L 05/11/18 07:30 05/11/18 07:36 05/11/18 08:00 Temperature 99.1 F Pulse Rate 61 68 Respiratory Rate 16 16 16 Blood Pressure 114/56 L 114/56 L Pulse Oximetry 94 L 100 95 05/11/18 08:01 05/11/18 08:30 05/11/18 09:00 Temperature Pulse Rate 67 63 60 Respiratory Rate 16 16 16 Blood Pressure 139/63 122/60 116/56 L Pulse Oximetry 95 95 93 L 05/11/18 10:00 05/11/18 11:00 05/11/18 12:00 Temperature 99.0 F Pulse Rate 60 57 L 60 Respiratory Rate 16 16 20 Blood Pressure 117/57 L 116/56 L 126/58 L Pulse Oximetry 95 94 L 94 L 05/11/18 13:00 05/11/18 14:00 05/11/18 15:00 Temperature Pulse Rate 70 78 75 Respiratory Rate 19 18 17 Blood Pressure 135/64 140/63 143/65 H Pulse Oximetry 94 L 95 95 05/11/18 16:00 05/11/18 17:00 05/11/18 18:00 Temperature 99.4 F Pulse Rate 83 84 100 H Respiratory Rate 27 H 23 28 H Blood Pressure 161/72 H 151/70 H 165/79 H Pulse Oximetry 96 95 94 L 05/11/18 18:01 Temperature Pulse Rate 98 H Respiratory Rate 26 H Blood Pressure 165/79 H Pulse Oximetry 94 L Intake & Output 05/10/18 05/11/18 05/11/18 18:59 06:59 18:59 Intake Total 795 / 795 400 / 400 760 / 760 Output Total 1000 / 1000 1000 / 1000 Balance -205 / -205 400 / 400 -240 / -240 Weight 104.5 kg Intake: IV 100 / 100 400 / 400 100 / 100 Versed Inj 50 mg In 50 ml @ 2 50 / 50 MG/HR 2 mls/hr IV.CONT TITRATE PRN Rx#:[id number] Zosyn 3.375 GM Premix 50 ML @ 100 / 100 100 / 100 100 / 100 100 mls/hr IV.SIG Q6H RAÚL Rx#: [id number] fentaNYL 10 mcg/mL Premix Drip 250 / 250 2,500 mcg In 250 ml @ 50 MCG/HR 5 mls/hr IV.SIG TITRATE PRN Rx #:[id number] Oral 0 / 0 Tube Feeding 695 / 695 660 / 660 Output: Urine 1000 / 1000 1000 / 1000 Physical Exam: CONSTITUTIONAL/GENERAL: This is an adequately nourished patient, sedated and mechancally ventilated. TUBES/LINES/DRAINS:ETT, OGT, giang, right SC TLC, PIV SKIN: No jaundice, rashes, or lesions. Ecchymoses/hematoma on upper extremities bilaterally. Skin temperature appropriate. Not diaphoretic. HEAD: Atraumatic. Normocephalic. EYES: Pupils unequal, right 3mm, left pinpoint. sluggish reaction with sedation in place. ENT: Orally intubated, exam limited secondary to tubes NECK: Trachea midline. Supple, nontender. No palpable thyroid enlargement or nodularity. CARDIOVASCULAR: Regular rate and rhythm, bradycardic, peripheral pulses palpable. RESPIRATORY/CHEST: Symmetric, mildly labored on CPAP. Clear to auscultation. Breath sounds equal bilaterally. No wheezes, rales, or rhonchi. GASTROINTESTINAL: Abdomen obese, soft, non-tender, nondistended. No hepato- splenomegaly, or palpable masses. No guarding. Bowel sounds present. Now has TF infusing. GENITOURINARY: Without palpable bladder distension. Giang catheter in place draining small amount of yellow urine. MUSCULOSKELETAL: Extremities without clubbing, cyanosis, or edema. No joint tenderness or effusion noted. No calf tenderness. No mottling or clubbing. NEUROLOGICAL: Sedated and mechanically ventilated. Restless and agitated in the bed. He is intermittently following commands. Pupils unequal, 3 3mm, left pinpoint. PSYCHIATRIC: Restless and agitated on CPAP and 50 mcg of fentanyl. Diagnostic Tests Laboratory: Laboratory Results - last 72 hr 05/08/18 05/08/18 05/09/18 21:30 23:44 02:20 WBC RBC Hgb Hct MCV MCH MCHC RDW Plt Count MPV Prelim Diff (Auto) Neut % (Auto) Lymph % (Auto) [place] % (Auto) Eos % (Auto) Baso % (Auto) Neut # (Auto) Lymph # (Auto) [place] # (Auto) Eos # (Auto) Baso # (Auto) WBC Differential Diff Scan Differential Comment Platelet Estimate Platelet Morphology Sodium 140 Potassium 4.4 Chloride 108 H Carbon Dioxide 22.8 Anion Gap 9 BUN 17 Creatinine 1.67 H Estimated GFR 40 L POC Glucose 267 H Random Glucose 296 H Lactic Acid 2.2 H Calcium 8.1 L Prot Corrected Calcium Phosphorus 2.8 Magnesium 2.2 Total Bilirubin 1.5 H AST 1287 H ALT 1015 H Alkaline Phosphatase 127 H Troponin I Greater than 40.00 H* Total Protein 5.3 L Albumin 2.2 L Hepatitis A IgM Ab Hep Bs Antigen Hep B Core IgM Ab Hep C IgG Ab 05/09/18 05/09/18 05/09/18 02:20 02:20 05:39 WBC 10.0 RBC 4.25 L Hgb 13.6 Hct 39.6 MCV 93.3 MCH 32.0 MCHC 34.3 RDW 15.2 Plt Count 133 L D MPV 9.5 Prelim Diff (Auto) Neut % (Auto) 81.3 H Lymph % (Auto) 12.7 [place] % (Auto) 5.2 Eos % (Auto) 0.1 Baso % (Auto) 0.7 Neut # (Auto) 8.2 H Lymph # (Auto) 1.3 [place] # (Auto) 0.5 Eos # (Auto) 0.0 Baso # (Auto) 0.1 WBC Differential . Diff Scan Differential Comment Auto diff final Platelet Estimate Platelet Morphology Sodium Potassium Chloride Carbon Dioxide Anion Gap BUN Creatinine Estimated GFR POC Glucose 259 H Random Glucose Lactic Acid 2.0 Calcium Prot Corrected Calcium Phosphorus Magnesium Total Bilirubin AST ALT Alkaline Phosphatase Troponin I Total Protein Albumin Hepatitis A IgM Ab Hep Bs Antigen Hep B Core IgM Ab Hep C IgG Ab 05/09/18 05/09/18 05/09/18 12:58 12:58 13:27 WBC RBC Hgb Hct MCV MCH MCHC RDW Plt Count MPV Prelim Diff (Auto) Neut % (Auto) Lymph % (Auto) [place] % (Auto) Eos % (Auto) Baso % (Auto) Neut # (Auto) Lymph # (Auto) [place] # (Auto) Eos # (Auto) Baso # (Auto) WBC Differential Diff Scan Differential Comment Platelet Estimate Platelet Morphology Sodium Potassium Chloride Carbon Dioxide Anion Gap BUN Creatinine Estimated GFR POC Glucose 249 H Random Glucose Lactic Acid 1.8 Calcium Prot Corrected Calcium Phosphorus Magnesium Total Bilirubin AST ALT Alkaline Phosphatase Troponin I Total Protein Albumin Hepatitis A IgM Ab Nonreactive Hep Bs Antigen Nonreactive Hep B Core IgM Ab Nonreactive Hep C IgG Ab Nonreactive 05/09/18 05/10/18 05/10/18 18:41 00:03 04:00 WBC 7.5 RBC 3.88 L Hgb 12.4 L Hct 35.8 L MCV 92.4 MCH 32.1 MCHC 34.7 RDW 14.7 Plt Count 101 L MPV 9.7 Prelim Diff (Auto) Neut % (Auto) 80.3 H Lymph % (Auto) 13.8 [place] % (Auto) 3.8 Eos % (Auto) 1.0 Baso % (Auto) 1.1 Neut # (Auto) 6.0 Lymph # (Auto) 1.0 [place] # (Auto) 0.3 Eos # (Auto) 0.1 Baso # (Auto) 0.1 WBC Differential . Diff Scan Differential Comment Auto diff final Platelet Estimate Platelet Morphology Sodium Potassium Chloride Carbon Dioxide Anion Gap BUN Creatinine Estimated GFR POC Glucose 286 H 284 H Random Glucose Lactic Acid Calcium Prot Corrected Calcium Phosphorus Magnesium Total Bilirubin AST ALT Alkaline Phosphatase Troponin I Total Protein Albumin Hepatitis A IgM Ab Hep Bs Antigen Hep B Core IgM Ab Hep C IgG Ab 05/10/18 05/10/18 05/10/18 04:00 11:54 17:26 WBC RBC Hgb Hct MCV MCH MCHC RDW Plt Count MPV Prelim Diff (Auto) Neut % (Auto) Lymph % (Auto) [place] % (Auto) Eos % (Auto) Baso % (Auto) Neut # (Auto) Lymph # (Auto) [place] # (Auto) Eos # (Auto) Baso # (Auto) WBC Differential Diff Scan Differential Comment Platelet Estimate Platelet Morphology Sodium 141 Potassium 3.6 D Chloride 107 Carbon Dioxide 26.0 Anion Gap 8 BUN 20 H Creatinine 1.47 H Estimated GFR 47 L POC Glucose 284 H 249 H Random Glucose 276 H Lactic Acid Calcium 7.4 L* Prot Corrected Calcium 8.8 Phosphorus 1.6 L D Magnesium 1.9 Total Bilirubin 1.1 H AST 542 H ALT 888 H Alkaline Phosphatase 104 Troponin I Total Protein 4.6 L D Albumin 2.0 L Hepatitis A IgM Ab Hep Bs Antigen Hep B Core IgM Ab Hep C IgG Ab 05/11/18 05/11/18 05/11/18 00:42 05:55 05:55 WBC 7.4 RBC 4.14 L Hgb 13.2 Hct 39.3 MCV 95.1 MCH 32.0 MCHC 33.7 RDW 15.0 Plt Count 88 L MPV 9.9 Prelim Diff (Auto) Slide review pending Neut % (Auto) 81.7 H Lymph % (Auto) 11.8 [place] % (Auto) 5.4 Eos % (Auto) 0.8 Baso % (Auto) 0.3 Neut # (Auto) 6.1 Lymph # (Auto) 0.9 L [place] # (Auto) 0.4 Eos # (Auto) 0.1 Baso # (Auto) 0.0 WBC Differential . Diff Scan Auto diff confirmed Differential Comment . Platelet Estimate Low L Platelet Morphology Normal Sodium 142 Potassium 3.9 Chloride 105 Carbon Dioxide 28.2 Anion Gap 9 BUN 23 H Creatinine 1.21 Estimated GFR 59 L POC Glucose 329 H Random Glucose 306 H Lactic Acid Calcium 7.9 L Prot Corrected Calcium Phosphorus 2.7 D Magnesium 1.9 Total Bilirubin 0.9 AST 344 H ALT 863 H Alkaline Phosphatase 116 Troponin I Total Protein 5.2 L D Albumin 2.1 L Hepatitis A IgM Ab Hep Bs Antigen Hep B Core IgM Ab Hep C IgG Ab 05/11/18 05/11/18 11:07 17:25 WBC RBC Hgb Hct MCV MCH MCHC RDW Plt Count MPV Prelim Diff (Auto) Neut % (Auto) Lymph % (Auto) [place] % (Auto) Eos % (Auto) Baso % (Auto) Neut # (Auto) Lymph # (Auto) [place] # (Auto) Eos # (Auto) Baso # (Auto) WBC Differential Diff Scan Differential Comment Platelet Estimate Platelet Morphology Sodium Potassium Chloride Carbon Dioxide Anion Gap BUN Creatinine Estimated GFR POC Glucose 230 H 317 H Random Glucose Lactic Acid Calcium Prot Corrected Calcium Phosphorus Magnesium Total Bilirubin AST ALT Alkaline Phosphatase Troponin I Total Protein Albumin Hepatitis A IgM Ab Hep Bs Antigen Hep B Core IgM Ab Hep C IgG Ab Result Diagrams: 05/12/18 05:45 05/12/18 05:45 Microbiology: Microbiology 05/08/18 09:55 Aerobic Blood Culture - Preliminary Blood - Peripheral No growth in 3 days Anaerobic Blood Culture - Preliminary No growth in 3 days 05/08/18 09:45 Aerobic Blood Culture - Preliminary Blood - Peripheral No growth in 3 days Anaerobic Blood Culture - Preliminary No growth in 3 days 05/08/18 05:00 Urine Culture - Final Clean Catch Urine No growth in 48 hours 05/08/18 05:40 Gram Stain - Final Sputum - Endotracheal Sputum Culture - Final No growth in 48 hours Procedures: 05/08/18: Intubation, cardioversion Assessment and Plan - Disease Oriented Problem List (1) ICH (intracerebral hemorrhage) (2) Cardiomyopathy (3) Hygroma, cystic (4) Cataracts, bilateral (5) CAD (coronary artery disease) (6) Hypertension (7) Neuropathy (8) Sleep apnea with use of continuous positive airway pressure (CPAP) (9) GERD (gastroesophageal reflux disease) (10) Hiatal hernia - Symptom Scale (1) Pain 0-10 Scale: Unable to quantify (2) Dyspnea 0-10 Scale: Unable to quantify Pertinent Non-Medical Issues: Psychosocial: Has been to his Rufina for 54 years. They have 3 children, only 2 are living. Patient was living independently with his at home prior to this hospitalization Spiritual: Vidhi plays an important role in the patient and his 's life, they have with her local heel edge inker machine and deacons I have been visiting here in the hospital. 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 Per [place] statutes Rufina would be the appropriate legal proxy. Ethical issues impacting care: none Important Contacts: Rufina Means: [phone] (home) [phone] (CELL) Prognosis: Per conversation with and daughter, patient has had some gradual decline functionally over the past few months. and daughter report patient had been pretty active prior to hospitalization though he had been requiring more frequent periods of rest. Given patient's recent decline and poor health status , he will likely be at risk for future setbacks. Patient has a long history of cardiac issues, recent echo reveals ejection fraction 20-25%, in addition to an acute on chronic intracranial hemorrhage. Given the inability to treat cardiac issues with anticoagulation, further increases risks. If anticoagulation is restarted in the near future, patient is high risk for worsening and/or new intracranial hemorrhages. Patient also at risk for ventilator dependence secondary to prolonged requirements. Code Status: Alternative Code (Intubation only) Plan: Legal decision maker: At this time patient's would be the appropriate decision maker given patient is currently incapacitated secondary to being sedated and mechanically ventilated. Goals: Remain aggressive at this time, however family have stated they will likely transition to comfort measures if there is no hope for meaningful recovery. They appear to have a good understanding of his overall decline in health status. They will need to make decision in the coming days regarding patient going to OR under general anesthesia for a bur hole. would like patient to be a DNR during surgery, advised this most likely would not happen. They are considering withdrawal from the ventilator in the coming days. Discussed patient being sedated and comfortable on ventilator versus no sedation and restless/agitated as he currently is. Family will discuss tonight and we will readdress tomorrow. CODE STATUS: Discussed CODE STATUS with and daughter, at this time patient is intubated and mechanically ventilated but they would like to transition him to alternative code: DNR with intubation only. SYMPTOMS: --Dyspnea: Patient remains mechanically ventilated sedated. Will need to evaluate over the next few days for the possibility of extubation. Currently on CPAP at time of my visit, appears restless and mildly distressed. --Pain: Patient had a history of back pain prior to hospitalization, given bedbound status now in ICU with worsening edema, will likely continue to have worsening pain/weakness. Currently on a fentanyl drip and appears comfortable, will continue to monitor Palliative care will continue to follow during hospital course as condition evolves, to assist patient/decision-maker with understanding of medical conditions, weighing benefits/burdens of treatment options, for clarification of goals of treatment. Additionally will assist with any symptoms of palliative concern 72-year-old male with significant cardiac history. Has had CABG with multiple stents. EF 20-25%. Family indicated gradual decline over the past few months, was becoming weaker and having frequent falls. indicates increasing confusion leading up to admission. Discussed a "wait and see" approach regarding neurosurgery secondary to porr cardiac status and likelihood of cardiac complications. Discussed weaning from ventilator to fully assess functional status, and further considering surgical approach if patient has a significant neurological decline. Patient is mildly agitated on ventilator with elevated heart rate and BP. Regardless of neurosurgical intervention, patient remains high risk for cardiac complications. requesting no resuscitation during surgical procedure, discussed this would likely not be possible and he would likely be resuscitated if he were to to have complications during surgery. and daughter would like to weigh the risks and benefits and readdress tomorrow. Discussed with Robbie Hernandez family concerns regarding anesthesia and further cardiac complications during surgery. Further interventions pending family discussion. Attestation Attestation: To help prompt me to consider important information that might be impacting today's encounter and assessment, information from prior notes written by myself or my colleagues may have been "brought forward" into today's note. My signature on this note, however, is an attestation that I personally performed the exam, history, and/or decision-making noted today, and, unless otherwise indicated, the interactions with patient, family, and staff as well as the review of records all occurred today. I also attest that the listed assessment and stated plan reflect my best clinical judgment today based on the combination of historical information, prior notes, and today's exam/ interactions. When time spent is documented, it refers only to time spent today by the signer, or if indicated, combined time spent today by collaborating physician/nurse practitioner.
[2018-05-12] MEDS: Piperacil/Tazo 3.375 GM Premix 50 ML IV.SIG SCH ×4 (00:31→18:09)
[2018-05-12] MEDS: Chlorhexidine Gluconate 2% 1 Pack (2 Cloths) TOPICAL SCH (04:42)
[2018-05-12] MEDS: Oral Hygiene Kit OROPHARYNG SCH ×3 (04:42→15:43)
[2018-05-12] MEDS: Artificial Tears Opth Drops 15 ML Bottle EACH EYE SCH ×3 (04:42→20:26)
--- NOTE | 2018-05-12 05:02 | XR ---
EXAM DATE: 05/12/2018 4:15 AM EST AGE/SEX: 72 years / Male INDICATIONS: Shortness of breath, possible sepsis. CLINICAL DATA: This is the patient's subsequent encounter. Patient reports that signs and symptoms h ave been present for 4 - 6 days and indicates a pain score of Nonresponsive. MEDICAL/SURGICAL HISTORY: Diabetes. Cardiovascular disease. Right subdural hematoma. CABG. Coronary artery stent. COMPARISON: C, CHEST 1V SINGLE AP, 05/09/2018. . FINDINGS: A single AP semierect view of the chest was obtained. The study is more limited inspiratory necrotic lung vasculature. The endotracheal tube remains in place with the tip 1 cm above the teresa. The naso gastric tube right subclavian central venous line remain in place. There is mild hazy opacity in both lung bases and left perihilar region. The heart size is mildly prominent. The patient is status post median sternotomy for bypass grafting procedure. The left hemidiaphragm remains obscured. There is m ild blunting of the left costophrenic angle. CONCLUSION: 1. Mid inspiratory study with chronic lung vasculature. Hazy perihilar opacities remain which likely is not significantly changed. 2. Small left effusion. Electronically signed by: Wayne Marcos MD 05/12/2018 5:01 AM EST
[2018-05-12] MEDS: Insulin NovoLIN Regular Correctional Sugar Inj SQ SCH ×3 (05:58→17:35)
[2018-05-12 06:17] LABS: Baso % (Auto) 0.8 % (0.0-2.0); Eos % (Auto) 0.8 % (0.0-4.0); Hematocrit 36.1 % (39.0-51.0); Hemoglobin 12.2 gm/dL (13.0-17.0); Lymph # (Auto) 0.9 th/mm3 (1.0-4.8); Lymph % (Auto) 14.3 % (9.0-44.0); Mean Corpuscular HGB Conc 33.9 % (32.0-36.0); Mean Corpuscular Hemoglobin 31.7 pg (27.0-34.0); Mean Corpuscular Volume 93.5 fL (80.0-100.0); Mean Platelet Volume 10.2 fL (7.0-11.0); Mono # (Auto) 0.5 th/mm3 (0.0-0.9); Mono % (Auto) 7.4 % (0.0-8.0); Neut # (Auto) 4.7 th/mm3 (1.8-7.7); Neut % (Auto) 76.7 % (16.0-70.0); Platelet Count 86 th/mm3 (150-450); Red Blood Count 3.86 mil/mm3 (4.50-5.90); White Blood Count 6.2 th/mm3 (4.0-11.0)
[2018-05-12 06:25] LABS: INR 1.1 Ratio; Prothrombin Time 11.2 sec (9.8-11.6)
[2018-05-12 06:39] LABS: Alanine Aminotransferase 588 U/L (12-78); Anion Gap 6 meq/L (5-15); Aspartate Aminotransferase 130 U/L (15-37); Blood Urea Nitrogen 25 mg/dL (7-18); Calcium 8.1 mg/dL (8.5-10.1); Carbon Dioxide 30.1 meq/L (21.0-32.0); Chloride 106 meq/L (98-107); Glomerular Filtration Rate 61 mL/min (>89); Glucose,Random 327 mg/dL (74-106); Magnesium 2.2 mg/dL (1.5-2.5); Potassium 4.2 meq/L (3.5-5.1); Sodium 142 meq/L (136-145)
[2018-05-12 06:42] LABS: Alkaline Phosphatase 95 U/L (45-117); Phosphorus 2.9 mg/dL (2.5-4.9); Total Protein 5.1 g/dL (6.4-8.2)
[2018-05-12] MEDS: Sodium Chloride 0.9% 2 ML Flush BID IV.FLUSH SCH ×2 (08:05→20:25)
[2018-05-12] MEDS: Senna/Docusate Sodium 8.6/50 MG Tablet PO SCH ×2 (08:06→20:25)
[2018-05-12] MEDS: Famotidine PF Inj 20 MG/2 ML Vial IV.PUSH SCH ×2 (08:06→20:25)
[2018-05-12] MEDS: Chlorhexidine 0.12% Oral Kit 15 ML UDC OROPHARYNG SCH ×2 (08:07→21:28)
[2018-05-12 08:42] LABS: Platelet Morphology Normal (Normal); RBC Morphology Normal (Normal)
[2018-05-12] MEDS: fentaNYL 10 mcg/mL Premix Drip 2,500 MCG/250 ML BAG IV.SIG PRN (13:05)
--- NOTE | 2018-05-12 13:33 | P.PNPAL ---
Reason for Visit Reason for visit: a. To assist with evaluation and management of symptoms including: Pain, dyspnea b. To assist medical decision maker(s) with: better understanding of current medical conditions; weighing benefits/burdens of medical treatment options; making medical treatment decisions. Subjective Subjective/Interval History: This is a 72-year-old male who was brought to [facility] emergency department via [facility] after the patient fell at home, he was found by his on his knees over the bed. He was also noted to be shaking vigorously but was able to talk. Upon arrival of [facility], he was found hypoxic with oxygen saturations in the 60s. He was tachycardic with heart rate in the 140s-150s with a right bundle branch block noted and wide complexes. indicated he had had about a week long period of confusion and fluctuating mental status along with low back pain. Upon arrival to the ED was intubated placed on mechanical ventilation, was started on IV amiodarone, with a loading dose, and lidocaine. Apparently there was a failed attempt at defibrillation/cardioversion x2. Patient remains critically ill in the ICU. He remains mechanically ventilated. Nurse has just stopped sedation for neuro assessment. Moves all extremities spontaneously only, no purposeful movement, does not follow commands. Does not open eyes for exam, squints eyes tightly when trying to assess pupils. Per nurse and family, he is not opening his eyes, no tracking. Pupils remain unequal, unable to assess response secondary to resistance to exam. Received call from daughter requesting visit to answer questions they have come up with. Family/Friend Interactions: Met with patient's , daughter, and son per their request. seems to be struggling with patient's overall condition and poor prognosis. She has questions related to risks and benefits of neurosurgical intervention. She reiterates that she would not want patient to be resuscitated if he were so to require it during surgery. She voices concerns multiple times that the patient is a DNR, and would not want to be resuscitated. Attempted to explain multiple times the patient would most likely be resuscitated if he were to go into cardiac arrest during procedure. Also reiterated possible risks of neurosurgery itself, including rebleeding and possibility for more complicated surgical intervention if that should occur. Advised that given his overall poor health status patient's neuro status may likely remain as it currently is. asks how long patient will be able to remain on the ventilator before being trached and having PEG tube placed. Advised her that there is no definite time frame, however will need daily reassessment on respiratory status , discussed likelihood of possible ventilator dependence with prolonged mechanical ventilation. Family seemed to be looking for definitive answer that cannot be provided at this time. Discussed current mechanical ventilation stands pending decisions about taking the patient to surgery or not, requirements for sedation for neuro protection, patient may not require tracheostomy placement if decision is made not to take patient to the OR and/or do not wish to aggressively treat hygroma/ICH. Family would like to discuss possibilities of withdrawal from ventilator versus aggressive treatment in the coming days. Objective Vital Signs: Vital Signs 05/11/18 14:00 05/11/18 15:00 05/11/18 16:00 Temperature 99.4 F Pulse Rate 78 75 83 Respiratory Rate 18 17 27 H Blood Pressure 140/63 143/65 H 161/72 H Pulse Oximetry 95 95 96 05/11/18 17:00 05/11/18 18:00 05/11/18 18:01 Temperature Pulse Rate 84 100 H 98 H Respiratory Rate 23 28 H 26 H Blood Pressure 151/70 H 165/79 H 165/79 H Pulse Oximetry 95 94 L 94 L 05/11/18 19:00 05/11/18 19:06 05/11/18 19:17 Temperature Pulse Rate 108 H 94 H Respiratory Rate 37 H 21 18 Blood Pressure 161/87 H Pulse Oximetry 86 L 95 05/11/18 20:00 05/11/18 21:00 05/11/18 22:00 Temperature 100.7 F H Pulse Rate 88 80 72 Respiratory Rate 16 16 16 Blood Pressure 139/63 116/58 L 112/57 L Pulse Oximetry 91 L 92 L 92 L 05/11/18 23:00 05/12/18 00:00 05/12/18 00:53 Temperature 99.9 F H Pulse Rate 117 H 66 Respiratory Rate 25 H 16 17 Blood Pressure 119/61 110/54 L Pulse Oximetry 97 94 L 95 05/12/18 01:00 05/12/18 02:00 05/12/18 03:00 Temperature Pulse Rate 67 63 60 Respiratory Rate 16 16 16 Blood Pressure 127/60 113/56 L 119/56 L Pulse Oximetry 93 L 92 L 93 L 05/12/18 03:35 05/12/18 04:00 05/12/18 05:00 Temperature 98.9 F Pulse Rate 66 64 60 Respiratory Rate 16 16 16 Blood Pressure 113/55 L 118/57 L Pulse Oximetry 95 93 L 93 L 05/12/18 06:00 05/12/18 07:00 05/12/18 08:00 Temperature 97.9 F Pulse Rate 56 L 61 56 L Respiratory Rate 16 16 16 Blood Pressure 117/56 L 127/58 L 121/58 L Pulse Oximetry 94 L 93 L 05/12/18 09:00 05/12/18 10:00 05/12/18 11:00 Temperature Pulse Rate 58 L 59 L 66 Respiratory Rate 16 18 19 Blood Pressure 128/61 137/64 134/64 Pulse Oximetry 97 97 97 05/12/18 12:00 Temperature 98.4 F Pulse Rate 74 Respiratory Rate 25 H Blood Pressure 158/70 H Pulse Oximetry 96 Intake & Output 05/11/18 05/12/18 05/12/18 18:59 06:59 18:59 Intake Total 760 / 760 1920 / 1920 Output Total 1000 / 1000 750 / 750 Balance -240 / -240 1170 / 1170 Weight 101.5 kg Intake: IV 100 / 100 1460 / 1460 Versed Inj 50 mg In 50 ml @ 2 50 / 50 MG/HR 2 mls/hr IV.CONT TITRATE PRN Rx#:[id number] Zosyn 3.375 GM Premix 50 ML @ 100 / 100 150 / 150 100 mls/hr IV.SIG Q6H RAÚL Rx#: [id number] Potassium Phosphate Inj 30 MMOL 260 / 260 In NS Inj 250 ML @ 42 mls/hr IV.SIG UNSCH PRN Rx#:[id number] Oral 0 / 0 Tube Feeding 660 / 660 220 / 220 Water Bolus Amount 240 / 240 Output: Urine 1000 / 1000 750 / 750 Other: Date of Last Bowel Movement 05/12/18 # Bowel Movements 0 Physical Exam: CONSTITUTIONAL/GENERAL: This is an adequately nourished patient, sedated and mechancally ventilated. TUBES/LINES/DRAINS:ETT, OGT, giang, right SC TLC, PIV SKIN: No jaundice, rashes, or lesions. Ecchymoses/hematoma on upper extremities bilaterally. Skin temperature appropriate. Not diaphoretic. EYES: Pupils unequal, right 3mm, left pinpoint. Unable to assess pupillary reaction due to resistance of exam. Patient squints eyes tightly when trying to assess. ENT: Orally intubated, exam limited secondary to tubes CARDIOVASCULAR: Regular rate and rhythm, peripheral pulses palpable. RESPIRATORY/CHEST: Symmetric, mildly labored on controlled rate. Clear to auscultation. Breath sounds equal bilaterally. No wheezes, rales, or rhonchi. GASTROINTESTINAL: Abdomen obese, soft, non-tender, nondistended. No hepato- splenomegaly, or palpable masses. No guarding. Bowel sounds present. Tube feeding on hold pending surgical decision. GENITOURINARY: Without palpable bladder distension. Giang catheter in place draining small amount of yellow urine. MUSCULOSKELETAL: Extremities without clubbing, cyanosis, or edema. No joint tenderness or effusion noted. No mottling or clubbing. NEUROLOGICAL: Sedated and mechanically ventilated. Restless and agitated in the bed. He is intermittently following commands. Pupils unequal, 3 3mm, left pinpoint. PSYCHIATRIC: Restless and agitated on mechanical ventilation. Diagnostic Tests Laboratory: Laboratory Results - last 72 hr 05/09/18 05/09/18 05/09/18 12:58 12:58 13:27 WBC RBC Hgb Hct MCV MCH MCHC RDW Plt Count MPV Prelim Diff (Auto) Neut % (Auto) Lymph % (Auto) [place] % (Auto) Eos % (Auto) Baso % (Auto) Neut # (Auto) Lymph # (Auto) [place] # (Auto) Eos # (Auto) Baso # (Auto) WBC Differential Diff Scan Differential Comment Platelet Estimate Platelet Morphology RBC Morphology PT INR Sodium Potassium Chloride Carbon Dioxide Anion Gap BUN Creatinine Estimated GFR POC Glucose 249 H Random Glucose Lactic Acid 1.8 Calcium Prot Corrected Calcium Phosphorus Magnesium Total Bilirubin AST ALT Alkaline Phosphatase Total Protein Albumin Hepatitis A IgM Ab Nonreactive Hep Bs Antigen Nonreactive Hep B Core IgM Ab Nonreactive Hep C IgG Ab Nonreactive 05/09/18 05/10/18 05/10/18 18:41 00:03 04:00 WBC 7.5 RBC 3.88 L Hgb 12.4 L Hct 35.8 L MCV 92.4 MCH 32.1 MCHC 34.7 RDW 14.7 Plt Count 101 L MPV 9.7 Prelim Diff (Auto) Neut % (Auto) 80.3 H Lymph % (Auto) 13.8 [place] % (Auto) 3.8 Eos % (Auto) 1.0 Baso % (Auto) 1.1 Neut # (Auto) 6.0 Lymph # (Auto) 1.0 [place] # (Auto) 0.3 Eos # (Auto) 0.1 Baso # (Auto) 0.1 WBC Differential . Diff Scan Differential Comment Auto diff final Platelet Estimate Platelet Morphology RBC Morphology PT INR Sodium Potassium Chloride Carbon Dioxide Anion Gap BUN Creatinine Estimated GFR POC Glucose 286 H 284 H Random Glucose Lactic Acid Calcium Prot Corrected Calcium Phosphorus Magnesium Total Bilirubin AST ALT Alkaline Phosphatase Total Protein Albumin Hepatitis A IgM Ab Hep Bs Antigen Hep B Core IgM Ab Hep C IgG Ab 05/10/18 05/10/18 05/10/18 04:00 11:54 17:26 WBC RBC Hgb Hct MCV MCH MCHC RDW Plt Count MPV Prelim Diff (Auto) Neut % (Auto) Lymph % (Auto) [place] % (Auto) Eos % (Auto) Baso % (Auto) Neut # (Auto) Lymph # (Auto) [place] # (Auto) Eos # (Auto) Baso # (Auto) WBC Differential Diff Scan Differential Comment Platelet Estimate Platelet Morphology RBC Morphology PT INR Sodium 141 Potassium 3.6 D Chloride 107 Carbon Dioxide 26.0 Anion Gap 8 BUN 20 H Creatinine 1.47 H Estimated GFR 47 L POC Glucose 284 H 249 H Random Glucose 276 H Lactic Acid Calcium 7.4 L* Prot Corrected Calcium 8.8 Phosphorus 1.6 L D Magnesium 1.9 Total Bilirubin 1.1 H AST 542 H ALT 888 H Alkaline Phosphatase 104 Total Protein 4.6 L D Albumin 2.0 L Hepatitis A IgM Ab Hep Bs Antigen Hep B Core IgM Ab Hep C IgG Ab 05/11/18 05/11/18 05/11/18 00:42 05:55 05:55 WBC 7.4 RBC 4.14 L Hgb 13.2 Hct 39.3 MCV 95.1 MCH 32.0 MCHC 33.7 RDW 15.0 Plt Count 88 L MPV 9.9 Prelim Diff (Auto) Slide review pending Neut % (Auto) 81.7 H Lymph % (Auto) 11.8 [place] % (Auto) 5.4 Eos % (Auto) 0.8 Baso % (Auto) 0.3 Neut # (Auto) 6.1 Lymph # (Auto) 0.9 L [place] # (Auto) 0.4 Eos # (Auto) 0.1 Baso # (Auto) 0.0 WBC Differential . Diff Scan Auto diff confirmed Differential Comment . Platelet Estimate Low L Platelet Morphology Normal RBC Morphology PT INR Sodium 142 Potassium 3.9 Chloride 105 Carbon Dioxide 28.2 Anion Gap 9 BUN 23 H Creatinine 1.21 Estimated GFR 59 L POC Glucose 329 H Random Glucose 306 H Lactic Acid Calcium 7.9 L Prot Corrected Calcium Phosphorus 2.7 D Magnesium 1.9 Total Bilirubin 0.9 AST 344 H ALT 863 H Alkaline Phosphatase 116 Total Protein 5.2 L D Albumin 2.1 L Hepatitis A IgM Ab Hep Bs Antigen Hep B Core IgM Ab Hep C IgG Ab 05/11/18 05/11/18 05/11/18 11:07 17:25 23:12 WBC RBC Hgb Hct MCV MCH MCHC RDW Plt Count MPV Prelim Diff (Auto) Neut % (Auto) Lymph % (Auto) [place] % (Auto) Eos % (Auto) Baso % (Auto) Neut # (Auto) Lymph # (Auto) [place] # (Auto) Eos # (Auto) Baso # (Auto) WBC Differential Diff Scan Differential Comment Platelet Estimate Platelet Morphology RBC Morphology PT INR Sodium Potassium Chloride Carbon Dioxide Anion Gap BUN Creatinine Estimated GFR POC Glucose 230 H 317 H 321 H Random Glucose Lactic Acid Calcium Prot Corrected Calcium Phosphorus Magnesium Total Bilirubin AST ALT Alkaline Phosphatase Total Protein Albumin Hepatitis A IgM Ab Hep Bs Antigen Hep B Core IgM Ab Hep C IgG Ab 05/12/18 05/12/18 05/12/18 05:45 05:45 05:45 WBC 6.2 RBC 3.86 L Hgb 12.2 L Hct 36.1 L MCV 93.5 MCH 31.7 MCHC 33.9 RDW 15.0 Plt Count 86 L MPV 10.2 Prelim Diff (Auto) Slide review pending Neut % (Auto) 76.7 H Lymph % (Auto) 14.3 [place] % (Auto) 7.4 Eos % (Auto) 0.8 Baso % (Auto) 0.8 Neut # (Auto) 4.7 Lymph # (Auto) 0.9 L [place] # (Auto) 0.5 Eos # (Auto) 0.0 Baso # (Auto) 0.0 WBC Differential . Diff Scan Auto diff confirmed Differential Comment . Platelet Estimate Low L Platelet Morphology Normal RBC Morphology Normal PT 11.2 INR 1.1 Sodium 142 Potassium 4.2 Chloride 106 Carbon Dioxide 30.1 Anion Gap 6 BUN 25 H Creatinine 1.17 Estimated GFR 61 L POC Glucose Random Glucose 327 H Lactic Acid Calcium 8.1 L Prot Corrected Calcium Phosphorus 2.9 Magnesium 2.2 Total Bilirubin 0.8 AST 130 H ALT 588 H Alkaline Phosphatase 95 Total Protein 5.1 L Albumin 2.0 L Hepatitis A IgM Ab Hep Bs Antigen Hep B Core IgM Ab Hep C IgG Ab 05/12/18 05/12/18 05:51 11:24 WBC RBC Hgb Hct MCV MCH MCHC RDW Plt Count MPV Prelim Diff (Auto) Neut % (Auto) Lymph % (Auto) [place] % (Auto) Eos % (Auto) Baso % (Auto) Neut # (Auto) Lymph # (Auto) [place] # (Auto) Eos # (Auto) Baso # (Auto) WBC Differential Diff Scan Differential Comment Platelet Estimate Platelet Morphology RBC Morphology PT INR Sodium Potassium Chloride Carbon Dioxide Anion Gap BUN Creatinine Estimated GFR POC Glucose 338 H 273 H Random Glucose Lactic Acid Calcium Prot Corrected Calcium Phosphorus Magnesium Total Bilirubin AST ALT Alkaline Phosphatase Total Protein Albumin Hepatitis A IgM Ab Hep Bs Antigen Hep B Core IgM Ab Hep C IgG Ab Result Diagrams: 05/12/18 05:45 05/12/18 05:45 Microbiology: Microbiology 05/08/18 09:55 Aerobic Blood Culture - Preliminary Blood - Peripheral No growth in 4 days Anaerobic Blood Culture - Preliminary No growth in 4 days 05/08/18 09:45 Aerobic Blood Culture - Preliminary Blood - Peripheral No growth in 4 days Anaerobic Blood Culture - Preliminary No growth in 4 days 05/08/18 05:00 Urine Culture - Final Clean Catch Urine No growth in 48 hours 05/08/18 05:40 Gram Stain - Final Sputum - Endotracheal Sputum Culture - Final No growth in 48 hours Imaging: Impressions Chest X-Ray 05/12/18 06:00 CONCLUSION: 1. Mid inspiratory study with chronic lung vasculature. Hazy perihilar opacities remain which likely is not significantly changed. 2. Small left effusion. Procedures: 05/08/18: Intubation, cardioversion Assessment and Plan - Disease Oriented Problem List (1) ICH (intracerebral hemorrhage) (2) Cardiomyopathy (3) Hygroma, cystic (4) Cataracts, bilateral (5) CAD (coronary artery disease) (6) Hypertension (7) Neuropathy (8) Sleep apnea with use of continuous positive airway pressure (CPAP) (9) GERD (gastroesophageal reflux disease) (10) Hiatal hernia - Symptom Scale (1) Pain 0-10 Scale: Unable to quantify (2) Dyspnea 0-10 Scale: Unable to quantify Pertinent Non-Medical Issues: Psychosocial: Has been to his Rufina for 54 years. They have 3 children, only 2 are living. Patient was living independently with his at home prior to this hospitalization Spiritual: Vidhi plays an important role in the patient and his 's life, they have with her local quality assurance lead and deacons who have been visiting here in the hospital. [facility] hospital block captain at this time, will let us know if they need them in the future Legal: Currently patient is incapacitated and unable to make his own decisions, it is unclear if he will ever regain capacity. Per [place] statutes Rufina would be the appropriate legal proxy. Ethical issues impacting care: none Important Contacts: Rufina Means: [phone] (home) [phone] (CELL) Prognosis: Per conversation with and daughter, patient has had some gradual decline functionally over the past few months. and daughter report patient had been pretty active prior to hospitalization though he had been requiring more frequent periods of rest. Given patient's recent decline and poor health status , he will likely be at risk for future setbacks. Patient has a long history of cardiac issues, recent echo reveals ejection fraction 20-25%, in addition to an acute on chronic intracranial hemorrhage. Given the inability to treat cardiac issues with anticoagulation, further increases risks. If anticoagulation is restarted in the near future, patient is high risk for worsening and/or new intracranial hemorrhages. Patient also at risk for ventilator dependence secondary to prolonged requirements. While patient is not having assessments have remained unchanged since time of admission, Without surgical intervention of intracranial hemorrhage, patient may likely not have much neurological improvement. With that said if he is to undergo surgical intervention, he is at great risk for cardiac arrest or other complications. Both his ICH and poor cardiac function alone could certainly be life limiting, in combinations certainly increases his risks for further complications including . If he is to survive this hospitalization likely he will have significant deficits and possibly require long-term care placement. Code Status: Alternative Code (Intubation only) Plan: Legal decision maker: At this time patient's would be the appropriate decision maker given patient is currently incapacitated secondary to being sedated and mechanically ventilated. She is supported by HER-2 children. Goals: Remain aggressive at this time, however family have stated they will likely transition to comfort measures if there is no hope for meaningful recovery. They appear to have a good understanding of his overall decline in health status. However, they are struggling with decision making regarding neurosurgery and possibility of serious cardiac complications. restates she would like patient to be DNR during surgical procedure, have discussed multiple times the patient would more likely be resuscitated if he required such. Family to discuss in the coming days. They will need to make decision in the coming days regarding patient going to OR under general anesthesia for a bur hole. CODE STATUS: Discussed CODE STATUS with and daughter, at this time patient is intubated and mechanically ventilated but they would like to transition him to alternative code: DNR with intubation only. SYMPTOMS: --Dyspnea: Patient remains mechanically ventilated sedated. Will need to evaluate over the next few days for the possibility of extubation. Currently on CPAP at time of my visit, appears restless and mildly distressed. --Pain: Patient had a history of back pain prior to hospitalization, given bedbound status now in ICU with worsening edema, will likely continue to have worsening pain/weakness. Currently on a fentanyl drip and appears comfortable, will continue to monitor Palliative care will continue to follow during hospital course as condition evolves, to assist patient/decision-maker with understanding of medical conditions, weighing benefits/burdens of treatment options, for clarification of goals of treatment. Additionally will assist with any symptoms of palliative concern 72-year-old male with significant cardiac history. Has had CABG with multiple stents. EF 20-25%. Family indicated gradual decline over the past few months, was becoming weaker and having frequent falls. indicates increasing confusion leading up to admission. Discussed a "wait and see" approach regarding neurosurgery secondary to poor cardiac function and likelihood of cardiac complications. Patient is mildly agitated on ventilator with elevated heart rate and BP. Regardless of neurosurgical intervention, patient remains high risk for cardiac complications. requesting no resuscitation during surgical procedure, discussed this would likely not be possible and he would likely be resuscitated if he were to to have complications during surgery. and daughter would like to weigh the risks and benefits and readdress tomorrow.
--- NOTE | 2018-05-12 15:00 | P.PNCA ---
Subjective Interval history: Intubated, sedated, neurosurgery considered, reluctant to agree Medications and Allergies Active Medications: Active Medications Acetaminophen (Tylenol) 650 mg PO Q6H PRN PRN Reason: PAIN 1-10 AND/OR FEVER >101F Last Admin: 05/08/18 21:19 Dose: 650 mg Albuterol (Duoneb Neb (Prn)) 1 ampul NEB Q4HR NEB PRN PRN Reason: SHORTNESS OF BREATH Last Admin: 05/12/18 03:34 Dose: 1 ampul Albuterol (Albuterol Neb (Prn)) 2.5 mg NEB Q2HR NEB PRN PRN Reason: DYSPNEA Artificial Tears (Tears Naturale Opth Drops) 1 drop EACH EYE Q8H [facility] Last Admin: 05/12/18 12:31 Dose: 1 drop Chlorhexidine Gluconate (Chlorhexidine 2% Cloth) 3 pack TOPICAL DAILY@0400 [facility] Stop: 05/13/18 03:59 Last Admin: 05/12/18 04:42 Dose: 3 pack Chlorhexidine Gluconate (Chlorhexidine 2% Cloth) 3 pack TOPICAL DAILY@0400 PRN PRN Reason: Extra cloth needed Stop: 05/13/18 03:59 Chlorhexidine Gluconate (Peridex 0.12% Oral Kit) 15 ml OROPHARYNG BID@0800, 2000 [facility] Last Admin: 05/12/18 08:07 Dose: 15 ml Dextrose (D50w Vial) 50 ml IV.PUSH UNSCH PRN PRN Reason: PER HYPOGLYCEMIA PROTOCOL Famotidine (Pepcid Pf Inj) 20 mg IV.PUSH Q12HR [facility] Last Admin: 05/12/18 08:06 Dose: 20 mg Fentanyl Citrate (Fentanyl Inj) 50 mcg IV.PUSH Q1H PRN PRN Reason: SEE LABEL COMMENTS Glucagon (Glucagon Inj) 1 mg OTHER PRN PRN PRN Reason: for Hypoglycemia Protocol Piperacillin/Tazobactam/Dextrose (Zosyn 3.375 Gm Premix) 50 mls @ 100 mls/hr IV.SIG Q6H [facility] Last Admin: 05/12/18 12:30 Dose: 100 mls/hr Phenylephrine HCl 40 mg/ (Sodium Chloride) 500 mls @ 30 mls/hr IV.CONT TITRATE PRN; Protocol PRN Reason: See Protocol Last Titration: 05/09/18 06:13 Dose: Infused Norepinephrine Bitartrate 16 (mg/ Sodium Chloride) 250 mls @ 1.87 mls/hr IV.CONT TITRATE PRN; Protocol PRN Reason: See Protocol Last Titration: 05/10/18 06:00 Dose: Infused Fentanyl (Fentanyl 10 Mcg/Ml Premix Drip) 2,500 mcg in 250 mls @ 5 mls/hr IV.SIG TITRATE PRN; Protocol PRN Reason: Per Protocol Last Admin: 05/12/18 13:05 Dose: 100 mcg/hr, 10 mls/hr Midazolam HCl (Versed Inj) 50 mg in 50 mls @ 2 mls/hr IV.CONT TITRATE PRN; Protocol PRN Reason: Per Protocol Last Admin: 05/11/18 21:23 Dose: 3 mg/hr, 3 mls/hr Magnesium Sulfate 2 gm/ Sodium (Chloride) 100 mls @ 50 mls/hr IV.SIG UNSCH PRN PRN Reason: For Magnesium 1.2 - 1.6 mg/dL Potassium Chloride (Kcl 40 Meq Premix Inj) 40 meq in 100 mls @ 50 mls/hr IV.SIG Q2H PRN PRN Reason: For Potassium 2.8 - 3.2 mEq/L Potassium Chloride (Kcl 20 Meq Premix Inj) 20 meq in 100 mls @ 50 mls/hr IV.SIG Q2H PRN PRN Reason: For Potassium 3.3 - 3.5 mEq/L Potassium Chloride (Kcl 40 Meq Premix Inj) 40 meq in 100 mls @ 25 mls/hr IV.SIG UNSCH PRN PRN Reason: For Potassium 3.3 - 3.5 mEq/L Potassium Chloride (Kcl 20 Meq Premix Inj) 20 meq in 100 mls @ 50 mls/hr IV.SIG Q2H PRN PRN Reason: For Potassium 2.8 - 3.2 mEq/L Potassium Phosphate 30 mmol/ (Sodium Chloride) 260 mls @ 42 mls/hr IV.SIG UNSCH PRN PRN Reason: SEE LABEL COMMENTS Last Infusion: 05/11/18 19:53 Dose: Infused Sodium Phosphate 30 mmol/ (Sodium Chloride) 260 mls @ 42 mls/hr IV.SIG UNSCH PRN PRN Reason: For Phosphorus < 2.5 mg/dL Magnesium Sulfate 4 gm/ Sodium (Chloride) 100 mls @ 50 mls/hr IV.SIG UNSCH PRN PRN Reason: For Magnesium 0.9 - 1.1 mg/dL Insulin Human Regular (Novolin R Correctional Sugar Inj) 0 units SQ Q6HR [facility]; Protocol Last Admin: 05/12/18 12:29 Dose: 7 units Magnesium Oxide (Mag-Ox) 800 mg PO UNSCH PRN PRN Reason: For Magnesium 1.2 - 1.6 mg/dL Miscellaneous Medication () 1 each OROPHARYNG 0000,0400,1200,1600 [facility] Last Admin: 05/12/18 12:30 Dose: 1 each Potassium Bicarb/Potassium Chloride (K-Lyte Cl Eff) 50 meq PO UNSCH PRN PRN Reason: For Potassium 3.3 - 3.5 mEq/L Potassium Phosphate (K-Phos Original) 2,000 mg PO UNSCH PRN PRN Reason: SEE LABEL COMMENTS Potassium Phosphate (K-Phos Original) 2,000 mg PO Q4H PRN PRN Reason: Phosphorus Less Than 2.5 mg/dL Senna/Docusate Sodium (Palak-Colace) 2 tab PO BID [facility] Last Admin: 05/12/18 08:06 Dose: 2 tab Sodium Chloride (Ns Flush) 2 ml IV.FLUSH BID [facility] Last Admin: 05/12/18 08:05 Dose: 2 ml Sodium Chloride (Ns Flush) 2 ml IV.FLUSH PRN PRN PRN Reason: FLUSH AFTER USING IV ACCESS Terbutaline Sulfate (Brethine Inj) 1 mg SQ UNSCH PRN PRN Reason: For Extravasation Allergies Allergy/AdvReac Type Severity Reaction Status Date / Time sulfamethoxazole Allergy Severe Rash Verified 07/06/17 09:08 Physical Exam Vital signs: Vital Signs 05/11/18 15:00 05/11/18 16:00 05/11/18 17:00 Temperature 99.4 F Pulse Rate 75 83 84 Respiratory Rate 17 27 H 23 Blood Pressure 143/65 H 161/72 H 151/70 H Pulse Oximetry 95 96 95 05/11/18 18:00 05/11/18 18:01 05/11/18 19:00 Temperature Pulse Rate 100 H 98 H 108 H Respiratory Rate 28 H 26 H 37 H Blood Pressure 165/79 H 165/79 H 161/87 H Pulse Oximetry 94 L 94 L 86 L 05/11/18 19:06 05/11/18 19:17 05/11/18 20:00 Temperature 100.7 F H Pulse Rate 94 H 88 Respiratory Rate 21 18 16 Blood Pressure 139/63 Pulse Oximetry 95 91 L 05/11/18 21:00 05/11/18 22:00 05/11/18 23:00 Temperature Pulse Rate 80 72 117 H Respiratory Rate 16 16 25 H Blood Pressure 116/58 L 112/57 L 119/61 Pulse Oximetry 92 L 92 L 97 05/12/18 00:00 05/12/18 00:53 05/12/18 01:00 Temperature 99.9 F H Pulse Rate 66 67 Respiratory Rate 16 17 16 Blood Pressure 110/54 L 127/60 Pulse Oximetry 94 L 95 93 L 05/12/18 02:00 05/12/18 03:00 05/12/18 03:35 Temperature Pulse Rate 63 60 66 Respiratory Rate 16 16 16 Blood Pressure 113/56 L 119/56 L Pulse Oximetry 92 L 93 L 95 05/12/18 04:00 05/12/18 05:00 05/12/18 06:00 Temperature 98.9 F Pulse Rate 64 60 56 L Respiratory Rate 16 16 16 Blood Pressure 113/55 L 118/57 L 117/56 L Pulse Oximetry 93 L 93 L 05/12/18 07:00 05/12/18 08:00 05/12/18 09:00 Temperature 97.9 F Pulse Rate 61 56 L 58 L Respiratory Rate 16 16 16 Blood Pressure 127/58 L 121/58 L 128/61 Pulse Oximetry 94 L 93 L 97 05/12/18 10:00 05/12/18 11:00 05/12/18 12:00 Temperature 98.4 F Pulse Rate 59 L 66 74 Respiratory Rate 18 19 25 H Blood Pressure 137/64 134/64 158/70 H Pulse Oximetry 97 97 96 05/12/18 13:00 05/12/18 14:00 Temperature Pulse Rate 59 L 50 L Respiratory Rate 16 16 Blood Pressure 111/58 L 114/55 L Pulse Oximetry 92 L 94 L Intake & Output 05/11/18 05/12/18 05/12/18 18:59 06:59 18:59 Intake Total 760 / 760 1920 / 1920 Output Total 1000 / 1000 750 / 750 Balance -240 / -240 1170 / 1170 Weight 223 lb 12.307 oz Intake: IV 100 / 100 1460 / 1460 Versed Inj 50 mg In 50 ml @ 2 50 / 50 MG/HR 2 mls/hr IV.CONT TITRATE PRN Rx#:[id number] Zosyn 3.375 GM Premix 50 ML @ 100 / 100 150 / 150 100 mls/hr IV.SIG Q6H RAÚL Rx#: [id number] Potassium Phosphate Inj 30 MMOL 260 / 260 In NS Inj 250 ML @ 42 mls/hr IV.SIG UNSCH PRN Rx#:[id number] Oral 0 / 0 Tube Feeding 660 / 660 220 / 220 Water Bolus Amount 240 / 240 Output: Urine 1000 / 1000 750 / 750 Other: Date of Last Bowel Movement 05/12/18 # Bowel Movements 0 Narrative: intubated, sedated lungs clear heart regular abdomen soft no edema - Urinary Catheter Management Indwelling Urethral Catheter Cath placed during this visit: yes, but has since been removed by the nurse Urethral indwelling: Yes Reason for continuing: Terminally ill/Comfort care Insertion date: 05/08/18 Insertion time: 00:55 Removal date: 05/09/18 Removal time: 11:23 Straight Cath placed during this visit: no Reason for continuing: Not indwelling catheter Female External Cath placed during this visit: no Reason for continuing: Not indwelling catheter Results 05/12/18 05:45 05/12/18 05:45 Cardiac Enzymes 05/11/18 05/12/18 Range/Units 05:55 05:45 AST 344 H 130 H (15-37) U/L Coagulation 05/12/18 Range/Units 05:45 PT 11.2 (9.8-11.6) sec CBC 05/11/18 05/12/18 Range/Units 05:55 05:45 WBC 7.4 6.2 (4.0-11.0) th/mm3 RBC 4.14 L 3.86 L (4.50-5.90) mil/mm3 Hgb 13.2 12.2 L (13.0-17.0) gm/dL Hct 39.3 36.1 L (39.0-51.0) % Plt Count 88 L 86 L (150-450) th/mm3 Neut # (Auto) 6.1 4.7 (1.8-7.7) th/mm3 Lymph # (Auto) 0.9 L 0.9 L (1.0-4.8) th/mm3 [facility] # (Auto) 0.4 0.5 (0.0-0.9) th/mm3 Eos # (Auto) 0.1 0.0 (0.0-0.4) th/mm3 Baso # (Auto) 0.0 0.0 (0.0-0.2) th/mm3 Comprehensive Metabolic Panel 05/11/18 05/12/18 Range/Units 05:55 05:45 Sodium 142 142 (136-145) meq/L Potassium 3.9 4.2 (3.5-5.1) meq/L Chloride 105 106 (98-107) meq/L Carbon Dioxide 28.2 30.1 (21.0-32.0) meq/L BUN 23 H 25 H (7-18) mg/dL Creatinine 1.21 1.17 (0.60-1.30) mg/dL Calcium 7.9 L 8.1 L (8.5-10.1) mg/dL AST 344 H 130 H (15-37) U/L ALT 863 H 588 H (12-78) U/L Alkaline Phosphatase 116 95 (45-117) U/L Total Protein 5.2 L D 5.1 L (6.4-8.2) g/dL Albumin 2.1 L 2.0 L (3.4-5.0) g/dL Intake and Output 05/11/18 05/12/18 05/12/18 22:59 06:59 14:59 Intake Total 2019 560 / 560 Output Total 1000 / 1000 750 / 750 Balance 1020 / 1020 -190 / -190 Intake: IV 1360 / 1360 100 / 100 Versed Inj 50 mg In 50 ml @ 2 50 / 50 MG/HR 2 mls/hr IV.CONT TITRATE PRN Rx#:[id number] Zosyn 3.375 GM Premix 50 ML @ 50 / 50 100 / 100 100 mls/hr IV.SIG Q6H RAÚL Rx#: [id number] Potassium Phosphate Inj 30 MMOL 260 / 260 In NS Inj 250 ML @ 42 mls/hr IV.SIG UNSCH PRN Rx#:[id number] Oral 0 / 0 Tube Feeding 660 / 660 220 / 220 Water Bolus Amount 240 / 240 Output: Urine 1000 / 1000 750 / 750 Other: Date of Last Bowel Movement 05/12/18 # Bowel Movements 0 Weight 223 lb 12.307 oz - Imaging and Cardiology Imaging: Impressions Chest X-Ray 05/12/18 06:00 CONCLUSION: 1. Mid inspiratory study with chronic lung vasculature. Hazy perihilar opacities remain which likely is not significantly changed. 2. Small left effusion. Assessment and Plan - Assessment (1) ICH (intracerebral hemorrhage) Code(s): I61.9 - Nontraumatic intracerebral hemorrhage, unspecified Status: Acute (2) CAD (coronary artery disease) Code(s): I25.10 - Atherosclerotic heart disease of [place] coronary artery without angina pectoris Status: Acute (3) Cardiomyopathy Code(s): I42.9 - Cardiomyopathy, unspecified Status: Acute (4) Dyspnea Code(s): R06.00 - Dyspnea, unspecified Status: Acute (5) Hypertension Code(s): I10 - Essential (primary) hypertension Status: Acute - Plan Patient remains in SR. Patient has an intracranial bleed with a 4mm right to left midline shift, stays off all anticoagulants. Continue ICU care, wean vent as tolerated. Patient remains critically ill; his prognosis remains guarded. Neurosurgery considered. Cardiac risk is increased, but not prohibitive. Recommend to proceed if necessary. D/w patient's daughter. We will continue to monitor the patient during his hospitalization for Dr. Franklin, his primary humanities coordinator.
--- NOTE | 2018-05-12 15:20 | P.PNCC ---
Subjective Subjective Remarks/Hospital Course: 72-year-old male with a medical history significant for coronary artery disease status post previous CABG with subsequent cardiac catheterization requiring RCA stenting in 2010 who reportedly has been confused for about 1 week with fluctuating mental status along with low back pain. Today while was sleeping she heard a thud and patient had dropped to his knees and fallen on the bed. He was also noted to be shaking vigorously at the time however was able to talk during what appeared to be Reiger's. EMS was called. Patient was hypoxic on arrival with sats in the 60s. He was also tachycardic with heart rate in the 140s-150s with right bundle branch block. Since he had wide complexes there was concern for V. tach however he never lost his pulse. On arrival in the ER who he was intubated and placed on mechanical ventilation. He was loaded with IV amiodarone and lidocaine subsequently after failed attempted defibrillation/cardioversion x2. Patient does have a medical history significant for coronary artery disease status post previous CABG followed by RCA stenting in 2010, diabetes mellitus for which he uses an insulin pump, hypertension. Subjective 05/08: Follow-up. Discussed with Rufina maria at [id number]. Discussion regarding my discussion with neurosurgery Dr. Stevens regarding brain hygroma/ hemorrhage. Options include a empirically starting the patient on heparin drip with frequent neuro checks. Repeat head CT and a.m. Patient has significant risk of bleeding with this however. Possibility of not starting anticoagulation with possibility of worsening cardiac outcome. At the present time, patient wishes to discuss with her regular lace paper machine operator Dr. Franklin need for anticoagulation at this time. She will discuss with him tomorrow. She is aware of risk of possible cardiac decline as a result of this but wishes to discuss with her regular lace paper machine operator tomorrow. 05/09 Patient is intubated and sedated with Versed and Fentanyl infusion. On Levophed 2 mics. Afebrile. 05/10 Patient remains intubated and sedated. Off Levophed. Afebrile. 05/11: Patient remains intubated on light sedation with low-dose Versed and fentanyl. Reviewed CT scan personally. Approximately 1.7 cm right-sided Subdural hygroma with acute blood. Discussed with neurosurgery AZIZA Hernandez. Agrees need for homer hole drainage once cleared by cardiology. I discussed with Dr. frye who agrees to clear the patient for neurosurgery. He agrees that patient is high risk for any surgical procedure however risk is not prohibitory 05/12: Patient remains intubated, less agitated today as per . I had a long conversation with his today, who does not want to proceed with homer holes as she is concerned that the patient may have a cardiac arrest during the procedure, or may have no improvement or worsening mental status after surgery. His mental status is still too poor to consider extubation. His also says that the patient would not want a trach or a PEG, and that he was clear with her in previous discussions that he would not want to live with deficits, dependent on machines, or in a nursing or rehab facility. I discussed palliative options including hospice, and the patient's would like to discuss with her children and likely have a family meeting tomorrow. Objective Vital Signs / I&O: Vital Signs 05/11/18 15:00 05/11/18 16:00 05/11/18 17:00 Temperature 99.4 F Pulse Rate 75 83 84 Respiratory Rate 17 27 H 23 Blood Pressure 143/65 H 161/72 H 151/70 H Pulse Oximetry 95 96 95 05/11/18 18:00 05/11/18 18:01 05/11/18 19:00 Temperature Pulse Rate 100 H 98 H 108 H Respiratory Rate 28 H 26 H 37 H Blood Pressure 165/79 H 165/79 H 161/87 H Pulse Oximetry 94 L 94 L 86 L 05/11/18 19:06 05/11/18 19:17 05/11/18 20:00 Temperature 100.7 F H Pulse Rate 94 H 88 Respiratory Rate 21 18 16 Blood Pressure 139/63 Pulse Oximetry 95 91 L 05/11/18 21:00 05/11/18 22:00 05/11/18 23:00 Temperature Pulse Rate 80 72 117 H Respiratory Rate 16 16 25 H Blood Pressure 116/58 L 112/57 L 119/61 Pulse Oximetry 92 L 92 L 97 05/12/18 00:00 05/12/18 00:53 05/12/18 01:00 Temperature 99.9 F H Pulse Rate 66 67 Respiratory Rate 16 17 16 Blood Pressure 110/54 L 127/60 Pulse Oximetry 94 L 95 93 L 05/12/18 02:00 05/12/18 03:00 05/12/18 03:35 Temperature Pulse Rate 63 60 66 Respiratory Rate 16 16 16 Blood Pressure 113/56 L 119/56 L Pulse Oximetry 92 L 93 L 95 05/12/18 04:00 05/12/18 05:00 05/12/18 06:00 Temperature 98.9 F Pulse Rate 64 60 56 L Respiratory Rate 16 16 16 Blood Pressure 113/55 L 118/57 L 117/56 L Pulse Oximetry 93 L 93 L 05/12/18 07:00 05/12/18 08:00 05/12/18 09:00 Temperature 97.9 F Pulse Rate 61 56 L 58 L Respiratory Rate 16 16 16 Blood Pressure 127/58 L 121/58 L 128/61 Pulse Oximetry 94 L 93 L 97 05/12/18 10:00 05/12/18 11:00 05/12/18 12:00 Temperature 98.4 F Pulse Rate 59 L 66 74 Respiratory Rate 18 19 25 H Blood Pressure 137/64 134/64 158/70 H Pulse Oximetry 97 97 96 05/12/18 13:00 05/12/18 14:00 Temperature Pulse Rate 59 L 50 L Respiratory Rate 16 16 Blood Pressure 111/58 L 114/55 L Pulse Oximetry 92 L 94 L Intake & Output 05/11/18 05/12/18 05/12/18 18:59 06:59 18:59 Intake Total 760 / 760 1920 / 1920 Output Total 1000 / 1000 750 / 750 Balance -240 / -240 1170 / 1170 Weight 101.5 kg Intake: IV 100 / 100 1460 / 1460 Versed Inj 50 mg In 50 ml @ 2 50 / 50 MG/HR 2 mls/hr IV.CONT TITRATE PRN Rx#:[id number] Zosyn 3.375 GM Premix 50 ML @ 100 / 100 150 / 150 100 mls/hr IV.SIG Q6H RAÚL Rx#: [id number] Potassium Phosphate Inj 30 MMOL 260 / 260 In NS Inj 250 ML @ 42 mls/hr IV.SIG UNSCH PRN Rx#:[id number] Oral 0 / 0 Tube Feeding 660 / 660 220 / 220 Water Bolus Amount 240 / 240 Output: Urine 1000 / 1000 750 / 750 Other: Date of Last Bowel Movement 05/12/18 # Bowel Movements 0 Result Diagrams: 05/12/18 05:45 05/12/18 05:45 Objective Remarks: GENERAL: Intubated and sedated SKIN: Warm and dry. HEAD: Normocephalic. EYES: No scleral icterus. No injection or drainage. Unequal pupils, right 4mm nonreactive, left pin point NECK: Supple, trachea midline. No JVD or lymphadenopathy. CARDIOVASCULAR: Regular rate and rhythm without murmurs, gallops, or rubs. RESPIRATORY: Breath sounds equal bilaterally. No accessory muscle use. GASTROINTESTINAL: Abdomen soft, non-tender, nondistended. MUSCULOSKELETAL: No cyanosis, trace peripheral edema Neuro: Sedated. Unequal pupils, right 4mm nonreactive, left pin-point. Spontaneously moves all 4 extremities but does not follow commands. Assessment and Plan - Assessment and Plan Plan: 72-year-old male with: Acute and chronic right-sided subdural hematoma 17 mm in thickness 4 mm of right to left midline shift NSTEMI Syncope Encephalopathy Wide-complex tachycardia with pulse: Suspect A flutter with aberrant conduction versus sinus tach with aberrant conduction Suspected sepsis CAD status post previous CABG Uncontrolled diabetes mellitus Hypertension Low back pain Plan: Neuro: On Fentanyl and versed infusion for sedation. Daily sedation vacation. 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 No new hemorrhage. NSG is following- Dr. Mary Frye agrees to clear for [place] evacuation of subdural hemorrhage, high risk but not prohibitive per him Patient's does not wish to proceed with homer holes at this time CV: Wide-complex tachycardia with pulse on arrival. Off Levophed Monitor HR and BP keep MAP>65mmHg Echo showed EF 20-25%, Anterior, anterolateral, anteroseptal, apical, and inferoapical hypokinesis. Cardiology Dr. frye is following, see above Trop persistently > 40. Anticoagulation contraindicated in setting of right subdural hematoma on CT brain. D/Cd Amio drip given elevated LFT's/ischemic hepatitis. Pulm: Continue vent support keep sats >92%. Bronchodilators, ICU vent bundle. CXR 05/09: left lower lung zone atelectasis versus consolidation and small left pleural effusion. Clearing of bilateral upper lung zone opacity No ventilator weaning, mental status will not permit extubation GI/liver: Monitor LFT's- Elevated LFTs likely [address]nd ischemic hepatitis. CT abd/pelvis: There is no dilation of the biliary tree. A small layering calcified gallstone within an otherwise normal-appearing gallbladder US abdomen: Probable fatty infiltration of the liver. Mobile gallstones within the gallbladder. No significant pericholecystic fluid identified. No significant gallbladder wall thickening. Increased echogenicity of the renal cortex suggesting underlying medical renal disease. 2.5 cm renal cyst on the left. Trace amount of ascites adjacent to the liver. On Pepcid 20mg IV Q12 for GI prophylaxis tube feeds- Glucerna 1.5 with goal rate 50ml/hr-NPO after midnight for possible surgery Renal/: Monitor renal function, I/O's, electrolytes replacement per protocol. s/p Diurese with Lasix 40mg x1 ID: Continue IV Zosyn. Monitor for signs of infections (fever, WBC) Follow up on cultures( blood, sputum ,UA) NGTD Heme: Follow CBC Endocrine: SSI medium scale for glycemic control Prophylaxis: Pepcid/SCDs. Palliative care is following Code status: Alternative code Prognosis guarded given multiorgan injury ( Resp failure, LALITO, ischemic hepatitis, Acute IA and brain bleed) Counseling/ Coordination of Care: This patient is critically ill with impairment of one or more vital organ systems with a high probability of imminent or life-threatening deterioration. High-complexity medical decision making was required to support vital organ function and/ or prevent deterioration in the patient's condition. Total critical care time spent is 38 minutes giving full attention to this patient. This includes examining the patient, gathering history from someone other than the patient (i.e. chart review), discussing the patient's care with other providers, managing the patient's blood pressure and ventilator settings, ordering and interpreting radiologic studies, ordering and interpreting laboratory values, managing the patient's sedation requirements, re-evaluation at frequent intervals, and documentation. Amount of time is separate from teaching, counseling the patient and/or family, and exclusive of procedures. To help prompt me to consider important information that might be impacting today's encounter and assessment, information from prior notes written by myself or my colleagues may have been "brought forward" into today's note. My signature on this note, however, is an attestation that I personally performed the exam, history, and/or decision-making noted today, and, unless otherwise indicated, the interactions with patient, family, and staff as well as the review of records all occurred today. I also attest that the listed assessment and stated plan reflect my best clinical judgment today based on the combination of historical information, prior notes, and today's exam/ interactions. Code Status: DNR
[2018-05-12] MEDS: Midazolam 50 MG/50 ML Inj 50 MG/50 ML BAG IV.CONT PRN (17:36)
[2018-05-13] MEDS: Piperacil/Tazo 3.375 GM Premix 50 ML IV.SIG SCH ×4 (00:36→18:47)
[2018-05-13] MEDS: Oral Hygiene Kit OROPHARYNG SCH ×4 (00:36→17:52)
[2018-05-13] MEDS: Insulin NovoLIN Regular Correctional Sugar Inj SQ SCH ×4 (00:37→20:41)
[2018-05-13] MEDS: Artificial Tears Opth Drops 15 ML Bottle EACH EYE SCH ×3 (05:38→20:50)
[2018-05-13 07:08] LABS: Baso % (Auto) 0.6 % (0.0-2.0); Eos # (Auto) 0.1 th/mm3 (0.0-0.4); Eos % (Auto) 1.9 % (0.0-4.0); Hematocrit 38.5 % (39.0-51.0); Lymph # (Auto) 1.2 th/mm3 (1.0-4.8); Lymph % (Auto) 16.8 % (9.0-44.0); Mean Corpuscular HGB Conc 33.7 % (32.0-36.0); Mean Corpuscular Hemoglobin 31.9 pg (27.0-34.0); Mean Corpuscular Volume 94.8 fL (80.0-100.0); Mean Platelet Volume 10.2 fL (7.0-11.0); Mono # (Auto) 0.5 th/mm3 (0.0-0.9); Mono % (Auto) 7.4 % (0.0-8.0); Neut # (Auto) 5.3 th/mm3 (1.8-7.7); Neut % (Auto) 73.3 % (16.0-70.0); Platelet Count 90 th/mm3 (150-450); Red Blood Count 4.06 mil/mm3 (4.50-5.90); Red Cell Distribution Width 15.2 % (11.6-17.2); White Blood Count 7.2 th/mm3 (4.0-11.0)
[2018-05-13 07:32] LABS: Alanine Aminotransferase 397 U/L (12-78); Anion Gap 6 meq/L (5-15); Aspartate Aminotransferase 57 U/L (15-37); Blood Urea Nitrogen 23 mg/dL (7-18); Calcium 8.1 mg/dL (8.5-10.1); Carbon Dioxide 30.8 meq/L (21.0-32.0); Chloride 105 meq/L (98-107); Glomerular Filtration Rate 71 mL/min (>89); Glucose,Random 233 mg/dL (74-106); Magnesium 2.2 mg/dL (1.5-2.5); Phosphorus 3.1 mg/dL (2.5-4.9); Potassium 3.8 meq/L (3.5-5.1); Sodium 142 meq/L (136-145)
[2018-05-13 07:34] LABS: Alkaline Phosphatase 89 U/L (45-117); Total Protein 5.3 g/dL (6.4-8.2)
[2018-05-13] MEDS: Senna/Docusate Sodium 8.6/50 MG Tablet PO SCH ×2 (08:10→20:50)
[2018-05-13] MEDS: Chlorhexidine 0.12% Oral Kit 15 ML UDC OROPHARYNG SCH ×2 (08:12→20:49)
[2018-05-13] MEDS: Sodium Chloride 0.9% 2 ML Flush BID IV.FLUSH SCH ×2 (08:12→20:49)
[2018-05-13] MEDS: Famotidine PF Inj 20 MG/2 ML Vial IV.PUSH SCH ×2 (08:12→20:49)
[2018-05-13 08:55] LABS: Platelet Morphology Normal (Normal)
[2018-05-13] MEDS: fentaNYL 10 mcg/mL Premix Drip 2,500 MCG/250 ML BAG IV.SIG PRN ×2 (13:00→20:36)
--- NOTE | 2018-05-13 13:05 | P.PNCC ---
Subjective Subjective Remarks/Hospital Course: 72-year-old male with a medical history significant for coronary artery disease status post previous CABG with subsequent cardiac catheterization requiring RCA stenting in 2010 who reportedly has been confused for about 1 week with fluctuating mental status along with low back pain. Today while was sleeping she heard a thud and patient had dropped to his knees and fallen on the bed. He was also noted to be shaking vigorously at the time however was able to talk during what appeared to be Reiger's. EMS was called. Patient was hypoxic on arrival with sats in the 60s. He was also tachycardic with heart rate in the 140s-150s with right bundle branch block. Since he had wide complexes there was concern for V. tach however he never lost his pulse. On arrival in the ER who he was intubated and placed on mechanical ventilation. He was loaded with IV amiodarone and lidocaine subsequently after failed attempted defibrillation/cardioversion x2. Patient does have a medical history significant for coronary artery disease status post previous CABG followed by RCA stenting in 2010, diabetes mellitus for which he uses an insulin pump, hypertension. Subjective 05/08: Follow-up. [place]ed [place] Rufina maria [place] [phone]. Discussion regarding my discussion with neurosurgery Dr. Stevens regarding brain hygroma/ hemorrhage. Options include a empirically starting the patient on heparin drip with frequent neuro checks. Repeat head CT and a.m. Patient has significant risk of bleeding with this however. Possibility of not starting anticoagulation with possibility of worsening cardiac outcome. At the present time, patient wishes to discuss with her regular general counselor Dr. Franklin need for anticoagulation at this time. She will discuss with him tomorrow. She is aware of risk of possible cardiac decline as a result of this but wishes to discuss with her regular general counselor tomorrow. 05/09 Patient is intubated and sedated with Versed and Fentanyl infusion. On Levophed 2 mics. Afebrile. 05/10 Patient remains intubated and sedated. Off Levophed. Afebrile. 05/11: Patient remains intubated on light sedation with low-dose Versed and fentanyl. Reviewed CT scan personally. Approximately 1.7 cm right-sided Subdural hygroma with acute blood. Discussed with neurosurgery AZIZA Hernandez. Agrees need for homer hole drainage once cleared by cardiology. I discussed with Dr. ruiz who agrees to clear the patient for neurosurgery. He agrees that patient is high risk for any surgical procedure however risk is not prohibitory 05/12: Patient remains intubated, less agitated today as per . I had a long conversation with his today, who does not want to proceed with homer holes as she is concerned that the patient may have a cardiac arrest during the procedure, or may have no improvement or worsening mental status after surgery. His mental status is still too poor to consider extubation. His also says that the patient would not want a trach or a PEG, and that he was clear with her in previous discussions that he would not want to live with deficits, dependent on machines, or in a nursing or rehab facility. I discussed palliative options including hospice, and the patient's would like to discuss with her children and likely have a family meeting tomorrow. 05/13: No overnight events. Patient's spoke with hospice liason last night , would like to have a meeting with her, her children, and our team tomorrow. Likely transition to comfort-based measures in the coming days. Objective Vital Signs / I&O: Vital Signs 05/12/18 14:00 05/12/18 15:00 05/12/18 16:00 Temperature 98.6 F Pulse Rate 50 L 49 L 56 L Respiratory Rate 16 16 18 Blood Pressure 114/55 L 119/58 L 139/65 Pulse Oximetry 94 L 96 98 05/12/18 16:01 05/12/18 17:00 05/12/18 17:01 Temperature Pulse Rate 57 L 67 64 Respiratory Rate 16 19 20 Blood Pressure 139/65 143/63 H 143/63 H Pulse Oximetry 97 96 98 05/12/18 17:02 05/12/18 18:00 05/12/18 18:30 Temperature Pulse Rate 58 L 52 L Respiratory Rate 17 16 16 Blood Pressure 121/60 111/54 L Pulse Oximetry 97 94 L 93 L 05/12/18 19:00 05/12/18 19:30 05/12/18 20:00 Temperature 97.6 F Pulse Rate 54 L 51 L 50 L Respiratory Rate 16 16 16 Blood Pressure 127/60 119/58 L 122/58 L Pulse Oximetry 95 96 96 05/12/18 20:24 05/12/18 20:31 05/12/18 21:00 Temperature Pulse Rate 57 L 50 L Respiratory Rate 17 16 16 Blood Pressure 138/63 119/58 L Pulse Oximetry 97 98 96 05/12/18 21:31 05/12/18 22:00 05/12/18 22:31 Temperature Pulse Rate 56 L 56 L 52 L Respiratory Rate 16 16 16 Blood Pressure 146/65 H 138/65 126/61 Pulse Oximetry 99 98 96 05/12/18 23:00 05/12/18 23:30 05/13/18 00:00 Temperature 97.7 F Pulse Rate 51 L 50 L 50 L Respiratory Rate 16 16 16 Blood Pressure 130/61 120/58 L 121/57 L Pulse Oximetry 96 96 96 05/13/18 00:26 05/13/18 00:31 05/13/18 01:00 Temperature Pulse Rate 61 61 Respiratory Rate 16 16 16 Blood Pressure 144/67 H 134/63 Pulse Oximetry 99 99 97 05/13/18 01:30 05/13/18 02:00 05/13/18 02:30 Temperature Pulse Rate 51 L 51 L 50 L Respiratory Rate 16 16 16 Blood Pressure 121/59 L 125/62 125/60 Pulse Oximetry 96 96 96 05/13/18 03:00 05/13/18 03:30 05/13/18 03:38 Temperature Pulse Rate 49 L 50 L Respiratory Rate 16 16 16 Blood Pressure 125/60 128/61 Pulse Oximetry 96 97 97 05/13/18 04:00 05/13/18 04:30 05/13/18 05:00 Temperature 98 F Pulse Rate 49 L 50 L 65 Respiratory Rate 16 16 19 Blood Pressure 131/62 128/63 Pulse Oximetry 97 97 96 05/13/18 05:01 05/13/18 05:30 05/13/18 06:00 Temperature Pulse Rate 62 64 63 Respiratory Rate 16 20 20 Blood Pressure 149/69 H 143/65 H 136/65 Pulse Oximetry 97 97 96 05/13/18 06:30 05/13/18 07:00 05/13/18 07:01 Temperature Pulse Rate 68 53 L 52 L Respiratory Rate 16 16 16 Blood Pressure 146/65 H 119/56 L Pulse Oximetry 97 93 L 93 L 05/13/18 07:30 05/13/18 08:00 05/13/18 08:30 Temperature Pulse Rate 50 L 50 L 50 L Respiratory Rate 16 16 16 Blood Pressure 116/55 L 120/55 L 115/58 L Pulse Oximetry 93 L 96 96 05/13/18 08:55 05/13/18 09:00 05/13/18 09:30 Temperature Pulse Rate 51 L 53 L Respiratory Rate 17 17 12 Blood Pressure 110/56 L 109/53 L Pulse Oximetry 95 94 L 94 L 05/13/18 10:00 05/13/18 10:30 05/13/18 12:00 Temperature Pulse Rate 55 L 52 L Respiratory Rate 16 11 L 15 Blood Pressure 114/57 L 108/54 L Pulse Oximetry 94 L 95 Intake & Output 05/12/18 05/13/18 05/13/18 18:59 06:59 18:59 Intake Total 243.5 / 243.5 471 / 471 198.5 / 198.5 Output Total 400 / 400 325 / 325 Balance -156.5 / -156.5 146 / 146 198.5 / 198.5 Weight 105 kg Intake: IV 151.5 / 151.5 150 / 150 198.5 / 198.5 Versed Inj 50 mg In 50 ml @ 2 50 / 50 MG/HR 2 mls/hr IV.CONT TITRATE PRN Rx#:[id number] Zosyn 3.375 GM Premix 50 ML @ 50 / 50 150 / 150 100 mls/hr IV.SIG Q6H RAÚL Rx#: [id number] fentaNYL 10 mcg/mL Premix Drip 51.5 / 51.5 198.5 / 198.5 2,500 mcg In 250 ml @ 50 MCG/HR 5 mls/hr IV.SIG TITRATE PRN Rx #:[id number] Oral 0 / 0 Tube Feeding 32 / 32 261 / 261 Water Bolus Amount 60 / 60 60 / 60 Output: Urine 400 / 400 325 / 325 Other: Date of Last Bowel Movement 05/12/18 # Bowel Movements 1 Result Diagrams: 05/13/18 05:45 05/13/18 05:45 Objective Remarks: GENERAL: Intubated and sedated SKIN: Warm and dry. HEAD: Normocephalic. EYES: No scleral icterus. No injection or drainage. Unequal pupils, unchanged NECK: Supple, trachea midline. No JVD or lymphadenopathy. CARDIOVASCULAR: Regular rate and rhythm RESPIRATORY: Breath sounds equal bilaterally. No respiratory distress, tolerating 12/5 pressure support. GASTROINTESTINAL: Abdomen soft, non-tender, nondistended. MUSCULOSKELETAL: No cyanosis, trace to 1+ peripheral edema Neuro: Sedated. Unequal pupils, right 4mm nonreactive, left 1 mm. No spontaneous movement on my exam. Assessment and Plan - Assessment and Plan Plan: 72-year-old male with: Acute and chronic right-sided subdural hematoma 17 mm in thickness 4 mm of right to left midline shift NSTEMI Syncope Encephalopathy Wide-complex tachycardia with pulse: Suspect A flutter with aberrant conduction versus sinus tach with aberrant conduction Suspected sepsis CAD status post previous CABG Uncontrolled diabetes mellitus Hypertension Low back pain Plan: Neuro: On Fentanyl and versed infusion for sedation. Daily sedation vacation. 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 No new hemorrhage. NSG is following- Dr. Hernandez Patient's does not wish to proceed with homer holes at this time CV: Wide-complex tachycardia with pulse on arrival Echo showed EF 20-25%, Anterior, anterolateral, anteroseptal, apical, and inferoapical hypokinesis. Trop persistently > 40. Anticoagulation contraindicated in setting of right subdural hematoma on CT brain. Pulm: Continue vent support keep sats >92%. Bronchodilators, ICU vent bundle. CXR 05/09: left lower lung zone atelectasis versus consolidation and small left pleural effusion. Clearing of bilateral upper lung zone opacity CPAP trials as tolerated GI/liver: Monitor LFT's- Elevated LFTs likely [address]nd ischemic hepatitis. CT abd/pelvis: There is no dilation of the biliary tree. A small layering calcified gallstone within an otherwise normal-appearing gallbladder US abdomen: Probable fatty infiltration of the liver. Mobile gallstones within the gallbladder. No significant pericholecystic fluid identified. No significant gallbladder wall thickening. Increased echogenicity of the renal cortex suggesting underlying medical renal disease. 2.5 cm renal cyst on the left. Trace amount of ascites adjacent to the liver. On Pepcid 20mg IV Q12 for GI prophylaxis tube feeds- Glucerna 1.5 with goal rate 50ml/hr Renal/: Monitor renal function, I/O's, electrolytes replacement per protocol. s/p Diurese with Lasix 40mg x1 ID: Continue IV Zosyn. Monitor for signs of infections (fever, WBC) All cultures show no growth to date Heme: Follow CBC Endocrine: SSI medium scale for glycemic control Prophylaxis: Pepcid/SCDs. Palliative care is following Code status: Alternative code (DNR) Prognosis guarded given multiorgan injury (resp failure, LALITO, ischemic hepatitis , Acute VT and brain bleed). Patient's would like to have a family meeting tomorrow to discuss goals of care. Counseling/ Coordination of Care: This patient is critically ill with impairment of one or more vital organ systems with a high probability of imminent or life-threatening deterioration. High-complexity medical decision making was required to support vital organ function and/ or prevent deterioration in the patient's condition. Total critical care time spent is 35 minutes giving full attention to this patient. This includes examining the patient, gathering history from someone other than the patient (i.e. chart review), discussing the patient's care with other providers, managing the patient's blood pressure and ventilator settings, ordering and interpreting radiologic studies, ordering and interpreting laboratory values, managing the patient's sedation requirements, re-evaluation at frequent intervals, and documentation. Amount of time is separate from teaching, counseling the patient and/or family, and exclusive of procedures. To help prompt me to consider important information that might be impacting today's encounter and assessment, information from prior notes written by myself or my colleagues may have been "brought forward" into today's note. My signature on this note, however, is an attestation that I personally performed the exam, history, and/or decision-making noted today, and, unless otherwise indicated, the interactions with patient, family, and staff as well as the review of records all occurred today. I also attest that the listed assessment and stated plan reflect my best clinical judgment today based on the combination of historical information, prior notes, and today's exam/ interactions. Code Status: DNR
[2018-05-13] MEDS: Midazolam 50 MG/50 ML Inj 50 MG/50 ML BAG IV.CONT PRN (13:39)
--- NOTE | 2018-05-13 17:04 | P.PNCA ---
Subjective Interval history: Intubated, restless Medications and Allergies Active Medications: Active Medications Acetaminophen (Tylenol) 650 mg PO Q6H PRN PRN Reason: PAIN 1-10 AND/OR FEVER >101F Last Admin: 05/08/18 21:19 Dose: 650 mg Albuterol (Duoneb Neb (Prn)) 1 ampul NEB Q4HR NEB PRN PRN Reason: SHORTNESS OF BREATH Last Admin: 05/12/18 03:34 Dose: 1 ampul Albuterol (Albuterol Neb (Prn)) 2.5 mg NEB Q2HR NEB PRN PRN Reason: DYSPNEA Artificial Tears (Tears Naturale Opth Drops) 1 drop EACH EYE Q8H [facility] Last Admin: 05/13/18 13:00 Dose: 1 drop Chlorhexidine Gluconate (Peridex 0.12% Oral Kit) 15 ml OROPHARYNG BID@0800, 2000 [facility] Last Admin: 05/13/18 08:12 Dose: 15 ml Dextrose (D50w Vial) 50 ml IV.PUSH UNSCH PRN PRN Reason: PER HYPOGLYCEMIA PROTOCOL Famotidine (Pepcid Pf Inj) 20 mg IV.PUSH Q12HR [facility] Last Admin: 05/13/18 08:12 Dose: 20 mg Fentanyl Citrate (Fentanyl Inj) 50 mcg IV.PUSH Q1H PRN PRN Reason: SEE LABEL COMMENTS Glucagon (Glucagon Inj) 1 mg OTHER PRN PRN PRN Reason: for Hypoglycemia Protocol Piperacillin/Tazobactam/Dextrose (Zosyn 3.375 Gm Premix) 50 mls @ 100 mls/hr IV.SIG Q6H [facility] Last Admin: 05/13/18 13:00 Dose: 100 mls/hr Phenylephrine HCl 40 mg/ (Sodium Chloride) 500 mls @ 30 mls/hr IV.CONT TITRATE PRN; Protocol PRN Reason: See Protocol Last Titration: 05/09/18 06:13 Dose: Infused Norepinephrine Bitartrate 16 (mg/ Sodium Chloride) 250 mls @ 1.87 mls/hr IV.CONT TITRATE PRN; Protocol PRN Reason: See Protocol Last Titration: 05/10/18 06:00 Dose: Infused Fentanyl (Fentanyl 10 Mcg/Ml Premix Drip) 2,500 mcg in 250 mls @ 5 mls/hr IV.SIG TITRATE PRN; Protocol PRN Reason: Per Protocol Last Admin: 05/13/18 13:00 Dose: 200 mcg/hr, 20 mls/hr Midazolam HCl (Versed Inj) 50 mg in 50 mls @ 2 mls/hr IV.CONT TITRATE PRN; Protocol PRN Reason: Per Protocol Last Admin: 05/13/18 13:39 Dose: 3 mg/hr, 3 mls/hr Magnesium Sulfate 2 gm/ Sodium (Chloride) 100 mls @ 50 mls/hr IV.SIG UNSCH PRN PRN Reason: For Magnesium 1.2 - 1.6 mg/dL Potassium Chloride (Kcl 40 Meq Premix Inj) 40 meq in 100 mls @ 50 mls/hr IV.SIG Q2H PRN PRN Reason: For Potassium 2.8 - 3.2 mEq/L Potassium Chloride (Kcl 20 Meq Premix Inj) 20 meq in 100 mls @ 50 mls/hr IV.SIG Q2H PRN PRN Reason: For Potassium 3.3 - 3.5 mEq/L Potassium Chloride (Kcl 40 Meq Premix Inj) 40 meq in 100 mls @ 25 mls/hr IV.SIG UNSCH PRN PRN Reason: For Potassium 3.3 - 3.5 mEq/L Potassium Chloride (Kcl 20 Meq Premix Inj) 20 meq in 100 mls @ 50 mls/hr IV.SIG Q2H PRN PRN Reason: For Potassium 2.8 - 3.2 mEq/L Potassium Phosphate 30 mmol/ (Sodium Chloride) 260 mls @ 42 mls/hr IV.SIG UNSCH PRN PRN Reason: SEE LABEL COMMENTS Last Infusion: 05/11/18 19:53 Dose: Infused Sodium Phosphate 30 mmol/ (Sodium Chloride) 260 mls @ 42 mls/hr IV.SIG UNSCH PRN PRN Reason: For Phosphorus < 2.5 mg/dL Magnesium Sulfate 4 gm/ Sodium (Chloride) 100 mls @ 50 mls/hr IV.SIG UNSCH PRN PRN Reason: For Magnesium 0.9 - 1.1 mg/dL Insulin Human Regular (Novolin R Correctional Sugar Inj) 0 units SQ Q6HR RAÚL; Protocol Last Admin: 05/13/18 12:59 Dose: 7 units Magnesium Oxide (Mag-Ox) 800 mg PO UNSCH PRN PRN Reason: For Magnesium 1.2 - 1.6 mg/dL Miscellaneous Medication () 1 each OROPHARYNG 0000,0400,1200,1600 [facility] Last Admin: 05/13/18 13:00 Dose: 1 each Potassium Bicarb/Potassium Chloride (K-Lyte Cl Eff) 50 meq PO UNSCH PRN PRN Reason: For Potassium 3.3 - 3.5 mEq/L Potassium Phosphate (K-Phos Original) 2,000 mg PO UNSCH PRN PRN Reason: SEE LABEL COMMENTS Potassium Phosphate (K-Phos Original) 2,000 mg PO Q4H PRN PRN Reason: Phosphorus Less Than 2.5 mg/dL Senna/Docusate Sodium (Palak-Colace) 2 tab PO BID [facility] Last Admin: 05/13/18 08:10 Dose: 2 tab Sodium Chloride (Ns Flush) 2 ml IV.FLUSH BID [facility] Last Admin: 05/13/18 08:12 Dose: 2 ml Sodium Chloride (Ns Flush) 2 ml IV.FLUSH PRN PRN PRN Reason: FLUSH AFTER USING IV ACCESS Terbutaline Sulfate (Brethine Inj) 1 mg SQ UNSCH PRN PRN Reason: For Extravasation Allergies Allergy/AdvReac Type Severity Reaction Status Date / Time sulfamethoxazole Allergy Severe Rash Verified 07/06/17 09:08 Physical Exam Vital signs: Vital Signs 05/12/18 17:02 05/12/18 18:00 05/12/18 18:30 Temperature Pulse Rate 58 L 52 L Respiratory Rate 17 16 16 Blood Pressure 121/60 111/54 L Pulse Oximetry 97 94 L 93 L 05/12/18 19:00 05/12/18 19:30 05/12/18 20:00 Temperature 97.6 F Pulse Rate 54 L 51 L 50 L Respiratory Rate 16 16 16 Blood Pressure 127/60 119/58 L 122/58 L Pulse Oximetry 95 96 96 05/12/18 20:24 05/12/18 20:31 05/12/18 21:00 Temperature Pulse Rate 57 L 50 L Respiratory Rate 17 16 16 Blood Pressure 138/63 119/58 L Pulse Oximetry 97 98 96 05/12/18 21:31 05/12/18 22:00 05/12/18 22:31 Temperature Pulse Rate 56 L 56 L 52 L Respiratory Rate 16 16 16 Blood Pressure 146/65 H 138/65 126/61 Pulse Oximetry 99 98 96 05/12/18 23:00 05/12/18 23:30 05/13/18 00:00 Temperature 97.7 F Pulse Rate 51 L 50 L 50 L Respiratory Rate 16 16 16 Blood Pressure 130/61 120/58 L 121/57 L Pulse Oximetry 96 96 96 05/13/18 00:26 05/13/18 00:31 05/13/18 01:00 Temperature Pulse Rate 61 61 Respiratory Rate 16 16 16 Blood Pressure 144/67 H 134/63 Pulse Oximetry 99 99 97 05/13/18 01:30 05/13/18 02:00 05/13/18 02:30 Temperature Pulse Rate 51 L 51 L 50 L Respiratory Rate 16 16 16 Blood Pressure 121/59 L 125/62 125/60 Pulse Oximetry 96 96 96 05/13/18 03:00 05/13/18 03:30 05/13/18 03:38 Temperature Pulse Rate 49 L 50 L Respiratory Rate 16 16 16 Blood Pressure 125/60 128/61 Pulse Oximetry 96 97 97 05/13/18 04:00 05/13/18 04:30 05/13/18 05:00 Temperature 98 F Pulse Rate 49 L 50 L 65 Respiratory Rate 16 16 19 Blood Pressure 131/62 128/63 Pulse Oximetry 97 97 96 05/13/18 05:01 05/13/18 05:30 05/13/18 06:00 Temperature Pulse Rate 62 64 63 Respiratory Rate 16 20 20 Blood Pressure 149/69 H 143/65 H 136/65 Pulse Oximetry 97 97 96 05/13/18 06:30 05/13/18 07:00 05/13/18 07:01 Temperature Pulse Rate 68 53 L 52 L Respiratory Rate 16 16 16 Blood Pressure 146/65 H 119/56 L Pulse Oximetry 97 93 L 93 L 05/13/18 07:30 05/13/18 08:00 05/13/18 08:30 Temperature Pulse Rate 50 L 50 L 50 L Respiratory Rate 16 16 16 Blood Pressure 116/55 L 120/55 L 115/58 L Pulse Oximetry 93 L 96 96 05/13/18 08:55 05/13/18 09:00 05/13/18 09:30 Temperature Pulse Rate 51 L 53 L Respiratory Rate 17 17 12 Blood Pressure 110/56 L 109/53 L Pulse Oximetry 95 94 L 94 L 05/13/18 10:00 05/13/18 10:30 05/13/18 11:00 Temperature Pulse Rate 55 L 52 L 54 L Respiratory Rate 16 11 L 13 Blood Pressure 114/57 L 108/54 L 113/56 L Pulse Oximetry 94 L 95 96 05/13/18 11:31 05/13/18 12:00 05/13/18 12:30 Temperature Pulse Rate 57 L 52 L 52 L Respiratory Rate 15 14 15 Blood Pressure 110/54 L 103/51 L 105/54 L Pulse Oximetry 95 95 95 05/13/18 13:00 05/13/18 13:30 05/13/18 14:00 Temperature Pulse Rate 53 L 50 L 52 L Respiratory Rate 15 13 10 L Blood Pressure 115/56 L 107/53 L 127/59 L Pulse Oximetry 97 96 98 05/13/18 15:20 Temperature Pulse Rate Respiratory Rate 16 Blood Pressure Pulse Oximetry 97 Intake & Output 05/12/18 05/13/18 05/13/18 18:59 06:59 18:59 Intake Total 243.5 / 243.5 471 / 471 248.5 / 248.5 Output Total 400 / 400 325 / 325 Balance -156.5 / -156.5 146 / 146 248.5 / 248.5 Weight 231 lb 7.766 oz Intake: IV 151.5 / 151.5 150 / 150 248.5 / 248.5 Versed Inj 50 mg In 50 ml @ 2 50 / 50 50 / 50 MG/HR 2 mls/hr IV.CONT TITRATE PRN Rx#:[id number] Zosyn 3.375 GM Premix 50 ML @ 50 / 50 150 / 150 100 mls/hr IV.SIG Q6H RAÚL Rx#: [id number] fentaNYL 10 mcg/mL Premix Drip 51.5 / 51.5 198.5 / 198.5 2,500 mcg In 250 ml @ 50 MCG/HR 5 mls/hr IV.SIG TITRATE PRN Rx #:[id number] Oral 0 / 0 Tube Feeding 32 / 32 261 / 261 Water Bolus Amount 60 / 60 60 / 60 Output: Urine 400 / 400 325 / 325 Other: Date of Last Bowel Movement 05/12/18 # Bowel Movements 1 Narrative: intubated, on the vent, restless lungs clear heart regular abdomen soft no edema - Urinary Catheter Management Indwelling Urethral Catheter Cath placed during this visit: yes, but has since been removed by the nurse Urethral indwelling: Yes Reason for continuing: Terminally ill/Comfort care Insertion date: 05/08/18 Insertion time: 00:55 Removal date: 05/09/18 Removal time: 11:23 Straight Cath placed during this visit: no Reason for continuing: Not indwelling catheter Female External Cath placed during this visit: no Reason for continuing: Not indwelling catheter Results 05/13/18 05:45 05/13/18 05:45 Cardiac Enzymes 05/12/18 05/13/18 Range/Units 05:45 05:45 AST 130 H 57 H (15-37) U/L Coagulation 05/12/18 Range/Units 05:45 PT 11.2 (9.8-11.6) sec CBC 05/12/18 05/13/18 Range/Units 05:45 05:45 WBC 6.2 7.2 (4.0-11.0) th/mm3 RBC 3.86 L 4.06 L (4.50-5.90) mil/mm3 Hgb 12.2 L 13.0 (13.0-17.0) gm/dL Hct 36.1 L 38.5 L (39.0-51.0) % Plt Count 86 L 90 L (150-450) th/mm3 Neut # (Auto) 4.7 5.3 (1.8-7.7) th/mm3 Lymph # (Auto) 0.9 L 1.2 (1.0-4.8) th/mm3 [place] # (Auto) 0.5 0.5 (0.0-0.9) th/mm3 Eos # (Auto) 0.0 0.1 (0.0-0.4) th/mm3 Baso # (Auto) 0.0 0.0 (0.0-0.2) th/mm3 Comprehensive Metabolic Panel 05/12/18 05/13/18 Range/Units 05:45 05:45 Sodium 142 142 (136-145) meq/L Potassium 4.2 3.8 (3.5-5.1) meq/L Chloride 106 105 (98-107) meq/L Carbon Dioxide 30.1 30.8 (21.0-32.0) meq/L BUN 25 H 23 H (7-18) mg/dL Creatinine 1.17 1.02 (0.60-1.30) mg/dL Calcium 8.1 L 8.1 L (8.5-10.1) mg/dL AST 130 H 57 H (15-37) U/L ALT 588 H 397 H (12-78) U/L Alkaline Phosphatase 95 89 (45-117) U/L Total Protein 5.1 L 5.3 L (6.4-8.2) g/dL Albumin 2.0 L 2.0 L (3.4-5.0) g/dL Intake and Output 05/13/18 05/13/18 05/13/18 06:59 14:59 22:59 Intake Total 421 / 421 248.5 / 248.5 Output Total 325 / 325 Balance 96 / 96 248.5 / 248.5 Intake: IV 100 / 100 248.5 / 248.5 Versed Inj 50 mg In 50 ml @ 2 50 / 50 MG/HR 2 mls/hr IV.CONT TITRATE PRN Rx#:[id number] Zosyn 3.375 GM Premix 50 ML @ 100 / 100 100 mls/hr IV.SIG Q6H RAÚL Rx#: [id number] fentaNYL 10 mcg/mL Premix Drip 198.5 / 198.5 2,500 mcg In 250 ml @ 50 MCG/HR 5 mls/hr IV.SIG TITRATE PRN Rx #:[id number] Tube Feeding 261 / 261 Water Bolus Amount 60 / 60 Output: Urine 325 / 325 Other: Weight 231 lb 7.766 oz - Imaging and Cardiology Imaging: Impressions Chest X-Ray 05/12/18 06:00 CONCLUSION: 1. Mid inspiratory study with chronic lung vasculature. Hazy perihilar opacities remain which likely is not significantly changed. 2. Small left effusion. Assessment and Plan - Assessment (1) ICH (intracerebral hemorrhage) Code(s): I61.9 - Nontraumatic intracerebral hemorrhage, unspecified Status: Acute (2) CAD (coronary artery disease) Code(s): I25.10 - Atherosclerotic heart disease of [place] coronary artery without angina pectoris Status: Acute (3) Cardiomyopathy Code(s): I42.9 - Cardiomyopathy, unspecified Status: Acute (4) Dyspnea Code(s): R06.00 - Dyspnea, unspecified Status: Acute (5) Hypertension Code(s): I10 - Essential (primary) hypertension Status: Acute - Plan Patient remains in SR, rhythm stable. No new cardiac issues. Patient has an intracranial bleed, stays off all anticoagulants. Continue ICU care, wean vent as tolerated. Patient remains critically ill; his prognosis remains guarded. Neurosurgery considered. Cardiac risk is increased, but not prohibitive. Recommend to proceed if necessary. D/w patient's .
--- NOTE | 2018-05-13 17:19 | P.PNPAL ---
Reason for Visit Reason for visit: a. To assist with evaluation and management of symptoms including: Pain, dyspnea b. To assist medical decision maker(s) with: better understanding of current medical conditions; weighing benefits/burdens of medical treatment options; making medical treatment decisions. Subjective Subjective/Interval History: This is a 72-year-old male who was brought to [place] emergency department via [facility] after the patient fell at home, he was found by his on his knees over the bed. He was also noted to be shaking vigorously but was able to talk. Upon arrival of [facility], he was found hypoxic with oxygen saturations in the 60s. He was tachycardic with heart rate in the 140s-150s with a right bundle branch block noted and wide complexes. indicated he had had about a week long period of confusion and fluctuating mental status along with low back pain. Upon arrival to the ED was intubated placed on mechanical ventilation, was started on IV amiodarone, with a loading dose, and lidocaine. Apparently there was a failed attempt at defibrillation/cardioversion x2. Patient remains critically ill in the ICU. He is mildly distressed and asynchronous with the ventilator at time of my arrival. He is on light sedation with 2 mg of Versed. He is somewhat restless and moving all extremities spontaneously only does not appear to be purposeful. Does not follow commands. Is opening his eyes somewhat, now has some scleral edema, not tracking, questionable blink to threat. Family now has elected not to take patient to surgery and risk of further cardiac complications. They are understanding that his neuro status may likely remain unchanged. They also understand that neurosurgical intervention may not improve his neuro status, and could result in further bleeding. They are adamant that he would not want to live on machines. They do not want to take patient to the OR if he is at risk for being resuscitated if he were to go into cardiac arrest. They are now considering withdrawal of life support in the coming days and transition hospice care. Spoke with Dr. Duenas to update on status. Discussed family wishes for withdrawal of life support in the coming days and transition to hospice care. She is in agreement with this plan and is requesting palliative care cosign exhibits to withdraw life support when family ready. Hospice disability representative to follow-up over the weekend. . Family/Friend Interactions: Met with at bedside. She advised she met with hospice disability representative last night. She advised she spoke with clinical review nurse last night who is also recommending transition to hospice at this time. She advised they are to tour hospice care [place], will be having a family meeting tomorrow when son is available to meet. Family requesting letters for employer's which we provided. Objective Vital Signs: Vital Signs 05/12/18 17:00 05/12/18 17:01 05/12/18 17:02 Temperature Pulse Rate 67 64 Respiratory Rate 19 20 17 Blood Pressure 143/63 H 143/63 H Pulse Oximetry 96 98 97 05/12/18 18:00 05/12/18 18:30 05/12/18 19:00 Temperature Pulse Rate 58 L 52 L 54 L Respiratory Rate 16 16 16 Blood Pressure 121/60 111/54 L 127/60 Pulse Oximetry 94 L 93 L 95 05/12/18 19:30 05/12/18 20:00 05/12/18 20:24 Temperature 97.6 F Pulse Rate 51 L 50 L Respiratory Rate 16 16 17 Blood Pressure 119/58 L 122/58 L Pulse Oximetry 96 96 97 05/12/18 20:31 05/12/18 21:00 05/12/18 21:31 Temperature Pulse Rate 57 L 50 L 56 L Respiratory Rate 16 16 16 Blood Pressure 138/63 119/58 L 146/65 H Pulse Oximetry 98 96 99 05/12/18 22:00 05/12/18 22:31 05/12/18 23:00 Temperature Pulse Rate 56 L 52 L 51 L Respiratory Rate 16 16 16 Blood Pressure 138/65 126/61 130/61 Pulse Oximetry 98 96 96 05/12/18 23:30 05/13/18 00:00 05/13/18 00:26 Temperature 97.7 F Pulse Rate 50 L 50 L Respiratory Rate 16 16 16 Blood Pressure 120/58 L 121/57 L Pulse Oximetry 96 96 99 05/13/18 00:31 05/13/18 01:00 05/13/18 01:30 Temperature Pulse Rate 61 61 51 L Respiratory Rate 16 16 16 Blood Pressure 144/67 H 134/63 121/59 L Pulse Oximetry 99 97 96 05/13/18 02:00 05/13/18 02:30 05/13/18 03:00 Temperature Pulse Rate 51 L 50 L 49 L Respiratory Rate 16 16 16 Blood Pressure 125/62 125/60 125/60 Pulse Oximetry 96 96 96 05/13/18 03:30 05/13/18 03:38 05/13/18 04:00 Temperature 98 F Pulse Rate 50 L 49 L Respiratory Rate 16 16 16 Blood Pressure 128/61 131/62 Pulse Oximetry 97 97 97 05/13/18 04:30 05/13/18 05:00 05/13/18 05:01 Temperature Pulse Rate 50 L 65 62 Respiratory Rate 16 19 16 Blood Pressure 128/63 149/69 H Pulse Oximetry 97 96 97 05/13/18 05:30 05/13/18 06:00 05/13/18 06:30 Temperature Pulse Rate 64 63 68 Respiratory Rate 20 20 16 Blood Pressure 143/65 H 136/65 146/65 H Pulse Oximetry 97 96 97 05/13/18 07:00 05/13/18 07:01 05/13/18 07:30 Temperature Pulse Rate 53 L 52 L 50 L Respiratory Rate 16 16 16 Blood Pressure 119/56 L 116/55 L Pulse Oximetry 93 L 93 L 93 L 05/13/18 08:00 05/13/18 08:30 05/13/18 08:55 Temperature Pulse Rate 50 L 50 L Respiratory Rate 16 16 17 Blood Pressure 120/55 L 115/58 L Pulse Oximetry 96 96 95 05/13/18 09:00 05/13/18 09:30 05/13/18 10:00 Temperature Pulse Rate 51 L 53 L 55 L Respiratory Rate 17 12 16 Blood Pressure 110/56 L 109/53 L 114/57 L Pulse Oximetry 94 L 94 L 94 L 05/13/18 10:30 05/13/18 11:00 05/13/18 11:31 Temperature Pulse Rate 52 L 54 L 57 L Respiratory Rate 11 L 13 15 Blood Pressure 108/54 L 113/56 L 110/54 L Pulse Oximetry 95 96 95 05/13/18 12:00 05/13/18 12:30 05/13/18 13:00 Temperature Pulse Rate 52 L 52 L 53 L Respiratory Rate 14 15 15 Blood Pressure 103/51 L 105/54 L 115/56 L Pulse Oximetry 95 95 97 05/13/18 13:30 05/13/18 14:00 05/13/18 15:20 Temperature Pulse Rate 50 L 52 L Respiratory Rate 13 10 L 16 Blood Pressure 107/53 L 127/59 L Pulse Oximetry 96 98 97 Intake & Output 05/12/18 05/13/18 05/13/18 18:59 06:59 18:59 Intake Total 243.5 / 243.5 471 / 471 248.5 / 248.5 Output Total 400 / 400 325 / 325 Balance -156.5 / -156.5 146 / 146 248.5 / 248.5 Weight 105 kg Intake: IV 151.5 / 151.5 150 / 150 248.5 / 248.5 Versed Inj 50 mg In 50 ml @ 2 50 / 50 50 / 50 MG/HR 2 mls/hr IV.CONT TITRATE PRN Rx#:[id number] Zosyn 3.375 GM Premix 50 ML @ 50 / 50 150 / 150 100 mls/hr IV.SIG Q6H RAÚL Rx#: [id number] fentaNYL 10 mcg/mL Premix Drip 51.5 / 51.5 198.5 / 198.5 2,500 mcg In 250 ml @ 50 MCG/HR 5 mls/hr IV.SIG TITRATE PRN Rx #:[id number] Oral 0 / 0 Tube Feeding 32 / 32 261 / 261 Water Bolus Amount 60 / 60 60 / 60 Output: Urine 400 / 400 325 / 325 Other: Date of Last Bowel Movement 05/12/18 # Bowel Movements 1 Physical Exam: CONSTITUTIONAL/GENERAL: This is an adequately nourished patient, sedated and mechancally ventilated. Mildly distressed TUBES/LINES/DRAINS:ETT, OGT, giang, right SC TLC, PIV SKIN: No jaundice, rashes, or lesions. Ecchymoses/hematoma on upper extremities bilaterally. Skin temperature appropriate. Not diaphoretic. EYES: Pupils unequal, right 3mm, left pinpoint. Unable to assess pupillary reaction due to resistance of exam. Patient squints eyes tightly when trying to assess. Is now spontaneously opening eyes, does not blink to threat. Is not tracking, has scleral edema ENT: Orally intubated, exam limited secondary to tubes CARDIOVASCULAR: Regular rate and rhythm, pedal pulses palpable. Unable to palpate radial pulses, left arm and bulky dressing, right arm edematous, with hematomas, and restraints in place RESPIRATORY/CHEST: Symmetric, mildly labored on controlled rate, asynchronous with the vent. Clear to auscultation. Breath sounds equal bilaterally. No wheezes, rales, or rhonchi. GASTROINTESTINAL: Abdomen obese, soft, non-tender, nondistended. No hepato- splenomegaly, or palpable masses. No guarding. Bowel sounds present. 2 feedings infusing.. GENITOURINARY: Without palpable bladder distension. Giang catheter in place draining small amount of yellow urine. MUSCULOSKELETAL: Extremities without clubbing, cyanosis, or edema. No joint tenderness or effusion noted. No mottling or clubbing. NEUROLOGICAL: Sedated and mechanically ventilated. Restless and agitated in the bed. He is intermittently following commands. Pupils unequal, 3 3mm, left pinpoint. PSYCHIATRIC: Restless and agitated on mechanical ventilation. Diagnostic Tests Laboratory: Laboratory Results - last 72 hr 05/10/18 05/11/18 05/11/18 17:26 00:42 05:55 WBC 7.4 RBC 4.14 L Hgb 13.2 Hct 39.3 MCV 95.1 MCH 32.0 MCHC 33.7 RDW 15.0 Plt Count 88 L MPV 9.9 Prelim Diff (Auto) Slide review pending Neut % (Auto) 81.7 H Lymph % (Auto) 11.8 Bleckley % (Auto) 5.4 Eos % (Auto) 0.8 Baso % (Auto) 0.3 Neut # (Auto) 6.1 Lymph # (Auto) 0.9 L Bleck[place] # (Auto) 0.4 Eos # (Auto) 0.1 Baso # (Auto) 0.0 WBC Differential . Diff Scan Auto diff confirmed Differential Comment . Platelet Estimate Low L Platelet Morphology Normal RBC Morphology PT INR Sodium Potassium Chloride Carbon Dioxide Anion Gap BUN Creatinine Estimated GFR POC Glucose 249 H 329 H Random Glucose Calcium Phosphorus Magnesium Total Bilirubin AST ALT Alkaline Phosphatase Total Protein Albumin 05/11/18 05/11/18 05/11/18 05:55 11:07 17:25 WBC RBC Hgb Hct MCV MCH MCHC RDW Plt Count MPV Prelim Diff (Auto) Neut % (Auto) Lymph % (Auto) Bleckley % (Auto) Eos % (Auto) Baso % (Auto) Neut # (Auto) Lymph # (Auto) Bleckley # (Auto) Eos # (Auto) Baso # (Auto) WBC Differential Diff Scan Differential Comment Platelet Estimate Platelet Morphology RBC Morphology PT INR Sodium 142 Potassium 3.9 Chloride 105 Carbon Dioxide 28.2 Anion Gap 9 BUN 23 H Creatinine 1.21 Estimated GFR 59 L POC Glucose 230 H 317 H Random Glucose 306 H Calcium 7.9 L Phosphorus 2.7 D Magnesium 1.9 Total Bilirubin 0.9 AST 344 H ALT 863 H Alkaline Phosphatase 116 Total Protein 5.2 L D Albumin 2.1 L 05/11/18 05/12/18 05/12/18 23:12 05:45 05:45 WBC 6.2 RBC 3.86 L Hgb 12.2 L Hct 36.1 L MCV 93.5 MCH 31.7 MCHC 33.9 RDW 15.0 Plt Count 86 L MPV 10.2 Prelim Diff (Auto) Slide review pending Neut % (Auto) 76.7 H Lymph % (Auto) 14.3 [place]ckley % (Auto) 7.4 Eos % (Auto) 0.8 Baso % (Auto) 0.8 Neut # (Auto) 4.7 Lymph # (Auto) 0.9 L [place]ckley # (Auto) 0.5 Eos # (Auto) 0.0 Baso # (Auto) 0.0 WBC Differential . Diff Scan Auto diff confirmed Differential Comment . Platelet Estimate Low L Platelet Morphology Normal RBC Morphology Normal PT INR Sodium 142 Potassium 4.2 Chloride 106 Carbon Dioxide 30.1 Anion Gap 6 BUN 25 H Creatinine 1.17 Estimated GFR 61 L POC Glucose 321 H Random Glucose 327 H Calcium 8.1 L Phosphorus 2.9 Magnesium 2.2 Total Bilirubin 0.8 AST 130 H ALT 588 H Alkaline Phosphatase 95 Total Protein 5.1 L Albumin 2.0 L 05/12/18 05/12/18 05/12/18 05:45 05:51 11:24 WBC RBC Hgb Hct MCV MCH MCHC RDW Plt Count MPV Prelim Diff (Auto) Neut % (Auto) Lymph % (Auto) Bleck[place] % (Auto) Eos % (Auto) Baso % (Auto) Neut # (Auto) Lymph # (Auto) [place]ck[place] # (Auto) Eos # (Auto) Baso # (Auto) WBC Differential Diff Scan Differential Comment Platelet Estimate Platelet Morphology RBC Morphology PT 11.2 INR 1.1 Sodium Potassium Chloride Carbon Dioxide Anion Gap BUN Creatinine Estimated GFR POC Glucose 338 H 273 H Random Glucose Calcium Phosphorus Magnesium Total Bilirubin AST ALT Alkaline Phosphatase Total Protein Albumin 05/12/18 05/13/18 05/13/18 16:59 00:27 05:35 WBC RBC Hgb Hct MCV MCH MCHC RDW Plt Count MPV Prelim Diff (Auto) Neut % (Auto) Lymph % (Auto) Bleck[place] % (Auto) Eos % (Auto) Baso % (Auto) Neut # (Auto) Lymph # (Auto) [place]ck[place] # (Auto) Eos # (Auto) Baso # (Auto) WBC Differential Diff Scan Differential Comment Platelet Estimate Platelet Morphology RBC Morphology PT INR Sodium Potassium Chloride Carbon Dioxide Anion Gap BUN Creatinine Estimated GFR POC Glucose 210 H 221 H 255 H Random Glucose Calcium Phosphorus Magnesium Total Bilirubin AST ALT Alkaline Phosphatase Total Protein Albumin 05/13/18 05/13/18 05/13/18 05:45 05:45 12:11 WBC 7.2 RBC 4.06 L Hgb 13.0 Hct 38.5 L MCV 94.8 MCH 31.9 MCHC 33.7 RDW 15.2 Plt Count 90 L MPV 10.2 Prelim Diff (Auto) Slide review pending Neut % (Auto) 73.3 H Lymph % (Auto) 16.8 [place]ck[place] % (Auto) 7.4 Eos % (Auto) 1.9 Baso % (Auto) 0.6 Neut # (Auto) 5.3 Lymph # (Auto) 1.2 [place] # (Auto) 0.5 Eos # (Auto) 0.1 Baso # (Auto) 0.0 WBC Differential . Diff Scan Auto diff confirmed Differential Comment . Platelet Estimate Low L Platelet Morphology Normal RBC Morphology PT INR Sodium 142 Potassium 3.8 Chloride 105 Carbon Dioxide 30.8 Anion Gap 6 BUN 23 H Creatinine 1.02 Estimated GFR 71 L POC Glucose 257 H Random Glucose 233 H Calcium 8.1 L Phosphorus 3.1 Magnesium 2.2 Total Bilirubin 0.7 AST 57 H ALT 397 H Alkaline Phosphatase 89 Total Protein 5.3 L Albumin 2.0 L Result Diagrams: 05/13/18 05:45 05/13/18 05:45 Microbiology: Microbiology 05/08/18 09:55 Aerobic Blood Culture - Final Blood - Peripheral No growth in 5 days Anaerobic Blood Culture - Final No growth in 5 days 05/08/18 09:45 Aerobic Blood Culture - Final Blood - Peripheral No growth in 5 days Anaerobic Blood Culture - Final No growth in 5 days Procedures: 05/08/18: Intubation, cardioversion Assessment and Plan - Disease Oriented Problem List (1) ICH (intracerebral hemorrhage) (2) Cardiomyopathy (3) Hygroma, cystic (4) Cataracts, bilateral (5) CAD (coronary artery disease) (6) Hypertension (7) Neuropathy (8) Sleep apnea with use of continuous positive airway pressure (CPAP) (9) GERD (gastroesophageal reflux disease) (10) Hiatal hernia - Symptom Scale (1) Pain 0-10 Scale: Unable to quantify (2) Dyspnea 0-10 Scale: Unable to quantify (3) Restless 0-10 Scale: Unable to quantify Pertinent Non-Medical Issues: Psychosocial: Has been to his Rufina for 54 years. They have 3 children, only 2 are living. Patient was living independently with his at home prior to this hospitalization Spiritual: Vidhi plays an important role in the patient and his 's life, they have with her local cotton weigher and deacons who have been visiting here in the hospital. [facility] benefit director at this time, will let us know if they need them in the future Legal: Currently patient is incapacitated and unable to make his own decisions, it is unclear if he will ever regain capacity. Per [place] statutes Rufina would be the appropriate legal proxy. Ethical issues impacting care: none Important Contacts: Rufina Means: [phone] (home) [phone] (CELL) Prognosis: Per conversation with and daughter, patient has had some gradual decline functionally over the past few months. and daughter report patient had been pretty active prior to hospitalization though he had been requiring more frequent periods of rest. Given patient's recent decline and poor health status , he will likely be at risk for future setbacks. Patient has a long history of cardiac issues, recent echo reveals ejection fraction 20-25%, in addition to an acute on chronic intracranial hemorrhage. Given the inability to treat cardiac issues with anticoagulation, further increases risks. If anticoagulation is restarted in the near future, patient is high risk for worsening and/or new intracranial hemorrhages. Patient also at risk for ventilator dependence secondary to prolonged requirements. While patient is not having assessments have remained unchanged since time of admission, Without surgical intervention of intracranial hemorrhage, patient may likely not have much neurological improvement. With that said if he is to undergo surgical intervention, he is at great risk for cardiac arrest or other complications. Both his ICH and poor cardiac function alone could certainly be life limiting, in combinations certainly increases his risks for further complications including . If he is to survive this hospitalization likely he will have significant deficits and possibly require long-term care placement. Patient will be appropriate for hospice services goals are appropriate Code Status: Alternative Code (Intubation only) Plan: Legal decision maker: At this time patient's would be the appropriate decision maker given patient is currently incapacitated secondary to being sedated and mechanically ventilated. She is supported by HER-2 children. Goals: Remain aggressive at this time, however family have stated they will likely transition to comfort measures if there is no hope for meaningful recovery. They appear to have a good understanding of his overall decline in health status, but had been hopeful for recovery. Family is now considering withdrawal of life support in the coming days, and transition to hospice care after discussion with clinical review nurse last night. DNR with intubation only. SYMPTOMS: --Dyspnea: Patient remains mechanically ventilated sedated. Will need to evaluate over the next few days for the possibility of extubation. Currently on CPAP at time of my visit, appears restless and mildly distressed. --Pain: Patient had a history of back pain prior to hospitalization, given bedbound status now in ICU with worsening edema, will likely continue to have worsening pain/weakness. Currently on a fentanyl drip, he is restless in bed. will continue to monitor Palliative care will continue to follow during hospital course as condition evolves, to assist patient/decision-maker with understanding of medical conditions, weighing benefits/burdens of treatment options, for clarification of goals of treatment. Additionally will assist with any symptoms of palliative concern Attestation Attestation: To help prompt me to consider important information that might be impacting today's encounter and assessment, information from prior notes written by myself or my colleagues may have been "brought forward" into today's note. My signature on this note, however, is an attestation that I personally performed the exam, history, and/or decision-making noted today, and, unless otherwise indicated, the interactions with patient, family, and staff as well as the review of records all occurred today. I also attest that the listed assessment and stated plan reflect my best clinical judgment today based on the combination of historical information, prior notes, and today's exam/ interactions. When time spent is documented, it refers only to time spent today by the signer, or if indicated, combined time spent today by collaborating physician/nurse practitioner.
[2018-05-14] MEDS: Piperacil/Tazo 3.375 GM Premix 50 ML IV.SIG SCH ×2 (00:15→06:00)
[2018-05-14] MEDS: Insulin NovoLIN Regular Correctional Sugar Inj SQ SCH ×3 (01:19→13:00)
[2018-05-14] MEDS: Oral Hygiene Kit OROPHARYNG SCH ×4 (01:19→18:36)
[2018-05-14] MEDS: Midazolam 50 MG/50 ML Inj 50 MG/50 ML BAG IV.CONT PRN (02:31)
[2018-05-14] MEDS: Artificial Tears Opth Drops 15 ML Bottle EACH EYE SCH ×2 (04:33→14:43)
[2018-05-14 04:52] VITALS: TEMP 98.3
[2018-05-14] MEDS: fentaNYL 10 mcg/mL Premix Drip 2,500 MCG/250 ML BAG IV.SIG PRN ×2 (07:15→16:50)
[2018-05-14] MEDS ORDERED: Midazolam 100 MG/100 ML Inj 100 MG/100 ML BAG IV.CONT PRN (08:00)
[2018-05-14] MEDS: Chlorhexidine 0.12% Oral Kit 15 ML UDC OROPHARYNG SCH (08:03)
[2018-05-14] MEDS: Famotidine PF Inj 20 MG/2 ML Vial IV.PUSH SCH (08:03)
[2018-05-14] MEDS: Senna/Docusate Sodium 8.6/50 MG Tablet PO SCH (08:03)
[2018-05-14] MEDS: Sodium Chloride 0.9% 2 ML Flush BID IV.FLUSH SCH (08:03)
[2018-05-14] MEDS ORDERED: fentaNYL Citrate Inj 100 MCG/2 ML Ampul IV.PUSH PRN (10:33)
--- NOTE | 2018-05-14 10:37 | P.PNCC ---
Subjective Subjective Remarks/Hospital Course: 72-year-old male with a medical history significant for coronary artery disease status post previous CABG with subsequent cardiac catheterization requiring RCA stenting in 2010 who reportedly has been confused for about 1 week with fluctuating mental status along with low back pain. Today while was sleeping she heard a thud and patient had dropped to his knees and fallen on the bed. He was also noted to be shaking vigorously at the time however was able to talk during what appeared to be Reiger's. EMS was called. Patient was hypoxic on arrival with sats in the 60s. He was also tachycardic with heart rate in the 140s-150s with right bundle branch block. Since he had wide complexes there was concern for V. tach however he never lost his pulse. On arrival in the ER who he was intubated and placed on mechanical ventilation. He was loaded with IV amiodarone and lidocaine subsequently after failed attempted defibrillation/cardioversion x2. Patient does have a medical history significant for coronary artery disease status post previous CABG followed by RCA stenting in 2010, diabetes mellitus for which he uses an insulin pump, hypertension. Subjective 05/08: Follow-up. Discussed with Rufina maria at [phone]. Discussion regarding my discussion with neurosurgery Dr. Stevens regarding brain hygroma/ hemorrhage. Options include a empirically starting the patient on heparin drip with frequent neuro checks. Repeat head CT and a.m. Patient has significant risk of bleeding with this however. Possibility of not starting anticoagulation with possibility of worsening cardiac outcome. At the present time, patient wishes to discuss with her regular executive personal assistant Dr. Franklin need for anticoagulation at this time. She will discuss with him tomorrow. She is aware of risk of possible cardiac decline as a result of this but wishes to discuss with her regular executive personal assistant tomorrow. 05/09 Patient is intubated and sedated with Versed and Fentanyl infusion. On Levophed 2 mics. Afebrile. 05/10 Patient remains intubated and sedated. Off Levophed. Afebrile. 05/11: Patient remains intubated on light sedation with low-dose Versed and fentanyl. Reviewed CT scan personally. Approximately 1.7 cm right-sided Subdural hygroma with acute blood. Discussed with neurosurgery AZIZA Hernandez. Agrees need for homer hole drainage once cleared by cardiology. I discussed with Dr. ruiz who agrees to clear the patient for neurosurgery. He agrees that patient is high risk for any surgical procedure however risk is not prohibitory 05/12: Patient remains intubated, less agitated today as per . I had a long conversation with his today, who does not want to proceed with homer holes as she is concerned that the patient may have a cardiac arrest during the procedure, or may have no improvement or worsening mental status after surgery. His mental status is still too poor to consider extubation. His also says that the patient would not want a trach or a PEG, and that he was clear with her in previous discussions that he would not want to live with deficits, dependent on machines, or in a nursing or rehab facility. I discussed palliative options including hospice, and the patient's would like to discuss with her children and likely have a family meeting tomorrow. 05/13: No overnight events. Patient's spoke with hospice liason last night , would like to have a meeting with her, her children, and our team tomorrow. Likely transition to comfort-based measures in the coming days. 05/14: I met with the patient's , two adult children, and [id number] along with the hospice entrance attendant this morning. His family is in strong agreement that hospice is in keeping with the patient's wishes. They would like to transfer the patient to [facility] today, and he will be compassionately extubated there. Objective Vital Signs / I&O: Vital Signs 05/13/18 11:00 05/13/18 11:31 05/13/18 12:00 Temperature Pulse Rate 54 L 57 L 52 L Respiratory Rate 13 15 14 Blood Pressure 113/56 L 110/54 L 103/51 L Pulse Oximetry 96 95 95 05/13/18 12:30 05/13/18 13:00 05/13/18 13:30 Temperature Pulse Rate 52 L 53 L 50 L Respiratory Rate 15 15 13 Blood Pressure 105/54 L 115/56 L 107/53 L Pulse Oximetry 95 97 96 05/13/18 14:00 05/13/18 14:31 05/13/18 15:00 Temperature Pulse Rate 52 L 77 53 L Respiratory Rate 10 L 27 H 17 Blood Pressure 127/59 L 124/66 128/57 L Pulse Oximetry 98 94 L 97 05/13/18 15:20 05/13/18 15:30 05/13/18 16:00 Temperature Pulse Rate 53 L 58 L Respiratory Rate 16 16 15 Blood Pressure 133/61 135/63 Pulse Oximetry 97 96 93 L 05/13/18 16:31 05/13/18 17:00 05/13/18 18:00 Temperature Pulse Rate 50 L 50 L 50 L Respiratory Rate 16 16 16 Blood Pressure 126/58 L Pulse Oximetry 98 97 97 05/13/18 19:00 05/13/18 19:13 05/13/18 20:00 Temperature 97.8 F Pulse Rate 51 L 50 L 50 L Respiratory Rate 36 H 63 H 16 Blood Pressure 115/56 L 115/59 L Pulse Oximetry 94 L 95 96 05/13/18 20:03 05/13/18 21:00 05/13/18 22:00 Temperature Pulse Rate 51 L 49 L Respiratory Rate 16 16 16 Blood Pressure 121/58 L 119/56 L Pulse Oximetry 97 96 96 05/13/18 22:30 05/13/18 23:00 05/13/18 23:30 Temperature Pulse Rate 48 L 49 L 49 L Respiratory Rate 16 17 22 Blood Pressure 126/59 L 120/58 L 135/60 Pulse Oximetry 96 97 97 05/14/18 00:00 05/14/18 00:30 05/14/18 00:31 Temperature 98.0 F Pulse Rate 50 L 50 L Respiratory Rate 24 19 16 Blood Pressure 117/58 L 124/60 Pulse Oximetry 96 97 96 05/14/18 01:00 05/14/18 01:30 05/14/18 02:00 Temperature Pulse Rate 51 L 51 L 52 L Respiratory Rate 20 19 18 Blood Pressure 128/59 L 124/61 125/60 Pulse Oximetry 98 98 98 05/14/18 02:30 05/14/18 03:00 05/14/18 03:16 Temperature Pulse Rate 51 L 52 L Respiratory Rate 22 23 16 Blood Pressure 119/59 L 124/59 L Pulse Oximetry 97 97 100 05/14/18 03:30 05/14/18 04:00 05/14/18 04:15 Temperature 98.3 F Pulse Rate 51 L 52 L 82 Respiratory Rate 25 H 21 22 Blood Pressure 123/60 121/59 L 167/74 H Pulse Oximetry 97 97 100 05/14/18 04:24 05/14/18 04:30 05/14/18 04:45 Temperature Pulse Rate 77 78 68 Respiratory Rate 34 H 25 H 34 H Blood Pressure 136/63 131/63 125/60 Pulse Oximetry 100 96 96 05/14/18 05:00 05/14/18 05:15 05/14/18 05:30 Temperature Pulse Rate 72 69 69 Respiratory Rate 38 H 36 H 21 Blood Pressure 127/61 126/56 L 115/57 L Pulse Oximetry 99 100 96 05/14/18 05:45 05/14/18 06:00 05/14/18 06:15 Temperature Pulse Rate 65 64 63 Respiratory Rate 16 16 16 Blood Pressure 116/57 L 123/58 L 112/57 L Pulse Oximetry 95 96 98 05/14/18 06:30 05/14/18 06:45 05/14/18 07:00 Temperature Pulse Rate 65 60 60 Respiratory Rate 15 16 16 Blood Pressure 124/59 L 112/56 L 113/58 L Pulse Oximetry 99 99 100 05/14/18 07:15 05/14/18 07:30 05/14/18 07:45 Temperature Pulse Rate 60 62 60 Respiratory Rate 16 16 16 Blood Pressure 117/56 L 122/58 L 111/56 L Pulse Oximetry 100 100 99 05/14/18 08:00 05/14/18 08:15 05/14/18 08:30 Temperature Pulse Rate 59 L 59 L 59 L Respiratory Rate 16 16 16 Blood Pressure 111/56 L 113/56 L 116/59 L Pulse Oximetry 99 100 100 05/14/18 08:45 05/14/18 08:59 05/14/18 09:00 Temperature Pulse Rate 59 L 59 L Respiratory Rate 16 16 15 Blood Pressure 117/59 L 115/58 L Pulse Oximetry 100 95 100 05/14/18 09:15 05/14/18 09:30 05/14/18 09:45 Temperature Pulse Rate 62 63 62 Respiratory Rate 13 14 16 Blood Pressure 95/49 L 100/52 L 99/51 L Pulse Oximetry 94 L 94 L 94 L 05/14/18 10:00 Temperature Pulse Rate 60 Respiratory Rate 17 Blood Pressure 101/51 L Pulse Oximetry 93 L Intake & Output 05/13/18 05/14/18 05/14/18 18:59 06:59 18:59 Intake Total 632.5 / 632.5 810 / 810 250 / 250 Output Total 400 / 400 700 / 700 Balance 232.5 / 232.5 110 / 110 250 / 250 Weight 105 kg Intake: IV 298.5 / 298.5 450 / 450 250 / 250 Versed Inj 50 mg In 50 ml @ 2 50 / 50 50 / 50 MG/HR 2 mls/hr IV.CONT TITRATE PRN Rx#:[id number] Zosyn 3.375 GM Premix 50 ML @ 50 / 50 150 / 150 100 mls/hr IV.SIG Q6H RAÚL Rx#: [id number] fentaNYL 10 mcg/mL Premix Drip 198.5 / 198.5 250 / 250 250 / 250 2,500 mcg In 250 ml @ 50 MCG/HR 5 mls/hr IV.SIG TITRATE PRN Rx #:[id number] Tube Feeding 334 / 334 360 / 360 Output: Urine Amount (Catheter) 400 / 400 700 / 700 Female External 400 / 400 700 / 700 Other: Date of Last Bowel Movement 05/13/18 05/13/18 # Bowel Movements 1 Result Diagrams: 05/13/18 05:45 05/13/18 05:45 Objective Remarks: GENERAL: Intubated and sedated SKIN: Warm and dry. HEAD: Normocephalic. EYES: No scleral icterus. Unequal pupils, unchanged NECK: Supple, trachea midline. CARDIOVASCULAR: Regular rate and rhythm RESPIRATORY: Breath sounds equal bilaterally. No respiratory distress. GASTROINTESTINAL: Abdomen soft, non-tender, nondistended. MUSCULOSKELETAL: No cyanosis, trace to 1+ peripheral edema Neuro: Sedated. Unequal pupils, right 4mm nonreactive, left 1 mm. Assessment and Plan - Assessment and Plan Plan: 72-year-old male with: Acute and chronic right-sided subdural hematoma 17 mm in thickness 4 mm of right to left midline shift NSTEMI Syncope Encephalopathy Wide-complex tachycardia with pulse: Suspect A flutter with aberrant conduction versus sinus tach with aberrant conduction Suspected sepsis CAD status post previous CABG Uncontrolled diabetes mellitus Hypertension Low back pain Plan: Patient to be transferred to [facility] this afternoon. All orders that were not comfort-focused have been discontinued. To help prompt me to consider important information that might be impacting today's encounter and assessment, information from prior notes written by myself or my colleagues may have been "brought forward" into today's note. My signature on this note, however, is an attestation that I personally performed the exam, history, and/or decision-making noted today, and, unless otherwise indicated, the interactions with patient, family, and staff as well as the review of records all occurred today. I also attest that the listed assessment and stated plan reflect my best clinical judgment today based on the combination of historical information, prior notes, and today's exam/ interactions. Code Status: DNR, transition to comfort-based measures after transfer to hospice
--- NOTE | 2018-05-14 10:43 | P.DS ---
Date of admission: 05/08/18 01:22 Primary care physician: UNKNOWN Attending physician on discharge: Katie Mercado Anticipated date of discharge: 05/14/18 Brief History from admission: 72-year-old male with a medical history significant for coronary artery disease status post previous CABG with subsequent cardiac catheterization requiring RCA stenting in 2010 who reportedly has been confused for about 1 week with fluctuating mental status along with low back pain. Today while was sleeping she heard a thud and patient had dropped to his knees and fallen on the bed. He was also noted to be shaking vigorously at the time however was able to talk during what appeared to be Reiger's. EMS was called. Patient was hypoxic on arrival with sats in the 60s. He was also tachycardic with heart rate in the 140s-150s with right bundle branch block. Since he had wide complexes there was concern for V. tach however he never lost his pulse. On arrival in the ER who he was intubated and placed on mechanical ventilation. He was loaded with IV amiodarone and lidocaine subsequently after failed attempted defibrillation/cardioversion x2. Patient does have a medical history significant for coronary artery disease status post previous CABG followed by RCA stenting in 2010, diabetes mellitus for which he uses an insulin pump, hypertension. Patient update on day of discharge: Please see my progress note from today. Patient to be transferred to [facility]] this afternoon. DS: Diagnosis - Discharge Diagnosis (1) NSTEMI (non-ST elevated myocardial infarction) Status: Acute Diagnosis: Secondary (2) CAD (coronary artery disease) Status: Chronic Diagnosis: Secondary (3) Cardiomyopathy Status: Chronic Diagnosis: Secondary (4) Cataracts, bilateral Status: Chronic Diagnosis: Secondary (5) Dyspnea Status: Acute Diagnosis: Secondary (6) GERD (gastroesophageal reflux disease) Status: Chronic Diagnosis: Secondary (7) Hiatal hernia Status: Chronic Diagnosis: Secondary (8) Hygroma, cystic Status: Acute Diagnosis: Principal (9) Hypertension Status: Chronic Diagnosis: Secondary (10) ICH (intracerebral hemorrhage) Status: Acute Diagnosis: Secondary (11) Neuropathy Status: Chronic Diagnosis: Secondary (12) Pain Status: Chronic Diagnosis: Secondary (13) Restless Status: Chronic Diagnosis: Secondary (14) Sleep apnea with use of continuous positive airway pressure (CPAP) Status: Chronic Diagnosis: Secondary (15) Ventricular tachycardia Status: Acute Diagnosis: Principal DS: Summary Hospital Course: 72-year-old male with a medical history significant for coronary artery disease status post previous CABG with subsequent cardiac catheterization requiring RCA stenting in 2010 who reportedly has been confused for about 1 week with fluctuating mental status along with low back pain. Today while was sleeping she heard a thud and patient had dropped to his knees and fallen on the bed. He was also noted to be shaking vigorously at the time however was able to talk during what appeared to be Reiger's. EMS was called. Patient was hypoxic on arrival with sats in the 60s. He was also tachycardic with heart rate in the 140s-150s with right bundle branch block. Since he had wide complexes there was concern for V. tach however he never lost his pulse. On arrival in the ER who he was intubated and placed on mechanical ventilation. He was loaded with IV amiodarone and lidocaine subsequently after failed attempted defibrillation/cardioversion x2. Patient does have a medical history significant for coronary artery disease status post previous CABG followed by RCA stenting in 2010, diabetes mellitus for which he uses an insulin pump, hypertension. Subjective 05/08: Follow-up. Discussed with Rufina maria at [phone]. Discussion regarding my discussion with neurosurgery Dr. Stevens regarding brain hygroma/ hemorrhage. Options include a empirically starting the patient on heparin drip with frequent neuro checks. Repeat head CT and a.m. Patient has significant risk of bleeding with this however. Possibility of not starting anticoagulation with possibility of worsening cardiac outcome. At the present time, patient wishes to discuss with her regular nuclear waste process operator Dr. Franklin need for anticoagulation at this time. She will discuss with him tomorrow. She is aware of risk of possible cardiac decline as a result of this but wishes to discuss with her regular nuclear waste process operator tomorrow. 05/09 Patient is intubated and sedated with Versed and Fentanyl infusion. On Levophed 2 mics. Afebrile. 05/10 Patient remains intubated and sedated. Off Levophed. Afebrile. 05/11: Patient remains intubated on light sedation with low-dose Versed and fentanyl. Reviewed CT scan personally. Approximately 1.7 cm right-sided Subdural hygroma with acute blood. Discussed with neurosurgery AZIZA Hernandez. Agrees need for homer hole drainage once cleared by cardiology. I discussed with Dr. ruiz who agrees to clear the patient for neurosurgery. He agrees that patient is high risk for any surgical procedure however risk is not prohibitory 05/12: Patient remains intubated, less agitated today as per . I had a long conversation with his today, who does not want to proceed with homer holes as she is concerned that the patient may have a cardiac arrest during the procedure, or may have no improvement or worsening mental status after surgery. His mental status is still too poor to consider extubation. His also says that the patient would not want a trach or a PEG, and that he was clear with her in previous discussions that he would not want to live with deficits, dependent on machines, or in a nursing or rehab facility. I discussed palliative options including hospice, and the patient's would like to discuss with her children and likely have a family meeting tomorrow. 05/13: No overnight events. Patient's spoke with hospice liason last night , would like to have a meeting with her, her children, and our team tomorrow. Likely transition to comfort-based measures in the coming days. 05/14: I met with the patient's , two adult children, and [id number] along with the actuarial consultant this morning. His family is in strong agreement that hospice is in keeping with the patient's wishes. They would like to transfer the patient to [facility] today, and he will be compassionately extubated there. - Time Spent with Patient Total time spent providing and/or coordinating discharge services: 28 minutes Less than 30 minutes - Quality: VTE Deep Vein Thrombosis/Pulmonary Embolism Present on Admission: No Exam Vital signs: Vital Signs 05/13/18 11:00 05/13/18 11:31 05/13/18 12:00 Temperature Pulse Rate 54 L 57 L 52 L Respiratory Rate 13 15 14 Blood Pressure 113/56 L 110/54 L 103/51 L Pulse Oximetry 96 95 95 05/13/18 12:30 05/13/18 13:00 05/13/18 13:30 Temperature Pulse Rate 52 L 53 L 50 L Respiratory Rate 15 15 13 Blood Pressure 105/54 L 115/56 L 107/53 L Pulse Oximetry 95 97 96 05/13/18 14:00 05/13/18 14:31 05/13/18 15:00 Temperature Pulse Rate 52 L 77 53 L Respiratory Rate 10 L 27 H 17 Blood Pressure 127/59 L 124/66 128/57 L Pulse Oximetry 98 94 L 97 05/13/18 15:20 05/13/18 15:30 05/13/18 16:00 Temperature Pulse Rate 53 L 58 L Respiratory Rate 16 16 15 Blood Pressure 133/61 135/63 Pulse Oximetry 97 96 93 L 05/13/18 16:31 05/13/18 17:00 05/13/18 18:00 Temperature Pulse Rate 50 L 50 L 50 L Respiratory Rate 16 16 16 Blood Pressure 126/58 L Pulse Oximetry 98 97 97 05/13/18 19:00 05/13/18 19:13 05/13/18 20:00 Temperature 97.8 F Pulse Rate 51 L 50 L 50 L Respiratory Rate 36 H 63 H 16 Blood Pressure 115/56 L 115/59 L Pulse Oximetry 94 L 95 96 05/13/18 20:03 05/13/18 21:00 05/13/18 22:00 Temperature Pulse Rate 51 L 49 L Respiratory Rate 16 16 16 Blood Pressure 121/58 L 119/56 L Pulse Oximetry 97 96 96 05/13/18 22:30 05/13/18 23:00 05/13/18 23:30 Temperature Pulse Rate 48 L 49 L 49 L Respiratory Rate 16 17 22 Blood Pressure 126/59 L 120/58 L 135/60 Pulse Oximetry 96 97 97 05/14/18 00:00 05/14/18 00:30 05/14/18 00:31 Temperature 98.0 F Pulse Rate 50 L 50 L Respiratory Rate 24 19 16 Blood Pressure 117/58 L 124/60 Pulse Oximetry 96 97 96 05/14/18 01:00 05/14/18 01:30 05/14/18 02:00 Temperature Pulse Rate 51 L 51 L 52 L Respiratory Rate 20 19 18 Blood Pressure 128/59 L 124/61 125/60 Pulse Oximetry 98 98 98 05/14/18 02:30 05/14/18 03:00 05/14/18 03:16 Temperature Pulse Rate 51 L 52 L Respiratory Rate 22 23 16 Blood Pressure 119/59 L 124/59 L Pulse Oximetry 97 97 100 05/14/18 03:30 05/14/18 04:00 05/14/18 04:15 Temperature 98.3 F Pulse Rate 51 L 52 L 82 Respiratory Rate 25 H 21 22 Blood Pressure 123/60 121/59 L 167/74 H Pulse Oximetry 97 97 100 05/14/18 04:24 05/14/18 04:30 05/14/18 04:45 Temperature Pulse Rate 77 78 68 Respiratory Rate 34 H 25 H 34 H Blood Pressure 136/63 131/63 125/60 Pulse Oximetry 100 96 96 05/14/18 05:00 05/14/18 05:15 05/14/18 05:30 Temperature Pulse Rate 72 69 69 Respiratory Rate 38 H 36 H 21 Blood Pressure 127/61 126/56 L 115/57 L Pulse Oximetry 99 100 96 05/14/18 05:45 05/14/18 06:00 05/14/18 06:15 Temperature Pulse Rate 65 64 63 Respiratory Rate 16 16 16 Blood Pressure 116/57 L 123/58 L 112/57 L Pulse Oximetry 95 96 98 05/14/18 06:30 05/14/18 06:45 05/14/18 07:00 Temperature Pulse Rate 65 60 60 Respiratory Rate 15 16 16 Blood Pressure 124/59 L 112/56 L 113/58 L Pulse Oximetry 99 99 100 05/14/18 07:15 05/14/18 07:30 05/14/18 07:45 Temperature Pulse Rate 60 62 60 Respiratory Rate 16 16 16 Blood Pressure 117/56 L 122/58 L 111/56 L Pulse Oximetry 100 100 99 05/14/18 08:00 05/14/18 08:15 05/14/18 08:30 Temperature Pulse Rate 59 L 59 L 59 L Respiratory Rate 16 16 16 Blood Pressure 111/56 L 113/56 L 116/59 L Pulse Oximetry 99 100 100 05/14/18 08:45 05/14/18 08:59 05/14/18 09:00 Temperature Pulse Rate 59 L 59 L Respiratory Rate 16 16 15 Blood Pressure 117/59 L 115/58 L Pulse Oximetry 100 95 100 05/14/18 09:15 05/14/18 09:30 05/14/18 09:45 Temperature Pulse Rate 62 63 62 Respiratory Rate 13 14 16 Blood Pressure 95/49 L 100/52 L 99/51 L Pulse Oximetry 94 L 94 L 94 L 05/14/18 10:00 Temperature Pulse Rate 60 Respiratory Rate 17 Blood Pressure 101/51 L Pulse Oximetry 93 L Intake & Output 05/13/18 05/14/18 05/14/18 18:59 06:59 18:59 Intake Total 632.5 / 632.5 810 / 810 250 / 250 Output Total 400 / 400 700 / 700 Balance 232.5 / 232.5 110 / 110 250 / 250 Weight 105 kg Intake: IV 298.5 / 298.5 450 / 450 250 / 250 Versed Inj 50 mg In 50 ml @ 2 50 / 50 50 / 50 MG/HR 2 mls/hr IV.CONT TITRATE PRN Rx#:[id number] Zosyn 3.375 GM Premix 50 ML @ 50 / 50 150 / 150 100 mls/hr IV.SIG Q6H RAÚL Rx#: [id number] fentaNYL 10 mcg/mL Premix Drip 198.5 / 198.5 250 / 250 250 / 250 2,500 mcg In 250 ml @ 50 MCG/HR 5 mls/hr IV.SIG TITRATE PRN Rx #:[id number] Tube Feeding 334 / 334 360 / 360 Output: Urine Amount (Catheter) 400 / 400 700 / 700 Female External 400 / 400 700 / 700 Other: Date of Last Bowel Movement 05/13/18 05/13/18 # Bowel Movements 1 Narrative: Please see my progress note from this morning, no significant changes in exam prior to discharge Results Procedures completed during hospitalization: Intubation, central line Pending studies at discharge: None Labs on day of discharge: Labs from last 24 hours 05/14/18 05/14/18 05/13/18 05:41 00:28 18:41 POC Glucose 217 H 205 H 207 H 05/13/18 12:11 POC Glucose 257 H - Impressions ITS Impressions Abdomen/Pelvis CT 05/08/18 00:00 CONCLUSION: 1. Bibasilar pulmonary infiltrates with small pleural effusions. 2. Significant coronary artery atherosclerotic calcifications. 3. Cholelithiasis. No CT evidence to suggest acute cholecystitis. Head CT 05/08/18 19:23 CONCLUSION: 1. 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 No new hemorrhage. . Abdomen Ultrasound 05/09/18 00:00 CONCLUSION: 1. Probable fatty infiltration of the liver. 2. Mobile gallstones within the gallbladder. No significant pericholecystic fluid identified. No significant gallbladder wall thickening. 3. Increased echogenicity of the renal cortex suggesting underlying medical renal disease. 4. 2.5 cm renal cyst on the left. 5. Trace amount of ascites adjacent to the liver. 6. Minimal right basilar effusion. Chest X-Ray 05/12/18 06:00 CONCLUSION: 1. Mid inspiratory study with chronic lung vasculature. Hazy perihilar opacities remain which likely is not significantly changed. 2. Small left effusion. Discharge Plan - Discharge Disposition Patient Disposition: 70 Transfer To Other Facility - Discharge Condition Condition: Stable - Discharge Order Discharge Orders: Discharge Order (Routine); Ordered 05/14/18 Ordered By: Katie Mercado - Physicians Team Primary Care Provider: UNKNOWN, Attending Provider: Jose Lott Other Providers: Víctor Franklin MD ; Shawn Stevens MD ; Óscar Benavides MD
[2018-05-14 12:02] VITALS: RESP 16
[2018-05-14 15:36] VITALS: BP 120/58; PULSE 57
[2018-05-14 18:16] VITALS: O2SAT 98
== END 2018-05-14 17:55 | disposition hospice, inpatient (51) | DRG 207 ==
LOC: NEPC 00:24 → NEDA 01:22 → HIMC 03:10
PROVIDERS: ADMIT Internal Medicine Critical Care Medicine; ATTEND Internal Medicine Critical Care Medicine
CPT/HCPCS: 31500; 36556; 36569; 36600; 51702; 70450; 71010; 71045; 74176; 76700; 76937; 80053; 80074; 80307; 81001; 82805; 82948; 82962; 83605; 83735; 84100; 84443; 84484; 85025; 85610; 87040; 87070; 87086; 87205; 87641; 92960; 93005; 93306; 94002; 94003; 94640; 94656; 94657; 94664; 94665; 97110; 97162; 99291; 99292; J0131; J0282; J0330; J1644; J2001; J2060; J2250; J2370; J2543; J2704; J3010; J3370; J3475; J7030; J7040; J7050; J7060; S0171